=== PATIENT | female | born 1930 | race Caucasian/White ===

== ENCOUNTER 2017-11-21 08:20 | Inpatient (IN) ==
--- NOTE | 2017-11-21 09:03 | ED ---
HPI General Chief Complaint: Extremity Injury, Lower Stated Complaint: Fall Time Seen by Provider: 11/21/17 08:59 Source: patient, family and EMS Mode of arrival: EMS Limitations: no limitations History of Present Illness HPI Narrative: 87-year-old female patient presents to the ER today brought in by family and EMS because she had fallen in the bathroom, states that she had slipped and fallen, has injured her right hip, has an obvious right hip deformity.She also complains of right arm pain. She denies hitting her head, had no loss of consciousness. Patient's son had heard her fall and came to see her and help her up right away. Related Data Home Medications Medication Instructions Recorded Confirmed levothyroxine 11/21/17 lisinopril 11/21/17 Allergies Allergy/AdvReac Type Severity Reaction Status Date / Time penicillin G Allergy Unknown PT DOES Unverified 10/26/16 12:00 NOT REMEMBER REACTION Review of Systems ROS: all other systems reviewed are negative [facility] Medical History Medical History H/O: hysterectomy (Acute) HTN (hypertension) (Acute) Hypothyroidism (Acute) Surgical History Surgical History History of back surgery (Acute) Social History Social History Second Hand Smoke Exposure: No Smoking Status: Never smoker How Often Do You Have a Drink Containing Alcohol: Never Recent Travel in [facility] within the Last 8 Weeks: No Recent Out of Country Travel within the Last 8 Weeks: No Immunization History Tetanus Immunization: Unsure Hx Influenza Vaccine This Season: No Exam Narrative Exam Narrative: GENERAL: Well-developed elderly white female patient currently in moderate distress.Awake and oriented 3. SKIN: Focused skin assessment warm/dry. HEAD: Atraumatic. Normocephalic. EYES: Pupils equal and round. No scleral icterus. No injection or drainage. ENT: No nasal bleeding or discharge. Mucous membranes pink and moist. NECK: Trachea midline. No JVD. CARDIOVASCULAR: Regular rate and rhythm. No murmur appreciated. RESPIRATORY: No accessory muscle use. Clear to auscultation. Breath sounds equal bilaterally. GASTROINTESTINAL: Abdomen soft, non-tender, nondistended. Hepatic and splenic margins not palpable. Pelvis: Stable, there is notable deformity in the right hip area with obvious ecchymosis. Her right leg is shortened and externally rotated. Pulses are present in the dorsal pedis of the right. MUSCULOSKELETAL: No obvious deformities. No clubbing. No cyanosis. No edema. NEUROLOGICAL: Awake and alert. No obvious cranial nerve deficits. Motor grossly within normal limits. Normal speech. PSYCHIATRIC: Appropriate mood and affect; insight and judgment normal. Course Initial Documented Vital Signs Temperature 97.8 F 11/21/17 08:46 Pulse Rate 86 11/21/17 08:46 Respiratory Rate 16 11/21/17 08:46 Blood Pressure 130/61 11/21/17 08:46 Pulse Oximetry 95 11/21/17 08:46 Last Documented Vital Signs Temperature 97.8 F 11/21/17 08:46 Pulse Rate 86 11/21/17 08:46 Respiratory Rate 16 11/21/17 08:46 Blood Pressure 130/61 11/21/17 08:46 Pulse Oximetry 95 11/21/17 08:46 Medical Decision Making MDM Narrative Medical decision making narrative: X-ray shows comminuted right femoral fracture. Lab work shows significant leukocytosis but the patient is afebrile, I suspect that this is due to stress response. At this point, case is discussed with family practice resident service for admission.Case is discussed with PA for Dr. Boogie, who had asked me to put the patient on Mojica's traction, n.p.o. for now, and they may do her today or tomorrow. Medical Screen Exam Complete: Yes Emergency Medical Condition: Yes Differential Diagnosis Differential Diagnosis: Right hip fracture versus dislocation versus contusion Lab Data Lab results reviewed: Yes I reviewed the patient's lab results. Result diagrams: 11/21/17 09:00 11/21/17 09:00 Lab Results 11/21/17 11/21/17 11/21/17 Range/Units 09:00 09:00 09:00 WBC 25.4 H (4.0-11.0) th/mm3 RBC 3.68 L (4.00-5.30) mil/mm3 Hgb 11.3 L (11.6-15.3) gm/dL Hct 34.7 L (35.0-46.0) % MCV 94.2 (80.0-100.0) fL MCH 30.6 (27.0-34.0) pg MCHC 32.5 (32.0-36.0) % RDW 15.2 (11.6-17.2) % Plt Count 148 L (150-450) th/mm3 MPV 7.2 (7.0-11.0) fL Prelim Diff (Auto) Slide review pending Neut % (Auto) 30.7 (16.0-70.0) % Lymph % (Auto) 66.5 H (9.0-44.0) % Smyth % (Auto) 1.2 (0.0-8.0) % Eos % (Auto) 0.8 (0.0-4.0) % Baso % (Auto) 0.8 (0.0-2.0) % Neut # (Auto) 7.8 H (1.8-7.7) th/mm3 Lymph # (Auto) 16.9 H (1.0-4.8) th/mm3 Smyth # (Auto) 0.3 (0.0-0.9) th/mm3 Eos # (Auto) 0.2 (0.0-0.4) th/mm3 Baso # (Auto) 0.2 (0.0-0.2) th/mm3 Differential Comment . PT 12.0 H (9.8-11.6) sec INR 1.2 Ratio APTT 22.9 L (24.3-30.1) sec Sodium 139 (136-145) meq/L Potassium 4.4 (3.5-5.1) meq/L Chloride 106 (98-107) meq/L Carbon Dioxide 25.9 (21.0-32.0) meq/L Anion Gap 7 (5-15) meq/L BUN 22 H (7-18) mg/dL Creatinine 0.58 (0.50-1.00) mg/dL Estimated GFR Greater than 89 (>89) mL/min Random Glucose 179 H (74-106) mg/dL Calcium 8.5 (8.5-10.1) mg/dL Blood Type Blood Type Recheck Antibody Screen 11/21/17 Range/Units 09:00 WBC (4.0-11.0) th/mm3 RBC (4.00-5.30) mil/mm3 Hgb (11.6-15.3) gm/dL Hct (35.0-46.0) % MCV (80.0-100.0) fL MCH (27.0-34.0) pg MCHC (32.0-36.0) % RDW (11.6-17.2) % Plt Count (150-450) th/mm3 MPV (7.0-11.0) fL Prelim Diff (Auto) Neut % (Auto) (16.0-70.0) % Lymph % (Auto) (9.0-44.0) % Smyth % (Auto) (0.0-8.0) % Eos % (Auto) (0.0-4.0) % Baso % (Auto) (0.0-2.0) % Neut # (Auto) (1.8-7.7) th/mm3 Lymph # (Auto) (1.0-4.8) th/mm3 Smyth # (Auto) (0.0-0.9) th/mm3 Eos # (Auto) (0.0-0.4) th/mm3 Baso # (Auto) (0.0-0.2) th/mm3 Differential Comment PT (9.8-11.6) sec INR Ratio APTT (24.3-30.1) sec Sodium (136-145) meq/L Potassium (3.5-5.1) meq/L Chloride (98-107) meq/L Carbon Dioxide (21.0-32.0) meq/L Anion Gap (5-15) meq/L BUN (7-18) mg/dL Creatinine (0.50-1.00) mg/dL Estimated GFR (>89) mL/min Random Glucose (74-106) mg/dL Calcium (8.5-10.1) mg/dL Blood Type A Positive Blood Type Recheck Required Antibody Screen Negative Imaging Data Attestation: I personally reviewed and interpreted this imaging study as follows : Radiologist's impression: Pelvis X-Ray 11/21/17 00:00 CONCLUSION: Negative for acute pelvic fracture. Chest X-Ray 11/21/17 08:59 CONCLUSION: 1. No evidence of acute cardiopulmonary process. 2. Cardiomegaly 3. Nondisplaced fracture proximal right femur 4. Severe bilateral shoulder arthropathy. Femur X-Ray 11/21/17 08:59 CONCLUSION: Proximal femur fracture as above. Humerus X-Ray 11/21/17 08:59 CONCLUSION: Fracture proximal humerus as above. Discharge Plan Discharge Disposition Patient Disposition: 30 Still Patient Discharge Condition Condition: Stable Discharge Details Anticipated Discharge Date: 11/21/17 Diagnosis: Fracture of femur Physicians Team ED Provider: Frank Reina Primary Care Provider: UNKNOWN, Rxs /Orders / Referrals /Forms Prescriptions: No Action levothyroxine RF: 0 lisinopril RF: 0 Status ED Status: Admitted Patient
[2017-11-21 09:24] LABS: Baso # (Auto) 0.2 th/mm3 (0.0-0.2); Baso % (Auto) 0.8 % (0.0-2.0); Eos # (Auto) 0.2 th/mm3 (0.0-0.4); Eos % (Auto) 0.8 % (0.0-4.0); Hematocrit 34.7 % (35.0-46.0); Hemoglobin 11.3 gm/dL (11.6-15.3); Lymph # (Auto) 16.9 th/mm3 (1.0-4.8); Lymph % (Auto) 66.5 % (9.0-44.0); Mean Corpuscular HGB Conc 32.5 % (32.0-36.0); Mean Corpuscular Hemoglobin 30.6 pg (27.0-34.0); Mean Corpuscular Volume 94.2 fL (80.0-100.0); Mean Platelet Volume 7.2 fL (7.0-11.0); Mono # (Auto) 0.3 th/mm3 (0.0-0.9); Mono % (Auto) 1.2 % (0.0-8.0); Neut # (Auto) 7.8 th/mm3 (1.8-7.7); Neut % (Auto) 30.7 % (16.0-70.0); Platelet Count 148 th/mm3 (150-450); Red Blood Count 3.68 mil/mm3 (4.00-5.30); Red Cell Distribution Width 15.2 % (11.6-17.2); White Blood Count 25.4 th/mm3 (4.0-11.0)
[2017-11-21 09:39] LABS: Activated Partial Thrombo Time 22.9 sec (24.3-30.1); INR 1.2 Ratio
[2017-11-21 09:44] LABS: Anion Gap 7 meq/L (5-15); Blood Urea Nitrogen 22 mg/dL (7-18); Calcium 8.5 mg/dL (8.5-10.1); Carbon Dioxide 25.9 meq/L (21.0-32.0); Chloride 106 meq/L (98-107); Glomerular Filtration Rate Greater Than 89 mL/min (>89); Glucose,Random 179 mg/dL (74-106); Potassium 4.4 meq/L (3.5-5.1); Sodium 139 meq/L (136-145)
[2017-11-21] MEDS ORDERED: Acetaminophen 325 MG Tablet PO PRN (10:33)
[2017-11-21] MEDS ORDERED: Morphine Inj 4 MG/ML Vial IV.PUSH PRN (10:33)
[2017-11-21] MEDS ORDERED: Naloxone Inj 0.4 MG/ML Vial IV.PUSH PRN (10:33)
[2017-11-21 11:11] LABS: Eosinophils 2 % (0-4); Lymphocytes 71 % (9-44); Monocytes 7 % (0-8)
[2017-11-21 11:12] LABS: Platelet Morphology Normal (Normal)
--- NOTE | 2017-11-21 11:32 | P.HPFP ---
History of Present Illness Primary Care Physician: UNKNOWN <Cruz Fischer Josefina 11/21/17 17:54> UNKNOWN <TeresaRae Terry 11/21/17 11:32> History of Present Illness: Ms Walker is an 87yof with past medical history of osteoporosis here for evaluation after a fall this am. Most of history is given by son as patient is very hard of hearing and gets frustrated upon repeated questioning. Patient got up at about 7 AM the bathroom and slid on the tile floor. She reports that she did not hit her head and just slid directly on her buttocks. The son found her immediately. He reports that her right leg was twisted outward there was bruising noted on the right outer hip. She has not ambulated since the fall. There was no incontinence of bowel or bladder or tongue biting. She did not lose consciousness. She reports that she uses a walker at all times at home she has had 2 falls in the last year. She fractured her right arm 2 years ago. PMH R humerus fracture, 2016 Osteoporosis Hypertension Hypothyroid Meds Levothyroxine Lisinopril Sx Back surgery 25 years ago x3 Social Tobacco never smoker No EtOH Cannabis about twice a day, small amounts <TeresaRae Stewart 11/21/17 14:07> - Diagnosis (1) Fracture of femur (2) Leukocytosis (3) Hyperglycemia (4) Hypothyroid (5) Hypertension (6) Humeral fracture (7) Nutrition, metabolism, and development symptoms <Cruz Fischer Josefina 11/21/17 17:54> (1) Fracture of femur (2) Leukocytosis (3) Hyperglycemia (4) Hypothyroid (5) Hypertension (6) Humeral fracture (7) Nutrition, metabolism, and development symptoms <Rae Moore - 11/21/17 16:20> Inpatient Certification: I certify that the inpatient services were ordered in accordance with Medicare regulations governing the order. This includes certification that hospital inpatient services are reasonable and necessary and in the case of services not specified as inpatient-only under 42 CFR 419.22(n), that they are appropriately provided as inpatient services in accordance to with the 2-midnight benchmark under 43 CFR 412.3(e) <Cruz Fischer Josefina 11/21/17 17:54> I certify that the inpatient services were ordered in accordance with Medicare regulations governing the order. This includes certification that hospital inpatient services are reasonable and necessary and in the case of services not specified as inpatient-only under 42 CFR 419.22(n), that they are appropriately provided as inpatient services in accordance to with the 2-midnight benchmark under 43 CFR 412.3(e) <Rae Moore 11/21/17 11:32> Estimated Total Length of Stay (Days): 3 <Rae Moore 11/21/17 11:32> Plans for Post Hospital Care: Not yet determined <Rae Moore 11/21/17 11: 32> Review of Systems Constitutional: Denies chills, Denies fever(s), Denies weakness <TeresaRae Stewart 11/21/17 14:07> Ears, Nose, Mouth, and Throat: Denies dizziness, Denies sore throat <Teresa Rae Stewart 11/21/17 14:07> Cardiovascular: Denies chest pain, Denies fainting, Denies lightheadedness < Teresa,Rae Stewart 11/21/17 14:07> Respiratory: Denies cough, Denies shortness of breath <Rae Moore 14:07> Gastrointestinal: Denies abdominal pain, Denies black, tarry stools, Denies constipation, Denies incontinent of stools, Denies loose stools, Denies nausea, Denies vomiting <Rae Moore 11/21/17 14:07> Genitourinary: Denies painful urination, Denies urinary incontinence <Teresa, Rae Stewart 11/21/17 14:07> PMF - History History Provided By: Patient, Family Member <Rae Moore 11/21/17 11:32> - Medical History Medical History: Medical History (Last Reviewed 11/21/17 @ 09:01 by Frank Reina MD) H/O: hysterectomy HTN (hypertension) Hypothyroidism <Cruz Fischer 11/21/17 17:54> Medical History (Last Reviewed 11/21/17 @ 09:01 by Frank Reina MD) H/O: hysterectomy HTN (hypertension) Hypothyroidism <TeresaRae E 11/21/17 11:32> - Surgical History Surgical History: Surgical History (Last Reviewed 11/21/17 @ 09:01 by Frank Reina MD) History of back surgery <Cruz Fischer 11/21/17 17:54> Surgical History (Last Reviewed 11/21/17 @ 09:01 by Frank Reina MD) History of back surgery <Rae Moore 11/21/17 11:32> - Tobacco History Second Hand Smoke Exposure: No <Rae Moore 11/21/17 11:32> Smoking Status: Never smoker <Rae Moore 11/21/17 11:32> - Alcohol History How Often Do You Have a Drink Containing Alcohol: Never <Rae Moore 11/21 11:32> - Travel History Recent Travel in the [facility] Within the Last 8 Weeks: No <Rae Moore 11:32> Recent Travel Out of the Country Within the Last 8 Weeks: No <Rae Moore 11/21/17 11:32> - Immunization History Tetanus Immunization: Unsure <Rae Moore 11/21/17 11:32> Hx Influenza Vaccine This Season: No <Rae Moore 11/21/17 11:32> Medications and Allergies Allergies Allergy/AdvReac Type Severity Reaction Status Date / Time penicillin G Allergy Unknown PT DOES Verified 11/21/17 13:23 NOT REMEMBER REACTION <Cruz Fischer 11/21/17 17:54> Home Medications Medication Instructions Recorded Confirmed Type levothyroxine 11/21/17 History lisinopril 11/21/17 History <Cruz Fischer 11/21/17 17:54> Active Medications: Active Medications Acetaminophen (Tylenol) 650 mg PO Q6HR PRN PRN Reason: PAIN SCALE 1 TO 2 Hydrocodone Bitart/Acetaminophen (Binger 7.5/325) 1 tab PO Q4H PRN PRN Reason: PAIN SCALE 6 TO 10 Hydrocodone Bitart/Acetaminophen (Binger 5/325) 1 tab PO Q4H PRN PRN Reason: PAIN SCALE 3 TO 5 Last Admin: 11/21/17 11:15 Dose: 1 tab Al Hydroxide/Mg Hydroxide (Milk Of Magnesia Liq) 30 ml PO Q12H PRN PRN Reason: Mild Constipation Sodium Chloride (Ns Inj) 1,000 mls @ 50 mls/hr IV.CONT .Q20H ESTHER Last Admin: 11/21/17 16:33 Dose: 50 mls/hr Morphine Sulfate (Morphine Inj) 4 mg IV.PUSH Q3H PRN PRN Reason: BREAKTHROUGH PAIN Naloxone HCl (Narcan Inj) 0.4 mg IV.PUSH UNSCH PRN PRN Reason: SEE LABEL COMMENTS Senna/Docusate Sodium (Holli-Colace) 1 tab PO BID ESTHER Sennosides (Senokot) 17.2 mg PO Q12H PRN PRN Reason: Moderate Constipation <Cruz Fischer - 11/21/17 17:54> Active Medications Acetaminophen (Tylenol) 650 mg PO Q6HR PRN PRN Reason: PAIN SCALE 1 TO 2 Hydrocodone Bitart/Acetaminophen (Binger 7.5/325) 1 tab PO Q4H PRN PRN Reason: PAIN SCALE 6 TO 10 Hydrocodone Bitart/Acetaminophen (Binger 5/325) 1 tab PO Q4H PRN PRN Reason: PAIN SCALE 3 TO 5 Last Admin: 11/21/17 11:15 Dose: 1 tab Al Hydroxide/Mg Hydroxide (Milk Of Magnkuldeep Liq) 30 ml PO Q12H PRN PRN Reason: Mild Constipation Morphine Sulfate (Morphine Inj) 4 mg IV.PUSH Q3H PRN PRN Reason: BREAKTHROUGH PAIN Naloxone HCl (Narcan Inj) 0.4 mg IV.PUSH UNSCH PRN PRN Reason: SEE LABEL COMMENTS Senna/Docusate Sodium (Holli-Colace) 1 tab PO BID ESTHER Sennosides (Senokot) 17.2 mg PO Q12H PRN PRN Reason: Moderate Constipation <Rae Moore - 11/21/17 11:32> Exam Vital signs: Vital Signs 11/21/17 08:46 11/21/17 10:30 11/21/17 12:00 Temperature 97.8 F Pulse Rate 86 84 90 Respiratory Rate 16 19 17 Blood Pressure 130/61 113/53 L 121/57 L Pulse Oximetry 95 97 94 L 11/21/17 17:08 11/21/17 17:27 Temperature 98.4 F Pulse Rate 90 Respiratory Rate 16 17 Blood Pressure 139/62 Pulse Oximetry 96 Intake & Output 11/20/17 11/21/1718 18:59 06:59 18:59 Weight 52.163 kg <Cruz Fischer - 11/21/17 17:54> Vital Signs 11/21/17 08:46 Temperature 97.8 F Pulse Rate 86 Respiratory Rate 16 Blood Pressure 130/61 Pulse Oximetry 95 Intake & Output 11/20/17 11/21/17 11/21/17 18:59 06:59 18:59 Weight 52.163 kg <Rae Moore - 11/21/17 11:32> Narrative: GENERAL: Elderly female lying in bed under pile blankets. No acute distress HEAD: Atraumatic. Nontender to palpation. Normocephalic. EYES: Pupils equal and round. ENT: No nasal bleeding or discharge. Mucous membranes pink and slightly dry. CARDIOVASCULAR: Regular rate and rhythm. Grade 1 out of 6 systolic ejection murmur heard best over left sternal border. RESPIRATORY: No accessory muscle use. Clear to auscultation. Breath sounds equal bilaterally. GASTROINTESTINAL: Abdomen soft, non-tender, nondistended. MUSCULOSKELETAL: Right leg externally rotated. Moderate swelling and bruising along left lateral hip to mid lateral thigh. No open areas seen. Nontender to palpation. Patient able to move toes. Neurovascularly intact. Right upper extremity nontender to palpation. No bruising noted. Neurovascularly intact NEUROLOGICAL: Awake and alert. No obvious cranial nerve deficits. Motor grossly within normal limits. Normal speech. PSYCHIATRIC: Appropriate mood and affect; insight and judgment normal. Patient frustrated with communication barrier due to her hearing loss. <Rae Moore - 11/21/17 14:30> Results - Labs Result diagrams: 11/21/17 09:00 11/21/17 09:00 <Cruz Fischer - 11/21/17 17:54> Abnormal lab results 11/21/17 11/21/17 11/21/17 Range/Units 09:00 09:00 09:00 WBC 25.4 H (4.0-11.0) th/mm3 RBC 3.68 L (4.00-5.30) mil/mm3 Hgb 11.3 L (11.6-15.3) gm/dL Hct 34.7 L (35.0-46.0) % Plt Count 148 L (150-450) th/mm3 Lymph % (Auto) 66.5 H (9.0-44.0) % Neut # (Auto) 7.8 H (1.8-7.7) th/mm3 Lymph # (Auto) 16.9 H (1.0-4.8) th/mm3 Lymphocytes % (Manual) 71 H (9-44) % Platelet Estimate Low L (Normal) PT 12.0 H (9.8-11.6) sec APTT 22.9 L (24.3-30.1) sec BUN 22 H (7-18) mg/dL Random Glucose 179 H (74-106) mg/dL Vitamin D 25-Hydroxy (30-100) ng/mL Urine Clarity (Clear) Urine Mucus (Occasional) /lpf 11/21/17 11/21/17 Range/Units 09:00 10:20 WBC (4.0-11.0) th/mm3 RBC (4.00-5.30) mil/mm3 Hgb (11.6-15.3) gm/dL Hct (35.0-46.0) % Plt Count (150-450) th/mm3 Lymph % (Auto) (9.0-44.0) % Neut # (Auto) (1.8-7.7) th/mm3 Lymph # (Auto) (1.0-4.8) th/mm3 Lymphocytes % (Manual) (9-44) % Platelet Estimate (Normal) PT (9.8-11.6) sec APTT (24.3-30.1) sec BUN (7-18) mg/dL Random Glucose (74-106) mg/dL Vitamin D 25-Hydroxy 14.9 L (30-100) ng/mL Urine Clarity Hazy H (Clear) Urine Mucus Few H (Occasional) /lpf Short CBC 11/21/17 Range/Units 09:00 WBC 25.4 H (4.0-11.0) th/mm3 Hgb 11.3 L (11.6-15.3) gm/dL Hct 34.7 L (35.0-46.0) % Plt Count 148 L (150-450) th/mm3 BMP 11/21/17 09:00 Sodium 139 Potassium 4.4 Chloride 106 Carbon Dioxide 25.9 BUN 22 H Creatinine 0.58 Calcium 8.5 Urine 11/21/17 Range/Units 10:20 Urine Color Yellow (Yellw/Straw) Urine Clarity Hazy H (Clear) Urine pH 5.0 (5.0-8.5) Ur Specific [place] 1.012 (1.002-1.035) Urine Protein Negative (Neg-Trace) mg/dL Urine Glucose (UA) Negative (Negative) mg/dL <Cruz Fischer - 11/21/17 17:54> Abnormal lab results 11/21/17 11/21/17 11/21/17 Range/Units 09:00 09:00 09:00 WBC 25.4 H (4.0-11.0) th/mm3 RBC 3.68 L (4.00-5.30) mil/mm3 Hgb 11.3 L (11.6-15.3) gm/dL Hct 34.7 L (35.0-46.0) % Plt Count 148 L (150-450) th/mm3 Lymph % (Auto) 66.5 H (9.0-44.0) % Neut # (Auto) 7.8 H (1.8-7.7) th/mm3 Lymph # (Auto) 16.9 H (1.0-4.8) th/mm3 Lymphocytes % (Manual) 71 H (9-44) % Platelet Estimate Low L (Normal) PT 12.0 H (9.8-11.6) sec APTT 22.9 L (24.3-30.1) sec BUN 22 H (7-18) mg/dL Random Glucose 179 H (74-106) mg/dL Short CBC 11/21/17 Range/Units 09:00 WBC 25.4 H (4.0-11.0) th/mm3 Hgb 11.3 L (11.6-15.3) gm/dL Hct 34.7 L (35.0-46.0) % Plt Count 148 L (150-450) th/mm3 BMP 11/21/17 09:00 Sodium 139 Potassium 4.4 Chloride 106 Carbon Dioxide 25.9 BUN 22 H Creatinine 0.58 Calcium 8.5 <Rae Moore - 11/21/17 11:32> - Imaging Impressions Pelvis X-Ray 11/21/17 00:00 CONCLUSION: Negative for acute pelvic fracture. Chest X-Ray 11/21/17 08:59 CONCLUSION: 1. No evidence of acute cardiopulmonary process. 2. Cardiomegaly 3. Nondisplaced fracture proximal right femur 4. Severe bilateral shoulder arthropathy. Femur X-Ray 11/21/17 08:59 CONCLUSION: Proximal femur fracture as above. Humerus X-Ray 11/21/17 08:59 CONCLUSION: Fracture proximal humerus as above. <Cruz Fischer - 11/21/17 17:54> Impressions Pelvis X-Ray 11/21/17 00:00 CONCLUSION: Negative for acute pelvic fracture. Chest X-Ray 11/21/17 08:59 CONCLUSION: 1. No evidence of acute cardiopulmonary process. 2. Cardiomegaly 3. Nondisplaced fracture proximal right femur 4. Severe bilateral shoulder arthropathy. Femur X-Ray 11/21/17 08:59 CONCLUSION: Proximal femur fracture as above. Humerus X-Ray 11/21/17 08:59 CONCLUSION: Fracture proximal humerus as above. <Rae Moore - 11/21/17 11:32> Caprini VTE Risk Assessment Caprini VTE Risk Assessment: Moderate/High Risk (score >= 2) <Rae Moore - 11/21/17 14:30> Caprini Risk Assessment Model: Point Value = 1 Point Value = 2 Point Value = 3 Point Value = 5 Age 41-60 Minor surgery BMI > 25 kg/m2 Swollen legs Varicose veins or History of unexplained or recurrent spontaneous Oral contraceptives or hormone replacement Sepsis (< 1 month) Serious lung disease, including pneumonia (< 1 month) Abnormal pulmonary function Acute myocardial infarction Congestive heart failure (< 1 month) History of inflammatory bowel disease Medical patient at bed rest Age 61-74 Arthroscopic surgery Major open surgery (> 45 min) Laparoscopic surgery (> 45 min) Malignancy Confined to bed (> 72 hours) Immobilizing plaster cast Central venous access Age >= 75 History of VTE Family history of VTE Factor V Leiden Prothrombin [id number] Lupus anticoagulant Anticardiolipin antibodies Elevated serum homocysteine Heparin-induced thrombocytopenia Other congenital or acquired thrombophilia Stroke (< 1 month) Elective arthroplasty Hip, pelvis, or leg fracture Acute spinal cord injury (< 1 month) <Cruz Fischer - 11/21/17 17:54> Point Value = 1 Point Value = 2 Point Value = 3 Point Value = 5 Age 41-60 Minor surgery BMI > 25 kg/m2 Swollen legs Varicose veins or History of unexplained or recurrent spontaneous Oral contraceptives or hormone replacement Sepsis (< 1 month) Serious lung disease, including pneumonia (< 1 month) Abnormal pulmonary function Acute myocardial infarction Congestive heart failure (< 1 month) History of inflammatory bowel disease Medical patient at bed rest Age 61-74 Arthroscopic surgery Major open surgery (> 45 min) Laparoscopic surgery (> 45 min) Malignancy Confined to bed (> 72 hours) Immobilizing plaster cast Central venous access Age >= 75 History of VTE Family history of VTE Factor V Leiden Prothrombin [id number] Lupus anticoagulant Anticardiolipin antibodies Elevated serum homocysteine Heparin-induced thrombocytopenia Other congenital or acquired thrombophilia Stroke (< 1 month) Elective arthroplasty Hip, pelvis, or leg fracture Acute spinal cord injury (< 1 month) <Rae Moore E - 11/21/17 11:32> Prophylaxis Regimen: Total Risk Factor Score Risk Level Prophylaxis Regimen 0-1 Low Early ambulation 2 Moderate Order ONE of the following: *Sequential Compression Device (SCD) *Heparin 5000 units SQ BID 3-4 Higher Order ONE of the following medications: *Heparin 5000 units SQ TID *Enoxaparin/Lovenox 40 mg SQ daily (WT < 150 kg, CrCl > 30 mL/min) *Enoxaparin/Lovenox 30 mg SQ daily (WT < 150 kg, CrCl > 10-29 mL/min) *Enoxaparin/Lovenox 30 mg SQ BID (WT < 150 kg, CrCl > 30 mL/min) AND/OR *Sequential Compression Device (SCD) 5 or more Highest Order ONE of the following medications: *Heparin 5000 units SQ TID (Preferred with Epidurals) *Enoxaparin/Lovenox 40 mg SQ daily (WT < 150 kg, CrCl > 30 mL/min) *Enoxaparin/Lovenox 30 mg SQ daily (WT < 150 kg, CrCl > 10-29 mL/min) *Enoxaparin/Lovenox 30 mg SQ BID (WT < 150 kg, CrCl > 30 mL/min) AND *Sequential Compression Device (SCD) <Cruz Fischer - 11/21/17 17:54> Total Risk Factor Score Risk Level Prophylaxis Regimen 0-1 Low Early ambulation 2 Moderate Order ONE of the following: *Sequential Compression Device (SCD) *Heparin 5000 units SQ BID 3-4 Higher Order ONE of the following medications: *Heparin 5000 units SQ TID *Enoxaparin/Lovenox 40 mg SQ daily (WT < 150 kg, CrCl > 30 mL/min) *Enoxaparin/Lovenox 30 mg SQ daily (WT < 150 kg, CrCl > 10-29 mL/min) *Enoxaparin/Lovenox 30 mg SQ BID (WT < 150 kg, CrCl > 30 mL/min) AND/OR *Sequential Compression Device (SCD) 5 or more Highest Order ONE of the following medications: *Heparin 5000 units SQ TID (Preferred with Epidurals) *Enoxaparin/Lovenox 40 mg SQ daily (WT < 150 kg, CrCl > 30 mL/min) *Enoxaparin/Lovenox 30 mg SQ daily (WT < 150 kg, CrCl > 10-29 mL/min) *Enoxaparin/Lovenox 30 mg SQ BID (WT < 150 kg, CrCl > 30 mL/min) AND *Sequential Compression Device (SCD) <Rae Moore - 11/21/17 11:32> Assessment and Plan - Assessment (1) Fracture of femur Code(s): S72.90XA - Unspecified fracture of unspecified femur, initial encounter for closed fracture Status: Acute (2) Leukocytosis Code(s): D72.829 - Elevated white blood cell count, unspecified Status: Acute (3) Hyperglycemia Code(s): R73.9 - Hyperglycemia, unspecified Status: Acute (4) Hypothyroid Code(s): E03.9 - Hypothyroidism, unspecified Status: Acute (5) Hypertension Code(s): I10 - Essential (primary) hypertension Status: Acute (6) Humeral fracture Code(s): S42.309A - Unspecified fracture of shaft of humerus, unspecified arm, initial encounter for closed fracture Status: Chronic (7) Nutrition, metabolism, and development symptoms Code(s): R63.8 - Other symptoms and signs concerning food and fluid intake Status: Acute <Cruz Fischer - 11/21/17 17:54> (1) Fracture of femur Code(s): S72.90XA - Unspecified fracture of unspecified femur, initial encounter for closed fracture Status: Acute Plan: Comminuted spiral fracture of proximal femur noted on x-ray Patient neurovascularly intact -Orthopedic surgery consulted, appreciate recommendations -Binger for pain with morphine for breakthrough pain -Total vitamin D level ordered -Will consider DEXA scan planning +/- bisphosphonate on discharge. (2) Leukocytosis Code(s): D72.829 - Elevated white blood cell count, unspecified Status: Acute Plan: Likely result of current inflammation state. Absolute neutrophil count and neutrophil percent within normal limits. Patient is afebrile. Urinalysis negative. -Follow-up CBC in a.m. -Continue to monitor patient for signs of infection (3) Hyperglycemia Code(s): R73.9 - Hyperglycemia, unspecified Status: Acute Plan: Patient has no reported history of diabetes. Likely stress reaction. -Patient is n.p.o. pending orthopedic evaluation -Follow-up BMP in a.m. (4) Hypothyroid Code(s): E03.9 - Hypothyroidism, unspecified Status: Acute Plan: We will continue home levothyroxine once dosing is obtained (5) Hypertension Code(s): I10 - Essential (primary) hypertension Status: Acute Plan: Hold home lisinopril for now as patient has been normotensive (6) Humeral fracture Code(s): S42.309A - Unspecified fracture of shaft of humerus, unspecified arm, initial encounter for closed fracture Status: Chronic Plan: Ordered by son to be chronic. Patient had fracture 2 years prior -Orthopedic surgery consulted appreciate recommendations. -Continue to monitor for signs of ecchymosis etc. indicating acute injury (7) Nutrition, metabolism, and development symptoms Code(s): R63.8 - Other symptoms and signs concerning food and fluid intake Status: Acute Plan: Diet: Patient is n.p.o. for now pending orthopedic evaluation Fluids: Patient on half maintenance fluids normal saline 50 mL's per hour as she is n.p.o. currently. DVT prophylaxis: Patient is on SCDs only pending orthopedic evaluation. <Rae Moore E - 11/21/17 16:20> - Assessment and Plan Discussed Condition With: Pedro Luis Still and Amado <Rae Moore - 11/21/17 14:30> - Attending Attestation The exam, history, and the medical decision-making described in the above note were completed with the assistance of the resident physician. I reviewed and agree with the findings presented. I attest that I had a [id number] encounter with the patient on the same day, and personally performed and documented my assessment and findings in the medical record. <Cruz Fischer - 11/21/17 17:54> <Rae Moore E - Last Filed: 11/21/17 16:20> (1) Fracture of femur Qualifiers: Encounter type: initial encounter Fracture type: closed Fracture morphology : spiral Laterality: right (6) Humeral fracture Qualifiers: Fracture type: closed Laterality: right <Cruz Fischer - Last Filed: 11/21/17 17:54> (1) Fracture of femur Qualifiers: Encounter type: initial encounter Fracture type: closed Fracture morphology : spiral Laterality: right (6) Humeral fracture Qualifiers: Fracture type: closed Laterality: right <Rae Moore E - Last Filed: 11/21/17 16:20> (1) Fracture of femur Qualifiers: Encounter type: initial encounter Fracture type: closed Fracture morphology : spiral Laterality: right (6) Humeral fracture Qualifiers: Fracture type: closed Laterality: right <Cruz Fischer - Filed: 11/21/17 17:54> (1) Fracture of femur Qualifiers: Encounter type: initial encounter Fracture type: closed Fracture morphology : spiral Laterality: right (6) Humeral fracture Qualifiers: Fracture type: closed Laterality: right
[2017-11-21 12:05] LABS: Bilirubin,Urine Negative (Negative); Clarity,Urine Hazy (Clear); Color,Urine Yellow (Yellw/Straw); Glucose,Urine (UA) Negative (Negative); Hyaline Casts,Urine 3 /lpf (0-3); Leukocyte Esterase,Urine Negative (Negative); Mucus,Urine Few /lpf (Occasional); Nitrite,Urine Negative (Negative); Specific Gravity,Urine 1.012 (1.002-1.035); Squamous Epithelial Cell,Urine <1 /hpf (0-5)
--- NOTE | 2017-11-21 15:37 | P.PNFP ---
Subjective Interval history: Patient resting in bed, son at the bedside. Currently without pain. Results - Labs Result diagrams: 11/21/17 09:00 11/21/17 09:00 Abnormal lab results 11/21/17 11/21/17 11/21/17 Range/Units 09:00 09:00 09:00 WBC 25.4 H (4.0-11.0) th/mm3 RBC 3.68 L (4.00-5.30) mil/mm3 Hgb 11.3 L (11.6-15.3) gm/dL Hct 34.7 L (35.0-46.0) % Plt Count 148 L (150-450) th/mm3 Lymph % (Auto) 66.5 H (9.0-44.0) % Neut # (Auto) 7.8 H (1.8-7.7) th/mm3 Lymph # (Auto) 16.9 H (1.0-4.8) th/mm3 Lymphocytes % (Manual) 71 H (9-44) % Platelet Estimate Low L (Normal) PT 12.0 H (9.8-11.6) sec APTT 22.9 L (24.3-30.1) sec BUN 22 H (7-18) mg/dL Random Glucose 179 H (74-106) mg/dL Urine Clarity (Clear) Urine Mucus (Occasional) /lpf 11/21/17 Range/Units 10:20 WBC (4.0-11.0) th/mm3 RBC (4.00-5.30) mil/mm3 Hgb (11.6-15.3) gm/dL Hct (35.0-46.0) % Plt Count (150-450) th/mm3 Lymph % (Auto) (9.0-44.0) % Neut # (Auto) (1.8-7.7) th/mm3 Lymph # (Auto) (1.0-4.8) th/mm3 Lymphocytes % (Manual) (9-44) % Platelet Estimate (Normal) PT (9.8-11.6) sec APTT (24.3-30.1) sec BUN (7-18) mg/dL Random Glucose (74-106) mg/dL Urine Clarity Hazy H (Clear) Urine Mucus Few H (Occasional) /lpf Short CBC 09/10/18 Range/Units 09:00 WBC 25.4 H (4.0-11.0) th/mm3 Hgb 11.3 L (11.6-15.3) gm/dL Hct 34.7 L (35.0-46.0) % Plt Count 148 L (150-450) th/mm3 BMP 11/21/17 09:00 Sodium 139 Potassium 4.4 Chloride 106 Carbon Dioxide 25.9 BUN 22 H Creatinine 0.58 Calcium 8.5 Urine 11/21/17 Range/Units 10:20 Urine Color Yellow (Yellw/Straw) Urine Clarity Hazy H (Clear) Urine pH 5.0 (5.0-8.5) Ur Specific [place] 1.012 (1.002-1.035) Urine Protein Negative (Neg-Trace) mg/dL Urine Glucose (UA) Negative (Negative) mg/dL - Imaging Impressions Pelvis X-Ray 11/21/17 00:00 CONCLUSION: Negative for acute pelvic fracture. Chest X-Ray 11/21/17 08:59 CONCLUSION: 1. No evidence of acute cardiopulmonary process. 2. Cardiomegaly 3. Nondisplaced fracture proximal right femur 4. Severe bilateral shoulder arthropathy. Femur X-Ray 11/21/17 08:59 CONCLUSION: Proximal femur fracture as above. Humerus X-Ray 11/21/17 08:59 CONCLUSION: Fracture proximal humerus as above. Physical Exam Vital signs: Vital Signs 11/21/17 08:46 11/21/17 10:30 11/21/17 12:00 Temperature 97.8 F Pulse Rate 86 84 90 Respiratory Rate 16 19 17 Blood Pressure 130/61 113/53 L 121/57 L Pulse Oximetry 95 97 94 L Intake & Output 11/20/17 11/21/17 11/21/17 18:59 06:59 18:59 Weight 52.163 kg Narrative: General: Elderly female in no acute pain, awake, alert, responsive to questions Skin: No breaks in the skin secondary to fracture HEENT: Normocephalic, no scalp lesions/hematoma noticed Neck: Has normal range of motion CV: RRR, no murmurs, rubs, or gallops. Normal cap refill distal to the right femur fracture. Normal DP/PT pulses in the right foot. Lungs: CTAB Abdomen: soft, nontender, nondistended, normal bowel sounds Ext: right leg is wrapped and elevated, neurovasculature is intact, shortened and externally rotated leg on right - Urinary Catheter Management Indwelling Urethral Catheter Cath placed during this visit: yes Reason for continuing: Other continuation reason Insertion date: 11/21/17 Assessment and Plan - Assessment (1) Fracture of femur Code(s): S72.90XA - Unspecified fracture of unspecified femur, initial encounter for closed fracture Status: Acute Plan: Comminuted spiral fracture of proximal femur noted on x-ray Patient neurovascularly intact -Orthopedic surgery consulted, appreciate recommendations -Chalmers for pain with morphine for breakthrough pain -Total vitamin D level ordered, would benefit from supplementation depending on level - Discuss adequate calcium intake, may benefit from supplementation -Will consider DEXA scan planning +/- bisphosphonate on discharge. - Discuss prevention of falls at home - Will likely require rehabilitation, physical therapy - will plan and discuss disposition with patient and son (2) Leukocytosis Code(s): D72.829 - Elevated white blood cell count, unspecified Status: Acute Plan: Likely result of current inflammation state. Absolute neutrophil count and neutrophil percent within normal limits. Patient is afebrile. Urinalysis negative. -Follow-up CBC in a.m. -Continue to monitor patient for signs of infection (3) Hyperglycemia Code(s): R73.9 - Hyperglycemia, unspecified Status: Acute Plan: Patient has no reported history of diabetes. Likely stress reaction. -Patient is n.p.o. pending orthopedic evaluation -Follow-up BMP in a.m. (4) Hypothyroid Code(s): E03.9 - Hypothyroidism, unspecified Status: Acute Plan: We will continue home levothyroxine once dosing is obtained (5) Hypertension Code(s): I10 - Essential (primary) hypertension Status: Acute Plan: Hold home lisinopril for now as patient has been normotensive (6) Humeral fracture Code(s): S42.309A - Unspecified fracture of shaft of humerus, unspecified arm, initial encounter for closed fracture Status: Chronic Plan: Son reports this is chronic. Patient had fracture 2 years prior -Orthopedic surgery consulted appreciate recommendations. -Continue to monitor for signs of ecchymosis etc. indicating acute injury (7) Nutrition, metabolism, and development symptoms Code(s): R63.8 - Other symptoms and signs concerning food and fluid intake Status: Acute Plan: Diet: Patient is n.p.o. for now pending orthopedic evaluation Fluids: Patient on half maintenance fluids normal saline 50 mL's per hour as she is n.p.o. currently. DVT prophylaxis: Patient is on SCDs only pending orthopedic evaluation, will need prophylactic anticoagulation started after surgery (1) Fracture of femur Qualifiers: Encounter type: initial encounter Fracture type: closed Fracture morphology : spiral Laterality: right (6) Humeral fracture Qualifiers: Fracture type: closed Laterality: right
[2017-11-21] MEDS: Sod Chloride 0.9% Inj 1,000 ML IV.CONT SCH (16:33)
[2017-11-21] MEDS: Senna/Docusate Sodium 8.6/50 MG Tablet PO SCH (22:22)
[2017-11-22] MEDS ORDERED: Metoprolol Tartrate 25 MG Tablet PO ONE (03:51)
[2017-11-22] MEDS ORDERED: Chlorhexidine Gluconate 2% 1 Pack (2 Cloths) TOPICAL ONE (03:51)
[2017-11-22] MEDS ORDERED: Sodium Chlor 0.9% Inj 500 ML IV.SIG SCH (04:00)
--- NOTE | 2017-11-22 06:33 | P.PNOP ---
Subjective Interval history: s/p fall with right hip fx confused. does not answer questions Physical Exam Vital signs: Vital Signs 11/21/17 08:46 11/21/17 10:30 11/21/17 12:00 Temperature 97.8 F Pulse Rate 86 84 90 Respiratory Rate 16 19 17 Blood Pressure 130/61 113/53 L 121/57 L Pulse Oximetry 95 97 94 L 11/21/17 17:08 11/21/17 17:27 11/21/17 19:37 Temperature 98.4 F 97.3 F L Pulse Rate 90 98 H Respiratory Rate 16 17 18 Blood Pressure 139/62 123/57 L Pulse Oximetry 96 96 11/21/17 22:29 11/21/17 23:48 11/22/17 02:30 Temperature 97.6 F Pulse Rate 94 H Respiratory Rate 17 18 17 Blood Pressure 112/59 L Pulse Oximetry 100 11/22/17 04:34 Temperature 98.1 F Pulse Rate 86 Respiratory Rate 18 Blood Pressure 119/60 Pulse Oximetry 97 Intake & Output 11/21/17 11/21/17 11/22/17 06:59 18:59 06:59 Intake Total 480 / 480 Output Total 300 / 300 Balance 180 / 180 Weight 52.163 kg 52.1 kg Intake: Oral 480 / 480 Output: Urine Amount (Catheter) 300 / 300 Indwelling Urethral Catheter 300 / 300 Other: Date of Last Bowel Movement 11/21/17 # Bowel Movements 2 Weight On Admission 52.163 kg Narrative: RLE: grimace with movement of hip. nvi distally. +bucks traction RUE: grimace with movement of shoulder. nvi - Urinary Catheter Management Indwelling Urethral Catheter Cath placed during this visit: yes Reason for continuing: Other continuation reason Insertion date: 11/21/17 Results - Labs CBC & Chem 7: 11/21/17 09:00 11/21/17 09:00 Laboratory Results - last 24 hr 11/21/17 11/21/17 11/21/17 09:00 09:00 09:00 WBC 25.4 H RBC 3.68 L Hgb 11.3 L Hct 34.7 L MCV 94.2 MCH 30.6 MCHC 32.5 RDW 15.2 Plt Count 148 L MPV 7.2 Prelim Diff (Auto) Slide review pending Neut % (Auto) 30.7 Lymph % (Auto) 66.5 H [place] % (Auto) 1.2 Eos % (Auto) 0.8 Baso % (Auto) 0.8 Neut # (Auto) 7.8 H Lymph # (Auto) 16.9 H [place] # (Auto) 0.3 Eos # (Auto) 0.2 Baso # (Auto) 0.2 WBC Differential Manual diff final Seg Neuts % (Manual) 20 Lymphocytes % (Manual) 71 H Monocytes % (Manual) 7 Eosinophils % (Manual) 2 Abs Neuts (Manual) 5.1 Differential Comment . Platelet Estimate Low L Platelet Morphology Normal Smear Path Review PT 12.0 H INR 1.2 APTT 22.9 L Sodium 139 Potassium 4.4 Chloride 106 Carbon Dioxide 25.9 Anion Gap 7 BUN 22 H Creatinine 0.58 Estimated GFR Greater than 89 Random Glucose 179 H Calcium 8.5 Vitamin D 25-Hydroxy Urine Color Urine Clarity Urine pH Ur Specific [place] Urine Protein Urine Glucose (UA) Urine Ketones Urine Occult Blood Urine Nitrate Urine Bilirubin Urine Urobilinogen Ur Leukocyte Esterase Urine RBC Urine WBC Ur Squamous Epith Cells Hyaline Casts Urine Mucus Micro UA Comment Ur Microscopic Review Urine Culture Comments Blood Type Blood Type Recheck Antibody Screen 11/21/17 11/21/17 11/21/17 09:00 09:00 09:00 WBC RBC Hgb Hct MCV MCH MCHC RDW Plt Count MPV Prelim Diff (Auto) Neut % (Auto) Lymph % (Auto) [place] % (Auto) Eos % (Auto) Baso % (Auto) Neut # (Auto) Lymph # (Auto) [place] # (Auto) Eos # (Auto) Baso # (Auto) WBC Differential Seg Neuts % (Manual) Lymphocytes % (Manual) Monocytes % (Manual) Eosinophils % (Manual) Abs Neuts (Manual) Differential Comment Platelet Estimate Platelet Morphology Smear Path Review PT INR APTT Sodium Potassium Chloride Carbon Dioxide Anion Gap BUN Creatinine Estimated GFR Random Glucose Calcium Vitamin D 25-Hydroxy 14.9 L Urine Color Urine Clarity Urine pH Ur Specific [place] Urine Protein Urine Glucose (UA) Urine Ketones Urine Occult Blood Urine Nitrate Urine Bilirubin Urine Urobilinogen Ur Leukocyte Esterase Urine RBC Urine WBC Ur Squamous Epith Cells Hyaline Casts Urine Mucus Micro UA Comment Ur Microscopic Review Urine Culture Comments Blood Type A Positive Blood Type Recheck Required Antibody Screen Negative 11/21/17 10:20 WBC RBC Hgb Hct MCV MCH MCHC RDW Plt Count MPV Prelim Diff (Auto) Neut % (Auto) Lymph % (Auto) [place] % (Auto) Eos % (Auto) Baso % (Auto) Neut # (Auto) Lymph # (Auto) [place] # (Auto) Eos # (Auto) Baso # (Auto) WBC Differential Seg Neuts % (Manual) Lymphocytes % (Manual) Monocytes % (Manual) Eosinophils % (Manual) Abs Neuts (Manual) Differential Comment Platelet Estimate Platelet Morphology Smear Path Review PT INR APTT Sodium Potassium Chloride Carbon Dioxide Anion Gap BUN Creatinine Estimated GFR Random Glucose Calcium Vitamin D 25-Hydroxy Urine Color Yellow Urine Clarity Hazy H Urine pH 5.0 Ur Specific [place] 1.012 Urine Protein Negative Urine Glucose (UA) Negative Urine Ketones Negative Urine Occult Blood Negative Urine Nitrate Negative Urine Bilirubin Negative Urine Urobilinogen Less than 2 Ur Leukocyte Esterase Negative Urine RBC Less than 1 Urine WBC 1 Ur Squamous Epith Cells <1 Hyaline Casts 3 Urine Mucus Few H Micro UA Comment Culture not ind Ur Microscopic Review Not Reportable Urine Culture Comments Culture not ind Blood Type Blood Type Recheck Antibody Screen - Imaging Impressions Pelvis X-Ray 11/21/17 00:00 CONCLUSION: Negative for acute pelvic fracture. Chest X-Ray 11/21/17 08:59 CONCLUSION: 1. No evidence of acute cardiopulmonary process. 2. Cardiomegaly 3. Nondisplaced fracture proximal right femur 4. Severe bilateral shoulder arthropathy. Femur X-Ray 11/21/17 08:59 CONCLUSION: Proximal femur fracture as above. Humerus X-Ray 11/21/17 08:59 CONCLUSION: Fracture proximal humerus as above. Assessment and Plan - Assessment and Plan 1) Right Proximal Humerus Fx - nonop 2) Right SUbtroch Femur Fx -npo -consents -surgery today with [facility] Prescription Drug Monitoring Database has been queried and verified prior to prescribing the controlled substance. Acute pain exception. This patient has normal, predicted, physiological, and time limited response to an adverse mechanical stimulus associated with surgery, trauma, or acute illness as described in my notes. There is a lack of alternative treatment options other than to include the prescribed narcotic treatment for this condition.
[2017-11-22] MEDS ORDERED: ceFAZolin 1 GM Premix Inj 1 GM/50 ML FROZ.PIGGY IV.SIG ONE (07:08)
[2017-11-22] MEDS ORDERED: Bupivacaine/Epinephrine Inj 0.25% 50 ML Vial ONE (07:08)
[2017-11-22] MEDS ORDERED: Sugammadex Inj 200 MG/2 ML Vial IV.PUSH ONE (07:12)
[2017-11-22] MEDS ORDERED: Lidocaine PF 1% Inj 5 ML Syringe OTHER ONE (08:15)
[2017-11-22] MEDS ORDERED: Phenylephrine/NS 1000 MCG/10ML Syringe IV.PUSH ONE (08:15)
[2017-11-22] MEDS ORDERED: Ketorolac Inj 30 MG/ML (IVP) Vial IV.PUSH ONE (08:15)
[2017-11-22] MEDS ORDERED: Post-op Orders (for Pharmacy) OTHER STA (08:44)
[2017-11-22] MEDS ORDERED: Morphine Sulfate Inj 2 MG/ML Vial IV.PUSH PRN (08:46)
--- NOTE | 2017-11-22 08:49 | P.OP ---
- Preoperative Diagnosis (1) Closed subtrochanteric fracture of right femur Date of procedure: 11/22/17 Procedure: Right femur reduction and intramedullary nail fixation Anesthesia: GETA Surgeon: Dar Blevins MD Bean Dumper: ALDA Yu PA-C The surgical procedure was assisted by my physician administrative assistant coordinator. My P.A. presence was necessary throughout this case for the manipulation and positioning of the surgical extremity. My P.A. was assisting me throughout the duration of this procedure. The skill set of a physician administrative assistant coordinator was medically necessary to complete this procedure. During the surgical case the surgical brace maker was working at the back table and the physician administrative assistant coordinator was directly assisting me. Operation and Findings: Implants used: [11]mm x [360]mm Biomet troch nail Plan of activity: 50% weightbearing left leg Patient was seen and evaluated preoperatively. The patient has significant hip pain from proximal femur fracture. The risk and benefits of surgery were discussed in depth with the patient to include bleeding, infection, nonunion, malunion, need for hip replacement, painful hardware, as well as medical competitions including blood clots, stroke, heart attack, and . Informed consent was obtained. Operative site was marked. Patient was brought to the operating room and placed on fracture table. IV sedation was administered by anesthesiologist. Timeout procedure was performed. Hip and leg were prepped with alcohol followed by DuraPrep and draped in the usual sterile fashion. IV antibiotics were given prior to incision. Procedure began with reduction of fracture. Traction was applied. The leg was manipulated to achieve reduction. Excellent reduction was achieved. Fluoroscopy was used to confirm reduction. A three inch incision was made proximal to the trochanter. Subcutaneous tissue was dissected bluntly. Guidepin was placed at the tip of the trochanter and advanced into the femoral canal. Fluoroscopy confirmed appropriate guidepin placement. A opening reamer was placed over the guidepin. A long ball tipped guide pin was now placed down the femoral canal into the center of the distal femur. The nail length was now measured. Fluoroscopy confirmed appropriate guidepin placement. Flexible reamers were now passed over the guidepin to ream the intramedullary canal. The nail was attached to the insertion handle. Nail was now placed over the guidepin into the femoral canal. Fluoroscopy confirmed appropriate nail placement. A second incision was made over the lateral thigh. Cannulas were placed through the insertion handle down to the femur. Guidepin was now placed through the femoral nail into the center of the femoral head. Fluoroscopy confirmed appropriate guidepin placement. Screw length was measured. Cannulated drill was placed over the guidepin. Appropriate length lag screw was now placed. Traction was released and compression was applied. The set screw was now tightened in static mode. Next, using perfect nez perce technique two distal interlocking screws were placed. Screw holes were predrilled and screw lengths were measured. Final fluoroscopy revealed well aligned fracture with well-placed hardware. Incision was closed with 3-0 Vicryl and nathalia. Sterile dressings were applied. Patient was awakened and transferred to recovery room.
--- NOTE | 2017-11-22 08:55 | P.CONOP ---
[facility] Orthopedics Consult Note - [facility] Consult date: 11/22/17 Chief complaint: Fall: Right Hip Fracture Narrative: Cathryn is a 87-year-old female. She presented to the emergency room after having a fall at home. She fell on a tile floor in the bathroom. Her right leg twisted underneath her. She had immediate right hip and leg pain. She was unable to stand or ambulate. Her son found her in the bathroom. She presented the emergency room via EMS. X-rays and evaluation revealed a comminuted right proximal femur fracture. Pain is severe and intense with movement. Pain is improved with rest. She did not hit her head. She denies dizziness, syncope, or loss of consciousness. She describes a mechanical fall. Review of Systems Patient is very hard of hearing. She denies fevers, chills, weight loss, headache, visual changes, chest pain, palpitations, shortness of breath, nausea , vomiting, no urinary changes, diarrhea, bowel changes, neck pain, back pain, skin rashes, weakness of extremities, easy bleeding, enlarged lymph nodes, numbness of extremities, anxiety, or depression. Patient's social history, past medical history, and family history were reviewed on chart and with patient. [facility] - History History Provided By: Patient - Medical History Medical History: Medical History (Last Reviewed 11/22/17 @ 08:52 by Dar Blevins MD) H/O: hysterectomy HTN (hypertension) Hypothyroidism - Surgical History Surgical History: Surgical History (Last Reviewed 11/22/17 @ 08:52 by Dar Blevins MD) History of back surgery - Family History Family History: Family History (Last Updated 11/22/17 @ 08:52 by Dar Blevins MD) Other No pertinent family history - Social History I have reviewed the patient's Social History: Yes - Tobacco History Second Hand Smoke Exposure: No Tobacco Use In Past 30 Days: No Smoking Status: Never smoker - Alcohol History How Often Do You Have a Drink Containing Alcohol: Never - Substance Use History Substance History: No History of Abuse - Travel History Recent Travel in the [facility] Within the Last 8 Weeks: No Recent Travel Out of the Country Within the Last 8 Weeks: No - Immunization History Tetanus Immunization: Unsure Hx Influenza Vaccine This Season: Yes Medications and Allergies Active Medications: Active Medications Acetaminophen (Tylenol) 650 mg PO Q6HR PRN PRN Reason: PAIN SCALE 1 TO 2 Hydrocodone Bitart/Acetaminophen ([place] 7.5/325) 1 tab PO Q4H PRN PRN Reason: PAIN SCALE 6 TO 10 Hydrocodone Bitart/Acetaminophen ([place] 5/325) 1 tab PO Q4H PRN PRN Reason: PAIN SCALE 3 TO 5 Last Admin: 11/21/17 11:15 Dose: 1 tab Al Hydroxide/Mg Hydroxide (Milk Of Magnesia Liq) 30 ml PO Q12H PRN PRN Reason: Mild Constipation Calcium/Vitamin D (Oscal With D 250/125 Mg) 1 tab PO TID ESTHER Diphenhydramine HCl (Benadryl) 25 mg PO Q6H PRN PRN Reason: ITCHING Enoxaparin Sodium (Lovenox Inj) 30 mg SQ Q24H ESTHER Ergocalciferol (Vitamin D2) 50,000 unit PO ONCE ONE Stop: 11/22/17 08:45 Sodium Chloride (Ns Inj) 1,000 mls @ 50 mls/hr IV.CONT .Q20H [facility] Last Admin: 11/21/17 16:33 Dose: 50 mls/hr Sodium Chloride (Ns Inj) 500 mls @ 30 mls/hr IV.SIG .Q10H [facility] Last Admin: 11/22/17 07:25 Dose: Not Given Lactated Ringer's (Lr 1000 Ml Inj) 1,000 mls @ 30 mls/hr IV.SIG .Q24H ESTHER Stop: 11/23/17 03:59 Last Infusion: 11/22/17 08:46 Dose: 30 mls/hr Cefazolin Sodium 1,000 mg/ (Sodium Chloride) 100 mls @ 200 mls/hr IV.SIG Q8H [facility] Stop: 11/23/17 01:29 Miscellaneous Information (Misc Post-Op Orders (For Pharmacy)) 0 each OTHER STAT STA Stop: 11/22/17 08:45 Morphine Sulfate (Morphine Inj) 2 mg IV.PUSH Q3H PRN PRN Reason: BREAKTHROUGH PAIN Naloxone HCl (Narcan Inj) 0.4 mg IV.PUSH UNSCH PRN PRN Reason: SEE LABEL COMMENTS Ondansetron HCl (Zofran Inj) 4 mg IV.PUSH Q6H PRN PRN Reason: NAUSEA Senna/Docusate Sodium (Holli-Colace) 1 tab PO BID [facility] Last Admin: 11/21/17 22:22 Dose: Not Given Sennosides (Senokot) 17.2 mg PO Q12H PRN PRN Reason: Moderate Constipation Sodium Chloride (Ns Flush) 2 ml IV.FLUSH BID ESTHER Sodium Chloride (Ns Flush) 2 ml IV.FLUSH PRN PRN PRN Reason: FLUSH AFTER USING IV ACCESS Vitamin D (Vitamin D3) 5,000 unit PO DAILY ESTHER Allergies Allergy/AdvReac Type Severity Reaction Status Date / Time penicillin G Allergy Unknown PT DOES Verified 11/21/17 13:23 NOT REMEMBER REACTION Home Medications Medication Instructions Recorded Confirmed Type levothyroxine 11/21/17 History lisinopril 11/21/17 History Exam Vital signs: Vital Signs 11/21/17 10:30 11/21/17 12:00 11/21/17 17:08 Temperature 98.4 F Pulse Rate 84 90 90 Respiratory Rate 19 17 16 Blood Pressure 113/53 L 121/57 L 139/62 Pulse Oximetry 97 94 L 96 11/21/17 17:27 11/21/17 19:37 11/21/17 22:29 Temperature 97.3 F L Pulse Rate 98 H Respiratory Rate 17 18 17 Blood Pressure 123/57 L Pulse Oximetry 96 11/21/17 23:48 11/22/17 02:30 11/22/17 04:34 Temperature 97.6 F 98.1 F Pulse Rate 94 H 86 Respiratory Rate 18 17 18 Blood Pressure 112/59 L 119/60 Pulse Oximetry 100 97 Intake & Output 11/21/17 11/22/17 11/22/17 18:59 06:59 18:59 Intake Total 480 / 480 100 / 100 Output Total 300 / 300 75 / 75 Balance 180 / 180 25 / 25 Weight 52.163 kg 52.1 kg Intake: IV 100 / 100 LR 1000 mL Inj 1,000 ML @ 30 100 / 100 mls/hr IV.SIG .Q24H [facility] Rx#: [id number] Oral 480 / 480 Output: Urine 25 / 25 Estimated Blood Loss 50 / 50 Urine Amount (Catheter) 300 / 300 Indwelling Urethral Catheter 300 / 300 Other: Date of Last Bowel Movement 11/21/17 # Bowel Movements 2 Weight On Admission 52.163 kg Narrative: Cathryn is an 87-year-old female. She has hard of hearing. She answers most questions appropriately. General: No acute distress. Appears well-developed well-nourished Head: Normocephalic, atraumatic pupils are equal Neck: Soft, nontender, trachea midline Abdomen: Soft, nondistended Examination of right arm reveals no pain or deformity with elbow or wrist motion. She is tender to palpation over her right shoulder. She has some shoulder pain with any shoulder motion. Skin is intact. Radial pulse is palpable. Normal capillary refill in fingers. Sensation is intact in radial, ulnar, and median nerve distributions. Marketing Forecaster strength is +5. No lymphadenopathy noted. Examination of left arm reveals no pain or deformity with shoulder, elbow, or wrist motion. Skin is intact. Radial pulse is palpable. Normal capillary refill in fingers. Sensation is intact in radial, ulnar, and median nerve distributions. Marketing Forecaster strength is +5. No lymphadenopathy noted. Examination of left lower extremity reveals no pain or deformity with hip, knee , or ankle motion. Skin is intact. Sensation is intact in left foot. Dorsalis pedis pulse is palpable. Normal capillary refill and feet. Thigh and calf compartments are soft. No lymphadenopathy noted. +5 strength of ankle dorsiflexion and plantarflexion. Examination of right lower extremity reveals bruising and swelling around her right hip and femur. She has severe pain with any hip motion. Skin is intact. She has no tenderness around her knee, tibia, or ankle. Skin is intact. Sensation is intact in right foot. Dorsalis pedis pulse is palpable. Normal capillary refill and feet. Thigh and calf compartments are soft. No lymphadenopathy noted. +5 strength of ankle dorsiflexion and plantarflexion. Results - Labs Result Diagrams: 11/21/17 09:00 11/21/17 09:00 Labs: Laboratory Results - last 24 hr 11/21/17 11/21/17 11/21/17 09:00 09:00 09:00 WBC 25.4 H RBC 3.68 L Hgb 11.3 L Hct 34.7 L MCV 94.2 MCH 30.6 MCHC 32.5 RDW 15.2 Plt Count 148 L MPV 7.2 Prelim Diff (Auto) Slide review pending Neut % (Auto) 30.7 Lymph % (Auto) 66.5 H [place] % (Auto) 1.2 Eos % (Auto) 0.8 Baso % (Auto) 0.8 Neut # (Auto) 7.8 H Lymph # (Auto) 16.9 H [place] # (Auto) 0.3 Eos # (Auto) 0.2 Baso # (Auto) 0.2 WBC Differential Manual diff final Seg Neuts % (Manual) 20 Lymphocytes % (Manual) 71 H Monocytes % (Manual) 7 Eosinophils % (Manual) 2 Abs Neuts (Manual) 5.1 Differential Comment . Platelet Estimate Low L Platelet Morphology Normal Smear Path Review PT 12.0 H INR 1.2 APTT 22.9 L Sodium 139 Potassium 4.4 Chloride 106 Carbon Dioxide 25.9 Anion Gap 7 BUN 22 H Creatinine 0.58 Estimated GFR Greater than 89 Random Glucose 179 H Calcium 8.5 Vitamin D 25-Hydroxy Urine Color Urine Clarity Urine pH Ur Specific [place] Urine Protein Urine Glucose (UA) Urine Ketones Urine Occult Blood Urine Nitrate Urine Bilirubin Urine Urobilinogen Ur Leukocyte Esterase Urine RBC Urine WBC Ur Squamous Epith Cells Hyaline Casts Urine Mucus Micro UA Comment Ur Microscopic Review Urine Culture Comments Blood Type Blood Type Recheck Antibody Screen 11/21/17 11/21/17 11/21/17 09:00 09:00 09:00 WBC RBC Hgb Hct MCV MCH MCHC RDW Plt Count MPV Prelim Diff (Auto) Neut % (Auto) Lymph % (Auto) [place] % (Auto) Eos % (Auto) Baso % (Auto) Neut # (Auto) Lymph # (Auto) [place] # (Auto) Eos # (Auto) Baso # (Auto) WBC Differential Seg Neuts % (Manual) Lymphocytes % (Manual) Monocytes % (Manual) Eosinophils % (Manual) Abs Neuts (Manual) Differential Comment Platelet Estimate Platelet Morphology Smear Path Review PT INR APTT Sodium Potassium Chloride Carbon Dioxide Anion Gap BUN Creatinine Estimated GFR Random Glucose Calcium Vitamin D 25-Hydroxy 14.9 L Urine Color Urine Clarity Urine pH Ur Specific [place] Urine Protein Urine Glucose (UA) Urine Ketones Urine Occult Blood Urine Nitrate Urine Bilirubin Urine Urobilinogen Ur Leukocyte Esterase Urine RBC Urine WBC Ur Squamous Epith Cells Hyaline Casts Urine Mucus Micro UA Comment Ur Microscopic Review Urine Culture Comments Blood Type A Positive Blood Type Recheck Required Antibody Screen Negative 11/21/17 10:20 WBC RBC Hgb Hct MCV MCH MCHC RDW Plt Count MPV Prelim Diff (Auto) Neut % (Auto) Lymph % (Auto) [place] % (Auto) Eos % (Auto) Baso % (Auto) Neut # (Auto) Lymph # (Auto) [place] # (Auto) Eos # (Auto) Baso # (Auto) WBC Differential Seg Neuts % (Manual) Lymphocytes % (Manual) Monocytes % (Manual) Eosinophils % (Manual) Abs Neuts (Manual) Differential Comment Platelet Estimate Platelet Morphology Smear Path Review PT INR APTT Sodium Potassium Chloride Carbon Dioxide Anion Gap BUN Creatinine Estimated GFR Random Glucose Calcium Vitamin D 25-Hydroxy Urine Color Yellow Urine Clarity Hazy H Urine pH 5.0 Ur Specific [place] 1.012 Urine Protein Negative Urine Glucose (UA) Negative Urine Ketones Negative Urine Occult Blood Negative Urine Nitrate Negative Urine Bilirubin Negative Urine Urobilinogen Less than 2 Ur Leukocyte Esterase Negative Urine RBC Less than 1 Urine WBC 1 Ur Squamous Epith Cells <1 Hyaline Casts 3 Urine Mucus Few H Micro UA Comment Culture not ind Ur Microscopic Review Not Reportable Urine Culture Comments Culture not ind Blood Type Blood Type Recheck Antibody Screen - Diagnostic results Imaging: Impressions Pelvis X-Ray 11/21/17 00:00 CONCLUSION: Negative for acute pelvic fracture. Chest X-Ray 11/21/17 08:59 CONCLUSION: 1. No evidence of acute cardiopulmonary process. 2. Cardiomegaly 3. Nondisplaced fracture proximal right femur 4. Severe bilateral shoulder arthropathy. Femur X-Ray 11/21/17 08:59 CONCLUSION: Proximal femur fracture as above. Humerus X-Ray 11/21/17 08:59 CONCLUSION: Fracture proximal humerus as above. Hip x-ray: report reviewed, image reviewed Assessment and Plan - Assessment and Plan Cathryn has a minimally displaced right proximal humerus fracture. Treatment options were discussed. I would recommend nonsurgical treatment. She has a displaced right femur subtrochanteric fracture. I would recommend reduction and intramedullary nail fixation. Risks and benefits of surgery were discussed with patient and informed consent was obtained. The risk and benefits of surgery were discussed in depth with patient. The risk of surgery include bleeding, infection, injuries to arteries, nerves, or blood vessels, infection, wound complications, nonunion, malunion, painful hardware, and need for further surgery. I also discussed medical complications including blood clots, pneumonia, stroke, heart attack, and . Informed consent was obtained and all questions were answered. N.p.o. Surgery today Calcium and vitamin D supplementation Physical therapy will be consulted postoperatively Carmelo Hammer TED hose A mid-level provider in my office (nurse practitioner or physician biology research assistant) may see this patient on follow-up visits and continue to implement the objectives of this plan including: Starting or adjusting medications, injections , cast application, orthotics, brace application, physical therapy, radiological studies (including x-ray, MRI, CT, ultrasound, bone scan), vascular studies, neurologic studies, specialist consultation, and proceeding with surgical management, as appropriate. [employer] Prescription Drug Monitoring Database has been queried and verified prior to prescribing the controlled substance. Acute pain exception. This patient has normal, predicted, physiological, and time limited response to an adverse mechanical stimulus associated with surgery, trauma, or acute illness as described in my notes. There is a lack of alternative treatment options other than to include the prescribed narcotic treatment for this condition.
[2017-11-22] MEDS: Sod Chloride 0.9% Inj 1,000 ML IV.CONT SCH ×2 (09:15→13:56)
[2017-11-22] MEDS ORDERED: fentaNYL Citrate Inj 100 MCG/2 ML Ampul ONE (09:25)
--- NOTE | 2017-11-22 10:58 | P.PNFP ---
Subjective Interval history: Ms Walker had no acute events overnight. This morning she was taken to surgery and later in the morning had just returned from the PACU after fixation of her hip by Dr Boogie. She is still recovering from anesthesia but does not complain of pain. I spoke to her son to give him a progress update indicating surgery went well. He will be coming to the hospital to spend some time later today. <Cheko JARAMILLONasim H - 11/22/17 10:58> Results - Labs Result diagrams: 11/23/17 16:37 11/23/17 16:37 <AmadoCruz L - 11/23/17 22:24> Abnormal lab results 11/23/17 11/23/17 11/23/17 Range/Units 01:28 10:01 10:01 WBC 88.6 H (4.0-11.0) th/mm3 RBC 2.54 L (4.00-5.30) mil/mm3 Hgb 7.5 L (11.6-15.3) gm/dL Hct 24.0 L (35.0-46.0) % MCHC 31.3 L (32.0-36.0) % MPV 6.7 L (7.0-11.0) fL Lymphocytes % (Manual) 71 H (9-44) % Abs Neuts (Manual) 21.3 H (1.8-7.7) th/mm3 Smudge Cells Present H (None) ABG pCO2 (38-42) mmHg ABG HCO3 (22-26) mmol/L ABG O2 Content (12.0-20.0) Vol % ABG Base Excess (-2-2) mmol/L Hemoglobin (12.0-16.0) G/DL Potassium 5.6 H (3.5-5.1) meq/L Carbon Dioxide 20.4 L (21.0-32.0) meq/L BUN 53 H (7-18) mg/dL Creatinine 1.91 H (0.50-1.00) mg/dL Estimated GFR 25 L (>89) mL/min Random Glucose 161 H (74-106) mg/dL Calcium 7.0 L* (8.5-10.1) mg/dL Prot Corrected Calcium 8.1 L (8.5-10.1) mg/dL Total Protein 5.1 L (6.4-8.2) g/dL MTS Gel Crossmatch See Detail 11/23/17 11/23/17 11/23/17 Range/Units 10:48 16:37 16:37 WBC (4.0-11.0) th/mm3 RBC (4.00-5.30) mil/mm3 Hgb 8.9 L (11.6-15.3) gm/dL Hct 27.7 L (35.0-46.0) % MCHC (32.0-36.0) % MPV (7.0-11.0) fL Lymphocytes % (Manual) (9-44) % Abs Neuts (Manual) (1.8-7.7) th/mm3 Smudge Cells (None) ABG pCO2 34 L (38-42) mmHg ABG HCO3 21 L (22-26) mmol/L ABG O2 Content 10.1 L (12.0-20.0) Vol % ABG Base Excess -3.5 L (-2-2) mmol/L Hemoglobin 7.4 L* (12.0-16.0) G/DL Potassium 5.5 H (3.5-5.1) meq/L Carbon Dioxide (21.0-32.0) meq/L BUN (7-18) mg/dL Creatinine (0.50-1.00) mg/dL Estimated GFR (>89) mL/min Random Glucose (74-106) mg/dL Calcium (8.5-10.1) mg/dL Prot Corrected Calcium (8.5-10.1) mg/dL Total Protein (6.4-8.2) g/dL MTS Gel Crossmatch Short CBC 11/23/17 11/23/17 Range/Units 10:01 16:37 WBC 88.6 H (4.0-11.0) th/mm3 Hgb 7.5 L 8.9 L (11.6-15.3) gm/dL Hct 24.0 L 27.7 L (35.0-46.0) % Plt Count 173 (150-450) th/mm3 BMP 11/23/17 11/23/17 10:01 16:37 Sodium 140 Potassium 5.6 H 5.5 H Chloride 106 Carbon Dioxide 20.4 L BUN 53 H Creatinine 1.91 H Calcium 7.0 L* <Young,Cruz L - 11/23/17 22:24> Abnormal lab results 11/21/17 11/21/17 11/21/17 Range/Units 09:00 09:00 10:20 Lymphocytes % (Manual) 71 H (9-44) % Platelet Estimate Low L (Normal) Vitamin D 25-Hydroxy 14.9 L (30-100) ng/mL Urine Clarity Hazy H (Clear) Urine Mucus Few H (Occasional) /lpf Urine 11/21/17 Range/Units 10:20 Urine Color Yellow (Yellw/Straw) Urine Clarity Hazy H (Clear) Urine pH 5.0 (5.0-8.5) Ur Specific [place] 1.012 (1.002-1.035) Urine Protein Negative (Neg-Trace) mg/dL Urine Glucose (UA) Negative (Negative) mg/dL <Wendyjinny ELLANasim H - 11/22/17 10:58> - Imaging Impressions Head CT 11/23/17 10:21 CONCLUSION: 1. Stable evaluation without evidence of acute infarct, hemorrhage, mass or edema. 2. Cerebral white matter hypodensity characteristic of chronic microvascular ischemic disease; unchanged. . <AmadoCruz L - 11/23/17 22:24> Physical Exam Vital signs: Vital Signs 11/23/17 00:00 11/23/17 01:30 11/23/17 03:57 Temperature 97.5 F L 98.2 F Pulse Rate 75 83 Respiratory Rate 18 17 17 Blood Pressure 112/56 L 121/59 L Pulse Oximetry 93 L 99 11/23/17 04:00 11/23/17 04:14 11/23/17 07:20 Temperature 97.3 F L 98 F 99.1 F Pulse Rate 84 84 91 H Respiratory Rate 18 17 17 Blood Pressure 121/58 L 121/58 L 131/61 Pulse Oximetry 98 98 98 11/23/17 08:00 11/23/17 10:20 11/23/17 10:37 Temperature 97.3 F L 96.8 F L 96.2 F L Pulse Rate 84 79 80 Respiratory Rate 18 16 16 Blood Pressure 125/70 157/64 H 134/57 L Pulse Oximetry 98 99 99 11/23/17 12:00 11/23/17 13:49 11/23/17 16:00 Temperature 98.6 F 98 F 98.6 F Pulse Rate 89 93 H 87 Respiratory Rate 18 14 18 Blood Pressure 144/62 H 142/66 H 160/73 H Pulse Oximetry 97 99 97 11/23/17 18:18 11/23/17 20:00 Temperature 98.4 F Pulse Rate 82 Respiratory Rate 14 14 Blood Pressure 143/64 H Pulse Oximetry 96 Intake & Output 11/23/17 11/23/17 11/24/17 06:59 18:59 06:59 Intake Total 1100 / 1100 900 / 900 Output Total 250 / 250 Balance 1100 / 1100 650 / 650 Weight 52.163 kg Intake: IV 1100 / 1100 100 / 100 NS Inj 1,000 ML @ 50 mls/hr IV. 1000 / 1000 CONT .Q20H ESTHER Rx#:[id number] Ofirmev Inj 1,000 mg In 100 ml 100 / 100 @ 400 mls/hr IV.SIG ONCE ONE Rx #:[id number] Ancef Inj 1,000 MG In NS Inj 100 / 100 100 ML @ 200 mls/hr IV.SIG Q8H ESTHER Rx#:[id number] Oral 0 / 0 Intake (Blood Product) Amt 0 / 0 800 / 800 Rbc As-3 Leukoreduced Unit 0 / 0 400 / 400 [id number] Rbc As-3 Leukoreduced Unit 400 / 400 [id number] Output: Urine 250 / 250 Other: # Voids 0 Date of Last Bowel Movement 11/21/17 11/22/17 <Cruz Fischer L - 11/23/17 22:24> Vital Signs 11/21/17 12:00 11/21/17 17:08 11/21/17 17:27 Temperature 98.4 F Pulse Rate 90 90 Respiratory Rate 17 16 17 Blood Pressure 121/57 L 139/62 Pulse Oximetry 94 L 96 11/21/17 19:37 11/21/17 22:29 11/21/17 23:48 Temperature 97.3 F L 97.6 F Pulse Rate 98 H 94 H Respiratory Rate 18 17 18 Blood Pressure 123/57 L 112/59 L Pulse Oximetry 96 100 11/22/17 02:30 11/22/17 04:34 11/22/17 09:10 Temperature 98.1 F 97.5 F L Pulse Rate 86 79 Respiratory Rate 17 18 24 Blood Pressure 119/60 119/57 L Pulse Oximetry 97 100 11/22/17 09:30 Temperature 97.6 F Pulse Rate 72 Respiratory Rate 24 Blood Pressure 106/51 L Pulse Oximetry 100 Intake & Output 11/21/17 11/22/17 11/22/17 18:59 06:59 18:59 Intake Total 480 / 480 1100 / 1100 Output Total 300 / 300 75 / 75 Balance 180 / 180 1025 / 1025 Weight 52.163 kg 52.1 kg Intake: IV 1100 / 1100 NS Inj 1,000 ML @ 50 mls/hr IV. 1000 / 1000 CONT .Q20H ESTHER Rx#:[id number] LR 1000 mL Inj 1,000 ML @ 30 100 / 100 mls/hr IV.SIG .Q24H ESTHER Rx#: [id number] Oral 480 / 480 Output: Urine 25 / 25 Estimated Blood Loss 50 / 50 Urine Amount (Catheter) 300 / 300 Indwelling Urethral Catheter 300 / 300 Other: Date of Last Bowel Movement 11/21/17 # Bowel Movements 2 Weight On Admission 52.163 kg <Cheko JARAMILLONasim Gisela - 11/22/17 10:58> Narrative: GENERAL: Elderly female lying in bed recently back from PACU post-op. No acute distress; no complaint of pain. HEAD: Atraumatic. Normocephalic. EYES: EOMI. No discharge. ENT: Nares without discharge. Mucous membranes pink and slightly dry. Patient hard of hearing. CARDIOVASCULAR: Regular rate and rhythm. Grade 1/6 systolic ejection murmur heard best over left sternal border. RESPIRATORY: No accessory muscle use. Clear to auscultation. Breath sounds equal bilaterally. GASTROINTESTINAL: Abdomen soft, non-tender, nondistended. MUSCULOSKELETAL: RLE with immobilizer on and covered with ice packs. Pulse intact. Right upper extremity placed in sling. NEUROLOGICAL: Awake and alert. No obvious cranial nerve deficits. Normal speech. PSYCHIATRIC: Appropriate mood and affect; recovering from surgery. <Nasim Still III Gsiela - 11/22/17 14:08> - Urinary Catheter Management Indwelling Urethral Catheter Cath placed during this visit: no <Cruz Fischer - 11/23/17 22:24> yes <Cheko JARAMILLONasim Gisela - 11/22/17 14:09> Reason for continuing: Other continuation reason <Nasim Still III Gisela - 10:58> Insertion date: 11/22/17 <BlankNasim stearns III - 11/22/17 10:58> Assessment and Plan - Assessment (1) Fracture of femur Code(s): S72.90XA - Unspecified fracture of unspecified femur, initial encounter for closed fracture Status: Acute Plan: 87 YO female with comminuted spiral "butterfly" fracture of proximal femur noted on x-ray. Today pt is POD#0 following right femur reduction and intramedullary nail fixation by Dr Boogie. Patient neurovascularly intact and is recovering from surgery. Her son has been updated on her progress. -Orthopedic surgery consulted, Dr Boogie -Sherita for pain with morphine for breakthrough pain -Ca+Vitamin D supplementation -Will consider DEXA scan planning +/- bisphosphonate on discharge. (2) Leukocytosis Code(s): D72.829 - Elevated white blood cell count, unspecified Status: Acute Plan: Likely result of current inflammation state. Absolute neutrophil count and neutrophil percent within normal limits. Patient is afebrile. Urinalysis negative. -Follow-up CBC in a.m. -Continue to monitor patient for signs of infection (3) Hyperglycemia Code(s): R73.9 - Hyperglycemia, unspecified Status: Acute Plan: Patient has no reported history of diabetes. Likely stress reaction. -Patient is n.p.o. pending orthopedic evaluation -Follow-up BMP in a.m. (4) Hypothyroid Code(s): E03.9 - Hypothyroidism, unspecified Status: Acute Plan: We will continue home levothyroxine once dosing is obtained (5) Hypertension Code(s): I10 - Essential (primary) hypertension Status: Acute Plan: Hold home lisinopril for now as patient has been normotensive (6) Humeral fracture Code(s): S42.309A - Unspecified fracture of shaft of humerus, unspecified arm, initial encounter for closed fracture Status: Chronic Plan: Reported by son to be chronic. Patient had fracture 2 years prior -Orthopedic surgery consulted appreciate recommendations. -Pt right arm placed in sling post-op for immobilization -Continue to monitor for signs of ecchymosis etc. indicating acute injury (7) Nutrition, metabolism, and development symptoms Code(s): R63.8 - Other symptoms and signs concerning food and fluid intake Status: Acute Plan: Diet: Patient is n.p.o. for now pending orthopedic evaluation Fluids: Patient on half maintenance fluids normal saline 50 mL's per hour as she is n.p.o. currently. DVT prophylaxis: Patient is on SCDs only pending orthopedic evaluation. <Nasim Still III - 11/22/17 14:09> (1) Altered mental status Code(s): R41.82 - Altered mental status, unspecified Status: Acute (2) Decreased hemoglobin Code(s): R71.0 - Precipitous drop in hematocrit Status: Acute (3) WALTER (acute kidney injury) Code(s): N17.9 - Acute kidney failure, unspecified Status: Acute (4) Fracture of femur Code(s): S72.90XA - Unspecified fracture of unspecified femur, initial encounter for closed fracture Status: Acute (5) Leukocytosis Code(s): D72.829 - Elevated white blood cell count, unspecified Status: Acute (6) Hyperglycemia Code(s): R73.9 - Hyperglycemia, unspecified Status: Acute (7) Hypothyroid Code(s): E03.9 - Hypothyroidism, unspecified Status: Acute (8) Hypertension Code(s): I10 - Essential (primary) hypertension Status: Acute (9) Humeral fracture Code(s): S42.309A - Unspecified fracture of shaft of humerus, unspecified arm, initial encounter for closed fracture Status: Chronic (10) Nutrition, metabolism, and development symptoms Code(s): R63.8 - Other symptoms and signs concerning food and fluid intake Status: Acute <Cruz Fischer - 11/23/17 22:24> - Assessment and Plan Fluids: PO fluids Electrolytes: wnl, will monitor with BMP and replete Nutrition: regular diet following surgery GI: none indicated PPx: re-start 12 hours Lovenox post-op Tylenol 650 mg PO pain 1-2/temp >100.4 PT Incentive spirometry CM consult to assist with rehab and PT if pt goes directly home <Nasim Still III - 11/22/17 14:08> - Attending Attestation The exam, history, and the medical decision-making described in the above note were completed with the assistance of the resident physician. I reviewed and agree with the findings presented. I attest that I had a [id number] encounter with the patient on the same day, and personally performed and documented my assessment and findings in the medical record. Patient seen and examined with resident team and medical student 11/22 around 9: 30 AM. Patient just returning from surgery for her broken femur. She appears to be recovering from anesthesia. Initially difficult to awaken, but then was able to sit up in the bed and answer simple questions. Reports she is not in any pain. Will require PT at rehab after discharge. Physical therapy on board. Neurovascularly intact distal to fracture repair. Right arm in sling. <AmadoCruz Josefina - 11/23/17 22:24> <Nasim tSill III - Last Filed: 11/22/17 14:09> (1) Fracture of femur Qualifiers: Encounter type: initial encounter Fracture type: closed Fracture morphology : spiral Laterality: right (6) Humeral fracture Qualifiers: Fracture type: closed Laterality: right <Cruz Fischer - Last Filed: 11/23/17 22:24> (4) Fracture of femur Qualifiers: Encounter type: initial encounter Fracture type: closed Fracture morphology : spiral Laterality: right (9) Humeral fracture Qualifiers: Fracture type: closed Laterality: right <Nasim Still III - Last Filed: 11/22/17 14:09> (1) Fracture of femur Qualifiers: Encounter type: initial encounter Fracture type: closed Fracture morphology : spiral Laterality: right (6) Humeral fracture Qualifiers: Fracture type: closed Laterality: right <Cruz Fischer - Last Filed: 11/23/17 22:24> (4) Fracture of femur Qualifiers: Encounter type: initial encounter Fracture type: closed Fracture morphology : spiral Laterality: right (9) Humeral fracture Qualifiers: Fracture type: closed Laterality: right
[2017-11-22] MEDS: Senna/Docusate Sodium 8.6/50 MG Tablet PO SCH ×2 (13:55→23:10)
[2017-11-22 15:37] LABS: Hematocrit 21.4 % (35.0-46.0); Mean Corpuscular HGB Conc 31.2 % (32.0-36.0); Mean Corpuscular Hemoglobin 29.8 pg (27.0-34.0); Mean Corpuscular Volume 95.7 fL (80.0-100.0); Platelet Count 196 th/mm3 (150-450); Red Blood Count 2.23 mil/mm3 (4.00-5.30); Red Cell Distribution Width 15.9 % (11.6-17.2); White Blood Count 93.6 th/mm3 (4.0-11.0)
[2017-11-22 15:42] LABS: Hemoglobin 6.7 gm/dL (11.6-15.3)
--- NOTE | 2017-11-22 15:45 | ECG ---
Date Performed: 11/22/2017 Time Performed: 07:08:44 PTAGE: 87 years EKG: Sinus rhythm NONSPECIFIC T-WAVE ABNORMALITY BORDERLINE ECG PREVIOUS TRACING : 06/27/2015 04.15 Compared to previous tracing, nonspecific ST-T wave changes . Clinical correlation is recommended DOCTOR: Talat Haider Interpretating Date/Time 11/22/2017 15:43:29
[2017-11-22 16:12] LABS: Calcium 7.4 mg/dL (8.5-10.1); Carbon Dioxide 23.7 meq/L (21.0-32.0); Potassium 6.1 meq/L (3.5-5.1)
[2017-11-22 16:57] LABS: Total Protein 5.5 g/dL (6.4-8.2)
[2017-11-22] MEDS ORDERED: Sodium Chlor 0.9% Inj 250 ML IV.SIG SCH (17:00)
[2017-11-22] MEDS: Calcium/Vitamin D 250/125 MG Tablet PO SCH ×2 (17:04→20:05)
--- NOTE | 2017-11-22 17:42 | P.PNADD ---
Addendum to Inpatient Note Reason for Addendum: Additional Documentation Additional information: Results from Ms Walker's afternoon labs show Hgb 6.7, down from 11. yesterday morning. I spoke to KEVIN Wyatt from Dr Boogie's office who agreed with the call to transfuse 2u PRBCs due to the trauma they saw in surgery this morning. Transfusion 2u PRBCs ordered for this evening with CBC in the morning. Pt is also on LR IVF at 30ml/hr and will keep that at the same rate. I spoke with nursing and she is aware of the plan. Pt was resting comfortably in bedside chair in NAD. Path smear taken during surgery indicates reactive leukocytosis that is abnormal and will likely require Heme/Onc consult.
[2017-11-22] MEDS: Enoxaparin Inj 30 MG/0.3 ML Syringe SQ SCH (23:09)
[2017-11-23] MEDS: Calcium/Vitamin D 250/125 MG Tablet PO SCH ×3 (02:52→18:49)
--- NOTE | 2017-11-23 06:36 | P.PNOP ---
Subjective Interval history: Resting comfortably with no new complaints. Sling and swath in place Physical Exam Vital signs: Vital Signs 11/22/17 09:10 11/22/17 09:30 11/22/17 12:00 Temperature 97.5 F L 97.6 F 99.1 F Pulse Rate 79 72 77 Respiratory Rate 24 24 20 Blood Pressure 119/57 L 106/51 L 112/56 L Pulse Oximetry 100 100 95 11/22/17 13:59 11/22/17 16:00 11/22/17 20:00 Temperature 98.9 F 97.2 F L Pulse Rate 85 76 77 Respiratory Rate 20 18 Blood Pressure 114/54 L 122/84 114/57 L Pulse Oximetry 97 96 11/23/17 00:00 11/23/17 01:30 11/23/17 03:57 Temperature 97.5 F L 98.2 F Pulse Rate 75 83 Respiratory Rate 18 17 17 Blood Pressure 112/56 L 121/59 L Pulse Oximetry 93 L 99 11/23/17 04:00 11/23/17 04:14 Temperature 97.3 F L 98 F Pulse Rate 84 84 Respiratory Rate 18 17 Blood Pressure 121/58 L 121/58 L Pulse Oximetry 98 98 Intake & Output 11/22/17 11/22/17 11/23/17 06:59 18:59 06:59 Intake Total 480 / 480 1320 / 1320 100 / 100 Output Total 300 / 300 75 / 75 Balance 180 / 180 1245 / 1245 100 / 100 Weight 52.1 kg Intake: IV 1200 / 1200 100 / 100 NS Inj 1,000 ML @ 50 mls/hr IV. 1000 / 1000 CONT .Q20H ESTHER Rx#:[id number] LR 1000 mL Inj 1,000 ML @ 30 100 / 100 mls/hr IV.SIG .Q24H ESTHER Rx#: [id number] Ancef Inj 1,000 MG In NS Inj 100 / 100 100 / 100 100 ML @ 200 mls/hr IV.SIG Q8H ESTHER Rx#:[id number] Oral 480 / 480 120 / 120 Intake (Blood Product) Amt 0 / 0 Rbc As-3 Leukoreduced Unit 0 / 0 [id number] Output: Urine 25 / 25 Estimated Blood Loss 50 / 50 Urine Amount (Catheter) 300 / 300 Indwelling Urethral Catheter 300 / 300 Other: # Voids 400 Date of Last Bowel Movement 11/21/17 11/21/17 # Bowel Movements 2 0 Narrative: Right lower extremity: Dressings in place with some drainage. Moderate swelling of the proximal thigh with significant bruising. Intact distal pulses and good capillary refill Right upper extremity: Sling and swath in place. Moderate swelling over proximal humerus. No laxity of elbow or wrist. Intact sensation over the radial ulnar median nerve distributions with good capillary refills - Urinary Catheter Management Indwelling Urethral Catheter Cath placed during this visit: yes Reason for continuing: Other continuation reason Insertion date: 11/22/17 Results - Labs CBC & Chem 7: 11/22/17 14:40 11/22/17 14:40 Laboratory Results - last 24 hr 11/22/17 11/22/17 11/23/17 14:40 14:40 01:28 WBC 93.6 H RBC 2.23 L Hgb 6.7 L* D Hct 21.4 L MCV 95.7 MCH 29.8 MCHC 31.2 L RDW 15.9 Plt Count 196 D MPV 7.0 Sodium 140 Potassium 6.1 H D Chloride 107 Carbon Dioxide 23.7 Anion Gap 9 BUN 41 H Creatinine 1.50 H Estimated GFR 33 L Random Glucose 197 H Calcium 7.4 L* D Prot Corrected Calcium 8.3 L Total Protein 5.5 L MTS Gel Crossmatch See Detail Bld Prod Order Comment - Imaging Impressions Hip X-Ray 11/22/17 00:00 CONCLUSION: Anatomic alignment. Assessment and Plan - Assessment and Plan Right subtrochanteric and femoral shaft fractures status post IM nail POD 1 50% weightbearing right lower extremity Change dressings today then continue daily Xeroform 4 x 4's ABD and paper tape until drainage is subsided. Then convert over to [place] with Xeroform. Right proximal humerus fracture Nonoperative treatment. Sling and swath with nonweightbearing. No range of motion of shoulder If continued drainage today we will hold Lovenox Awaiting results for new H&H after blood was given yesterday. 2 units given Case management for rehab placement Pain medication on chart and 3008 with orthopedic specifications [employer] Prescription Drug Monitoring Database has been queried and verified prior to prescribing the controlled substance. Acute pain exception. This patient has normal, predicted, physiological, and time limited response to an adverse mechanical stimulus associated with surgery, trauma, or acute illness as described in my notes. There is a lack of alternative treatment options other than to include the prescribed narcotic treatment for this condition.
[2017-11-23] MEDS: Sod Chloride 0.9% Inj 1,000 ML IV.CONT SCH (07:00)
[2017-11-23] MEDS: Senna/Docusate Sodium 8.6/50 MG Tablet PO SCH ×2 (09:18→21:32)
--- NOTE | 2017-11-23 10:41 | P.PNFP ---
Subjective Interval history: Ms. Walker was seen on rounds today, lying in bed sleeping. She is noncommunicative. Opens eyes only to sternal rub and when moving her to evaluate her backside. She does not follow commands and is unable to answer questions. Review of records show that she has not had any pain medication since her morphine at 5 AM yesterday. Nursing reports that she has been relatively sedated since her operation yesterday. Unable to obtain review of systems. 2 units of blood were ordered yesterday evening. Blood was not given overnight and second unit is just being hung during exam. <Rae Moore - 11/23/17 11:13> Results - Labs Result diagrams: 11/24/17 04:52 11/24/17 04:52 <Za Sanchez - 11/24/17 16:45> Abnormal lab results 11/23/17 11/23/17 11/23/17 Range/Units 16:37 16:37 22:33 WBC (4.0-11.0) th/mm3 RBC (4.00-5.30) mil/mm3 Hgb 8.9 L (11.6-15.3) gm/dL Hct 27.7 L (35.0-46.0) % Plt Count (150-450) th/mm3 MPV (7.0-11.0) fL Lymphocytes % (Manual) (9-44) % Myelocytes % (Man) (0-0) % Abs Neuts (Manual) (1.8-7.7) th/mm3 Nucleated RBCs/100 WBC (0-0) /100 WBC Smudge Cells (None) Platelet Estimate (Normal) Polychromasia (0.0-1.9) % Basophilic Stippling (None) Acanthocytes (Spur) (None) ABG pCO2 34 L (38-42) mmHg ABG pO2 143 H (61-120) mmHg ABG HCO3 21 L (22-26) mmol/L ABG Base Excess -3.2 L (-2-2) mmol/L Hemoglobin 8.7 L (12.0-16.0) G/DL Sodium (136-145) meq/L Potassium 5.5 H (3.5-5.1) meq/L Chloride (98-107) meq/L Carbon Dioxide (21.0-32.0) meq/L BUN (7-18) mg/dL Creatinine (0.50-1.00) mg/dL Estimated GFR (>89) mL/min POC Glucose (68-110) mg/dl Random Glucose (74-106) mg/dL Calcium (8.5-10.1) mg/dL Prot Corrected Calcium (8.5-10.1) mg/dL Alkaline Phosphatase (45-117) U/L Ammonia (11-32) mcmol/L Troponin I (0.02-0.05) ng/mL Total Protein (6.4-8.2) g/dL Albumin (3.4-5.0) g/dL Triglycerides (42-150) mg/dL HDL Cholesterol (40.0-60.0) mg/dL 11/23/17 11/23/17 11/24/17 Range/Units 22:39 22:39 01:15 WBC 59.5 H (4.0-11.0) th/mm3 RBC 2.74 L (4.00-5.30) mil/mm3 Hgb 8.2 L (11.6-15.3) gm/dL Hct 25.1 L (35.0-46.0) % Plt Count 138 L (150-450) th/mm3 MPV 6.6 L (7.0-11.0) fL Lymphocytes % (Manual) 82 H (9-44) % Myelocytes % (Man) 1 H (0-0) % Abs Neuts (Manual) 10.1 H (1.8-7.7) th/mm3 Nucleated RBCs/100 WBC 1 H (0-0) /100 WBC Smudge Cells Present H (None) Platelet Estimate Low L (Normal) Polychromasia 2.1 H (0.0-1.9) % Basophilic Stippling Faint H (None) Acanthocytes (Spur) Occ H (None) ABG pCO2 (38-42) mmHg ABG pO2 (61-120) mmHg ABG HCO3 (22-26) mmol/L ABG Base Excess (-2-2) mmol/L Hemoglobin (12.0-16.0) G/DL Sodium (136-145) meq/L Potassium (3.5-5.1) meq/L Chloride 110 H (98-107) meq/L Carbon Dioxide 20.7 L (21.0-32.0) meq/L BUN 55 H (7-18) mg/dL Creatinine 1.43 H (0.50-1.00) mg/dL Estimated GFR 35 L (>89) mL/min POC Glucose (68-110) mg/dl Random Glucose 174 H (74-106) mg/dL Calcium 7.2 L* (8.5-10.1) mg/dL Prot Corrected Calcium 8.4 L (8.5-10.1) mg/dL Alkaline Phosphatase 44 L (45-117) U/L Ammonia 36 H (11-32) mcmol/L Troponin I 0.09 H (0.02-0.05) ng/mL Total Protein 4.9 L (6.4-8.2) g/dL Albumin 2.7 L (3.4-5.0) g/dL Triglycerides (42-150) mg/dL HDL Cholesterol (40.0-60.0) mg/dL 11/24/17 11/24/17 11/24/17 Range/Units 04:52 04:52 12:54 WBC 51.2 H (4.0-11.0) th/mm3 RBC 2.81 L (4.00-5.30) mil/mm3 Hgb 8.4 L (11.6-15.3) gm/dL Hct 25.9 L (35.0-46.0) % Plt Count 137 L (150-450) th/mm3 MPV 6.5 L (7.0-11.0) fL Lymphocytes % (Manual) 72 H (9-44) % Myelocytes % (Man) (0-0) % Abs Neuts (Manual) 12.8 H (1.8-7.7) th/mm3 Nucleated RBCs/100 WBC (0-0) /100 WBC Smudge Cells Present H (None) Platelet Estimate Low L (Normal) Polychromasia (0.0-1.9) % Basophilic Stippling (None) Acanthocytes (Spur) (None) ABG pCO2 (38-42) mmHg ABG pO2 (61-120) mmHg ABG HCO3 (22-26) mmol/L ABG Base Excess (-2-2) mmol/L Hemoglobin (12.0-16.0) G/DL Sodium 146 H (136-145) meq/L Potassium (3.5-5.1) meq/L Chloride 114 H (98-107) meq/L Carbon Dioxide (21.0-32.0) meq/L BUN 51 H (7-18) mg/dL Creatinine 1.22 H (0.50-1.00) mg/dL Estimated GFR 42 L (>89) mL/min POC Glucose 147 H (68-110) mg/dl Random Glucose 153 H (74-106) mg/dL Calcium 7.4 L* (8.5-10.1) mg/dL Prot Corrected Calcium 8.3 L (8.5-10.1) mg/dL Alkaline Phosphatase (45-117) U/L Ammonia (11-32) mcmol/L Troponin I 0.07 H (0.02-0.05) ng/mL Total Protein 5.4 L (6.4-8.2) g/dL Albumin 2.9 L (3.4-5.0) g/dL Triglycerides 179 H (42-150) mg/dL HDL Cholesterol 22.1 L (40.0-60.0) mg/dL Short CBC 11/23/17 11/23/17 11/24/17 Range/Units 16:37 22:39 04:52 WBC 59.5 H 51.2 H (4.0-11.0) th/mm3 Hgb 8.9 L 8.2 L 8.4 L (11.6-15.3) gm/dL Hct 27.7 L 25.1 L 25.9 L (35.0-46.0) % Plt Count 138 L 137 L (150-450) th/mm3 BMP 11/23/17 11/23/17 11/24/17 16:37 22:39 04:52 Sodium 143 146 H Potassium 5.5 H 4.9 4.5 Chloride 110 H 114 H Carbon Dioxide 20.7 L 21.5 BUN 55 H 51 H Creatinine 1.43 H 1.22 H Calcium 7.2 L* 7.4 L* Cardiac Enzymes 11/23/17 11/24/17 Range/Units 22:39 04:52 Troponin I 0.09 H 0.07 H (0.02-0.05) ng/mL Liver Function 11/23/17 11/24/17 Range/Units 22:39 04:52 Total Bilirubin 0.7 0.6 (0.2-1.0) mg/dL AST 24 31 (15-37) U/L ALT 10 11 (10-53) U/L Alkaline Phosphatase 44 L 48 (45-117) U/L Albumin 2.7 L 2.9 L (3.4-5.0) g/dL <Za Sanchez - 11/24/17 16:45> Abnormal lab results 11/22/17 11/22/17 11/23/17 Range/Units 14:40 14:40 01:28 WBC 93.6 H (4.0-11.0) th/mm3 RBC 2.23 L (4.00-5.30) mil/mm3 Hgb 6.7 L* D (11.6-15.3) gm/dL Hct 21.4 L (35.0-46.0) % MCHC 31.2 L (32.0-36.0) % Potassium 6.1 H D (3.5-5.1) meq/L BUN 41 H (7-18) mg/dL Creatinine 1.50 H (0.50-1.00) mg/dL Estimated GFR 33 L (>89) mL/min Random Glucose 197 H (74-106) mg/dL Calcium 7.4 L* D (8.5-10.1) mg/dL Prot Corrected Calcium 8.3 L (8.5-10.1) mg/dL Total Protein 5.5 L (6.4-8.2) g/dL MTS Gel Crossmatch See Detail Short CBC 11/22/17 Range/Units 14:40 WBC 93.6 H (4.0-11.0) th/mm3 Hgb 6.7 L* D (11.6-15.3) gm/dL Hct 21.4 L (35.0-46.0) % Plt Count 196 D (150-450) th/mm3 BMP 11/22/17 14:40 Sodium 140 Potassium 6.1 H D Chloride 107 Carbon Dioxide 23.7 BUN 41 H Creatinine 1.50 H Calcium 7.4 L* D <Rae Moore - 11/23/17 10:41> - Imaging Impressions Head MRI 11/23/17 21:56 CONCLUSION: 1. 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 No significant mass effect or shift. 2. Severe chronic white matter ischemic changes bilaterally. Carotid Doppler Study 11/24/17 00:00 CONCLUSION: No evidence of flow-limiting carotid stenosis. <Za Sanchez - 11/24/17 16:45> Impressions Hip X-Ray 11/22/17 00:00 CONCLUSION: Anatomic alignment. <Rae Moore - 11/23/17 10:41> Physical Exam Vital signs: Vital Signs 11/23/17 18:18 11/23/17 20:00 11/23/17 20:25 Temperature 98.4 F Pulse Rate 82 Respiratory Rate 14 14 14 Blood Pressure 143/64 H Pulse Oximetry 96 11/24/17 00:00 11/24/17 01:42 11/24/17 02:00 Temperature 99.7 F H Pulse Rate 82 77 Respiratory Rate 12 18 Blood Pressure 140/62 Pulse Oximetry 100 11/24/17 04:00 11/24/17 05:42 11/24/17 06:00 Temperature 99.7 F H Pulse Rate 76 81 Respiratory Rate 10 L 14 Blood Pressure 178/76 H Pulse Oximetry 100 11/24/17 08:00 11/24/17 10:00 11/24/17 12:00 Temperature 97.9 F 99.0 F Pulse Rate 74 81 84 Respiratory Rate 11 L 12 Blood Pressure 93/43 L 167/70 H Pulse Oximetry 100 100 11/24/17 16:00 Temperature 98.9 F Pulse Rate 84 Respiratory Rate 17 Blood Pressure 178/72 H Pulse Oximetry Intake & Output 11/23/17 11/24/17 11/24/17 18:59 06:59 18:59 Intake Total 900 / 900 1450 / 1450 1100 / 1100 Output Total 250 / 250 500 / 500 Balance 650 / 650 950 / 950 1100 / 1100 Weight 56.4 kg Intake: IV 100 / 100 1450 / 1450 1100 / 1100 NS Inj 1,000 ML @ 84 mls/hr IV. 1000 / 1000 CONT .[id number] [facility] Rx#:[id number] Ofirmev Inj 1,000 mg In 100 ml 100 / 100 @ 400 mls/hr IV.SIG ONCE ONE Rx #:[id number] Maxipime Inj 1,000 MG In NS Inj 100 / 100 100 ML @ 200 mls/hr IV.SIG ONCE ONE Rx#:[id number] NS Inj 1,000 ML @ 1000 mls/hr 1000 / 1000 IV.SIG .Q1H ONE Rx#:[id number] Vancomycin Inj 1,000 MG In NS 250 / 250 Inj 250 ML @ 250 mls/hr IV.SIG ONCE ONE Rx#:[id number] Flagyl 500 MG Inj 100 ML @ 100 100 / 100 100 / 100 mls/hr IV.SIG Q6H [facility] Rx#: [id number] Oral 0 / 0 Intake (Blood Product) Amt 800 / 800 Rbc As-3 Leukoreduced Unit 400 / 400 [id number] Rbc As-3 Leukoreduced Unit 400 / 400 [id number] Output: Urine 250 / 250 Urine Amount (Catheter) 500 / 500 Indwelling Urethral Catheter 500 / 500 Other: Date of Last Bowel Movement 11/22/17 11/22/17 11/22/17 <Za Sanchez - 11/24/17 16:45> Vital Signs 11/22/17 12:00 11/22/17 13:59 11/22/17 16:00 Temperature 99.1 F 98.9 F Pulse Rate 77 85 76 Respiratory Rate 20 20 Blood Pressure 112/56 L 114/54 L 122/84 Pulse Oximetry 95 97 11/22/17 20:00 11/23/17 00:00 11/23/17 01:30 Temperature 97.2 F L 97.5 F L Pulse Rate 77 75 Respiratory Rate 18 18 17 Blood Pressure 114/57 L 112/56 L Pulse Oximetry 96 93 L 11/23/17 03:57 11/23/17 04:00 11/23/17 04:14 Temperature 98.2 F 97.3 F L 98 F Pulse Rate 83 84 84 Respiratory Rate 17 18 17 Blood Pressure 121/59 L 121/58 L 121/58 L Pulse Oximetry 99 98 98 11/23/17 07:20 11/23/17 08:00 11/23/17 10:20 Temperature 99.1 F 97.3 F L 96.8 F L Pulse Rate 91 H 84 79 Respiratory Rate 17 18 16 Blood Pressure 131/61 125/70 157/64 H Pulse Oximetry 98 98 99 Intake & Output 11/22/17 11/23/17 11/23/17 18:59 06:59 18:59 Intake Total 1320 / 1320 1100 / 1100 400 / 400 Output Total 75 / 75 Balance 1245 / 1245 1100 / 1100 400 / 400 Weight 52.163 kg Intake: IV 1200 / 1200 1100 / 1100 NS Inj 1,000 ML @ 50 mls/hr IV. 1000 / 1000 1000 / 1000 CONT .Q20H [facility] Rx#:[id number] LR 1000 mL Inj 1,000 ML @ 30 100 / 100 mls/hr IV.SIG .Q24H [facility] Rx#: [id number] Ancef Inj 1,000 MG In NS Inj 100 / 100 100 / 100 100 ML @ 200 mls/hr IV.SIG Q8H [facility] Rx#:[id number] Oral 120 / 120 0 / 0 Intake (Blood Product) Amt 0 / 0 400 / 400 Rbc As-3 Leukoreduced Unit 0 / 0 400 / 400 [id number] Rbc As-3 Leukoreduced Unit 0 / 0 [id number] Output: Urine 25 / 25 Estimated Blood Loss 50 / 50 Other: # Voids 400 0 Date of Last Bowel Movement 11/21/17 # Bowel Movements 0 <Rae Moore - 11/23/17 10:41> Narrative: GENERAL: Elderly female lying in bed, sleeping. Relatively unarousable. Noncommunicative, moans to sternal rub. EYES: Pupils normal. No pinpoint. CARDIOVASCULAR: Regular rate and rhythm. Grade 1/6 systolic ejection murmur heard best over left sternal border. RESPIRATORY: No accessory muscle use. Clear to auscultation. Breath sounds equal bilaterally. GASTROINTESTINAL: Abdomen soft, non-tender, nondistended. Bowel sounds present MUSCULOSKELETAL: Right upper extremity placed in sling. Right lower extremity with dressings in place. Large ecchymosis over lateral hip. Pulses intact. NEUROLOGICAL: No obvious facial droop. No focal weakness noted, But difficult to assess due to patient's mental status. Patient opens eyes to sternal rub and movement of her extremities. <Rae Moore - 11/23/17 11:13> - Urinary Catheter Management Indwelling Urethral Catheter Cath placed during this visit: no <Za Sanchez - 11/24/17 16:45> yes <Rae Moore - 11/23/17 11:13> Reason for continuing: Other continuation reason <Rae Moore 11/23/17 10: 41> Insertion date: 11/22/17 <Rae Moore - 11/23/17 10:41> Assessment and Plan - Assessment (1) Altered mental status Code(s): R41.82 - Altered mental status, unspecified Status: Acute (2) WALTER (acute kidney injury) Code(s): N17.9 - Acute kidney failure, unspecified Status: Acute (3) Fracture of femur Code(s): S72.90XA - Unspecified fracture of unspecified femur, initial encounter for closed fracture Status: Acute (4) Leukocytosis Code(s): D72.829 - Elevated white blood cell count, unspecified Status: Acute (5) Hyperglycemia Code(s): R73.9 - Hyperglycemia, unspecified Status: Acute (6) Hypothyroid Code(s): E03.9 - Hypothyroidism, unspecified Status: Acute (7) Hypertension Code(s): I10 - Essential (primary) hypertension Status: Acute (8) Humeral fracture Code(s): S42.309A - Unspecified fracture of shaft of humerus, unspecified arm, initial encounter for closed fracture Status: Chronic (9) Nutrition, metabolism, and development symptoms Code(s): R63.8 - Other symptoms and signs concerning food and fluid intake Status: Acute <Za Sanchez - 11/24/17 16:45> (1) Altered mental status Code(s): R41.82 - Altered mental status, unspecified Status: Acute Plan: Patient decline in communicative and responsiveness status since admission. Contributing factors of postop pain, anesthesia, acute kidney injury, hypovolemia Difficult to assess for focal signs due to patient's status. Respiratory rate and O2 sats within normal limits, no pinpoint pupils on exam -Stat head CT without contrast -ABG -Stat H&H -Hold pain medications until patient becomes more responsive -Continue to monitor for worsening status (2) Decreased hemoglobin Code(s): R71.0 - Precipitous drop in hematocrit Status: Acute Plan: Dr. Still spoke with Dr. Boogie yesterday who reports that he is not surprised her hemoglobin dropped as her fracture was relatively traumatic. 2 units PRBC ordered last night. Patient is just receiving second unit this a.m. -Follow-up H&H post transfusion (3) WALTER (acute kidney injury) Code(s): N17.9 - Acute kidney failure, unspecified Status: Acute Plan: Contributing factor of hypovolemia and n.p.o. status -Fluids D5WNS 90ml/hr (4) Fracture of femur Code(s): S72.90XA - Unspecified fracture of unspecified femur, initial encounter for closed fracture Status: Acute Plan: 87 YO female with comminuted spiral "butterfly" fracture of proximal femur noted on x-ray. Today pt is POD#1 following right femur reduction and intramedullary nail fixation by Dr Boogie. Patient neurovascularly intact and is recovering from surgery. -Orthopedic surgery consulted, Dr Boogie. Dressings per orthopedic recommendation -We will hold pain medications for now as patient has altered mental status. Want to eliminate contributing factor of oversedation. -Ca+Vitamin D supplementation -Will consider DEXA scan planning +/- bisphosphonate on discharge. (5) Leukocytosis Code(s): D72.829 - Elevated white blood cell count, unspecified Status: Acute Plan: Absolute neutrophil count and neutrophil percent within normal limits. Patient is afebrile. Urinalysis negative. WBC increased to 87 today from 25 on admission Peripheral smear review showed atypical lymphocytosis and mild neutrophilia suspicious for CLL. -Hematology oncology consult -Follow-up CBC in a.m. (6) Hyperglycemia Code(s): R73.9 - Hyperglycemia, unspecified Status: Acute Plan: Patient has no reported history of diabetes. Likely stress reaction. -Patient is not currently eating due to her altered mental status. -Follow-up BMP in a.m. (7) Hypothyroid Code(s): E03.9 - Hypothyroidism, unspecified Status: Acute Plan: We will continue home levothyroxine once dosing is obtained (8) Hypertension Code(s): I10 - Essential (primary) hypertension Status: Acute Plan: Hold home lisinopril for now as patient has been normotensive (9) Humeral fracture Code(s): S42.309A - Unspecified fracture of shaft of humerus, unspecified arm, initial encounter for closed fracture Status: Chronic Plan: Reported by son to be chronic. Patient had fracture 2 years prior -Orthopedic surgery consulted appreciate recommendations. -Pt right arm placed in sling post-op for immobilization -Continue to monitor for signs of ecchymosis etc. indicating acute injury (10) Nutrition, metabolism, and development symptoms Code(s): R63.8 - Other symptoms and signs concerning food and fluid intake Status: Acute Plan: Diet: Patient has altered mental status makes her self-imposed n.p.o. Fluids: Patient on maintenance D5 normal saline at 90 mls per hour DVT prophylaxis: SCDs and Lovenox <Rae Moore - 11/23/17 10:52> - Assessment and Plan Discussed Condition With: Pedro Luis Still and Laura <Rae Moore - 11/23/17 11:13> - Attending Attestation Patient seen and examined during morning rounds, discussed with resident team. I agree with assessment and management as documented and discussed with me. Pt is somnolent - opens eyes to sternal rub. Check CT head, ABG, H/H as ordered. Neurochecks. Of note, pt is POD#1 with drop in hemoglobin; she is not a candidate for tPA. <Za Sanchez - 11/24/17 16:45> <Rae Moroe - Last Filed: 11/23/17 10:52> (4) Fracture of femur Qualifiers: Encounter type: initial encounter Fracture type: closed Fracture morphology : spiral Laterality: right (9) Humeral fracture Qualifiers: Fracture type: closed Laterality: right <Za Sanchez - Last Filed: 11/24/17 16:45> (3) Fracture of femur Qualifiers: Encounter type: initial encounter Fracture type: closed Fracture morphology : spiral Laterality: right (8) Humeral fracture Qualifiers: Fracture type: closed Laterality: right <Rae Moore E - Last Filed: 11/23/17 10:52> (4) Fracture of femur Qualifiers: Encounter type: initial encounter Fracture type: closed Fracture morphology : spiral Laterality: right (9) Humeral fracture Qualifiers: Fracture type: closed Laterality: right <Za Sanchez - Last Filed: 11/24/17 16:45> (3) Fracture of femur Qualifiers: Encounter type: initial encounter Fracture type: closed Fracture morphology : spiral Laterality: right (8) Humeral fracture Qualifiers: Fracture type: closed Laterality: right
[2017-11-23 10:50] LABS: Hemoglobin 7.5 gm/dL (11.6-15.3); Mean Corpuscular HGB Conc 31.3 % (32.0-36.0); Mean Corpuscular Hemoglobin 29.6 pg (27.0-34.0); Mean Corpuscular Volume 94.5 fL (80.0-100.0); Mean Platelet Volume 6.7 fL (7.0-11.0); Platelet Count 173 th/mm3 (150-450); Red Blood Count 2.54 mil/mm3 (4.00-5.30); Red Cell Distribution Width 15.9 % (11.6-17.2); White Blood Count 88.6 th/mm3 (4.0-11.0)
[2017-11-23 10:54] LABS: ABG Base Excess -3.5 mmol/L (-2-2); ABG PCO2 34 mmHg (38-42); ABG PO2 117 mmHg (61-120)
[2017-11-23 11:02] LABS: INR 1.1 Ratio; Prothrombin Time 10.8 sec (9.8-11.6)
[2017-11-23 11:40] LABS: Carbon Dioxide 20.4 meq/L (21.0-32.0); Potassium 5.6 meq/L (3.5-5.1)
[2017-11-23 11:59] LABS: Total Protein 5.1 g/dL (6.4-8.2)
[2017-11-23 12:39] LABS: Monocytes 5 % (0-8); Platelet Estimate Normal (Normal); Platelet Morphology Normal (Normal)
[2017-11-23 12:42] LABS: Smudge Cells Present
[2017-11-23 12:43] LABS: Lymphocytes 71 % (9-44)
[2017-11-23] MEDS: Dextrose 5%/NaCl 0.9% Inj 1,000 ML IV.CONT SCH (15:04)
--- NOTE | 2017-11-23 17:20 | P.PNADD ---
Addendum to Inpatient Note Reason for Addendum: Additional Documentation Additional information: Dr Still came by to assess pt status at 4:40PM. Nursing reports pt still not awake and alert. Still mutters and grimaces when moved. Still denies pain. Pt appears a little bit more alert and opens eyes half-way upon entering the room. Appears to respond slightly when name is called by opening eyes half-way but has trouble keeping them open. Lips are chapped and when a cup of water is offered with straw, pt bites on straw but cannot close lips around it. Cannot follow simple commands to control officer manager hand or turn head or shake head. Tech has recently measured vitals and reports temp as 98.9, but pt feels febrile and cheeks are flushed. Gen: elderly frail lady lying in bed resting CV: RRR, louder at the apex Pulm: lungs clear bilaterally, limited auscultation to anterior only, breathing comfortably Neuro: can open eyes half-way to name being called; cannot squeeze hand or follow commands; cannot sip from straw A/P: 87 YO female s/p right femur nail fixation POD#1 with likely post-op hyperanesthesia and not back at cognitive/neurological baseline. Transfusion of 2u PRBCs ordered at 5PM on 11/22 completed today at 1400 hours with slightly improved Hgb. -CT head negative -ABG unremarkable except for Hgb 7.4 s/p 1u PRBCs -CBC this morning with Hgb 7.5, same as above -BMP with hyperkalemia 5.6 -D5-NS at 80 mls/hr -Stat H&H ordered -Stat Mag and K+ ordered -Ofirmev 1000 mg IV -[place] PRN Pt DW Dr Sanchez
[2017-11-23 17:34] LABS: Hematocrit 27.7 % (35.0-46.0); Hemoglobin 8.9 gm/dL (11.6-15.3)
[2017-11-23] MEDS: Enoxaparin Inj 30 MG/0.3 ML Syringe SQ SCH (21:32)
[2017-11-23] MEDS ORDERED: Vancomycin Consult Pharmacy OTHER PRN (22:08)
--- NOTE | 2017-11-23 22:14 | P.PNADD ---
Addendum to Inpatient Note Reason for Addendum: Additional Documentation Additional information: Received a call from Dr. Frankel of hematology at 2117 about patient being unresponsive. We went to see the patient with Dr. Frankel. 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 Probably sepsis. Patient was also having minimal urine output. She advised us to transfer the patient to the ICU. O: General: Elderly white female laying in bed with mouth gaped open, in no acute distress Eyes: Sluggish but PERRLA Cardiovascular: RRR. Holosystolic murmur Respiratory: Clear to auscultation anteriorly Extremities: Right lower extremity with large amount of swelling with large ecchymosis on the right hip Neuro: Groans to sternal rub A/P: 87-year-old white female with past medical history of hypothyroidism and hypertension postop day 1 from right femur nail fixation found to be responsive only to sternal rub. CVA versus sepsis versus postop anesthesia versus blood loss -spoke with Dr. Walsh by phone who recommended IVF, broad-spectrum antibiotics , and transfer to the ICU for higher acuity care -Stat shade matcher consult -MRI brain (Head CT this AM was stable) -Blood cultures 2 -CBC, CMP, troponin -started vancomycin (pharmacy consult) and cefepime after speaking with pharmacy due to patient's penicillin allergy (patient has received Ancef previously w/o complication during this hospitalization) -Resident team spoke with patient's son, Kartik Walker, and updated him of her condition DW Dr. Fischer, Dr. Randolph, Dr. Frankel, Dr. Walsh
--- NOTE | 2017-11-23 22:32 | P.CONCC ---
History of Present Illness Service: Critical Care Medicine Consult date: 11/23/17 Requesting Physician: Estrellita Kruse Reason for Consult: unresponsiveness Primary Care Provider: UNKNOWN History of Present Illness: This is an 87-year-old female who presented to the hospital with a hip fracture and underwent right operative fixation of her hip fracture. Postop day 1 she was noted to be worsening the anemic with a enlarging right hip hematoma. In addition, she was acutely obtunded this morning which was evaluated with a noncontrasted head CT which was negative for acute disease. However, she did not improve her mental status. Cande I was contacted because she was persistently altered and the primary team caring for her was concerned. 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 I evaluated the patient on arrival to the ICU. She is protecting her airway with a vigorous gag. She will respond with moans to loud voice, and to stimulation. In addition to her other acute problems, she has had a leukemoid reaction while inpatient and her white count went up to 93,000. 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 Both hematology and I agree that an acute rise of white blood cell count to this degree should warrant an infectious workup until proven otherwise. Unfortunately, no additional information is available from the patient due to her severe encephalopathy. Review systems is unobtainable. Review of Systems unobtainable due to mental status PMFSH - History History Provided By: Medical Record - Medical / Surgical Hx Neg / Unobtainable Medical Problems Denied: Unable to Obtain Surgical History: Unable to Obtain - Medical History Medical History: Medical History (Last Reviewed 11/24/17 @ 01:16 by Fermin Walsh MD) H/O: hysterectomy HTN (hypertension) Hypothyroidism - Surgical History Surgical History: Surgical History (Last Reviewed 11/24/17 @ 01:16 by Fermin Walsh MD) History of back surgery - Family History Family History: Family History (Last Reviewed 11/24/17 @ 01:16 by Fermin Walsh MD) Other No pertinent family history - Social History I have reviewed the patient's Social History: Yes - Tobacco History Second Hand Smoke Exposure: No Tobacco Use In Past 30 Days: No Smoking Status: Never smoker - Alcohol History How Often Do You Have a Drink Containing Alcohol: Never - Substance Use History Substance History: No History of Abuse - Travel History Recent Travel in the [place] Within the Last 8 Weeks: No Recent Travel Out of the Country Within the Last 8 Weeks: No - Immunization History Tetanus Immunization: Unsure Hx Influenza Vaccine This Season: Yes Medications and Allergies Active Medications: Active Medications Acetaminophen (Tylenol) 650 mg PO Q6HR PRN PRN Reason: PAIN SCALE 1 TO 2 Hydrocodone Bitart/Acetaminophen (Herbster 7.5/325) 1 tab PO Q4H PRN PRN Reason: PAIN SCALE 6 TO 10 Hydrocodone Bitart/Acetaminophen (Herbster 5/325) 1 tab PO Q4H PRN PRN Reason: PAIN SCALE 3 TO 5 Last Admin: 11/21/17 11:15 Dose: 1 tab Al Hydroxide/Mg Hydroxide (Milk Of Magnkuldeep Liq) 30 ml PO Q12H PRN PRN Reason: Mild Constipation Calcium/Vitamin D (Oscal With D 250/125 Mg) 1 tab PO Q8H [facility] Last Admin: 11/23/17 18:49 Dose: Not Given Diphenhydramine HCl (Benadryl) 25 mg PO Q6H PRN PRN Reason: ITCHING Enoxaparin Sodium (Lovenox Inj) 30 mg SQ Q24H [facility] Last Admin: 11/23/17 21:32 Dose: Not Given Sodium Chloride (Ns Inj) 1,000 mls @ 50 mls/hr IV.CONT .Q20H [facility] Last Admin: 11/23/17 07:00 Dose: Not Given Sodium Chloride (Ns Inj) 500 mls @ 30 mls/hr IV.SIG .Q10H [facility] Last Admin: 11/22/17 07:25 Dose: Not Given Dextrose/Sodium Chloride (D5w/Normal Saline Inj) 1,000 mls @ 110 mls/hr IV.CONT .Q9H6M [facility] Last Admin: 11/23/17 15:04 Dose: 90 mls/hr Cefepime HCl 1,000 mg/ Sodium (Chloride) 100 mls @ 200 mls/hr IV.SIG Q24H ESTHER Cefepime HCl 1,000 mg/ Sodium (Chloride) 100 mls @ 200 mls/hr IV.SIG ONCE ONE Stop: 11/23/17 22:59 Vancomycin HCl 1,000 mg/ (Sodium Chloride) 250 mls @ 250 mls/hr IV.SIG ONCE ONE Stop: 11/23/17 23:59 Morphine Sulfate (Morphine Inj) 2 mg IV.PUSH Q3H PRN PRN Reason: BREAKTHROUGH PAIN Naloxone HCl (Narcan Inj) 0.4 mg IV.PUSH UNSCH PRN PRN Reason: SEE LABEL COMMENTS Ondansetron HCl (Zofran Inj) 4 mg IV.PUSH Q6H PRN PRN Reason: NAUSEA Padimate O (Chapstick) 1 applicatio TOPICAL UNSCH PRN PRN Reason: CHAPPED LIPS Pharmacy Profile Note (Vancomycin Consult Pharmacy) 1 each OTHER PRN PRN PRN Reason: Pharmacy to dose Senna/Docusate Sodium (Holli-Colace) 1 tab PO BID [facility] Last Admin: 11/23/17 21:32 Dose: Not Given Sennosides (Senokot) 17.2 mg PO Q12H PRN PRN Reason: Moderate Constipation Sodium Chloride (Ns Flush) 2 ml IV.FLUSH BID [facility] Last Admin: 11/23/17 21:32 Dose: Not Given Sodium Chloride (Ns Flush) 2 ml IV.FLUSH PRN PRN PRN Reason: FLUSH AFTER USING IV ACCESS Vitamin D (Vitamin D3) 1,000 unit PO DAILY [facility] Last Admin: 11/23/17 09:18 Dose: Not Given Allergies Allergy/AdvReac Type Severity Reaction Status Date / Time penicillin G Allergy Unknown PT DOES Verified 11/21/17 13:23 NOT REMEMBER REACTION Home Medications Medication Instructions Recorded Confirmed Type levothyroxine 11/21/17 History lisinopril 11/21/17 History Physical Exam Vital signs: Vital Signs 11/23/17 00:00 11/23/17 01:30 11/23/17 03:57 Temperature 36.4 C L 36.8 C Pulse Rate 75 83 Respiratory Rate 18 17 17 Blood Pressure 112/56 L 121/59 L Pulse Oximetry 93 L 99 11/23/17 04:00 11/23/17 04:14 11/23/17 07:20 Temperature 36.3 C L 36.6 C 37.3 C Pulse Rate 84 84 91 H Respiratory Rate 18 17 17 Blood Pressure 121/58 L 121/58 L 131/61 Pulse Oximetry 98 98 98 11/23/17 08:00 11/23/17 10:20 11/23/17 10:37 Temperature 36.3 C L 36.0 C L 35.7 C L Pulse Rate 84 79 80 Respiratory Rate 18 16 16 Blood Pressure 125/70 157/64 H 134/57 L Pulse Oximetry 98 99 99 11/23/17 12:00 11/23/17 13:49 11/23/17 16:00 Temperature 37.0 C 36.6 C 37.0 C Pulse Rate 89 93 H 87 Respiratory Rate 18 14 18 Blood Pressure 144/62 H 142/66 H 160/73 H Pulse Oximetry 97 99 97 11/23/17 18:18 11/23/17 20:00 Temperature 36.9 C Pulse Rate 82 Respiratory Rate 14 14 Blood Pressure 143/64 H Pulse Oximetry 96 Intake & Output 11/23/17 11/23/17 11/24/17 06:59 18:59 06:59 Intake Total 1100 / 1100 900 / 900 Output Total 250 / 250 Balance 1100 / 1100 650 / 650 Weight 52.163 kg Intake: IV 1100 / 1100 100 / 100 NS Inj 1,000 ML @ 50 mls/hr IV. 1000 / 1000 CONT .Q20H [facility] Rx#:[id number] Ofirmev Inj 1,000 mg In 100 ml 100 / 100 @ 400 mls/hr IV.SIG ONCE ONE Rx #:[id number] Ancef Inj 1,000 MG In NS Inj 100 / 100 100 ML @ 200 mls/hr IV.SIG Q8H [facility] Rx#:[id number] Oral 0 / 0 Intake (Blood Product) Amt 0 / 0 800 / 800 Rbc As-3 Leukoreduced Unit 0 / 0 400 / 400 [id number] Rbc As-3 Leukoreduced Unit 400 / 400 [id number] Output: Urine 250 / 250 Other: # Voids 0 Date of Last Bowel Movement 11/21/17 11/22/17 Narrative: GENERAL: Frail elderly female, lying in bed, quite encephalopathic HEENT: Normocephalic. Atraumatic. Pupils equal, round, reactive, conjugate. Mucous membranes are dry NECK: Trachea is midline. There is no JVD. CHEST: Equal chest rise. Nasal cannula oxygen. CARDIOVASCULAR: Normal rate, regular rhythm. Sinus. Systolic blood pressure is 140. ABDOMEN: Soft, nontender, nondistended. No guarding. MUSCULOSKELETAL: Pulses 2+. No peripheral edema. The lateral portion of the right hip has 2 dressings which are intact, but half saturated with blood. In addition there is a large right hip hematoma which extends from the greater trochanter down skilled nursing to the knee. This is been marked by the nursing staff. There is significant ecchymoses around the lateral aspect of the thigh. NEUROLOGICAL: RASS -3. Arouses minimally to loud voice and stimulation. Very weakly follows commands and lower extremities. Does not follow commands in the upper extremities, but is briskly purposeful in the upper extremities. She has a quite a vigorous cough and gag and is protecting her airway. Her pupils are conjugate and she will track occasionally. She is not following any other commands, and will not answer questions. Not oriented at all. Only moans incomprehensibly. - Urinary Catheter Management Indwelling Urethral Catheter Cath placed during this visit: yes Reason for continuing: Other continuation reason Insertion date: 11/22/17 Septic Shock Reassessment Septic shock perfusion: reassessment completed Assessment and Plan - Assessment and Plan Plan: Assessment: 87-year-old female postop day 1 status post right hip operative fixation for fracture complicated by acute embolic CVA and acute encephalopathy. Encephalopathy is likely combination of metabolic and organic from CVA. Will need to rule out infectious etiology for metabolic encephalopathy as well as her leukemoid reaction. She is quite critically ill and given her age, comorbidities, and acute postoperative stroke, she has a very high risk of or further morbidity. Agree with admission to the ICU. Plan by systems: Neurologic: Acute embolic CVA Acute severe metabolic encephalopathy Frequent neurochecks Avoid long-acting sedatives Currently protecting airway MRI 11/23: Acute restriction of diffusion concerning for multiple embolic strokes Order EEG to rule out subclinical status Stroke navigator Carotid Dopplers Lipids A1c Swallow evaluation PT/OT/ST Telemetry Check ammonia level Cannot place the patient on aspirin or anticoagulation due to her active and ongoing postoperative bleeding requiring transfusion. Respiratory: Postoperative atelectasis Wean oxygen by nasal cannula for goal SPO2 greater than 90% Aggressive pulmonary toilet Head of bed elevated Nebs prn Cardiovascular: Start statin We will not placed on aspirin, see above discussion Continue telemetry Permissive hypertension with goal systolic blood pressure 120-180. Renal: Acute kidney injury Likely secondary to hypovolemia from postoperative bleeding Status post 2 units PRBCs Add an additional 1 L normal saline bolus Normal saline maintenance fluids Continue Rowley catheter Frequent urine output monitoring Daily creatinine and electrolytes -- Strict I/Os FEN/GI: Acute intravascular hypovolemia Severe acute protein calorie malnutrition N.p.o. pending formal swallow evaluation Normal saline at 84 mils per hour 1 L NS bolus ICU electrolyte protocol Check lactate Daily BMP, magnesium, phosphorus Heme/ID: Leukemoid reaction Severe anemia secondary to acute blood loss requiring transfusion Trend CBCs Hematology consulted and following We will place the patient on vancomycin, cefepime, Flagyl empirically Follow blood cultures, urine culture, sputum culture Send C. difficile If cultures are negative at 48 hours and white blood cell count is downtrending , would recommend discontinuation of antibiotics, as this may be stress response induced from surgery. Transfuse to keep hemoglobin greater than 7 Endocrine: Hyperglycemia of critical illness -- SSI Prophylaxis: GI Prophylaxis Pepcid DVT Prophylaxis -- SCDs Subcu heparin. Will not pursue full dose and a coagulation or aspirin in the setting of postoperative bleeding requiring transfusion Lines: Peripheral IVs Rowley Dispo: Admit to ICU. Critically ill. This patient remains critically ill with one or more organ systems which are or may become a threat to life. I have spent in excess of 39 minutes discontinuously in the care and management of this patient. This time is exclusive of procedures, and includes, but is not limited to, evaluation of the patient, review of the medical record, discussions with family, consultants, nursing staff, or respiratory therapy, and documentation in the medical record. Specifically, my time spent managing the life-threatening workup and evaluation and treatment of new acute stroke, acute metabolic encephalopathy, management of the airway and hemodynamic's.
[2017-11-23 22:43] LABS: ABG Base Excess -3.2 mmol/L (-2-2); ABG PCO2 34 mmHg (38-42); ABG PO2 143 mmHg (61-120)
[2017-11-23 22:58] LABS: Hematocrit 25.1 % (35.0-46.0); Hemoglobin 8.2 gm/dL (11.6-15.3); Mean Corpuscular HGB Conc 32.7 % (32.0-36.0); Mean Corpuscular Hemoglobin 29.9 pg (27.0-34.0); Mean Corpuscular Volume 91.5 fL (80.0-100.0); Mean Platelet Volume 6.6 fL (7.0-11.0); Platelet Count 138 th/mm3 (150-450); Red Blood Count 2.74 mil/mm3 (4.00-5.30); Red Cell Distribution Width 15.2 % (11.6-17.2); White Blood Count 59.5 th/mm3 (4.0-11.0)
[2017-11-23] MEDS ORDERED: Vancomycin Inj 1,000 MG in Sodium Chlor 0.9% Inj 250 ML IV.SIG ONE (23:00)
[2017-11-23 23:28] LABS: Albumin 2.7 g/dL (3.4-5.0); Calcium 7.2 mg/dL (8.5-10.1); Carbon Dioxide 20.7 meq/L (21.0-32.0); Potassium 4.9 meq/L (3.5-5.1); Total Protein 4.9 g/dL (6.4-8.2); Troponin I 0.09 ng/mL (0.02-0.05)
[2017-11-24] MEDS ORDERED: hydrALAZINE HCl Inj 20 MG/ML Vial IV.PUSH PRN
[2017-11-24 00:10] LABS: Lymphocytes 82 % (9-44); Monocytes 1 % (0-8); Myelocytes 1 % (0-0); Tallied Nucleated RBC 1 (0-0)
[2017-11-24 00:11] LABS: Smudge Cells Present
[2017-11-24 00:20] LABS: Acanthocytes Occ; Platelet Morphology Normal (Normal)
[2017-11-24 00:21] LABS: Polychromasia 2.1 % (0.0-1.9)
[2017-11-24] MEDS: Sod Chloride 0.9% Inj 1,000 ML IV.CONT SCH ×3 (00:45→12:06)
[2017-11-24] MEDS ORDERED: Sod Chloride 0.9% Inj 1,000 ML IV.SIG ONE (01:45)
[2017-11-24] MEDS: Dextrose 5%/NaCl 0.9% Inj 1,000 ML IV.CONT SCH (03:10)
[2017-11-24] MEDS: Calcium/Vitamin D 250/125 MG Tablet PO SCH ×3 (03:11→18:02)
[2017-11-24 05:07] LABS: Hematocrit 25.9 % (35.0-46.0); Hemoglobin 8.4 gm/dL (11.6-15.3); Mean Corpuscular HGB Conc 32.5 % (32.0-36.0); Mean Corpuscular Hemoglobin 29.9 pg (27.0-34.0); Mean Platelet Volume 6.5 fL (7.0-11.0); Platelet Count 137 th/mm3 (150-450); Red Blood Count 2.81 mil/mm3 (4.00-5.30); Red Cell Distribution Width 15.8 % (11.6-17.2); White Blood Count 51.2 th/mm3 (4.0-11.0)
[2017-11-24 05:39] LABS: Albumin 2.9 g/dL (3.4-5.0); Calcium 7.4 mg/dL (8.5-10.1); Carbon Dioxide 21.5 meq/L (21.0-32.0); Chol/HDL Ratio 6.65 Ratio; HDL Cholesterol 22.1 mg/dL (40.0-60.0); Potassium 4.5 meq/L (3.5-5.1); Total Protein 5.4 g/dL (6.4-8.2); Troponin I 0.07 ng/mL (0.02-0.05)
[2017-11-24 06:55] LABS: Lymphocytes 72 % (9-44); Monocytes 3 % (0-8)
[2017-11-24 06:56] LABS: Smudge Cells Present
[2017-11-24 06:58] LABS: Platelet Morphology Normal (Normal)
--- NOTE | 2017-11-24 07:35 | P.PNOP ---
Subjective Interval history: POd 2 s/p IMN right femur patient had stroke overnight and was transferred [facility]. Physical Exam Vital signs: Vital Signs 11/23/17 08:00 11/23/17 10:20 11/23/17 10:37 Temperature 97.3 F L 96.8 F L 96.2 F L Pulse Rate 84 79 80 Respiratory Rate 18 16 16 Blood Pressure 125/70 157/64 H 134/57 L Pulse Oximetry 98 99 99 11/23/17 12:00 11/23/17 13:49 11/23/17 16:00 Temperature 98.6 F 98 F 98.6 F Pulse Rate 89 93 H 87 Respiratory Rate 18 14 18 Blood Pressure 144/62 H 142/66 H 160/73 H Pulse Oximetry 97 99 97 11/23/17 18:18 11/23/17 20:00 11/23/17 20:25 Temperature 98.4 F Pulse Rate 82 Respiratory Rate 14 14 14 Blood Pressure 143/64 H Pulse Oximetry 96 11/24/17 00:00 11/24/17 01:42 11/24/17 02:00 Temperature 99.7 F H Pulse Rate 82 77 Respiratory Rate 12 18 Blood Pressure 140/62 Pulse Oximetry 100 11/24/17 04:00 11/24/17 05:42 11/24/17 06:00 Temperature 99.7 F H Pulse Rate 76 81 Respiratory Rate 10 L 14 Blood Pressure 178/76 H Pulse Oximetry 100 Intake & Output 11/23/17 11/24/17 11/24/17 18:59 06:59 18:59 Intake Total 900 / 900 1450 / 1450 100 / 100 Output Total 250 / 250 500 / 500 Balance 650 / 650 950 / 950 100 / 100 Weight 56.4 kg Intake: IV 100 / 100 1450 / 1450 100 / 100 Ofirmev Inj 1,000 mg In 100 ml 100 / 100 @ 400 mls/hr IV.SIG ONCE ONE Rx #:[id number] Maxipime Inj 1,000 MG In NS Inj 100 / 100 100 ML @ 200 mls/hr IV.SIG ONCE ONE Rx#:[id number] NS Inj 1,000 ML @ 1000 mls/hr 1000 / 1000 IV.SIG .Q1H ONE Rx#:[id number] Vancomycin Inj 1,000 MG In NS 250 / 250 Inj 250 ML @ 250 mls/hr IV.SIG ONCE ONE Rx#:[id number] Flagyl 500 MG Inj 100 ML @ 100 100 / 100 100 / 100 mls/hr IV.SIG Q6H [facility] Rx#: [id number] Oral 0 / 0 Intake (Blood Product) Amt 800 / 800 Rbc As-3 Leukoreduced Unit 400 / 400 [id number] Rbc As-3 Leukoreduced Unit 400 / 400 [id number] Output: Urine 250 / 250 Urine Amount (Catheter) 500 / 500 Indwelling Urethral Catheter 500 / 500 Other: Date of Last Bowel Movement 11/22/17 11/22/17 Narrative: RLE: dressings clean and dry. intact. - Urinary Catheter Management Indwelling Urethral Catheter Cath placed during this visit: yes Reason for continuing: Other continuation reason Insertion date: 11/22/17 Results - Labs CBC & Chem 7: 11/24/17 04:52 11/24/17 04:52 Laboratory Results - last 24 hr 11/23/17 11/23/17 11/23/17 01:28 10:01 10:01 WBC 88.6 H RBC 2.54 L Hgb 7.5 L Hct 24.0 L MCV 94.5 MCH 29.6 MCHC 31.3 L RDW 15.9 Plt Count 173 MPV 6.7 L Prelim Diff (Auto) Manual diff required WBC Differential Manual diff final Seg Neuts % (Manual) 24 Band Neuts % (Manual) Lymphocytes % (Manual) 71 H Monocytes % (Manual) 5 Myelocytes % (Man) Plasma Cell % (Manual) Abs Neuts (Manual) 21.3 H Nucleated RBCs/100 WBC Differential Comment . Smudge Cells Present H Platelet Estimate Normal Platelet Morphology Normal Polychromasia Basophilic Stippling Acanthocytes (Spur) PT 10.8 INR 1.1 Puncture Site Patient Temperature O2 Saturation ABG pH ABG pCO2 ABG pO2 ABG HCO3 ABG O2 Content ABG Base Excess ABG Methemoglobin [place] Test Hemoglobin Carboxyhemoglobin O2 Delivery Device Liter Flow Critical Value Sodium Potassium Chloride Carbon Dioxide Anion Gap BUN Creatinine Estimated GFR Random Glucose Lactic Acid Calcium Prot Corrected Calcium Magnesium Total Bilirubin AST ALT Alkaline Phosphatase Ammonia Troponin I Total Protein Albumin Triglycerides Cholesterol LDL Cholesterol, Calc HDL Cholesterol Cholesterol/HDL Ratio Nasal Screen MRSA (PCR) MTS Gel Crossmatch See Detail Bld Prod Order Comment 11/23/17 11/23/17 11/23/17 10:01 10:48 16:37 WBC RBC Hgb Hct MCV MCH MCHC RDW Plt Count MPV Prelim Diff (Auto) WBC Differential Seg Neuts % (Manual) Band Neuts % (Manual) Lymphocytes % (Manual) Monocytes % (Manual) Myelocytes % (Man) Plasma Cell % (Manual) Abs Neuts (Manual) Nucleated RBCs/100 WBC Differential Comment Smudge Cells Platelet Estimate Platelet Morphology Polychromasia Basophilic Stippling Acanthocytes (Spur) PT INR Puncture Site Left radial Patient Temperature 98.6 O2 Saturation 95 ABG pH 7.40 ABG pCO2 34 L ABG pO2 117 ABG HCO3 21 L ABG O2 Content 10.1 L ABG Base Excess -3.5 L ABG Methemoglobin 1.6 [place] Test Present Hemoglobin 7.4 L* Carboxyhemoglobin 1.7 O2 Delivery Device Nasal cannula Liter Flow 2.00 Critical Value Yes Sodium 140 Potassium 5.6 H 5.5 H Chloride 106 Carbon Dioxide 20.4 L Anion Gap 14 BUN 53 H Creatinine 1.91 H Estimated GFR 25 L Random Glucose 161 H Lactic Acid Calcium 7.0 L* Prot Corrected Calcium 8.1 L Magnesium Total Bilirubin AST ALT Alkaline Phosphatase Ammonia Troponin I Total Protein 5.1 L Albumin Triglycerides Cholesterol LDL Cholesterol, Calc HDL Cholesterol Cholesterol/HDL Ratio Nasal Screen MRSA (PCR) MTS Gel Crossmatch Bld Prod Order Comment 11/23/17 11/23/17 11/23/17 16:37 16:37 22:33 WBC RBC Hgb 8.9 L Hct 27.7 L MCV MCH MCHC RDW Plt Count MPV Prelim Diff (Auto) WBC Differential Seg Neuts % (Manual) Band Neuts % (Manual) Lymphocytes % (Manual) Monocytes % (Manual) Myelocytes % (Man) Plasma Cell % (Manual) Abs Neuts (Manual) Nucleated RBCs/100 WBC Differential Comment Smudge Cells Platelet Estimate Platelet Morphology Polychromasia Basophilic Stippling Acanthocytes (Spur) PT INR Puncture Site Left radial Patient Temperature 98.6 O2 Saturation 96 ABG pH 7.41 ABG pCO2 34 L ABG pO2 143 H ABG HCO3 21 L ABG O2 Content 12.0 ABG Base Excess -3.2 L ABG Methemoglobin 1.5 [place] Test Present Hemoglobin 8.7 L Carboxyhemoglobin 2.0 O2 Delivery Device Nasal cannula Liter Flow 2.00 Critical Value No Sodium Potassium Chloride Carbon Dioxide Anion Gap BUN Creatinine Estimated GFR Random Glucose Lactic Acid Calcium Prot Corrected Calcium Magnesium 2.5 Total Bilirubin AST ALT Alkaline Phosphatase Ammonia Troponin I Total Protein Albumin Triglycerides Cholesterol LDL Cholesterol, Calc HDL Cholesterol Cholesterol/HDL Ratio Nasal Screen MRSA (PCR) MTS Gel Crossmatch Bld Prod Order Comment 11/23/17 11/23/17 11/23/17 22:39 22:39 22:39 WBC 59.5 H RBC 2.74 L Hgb 8.2 L Hct 25.1 L MCV 91.5 MCH 29.9 MCHC 32.7 RDW 15.2 Plt Count 138 L MPV 6.6 L Prelim Diff (Auto) Manual diff required WBC Differential Manual diff final Seg Neuts % (Manual) 16 Band Neuts % (Manual) Lymphocytes % (Manual) 82 H Monocytes % (Manual) 1 Myelocytes % (Man) 1 H Plasma Cell % (Manual) Abs Neuts (Manual) 10.1 H Nucleated RBCs/100 WBC 1 H Differential Comment . Smudge Cells Present H Platelet Estimate Low L Platelet Morphology Normal Polychromasia 2.1 H Basophilic Stippling Faint H Acanthocytes (Spur) Occ H PT INR Puncture Site Patient Temperature O2 Saturation ABG pH ABG pCO2 ABG pO2 ABG HCO3 ABG O2 Content ABG Base Excess ABG Methemoglobin [place] Test Hemoglobin Carboxyhemoglobin O2 Delivery Device Liter Flow Critical Value Sodium 143 Potassium 4.9 Chloride 110 H Carbon Dioxide 20.7 L Anion Gap 12 BUN 55 H Creatinine 1.43 H Estimated GFR 35 L Random Glucose 174 H Lactic Acid 0.6 Calcium 7.2 L* Prot Corrected Calcium 8.4 L Magnesium Total Bilirubin 0.7 AST 24 ALT 10 Alkaline Phosphatase 44 L Ammonia Troponin I 0.09 H Total Protein 4.9 L Albumin 2.7 L Triglycerides Cholesterol LDL Cholesterol, Calc HDL Cholesterol Cholesterol/HDL Ratio Nasal Screen MRSA (PCR) MTS Gel Crossmatch Bld Prod Order Comment 11/24/17 11/24/17 11/24/17 00:00 01:15 04:52 WBC 51.2 H RBC 2.81 L Hgb 8.4 L Hct 25.9 L MCV 92.0 MCH 29.9 MCHC 32.5 RDW 15.8 Plt Count 137 L MPV 6.5 L Prelim Diff (Auto) Manual diff required WBC Differential Manual diff final Seg Neuts % (Manual) 24 Band Neuts % (Manual) 1 Lymphocytes % (Manual) 72 H Monocytes % (Manual) 3 Myelocytes % (Man) Plasma Cell % (Manual) Abs Neuts (Manual) 12.8 H Nucleated RBCs/100 WBC Differential Comment . Smudge Cells Present H Platelet Estimate Low L Platelet Morphology Normal Polychromasia Basophilic Stippling Acanthocytes (Spur) PT INR Puncture Site Patient Temperature O2 Saturation ABG pH ABG pCO2 ABG pO2 ABG HCO3 ABG O2 Content ABG Base Excess ABG Methemoglobin [place] Test Hemoglobin Carboxyhemoglobin O2 Delivery Device Liter Flow Critical Value Sodium Potassium Chloride Carbon Dioxide Anion Gap BUN Creatinine Estimated GFR Random Glucose Lactic Acid Calcium Prot Corrected Calcium Magnesium Total Bilirubin AST ALT Alkaline Phosphatase Ammonia 36 H Troponin I Total Protein Albumin Triglycerides Cholesterol LDL Cholesterol, Calc HDL Cholesterol Cholesterol/HDL Ratio Nasal Screen MRSA (PCR) Not detected MTS Gel Crossmatch Bld Prod Order Comment 11/24/17 11/24/17 04:52 04:52 WBC RBC Hgb Hct MCV MCH MCHC RDW Plt Count MPV Prelim Diff (Auto) WBC Differential Seg Neuts % (Manual) Band Neuts % (Manual) Lymphocytes % (Manual) Monocytes % (Manual) Myelocytes % (Man) Plasma Cell % (Manual) Abs Neuts (Manual) Nucleated RBCs/100 WBC Differential Comment Smudge Cells Platelet Estimate Platelet Morphology Polychromasia Basophilic Stippling Acanthocytes (Spur) PT INR Puncture Site Patient Temperature O2 Saturation ABG pH ABG pCO2 ABG pO2 ABG HCO3 ABG O2 Content ABG Base Excess ABG Methemoglobin [place] Test Hemoglobin Carboxyhemoglobin O2 Delivery Device Liter Flow Critical Value Sodium 146 H Potassium 4.5 Chloride 114 H Carbon Dioxide 21.5 Anion Gap 11 BUN 51 H Creatinine 1.22 H Estimated GFR 42 L Random Glucose 153 H Lactic Acid 1.0 Calcium 7.4 L* Prot Corrected Calcium 8.3 L Magnesium Total Bilirubin 0.6 AST 31 ALT 11 Alkaline Phosphatase 48 Ammonia Troponin I 0.07 H Total Protein 5.4 L Albumin 2.9 L Triglycerides 179 H Cholesterol 147 LDL Cholesterol, Calc 89 HDL Cholesterol 22.1 L Cholesterol/HDL Ratio 6.65 Nasal Screen MRSA (PCR) MTS Gel Crossmatch Bld Prod Order Comment - Imaging Impressions Head CT 11/23/17 10:21 CONCLUSION: 1. Stable evaluation without evidence of acute infarct, hemorrhage, mass or edema. 2. Cerebral white matter hypodensity characteristic of chronic microvascular ischemic disease; unchanged. . Head MRI 11/23/17 21:56 CONCLUSION: 1. 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 No significant mass effect or shift. 2. Severe chronic white matter ischemic changes bilaterally. Assessment and Plan - Assessment and Plan 1) Right subtrochanteric and femoral shaft fractures status post IM nail POD 2 50% weightbearing right lower extremity Change dressings today then continue daily Xeroform 4 x 4's ABD and paper tape until drainage is subsided. Then convert over to [place] with Xeroform. 2) Right proximal humerus fracture - nonop Nonoperative treatment. Sling and swathe with nonweightbearing. No range of motion of shoulder If continued drainage today we will hold Lovenox Awaiting results for new H&H after blood was given yesterday. 2 units given Case management for rehab placement Pain medication on chart and 3008 with orthopedic specifications [facility] Prescription Drug Monitoring Database has been queried and verified prior to prescribing the controlled substance. Acute pain exception. This patient has normal, predicted, physiological, and time limited response to an adverse mechanical stimulus associated with surgery, trauma, or acute illness as described in my notes. There is a lack of alternative treatment options other than to include the prescribed narcotic treatment for this condition.
[2017-11-24] MEDS: Senna/Docusate Sodium 8.6/50 MG Tablet PO SCH ×2 (08:39→20:34)
--- NOTE | 2017-11-24 08:54 | P.PNCC ---
Subjective Subjective Remarks/Hospital Course: 11/23: This is an 87-year-old female who presented to the hospital with a hip fracture and underwent right operative fixation of her hip fracture. Postop day 1 she was noted to be worsening the anemic with a enlarging right hip hematoma. In addition, she was acutely obtunded this morning which was evaluated with a noncontrasted head CT which was negative for acute disease. However, she did not improve her mental status. Cande I was contacted because she was persistently altered and the primary team caring for her was concerned. 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 I evaluated the patient on arrival to the ICU. She is protecting her airway with a vigorous gag. She will respond with moans to loud voice, and to stimulation. In addition to her other acute problems, she has had a leukemoid reaction while inpatient and her white count went up to 93,000. 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 Both hematology and I agree that an acute rise of white blood cell count to this degree should warrant an infectious workup until proven otherwise. Unfortunately, no additional information is available from the patient due to her severe encephalopathy. Review systems is unobtainable. 11/24: No improvement in neurologic function this morning. Patient moans to stimulation and occasionally spontaneously. Her right hip hematoma appears to have stabilized and she is normotensive. Objective Vital Signs / I&O: Vital Signs 11/23/17 10:20 11/23/17 10:37 11/23/17 12:00 Temperature 96.8 F L 96.2 F L 98.6 F Pulse Rate 79 80 89 Respiratory Rate 16 16 18 Blood Pressure 157/64 H 134/57 L 144/62 H Pulse Oximetry 99 99 97 11/23/17 13:49 11/23/17 16:00 11/23/17 18:18 Temperature 98 F 98.6 F Pulse Rate 93 H 87 Respiratory Rate 14 18 14 Blood Pressure 142/66 H 160/73 H Pulse Oximetry 99 97 11/23/17 20:00 11/23/17 20:25 11/24/17 00:00 Temperature 98.4 F 99.7 F H Pulse Rate 82 82 Respiratory Rate 14 14 12 Blood Pressure 143/64 H 140/62 Pulse Oximetry 96 100 11/24/17 01:42 11/24/17 02:00 11/24/17 04:00 Temperature 99.7 F H Pulse Rate 77 76 Respiratory Rate 18 10 L Blood Pressure 178/76 H Pulse Oximetry 100 11/24/17 05:42 11/24/17 06:00 Temperature Pulse Rate 81 Respiratory Rate 14 Blood Pressure Pulse Oximetry Intake & Output 11/23/17 11/24/17 11/24/17 18:59 06:59 18:59 Intake Total 900 / 900 1450 / 1450 100 / 100 Output Total 250 / 250 500 / 500 Balance 650 / 650 950 / 950 100 / 100 Weight 56.4 kg Intake: IV 100 / 100 1450 / 1450 100 / 100 Ofirmev Inj 1,000 mg In 100 ml 100 / 100 @ 400 mls/hr IV.SIG ONCE ONE Rx #:[id number] Maxipime Inj 1,000 MG In NS Inj 100 / 100 100 ML @ 200 mls/hr IV.SIG ONCE ONE Rx#:[id number] NS Inj 1,000 ML @ 1000 mls/hr 1000 / 1000 IV.SIG .Q1H ONE Rx#:[id number] Vancomycin Inj 1,000 MG In NS 250 / 250 Inj 250 ML @ 250 mls/hr IV.SIG ONCE ONE Rx#:[id number] Flagyl 500 MG Inj 100 ML @ 100 100 / 100 100 / 100 mls/hr IV.SIG Q6H [facility] Rx#: [id number] Oral 0 / 0 Intake (Blood Product) Amt 800 / 800 Rbc As-3 Leukoreduced Unit 400 / 400 [id number] Rbc As-3 Leukoreduced Unit 400 / 400 [id number] Output: Urine 250 / 250 Urine Amount (Catheter) 500 / 500 Indwelling Urethral Catheter 500 / 500 Other: Date of Last Bowel Movement 11/22/17 11/22/17 Result Diagrams: 11/24/17 04:52 11/24/17 04:52 Objective Remarks: GENERAL: Frail elderly female, lying in bed, quite encephalopathic HEENT: Normocephalic. Atraumatic. Pupils equal, round, reactive, conjugate. Mucous membranes are dry NECK: Trachea is midline. There is no JVD. CHEST: Equal chest rise. Nasal cannula oxygen. CARDIOVASCULAR: Normal rate, regular rhythm. Sinus. No JVD. ABDOMEN: Soft, nontender, nondistended. No guarding. MUSCULOSKELETAL: Pulses 2+. No peripheral edema. The lateral portion of the right hip has 2 dressings which are intact, but half saturated with blood. In addition there is a large right hip hematoma which extends from the greater trochanter down residential to the knee. This is been marked by the nursing staff. There is significant ecchymoses around the lateral aspect of the thigh. NEUROLOGICAL: RASS -3. Arouses minimally to loud voice and stimulation. Very weakly follows commands and lower extremities. Does not follow commands in the upper extremities, but is briskly purposeful in the upper extremities. She has a quite a vigorous cough and gag and is protecting her airway. Her pupils are conjugate and she will track occasionally. She is not following any other commands, and will not answer questions. Not oriented at all. Only moans incomprehensibly to stimulation. Protects airway. Assessment and Plan - Assessment and Plan Plan: Assessment: 87-year-old female postop day 1 status post right hip operative fixation for fracture complicated by acute embolic CVA and acute encephalopathy. Encephalopathy is likely combination of metabolic and organic from CVA. Will need to rule out infectious etiology for metabolic encephalopathy as well as her leukemoid reaction. She is quite critically ill and given her age, comorbidities, and acute postoperative stroke, she has a very high risk of or further morbidity. Plan by systems: Neurologic: Acute embolic CVA Acute severe metabolic encephalopathy Frequent neurochecks Avoid long-acting sedatives Currently protecting airway MRI 11/23: Acute restriction of diffusion concerning for multiple embolic strokes Order EEG to rule out subclinical status Stroke navigator Carotid Dopplers Lipids A1c Swallow evaluation PT/OT/ST Telemetry Check ammonia level Cannot place the patient on aspirin or anticoagulation due to her active and ongoing postoperative bleeding requiring transfusion. Respiratory: Postoperative atelectasis Wean oxygen by nasal cannula for goal SPO2 greater than 90% Aggressive pulmonary toilet Head of bed elevated Nebs prn Cardiovascular: Start statin We will not placed on aspirin, see above discussion Continue telemetry Permissive hypertension with goal systolic blood pressure 120-180. Renal: Acute kidney injury Likely secondary to hypovolemia from postoperative bleeding Status post 2 units PRBCs Add an additional 1 L normal saline bolus Normal saline maintenance fluids Continue Rowley catheter Frequent urine output monitoring Daily creatinine and electrolytes -- Strict I/Os FEN/GI: Acute intravascular hypovolemia Severe acute protein calorie malnutrition N.p.o. pending formal swallow evaluation Normal saline at 84 mils per hour 1 L NS bolus ICU electrolyte protocol Check lactate Daily BMP, magnesium, phosphorus Heme/ID: Leukemoid reaction Severe anemia secondary to acute blood loss requiring transfusion Trend CBCs Hematology consulted and following We will place the patient on vancomycin, cefepime, Flagyl empirically Follow blood cultures, urine culture, sputum culture Send C. difficile If cultures are negative at 48 hours and white blood cell count is downtrending , would recommend discontinuation of antibiotics, as this may be stress response induced from surgery. Transfuse to keep hemoglobin greater than 7 Endocrine: Hyperglycemia of critical illness -- SSI Prophylaxis: GI Prophylaxis Pepcid DVT Prophylaxis -- SCDs Subcu heparin. Will not pursue full dose and a coagulation or aspirin in the setting of postoperative bleeding requiring transfusion Lines: Peripheral IVs Rowley Overall impression: This patient remains critically ill with one or more organ systems which are or may become a threat to life. I have spent in excess of 39 minutes discontinuously in the care and management of this patient. This time is exclusive of procedures, and includes, but is not limited to, evaluation of the patient, review of the medical record, discussions with family, consultants , nursing staff, or respiratory therapy, and documentation in the medical record. Specifically, my time spent managing the life-threatening workup and evaluation and treatment of new acute stroke, acute metabolic encephalopathy, management of the airway and hemodynamic's. In the context of her associated medical problems and recent hip fracture, this woman has an extremely poor short -term prognosis. I anticipate pneumonia followed by respiratory failure and requirement for mechanical ventilation should she remain a full CODE STATUS. Critical care time 44 minutes aside from procedures.
[2017-11-24] MEDS ORDERED: Dextrose 50% in Water 50 ML Vial IV.PUSH PRN (09:43)
--- NOTE | 2017-11-24 09:47 | P.PNFP ---
Subjective Interval history: Ms. Walker was seen on rounds this morning. Overnight the resident team received a call from Dr. Frankel of hematology regarding patient being unresponsive. The resident team saw the patient and decided that patient was requiring higher level of care into transfer to ICU. Discussed with Dr. Coe who recommended IV fluids, broad-spectrum antibiotics and agreed to transfer. MRI was ordered, blood cultures drawn, patient started on vancomycin cefepime. The patient's son was updated on her condition. This morning on rounds the patient is still relatively nonresponsive. But in no acute distress. She moans occasionally to palpation and opens eyes briefly. Nursing reports no changes since resident evaluation overnight. <Rae Moore E - 11/24/17 09:47> Results - Labs Result diagrams: 11/24/17 04:52 11/24/17 04:52 <Cruz Fischer L - 11/24/17 18:17> Abnormal lab results 11/23/17 11/23/17 11/23/17 Range/Units 22:33 22:39 22:39 WBC 59.5 H (4.0-11.0) th/mm3 RBC 2.74 L (4.00-5.30) mil/mm3 Hgb 8.2 L (11.6-15.3) gm/dL Hct 25.1 L (35.0-46.0) % Plt Count 138 L (150-450) th/mm3 MPV 6.6 L (7.0-11.0) fL Lymphocytes % (Manual) 82 H (9-44) % Myelocytes % (Man) 1 H (0-0) % Abs Neuts (Manual) 10.1 H (1.8-7.7) th/mm3 Nucleated RBCs/100 WBC 1 H (0-0) /100 WBC Smudge Cells Present H (None) Platelet Estimate Low L (Normal) Polychromasia 2.1 H (0.0-1.9) % Basophilic Stippling Faint H (None) Acanthocytes (Spur) Occ H (None) ABG pCO2 34 L (38-42) mmHg ABG pO2 143 H (61-120) mmHg ABG HCO3 21 L (22-26) mmol/L ABG Base Excess -3.2 L (-2-2) mmol/L Hemoglobin 8.7 L (12.0-16.0) G/DL Sodium (136-145) meq/L Chloride 110 H (98-107) meq/L Carbon Dioxide 20.7 L (21.0-32.0) meq/L BUN 55 H (7-18) mg/dL Creatinine 1.43 H (0.50-1.00) mg/dL Estimated GFR 35 L (>89) mL/min POC Glucose (68-110) mg/dl Random Glucose 174 H (74-106) mg/dL Calcium 7.2 L* (8.5-10.1) mg/dL Prot Corrected Calcium 8.4 L (8.5-10.1) mg/dL Alkaline Phosphatase 44 L (45-117) U/L Ammonia (11-32) mcmol/L Troponin I 0.09 H (0.02-0.05) ng/mL Total Protein 4.9 L (6.4-8.2) g/dL Albumin 2.7 L (3.4-5.0) g/dL Triglycerides (42-150) mg/dL HDL Cholesterol (40.0-60.0) mg/dL 11/24/17 11/24/17 11/24/17 Range/Units 01:15 04:52 04:52 WBC 51.2 H (4.0-11.0) th/mm3 RBC 2.81 L (4.00-5.30) mil/mm3 Hgb 8.4 L (11.6-15.3) gm/dL Hct 25.9 L (35.0-46.0) % Plt Count 137 L (150-450) th/mm3 MPV 6.5 L (7.0-11.0) fL Lymphocytes % (Manual) 72 H (9-44) % Myelocytes % (Man) (0-0) % Abs Neuts (Manual) 12.8 H (1.8-7.7) th/mm3 Nucleated RBCs/100 WBC (0-0) /100 WBC Smudge Cells Present H (None) Platelet Estimate Low L (Normal) Polychromasia (0.0-1.9) % Basophilic Stippling (None) Acanthocytes (Spur) (None) ABG pCO2 (38-42) mmHg ABG pO2 (61-120) mmHg ABG HCO3 (22-26) mmol/L ABG Base Excess (-2-2) mmol/L Hemoglobin (12.0-16.0) G/DL Sodium 146 H (136-145) meq/L Chloride 114 H (98-107) meq/L Carbon Dioxide (21.0-32.0) meq/L BUN 51 H (7-18) mg/dL Creatinine 1.22 H (0.50-1.00) mg/dL Estimated GFR 42 L (>89) mL/min POC Glucose (68-110) mg/dl Random Glucose 153 H (74-106) mg/dL Calcium 7.4 L* (8.5-10.1) mg/dL Prot Corrected Calcium 8.3 L (8.5-10.1) mg/dL Alkaline Phosphatase (45-117) U/L Ammonia 36 H (11-32) mcmol/L Troponin I 0.07 H (0.02-0.05) ng/mL Total Protein 5.4 L (6.4-8.2) g/dL Albumin 2.9 L (3.4-5.0) g/dL Triglycerides 179 H (42-150) mg/dL HDL Cholesterol 22.1 L (40.0-60.0) mg/dL 11/24/17 11/24/17 Range/Units 12:54 16:47 WBC (4.0-11.0) th/mm3 RBC (4.00-5.30) mil/mm3 Hgb (11.6-15.3) gm/dL Hct (35.0-46.0) % Plt Count (150-450) th/mm3 MPV (7.0-11.0) fL Lymphocytes % (Manual) (9-44) % Myelocytes % (Man) (0-0) % Abs Neuts (Manual) (1.8-7.7) th/mm3 Nucleated RBCs/100 WBC (0-0) /100 WBC Smudge Cells (None) Platelet Estimate (Normal) Polychromasia (0.0-1.9) % Basophilic Stippling (None) Acanthocytes (Spur) (None) ABG pCO2 (38-42) mmHg ABG pO2 (61-120) mmHg ABG HCO3 (22-26) mmol/L ABG Base Excess (-2-2) mmol/L Hemoglobin (12.0-16.0) G/DL Sodium (136-145) meq/L Chloride (98-107) meq/L Carbon Dioxide (21.0-32.0) meq/L BUN (7-18) mg/dL Creatinine (0.50-1.00) mg/dL Estimated GFR (>89) mL/min POC Glucose 147 H 147 H (68-110) mg/dl Random Glucose (74-106) mg/dL Calcium (8.5-10.1) mg/dL Prot Corrected Calcium (8.5-10.1) mg/dL Alkaline Phosphatase (45-117) U/L Ammonia (11-32) mcmol/L Troponin I (0.02-0.05) ng/mL Total Protein (6.4-8.2) g/dL Albumin (3.4-5.0) g/dL Triglycerides (42-150) mg/dL HDL Cholesterol (40.0-60.0) mg/dL Short CBC 11/23/17 11/24/17 Range/Units 22:39 04:52 WBC 59.5 H 51.2 H (4.0-11.0) th/mm3 Hgb 8.2 L 8.4 L (11.6-15.3) gm/dL Hct 25.1 L 25.9 L (35.0-46.0) % Plt Count 138 L 137 L (150-450) th/mm3 BMP 11/23/17 11/24/17 22:39 04:52 Sodium 143 146 H Potassium 4.9 4.5 Chloride 110 H 114 H Carbon Dioxide 20.7 L 21.5 BUN 55 H 51 H Creatinine 1.43 H 1.22 H Calcium 7.2 L* 7.4 L* Cardiac Enzymes 11/23/17 11/24/17 Range/Units 22:39 04:52 Troponin I 0.09 H 0.07 H (0.02-0.05) ng/mL Liver Function 11/23/17 11/24/17 Range/Units 22:39 04:52 Total Bilirubin 0.7 0.6 (0.2-1.0) mg/dL AST 24 31 (15-37) U/L ALT 10 11 (10-53) U/L Alkaline Phosphatase 44 L 48 (45-117) U/L Albumin 2.7 L 2.9 L (3.4-5.0) g/dL <Young,Cruz L - 11/24/17 18:17> Abnormal lab results 11/23/17 11/23/17 11/23/17 Range/Units 01:28 10:01 10:01 WBC 88.6 H (4.0-11.0) th/mm3 RBC 2.54 L (4.00-5.30) mil/mm3 Hgb 7.5 L (11.6-15.3) gm/dL Hct 24.0 L (35.0-46.0) % MCHC 31.3 L (32.0-36.0) % Plt Count (150-450) th/mm3 MPV 6.7 L (7.0-11.0) fL Lymphocytes % (Manual) 71 H (9-44) % Myelocytes % (Man) (0-0) % Abs Neuts (Manual) 21.3 H (1.8-7.7) th/mm3 Nucleated RBCs/100 WBC (0-0) /100 WBC Smudge Cells Present H (None) Platelet Estimate (Normal) Polychromasia (0.0-1.9) % Basophilic Stippling (None) Acanthocytes (Spur) (None) ABG pCO2 (38-42) mmHg ABG pO2 (61-120) mmHg ABG HCO3 (22-26) mmol/L ABG O2 Content (12.0-20.0) Vol % ABG Base Excess (-2-2) mmol/L Hemoglobin (12.0-16.0) G/DL Sodium (136-145) meq/L Potassium 5.6 H (3.5-5.1) meq/L Chloride (98-107) meq/L Carbon Dioxide 20.4 L (21.0-32.0) meq/L BUN 53 H (7-18) mg/dL Creatinine 1.91 H (0.50-1.00) mg/dL Estimated GFR 25 L (>89) mL/min Random Glucose 161 H (74-106) mg/dL Calcium 7.0 L* (8.5-10.1) mg/dL Prot Corrected Calcium 8.1 L (8.5-10.1) mg/dL Alkaline Phosphatase (45-117) U/L Ammonia (11-32) mcmol/L Troponin I (0.02-0.05) ng/mL Total Protein 5.1 L (6.4-8.2) g/dL Albumin (3.4-5.0) g/dL Triglycerides (42-150) mg/dL HDL Cholesterol (40.0-60.0) mg/dL MTS Gel Crossmatch See Detail 11/23/17 11/23/17 11/23/17 Range/Units 10:48 16:37 16:37 WBC (4.0-11.0) th/mm3 RBC (4.00-5.30) mil/mm3 Hgb 8.9 L (11.6-15.3) gm/dL Hct 27.7 L (35.0-46.0) % MCHC (32.0-36.0) % Plt Count (150-450) th/mm3 MPV (7.0-11.0) fL Lymphocytes % (Manual) (9-44) % Myelocytes % (Man) (0-0) % Abs Neuts (Manual) (1.8-7.7) th/mm3 Nucleated RBCs/100 WBC (0-0) /100 WBC Smudge Cells (None) Platelet Estimate (Normal) Polychromasia (0.0-1.9) % Basophilic Stippling (None) Acanthocytes (Spur) (None) ABG pCO2 34 L (38-42) mmHg ABG pO2 (61-120) mmHg ABG HCO3 21 L (22-26) mmol/L ABG O2 Content 10.1 L (12.0-20.0) Vol % ABG Base Excess -3.5 L (-2-2) mmol/L Hemoglobin 7.4 L* (12.0-16.0) G/DL Sodium (136-145) meq/L Potassium 5.5 H (3.5-5.1) meq/L Chloride (98-107) meq/L Carbon Dioxide (21.0-32.0) meq/L BUN (7-18) mg/dL Creatinine (0.50-1.00) mg/dL Estimated GFR (>89) mL/min Random Glucose (74-106) mg/dL Calcium (8.5-10.1) mg/dL Prot Corrected Calcium (8.5-10.1) mg/dL Alkaline Phosphatase (45-117) U/L Ammonia (11-32) mcmol/L Troponin I (0.02-0.05) ng/mL Total Protein (6.4-8.2) g/dL Albumin (3.4-5.0) g/dL Triglycerides (42-150) mg/dL HDL Cholesterol (40.0-60.0) mg/dL MTS Gel Crossmatch 11/23/17 11/23/17 11/23/17 Range/Units 22:33 22:39 22:39 WBC 59.5 H (4.0-11.0) th/mm3 RBC 2.74 L (4.00-5.30) mil/mm3 Hgb 8.2 L (11.6-15.3) gm/dL Hct 25.1 L (35.0-46.0) % MCHC (32.0-36.0) % Plt Count 138 L (150-450) th/mm3 MPV 6.6 L (7.0-11.0) fL Lymphocytes % (Manual) 82 H (9-44) % Myelocytes % (Man) 1 H (0-0) % Abs Neuts (Manual) 10.1 H (1.8-7.7) th/mm3 Nucleated RBCs/100 WBC 1 H (0-0) /100 WBC Smudge Cells Present H (None) Platelet Estimate Low L (Normal) Polychromasia 2.1 H (0.0-1.9) % Basophilic Stippling Faint H (None) Acanthocytes (Spur) Occ H (None) ABG pCO2 34 L (38-42) mmHg ABG pO2 143 H (61-120) mmHg ABG HCO3 21 L (22-26) mmol/L ABG O2 Content (12.0-20.0) Vol % ABG Base Excess -3.2 L (-2-2) mmol/L Hemoglobin 8.7 L (12.0-16.0) G/DL Sodium (136-145) meq/L Potassium (3.5-5.1) meq/L Chloride 110 H (98-107) meq/L Carbon Dioxide 20.7 L (21.0-32.0) meq/L BUN 55 H (7-18) mg/dL Creatinine 1.43 H (0.50-1.00) mg/dL Estimated GFR 35 L (>89) mL/min Random Glucose 174 H (74-106) mg/dL Calcium 7.2 L* (8.5-10.1) mg/dL Prot Corrected Calcium 8.4 L (8.5-10.1) mg/dL Alkaline Phosphatase 44 L (45-117) U/L Ammonia (11-32) mcmol/L Troponin I 0.09 H (0.02-0.05) ng/mL Total Protein 4.9 L (6.4-8.2) g/dL Albumin 2.7 L (3.4-5.0) g/dL Triglycerides (42-150) mg/dL HDL Cholesterol (40.0-60.0) mg/dL MTS Gel Crossmatch 11/24/17 11/24/17 11/24/17 Range/Units 01:15 04:52 04:52 WBC 51.2 H (4.0-11.0) th/mm3 RBC 2.81 L (4.00-5.30) mil/mm3 Hgb 8.4 L (11.6-15.3) gm/dL Hct 25.9 L (35.0-46.0) % MCHC (32.0-36.0) % Plt Count 137 L (150-450) th/mm3 MPV 6.5 L (7.0-11.0) fL Lymphocytes % (Manual) 72 H (9-44) % Myelocytes % (Man) (0-0) % Abs Neuts (Manual) 12.8 H (1.8-7.7) th/mm3 Nucleated RBCs/100 WBC (0-0) /100 WBC Smudge Cells Present H (None) Platelet Estimate Low L (Normal) Polychromasia (0.0-1.9) % Basophilic Stippling (None) Acanthocytes (Spur) (None) ABG pCO2 (38-42) mmHg ABG pO2 (61-120) mmHg ABG HCO3 (22-26) mmol/L ABG O2 Content (12.0-20.0) Vol % ABG Base Excess (-2-2) mmol/L Hemoglobin (12.0-16.0) G/DL Sodium 146 H (136-145) meq/L Potassium (3.5-5.1) meq/L Chloride 114 H (98-107) meq/L Carbon Dioxide (21.0-32.0) meq/L BUN 51 H (7-18) mg/dL Creatinine 1.22 H (0.50-1.00) mg/dL Estimated GFR 42 L (>89) mL/min Random Glucose 153 H (74-106) mg/dL Calcium 7.4 L* (8.5-10.1) mg/dL Prot Corrected Calcium 8.3 L (8.5-10.1) mg/dL Alkaline Phosphatase (45-117) U/L Ammonia 36 H (11-32) mcmol/L Troponin I 0.07 H (0.02-0.05) ng/mL Total Protein 5.4 L (6.4-8.2) g/dL Albumin 2.9 L (3.4-5.0) g/dL Triglycerides 179 H (42-150) mg/dL HDL Cholesterol 22.1 L (40.0-60.0) mg/dL MTS Gel Crossmatch Short CBC 11/23/17 11/23/17 11/23/17 Range/Units 10:01 16:37 22:39 WBC 88.6 H 59.5 H (4.0-11.0) th/mm3 Hgb 7.5 L 8.9 L 8.2 L (11.6-15.3) gm/dL Hct 24.0 L 27.7 L 25.1 L (35.0-46.0) % Plt Count 173 138 L (150-450) th/mm3 11/24/17 Range/Units 04:52 WBC 51.2 H (4.0-11.0) th/mm3 Hgb 8.4 L (11.6-15.3) gm/dL Hct 25.9 L (35.0-46.0) % Plt Count 137 L (150-450) th/mm3 [facility] 11/23/17 11/23/17 11/23/17 10:01 16:37 22:39 Sodium 140 143 Potassium 5.6 H 5.5 H 4.9 Chloride 106 110 H Carbon Dioxide 20.4 L 20.7 L BUN 53 H 55 H Creatinine 1.91 H 1.43 H Calcium 7.0 L* 7.2 L* 11/24/17 04:52 Sodium 146 H Potassium 4.5 Chloride 114 H Carbon Dioxide 21.5 BUN 51 H Creatinine 1.22 H Calcium 7.4 L* Cardiac Enzymes 11/23/17 11/24/17 Range/Units 22:39 04:52 Troponin I 0.09 H 0.07 H (0.02-0.05) ng/mL Liver Function 11/23/17 11/24/17 Range/Units 22:39 04:52 Total Bilirubin 0.7 0.6 (0.2-1.0) mg/dL AST 24 31 (15-37) U/L ALT 10 11 (10-53) U/L Alkaline Phosphatase 44 L 48 (45-117) U/L Albumin 2.7 L 2.9 L (3.4-5.0) g/dL <Rae Moore - 11/24/17 09:47> - Imaging Impressions Head MRI 11/23/17 21:56 CONCLUSION: 1. 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 No significant mass effect or shift. 2. Severe chronic white matter ischemic changes bilaterally. Carotid Doppler Study 11/24/17 00:00 CONCLUSION: No evidence of flow-limiting carotid stenosis. <Cruz Fischer - 11/24/17 18:17> Impressions Head CT 11/23/17 10:21 CONCLUSION: 1. Stable evaluation without evidence of acute infarct, hemorrhage, mass or edema. 2. Cerebral white matter hypodensity characteristic of chronic microvascular ischemic disease; unchanged. . Head MRI 11/23/17 21:56 CONCLUSION: 1. 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 No significant mass effect or shift. 2. Severe chronic white matter ischemic changes bilaterally. <Rae Moore - 11/24/17 09:47> Physical Exam Vital signs: Vital Signs 11/23/17 18:18 11/23/17 20:00 11/23/17 20:25 Temperature 98.4 F Pulse Rate 82 Respiratory Rate 14 14 14 Blood Pressure 143/64 H Pulse Oximetry 96 11/24/17 00:00 11/24/17 01:42 11/24/17 02:00 Temperature 99.7 F H Pulse Rate 82 77 Respiratory Rate 12 18 Blood Pressure 140/62 Pulse Oximetry 100 11/24/17 04:00 11/24/17 05:42 11/24/17 06:00 Temperature 99.7 F H Pulse Rate 76 81 Respiratory Rate 10 L 14 Blood Pressure 178/76 H Pulse Oximetry 100 11/24/17 08:00 11/24/17 10:00 11/24/17 12:00 Temperature 97.9 F 99.0 F Pulse Rate 74 81 84 Respiratory Rate 11 L 12 Blood Pressure 93/43 L 167/70 H Pulse Oximetry 100 100 11/24/17 16:00 11/24/17 17:00 Temperature 98.9 F Pulse Rate 84 Respiratory Rate 17 20 Blood Pressure 178/72 H Pulse Oximetry Intake & Output 11/23/17 11/24/17 11/24/17 18:59 06:59 18:59 Intake Total 900 / 900 1450 / 1450 1200 / 1200 Output Total 250 / 250 500 / 500 450 / 450 Balance 650 / 650 950 / 950 750 / 750 Weight 56.4 kg Intake: IV 100 / 100 1450 / 1450 1200 / 1200 NS Inj 1,000 ML @ 84 mls/hr IV. 1000 / 1000 CONT .[id number] [facility] Rx#:[id number] Ofirmev Inj 1,000 mg In 100 ml 100 / 100 @ 400 mls/hr IV.SIG ONCE ONE Rx #:[id number] Maxipime Inj 1,000 MG In NS Inj 100 / 100 100 ML @ 200 mls/hr IV.SIG ONCE ONE Rx#:[id number] NS Inj 1,000 ML @ 1000 mls/hr 1000 / 1000 IV.SIG .Q1H ONE Rx#:[id number] Vancomycin Inj 1,000 MG In NS 250 / 250 Inj 250 ML @ 250 mls/hr IV.SIG ONCE ONE Rx#:[id number] Flagyl 500 MG Inj 100 ML @ 100 100 / 100 200 / 200 mls/hr IV.SIG Q6H [facility] Rx#: [id number] Oral 0 / 0 Intake (Blood Product) Amt 800 / 800 Rbc As-3 Leukoreduced Unit 400 / 400 [id number] Rbc As-3 Leukoreduced Unit 400 / 400 [id number] Output: Urine 250 / 250 450 / 450 Urine Amount (Catheter) 500 / 500 Indwelling Urethral Catheter 500 / 500 Other: Date of Last Bowel Movement 11/22/17 11/22/17 11/22/17 <Cruz Fischer - 11/24/17 18:17> Vital Signs 11/23/17 10:20 11/23/17 10:37 11/23/17 12:00 Temperature 96.8 F L 96.2 F L 98.6 F Pulse Rate 79 80 89 Respiratory Rate 16 16 18 Blood Pressure 157/64 H 134/57 L 144/62 H Pulse Oximetry 99 99 97 11/23/17 13:49 11/23/17 16:00 11/23/17 18:18 Temperature 98 F 98.6 F Pulse Rate 93 H 87 Respiratory Rate 14 18 14 Blood Pressure 142/66 H 160/73 H Pulse Oximetry 99 97 11/23/17 20:00 11/23/17 20:25 11/24/17 00:00 Temperature 98.4 F 99.7 F H Pulse Rate 82 82 Respiratory Rate 14 14 12 Blood Pressure 143/64 H 140/62 Pulse Oximetry 96 100 11/24/17 01:42 11/24/17 02:00 11/24/17 04:00 Temperature 99.7 F H Pulse Rate 77 76 Respiratory Rate 18 10 L Blood Pressure 178/76 H Pulse Oximetry 100 11/24/17 05:42 11/24/17 06:00 Temperature Pulse Rate 81 Respiratory Rate 14 Blood Pressure Pulse Oximetry Intake & Output 11/23/17 11/24/17 11/24/17 18:59 06:59 18:59 Intake Total 900 / 900 1450 / 1450 100 / 100 Output Total 250 / 250 500 / 500 Balance 650 / 650 950 / 950 100 / 100 Weight 56.4 kg Intake: IV 100 / 100 1450 / 1450 100 / 100 Ofirmev Inj 1,000 mg In 100 ml 100 / 100 @ 400 mls/hr IV.SIG ONCE ONE Rx #:[id number] Maxipime Inj 1,000 MG In NS Inj 100 / 100 100 ML @ 200 mls/hr IV.SIG ONCE ONE Rx#:[id number] NS Inj 1,000 ML @ 1000 mls/hr 1000 / 1000 IV.SIG .Q1H ONE Rx#:[id number] Vancomycin Inj 1,000 MG In NS 250 / 250 Inj 250 ML @ 250 mls/hr IV.SIG ONCE ONE Rx#:[id number] Flagyl 500 MG Inj 100 ML @ 100 100 / 100 100 / 100 mls/hr IV.SIG Q6H [facility] Rx#: [id number] Oral 0 / 0 Intake (Blood Product) Amt 800 / 800 Rbc As-3 Leukoreduced Unit 400 / 400 [id number] Rbc As-3 Leukoreduced Unit 400 / 400 [id number] Output: Urine 250 / 250 Urine Amount (Catheter) 500 / 500 Indwelling Urethral Catheter 500 / 500 Other: Date of Last Bowel Movement 11/22/17 11/22/17 <Rae Moore - 11/24/17 09:47> Narrative: GENERAL: Elderly female, lying in bed, mouth escape, minimally responsive HEENT: Normocephalic. Atraumatic. Pupils equal, round, reactive but sluggish. Mucous membranes pink and dry NECK: no JVD. CARDIOVASCULAR: Regular rate, rhythm. No murmurs, rubs, gallops. ABDOMEN: Bowel sounds present. Soft, nontender, nondistended. MUSCULOSKELETAL: Dressings in place with no excess blood noted on right hip surgical area. Large hematoma about care home down the thigh and extending to the lateral thigh area. Pulses intact bilaterally. No edema. Increased ecchymosis of right dorsal aspect of hand as well as wrist. Pulses intact. NEUROLOGICAL: Spontaneous movement of left lower extremity, minimal movement of right lower extremity. Moans to pain upon nail bed pressure in upper and lower extremities. Opens eyes briefly to her name. Moans occasionally with palpation of her right hip injury. Unable to follow commands. <Rae Moore - 11/24/17 09:47> - Urinary Catheter Management Indwelling Urethral Catheter Cath placed during this visit: no <Cruz Fischer - 11/24/17 18:17> yes <Rae Moore - 11/24/17 09:47> Reason for continuing: Other continuation reason <Rae Moore - 11/24/17 09: 47> Insertion date: 11/22/17 <Rae Moore 11/24/17 09:47> Assessment and Plan - Assessment (1) Altered mental status Code(s): R41.82 - Altered mental status, unspecified Status: Acute (2) WALTER (acute kidney injury) Code(s): N17.9 - Acute kidney failure, unspecified Status: Acute (3) Fracture of femur Code(s): S72.90XA - Unspecified fracture of unspecified femur, initial encounter for closed fracture Status: Acute (4) Leukocytosis Code(s): D72.829 - Elevated white blood cell count, unspecified Status: Acute (5) Hyperglycemia Code(s): R73.9 - Hyperglycemia, unspecified Status: Acute (6) Hypothyroid Code(s): E03.9 - Hypothyroidism, unspecified Status: Acute (7) Hypertension Code(s): I10 - Essential (primary) hypertension Status: Acute (8) Humeral fracture Code(s): S42.309A - Unspecified fracture of shaft of humerus, unspecified arm, initial encounter for closed fracture Status: Chronic (9) Nutrition, metabolism, and development symptoms Code(s): R63.8 - Other symptoms and signs concerning food and fluid intake Status: Acute <Cruz Fischer - 11/24/17 18:17> (1) Altered mental status Code(s): R41.82 - Altered mental status, unspecified Status: Acute Plan: Patient did not improve in mental status yesterday. Patient was transferred to ICU for further care. Head CT without contrast from yesterday morning did not show any acute processes MRI of head showing numerous infarcts bilaterally and significant one in the posterior fossa read as probably embolic in nature. -Continue to hold pain medications and anticoagulation -Patient is currently protecting airway -Critical care consulted ordered EEG, carotid Dopplers, lipids, A1c, ammonia level -Ammonia level only slightly elevated at 36 -Lipid panel relatively normal with notably low HDL at 22 -Swallow evaluation and oral care -Patient maintaining SPO2 on nasal cannula, we will continue to wean. Nebs as needed -Palliative care consulted (2) WALTER (acute kidney injury) Code(s): N17.9 - Acute kidney failure, unspecified Status: Acute Plan: Contributing factor of hypovolemia and n.p.o. status -Status post 2 units PRBC -Patient was given additional normal saline 1 L on admission to ICU -Normal saline at 84 mL's per hour -Continue Rowley catheter (3) Fracture of femur Code(s): S72.90XA - Unspecified fracture of unspecified femur, initial encounter for closed fracture Status: Acute Plan: 87 YO female with comminuted spiral "butterfly" fracture of proximal femur noted on x-ray. Today pt is POD#2 following right femur reduction and intramedullary nail fixation by Dr Boogie. Patient neurovascularly intact and is recovering from surgery. -Orthopedic surgery consulted, Dr Boogie. Dressings per orthopedic recommendation -We will hold pain medications for now as patient has altered mental status. Want to eliminate contributing factor of oversedation. -Ca+Vitamin D supplementation -Withholding further evaluation of osteoporosis due to patient's acute critical illness (4) Leukocytosis Code(s): D72.829 - Elevated white blood cell count, unspecified Status: Acute Plan: Urinalysis on admission was negative. T-max of 99.7 WBC 51.2 today up from admission 25.4 and day 1 hospitalization of 93.6 Peripheral smear review showed atypical lymphocytosis and mild neutrophilia suspicious for CLL. -Hematology/oncology consulted -Consideration for sepsis with contributing factor of CLL which patient was possibly diagnosed with previously. -Blood cultures taken -Sputum culture -C. difficile PCR ordered -Patient started on cefepime 1 g per day and vancomycin with pharmacy consult -Per critical care recommendations if cultures are negative at 48 hours and WBC downtrending can DC antibiotics (5) Hyperglycemia Code(s): R73.9 - Hyperglycemia, unspecified Status: Acute Plan: Patient has no reported history of diabetes. Likely stress reaction. -Patient is not currently eating due to her altered mental status. -Formal swallow evaluation -SSI (6) Hypothyroid Code(s): E03.9 - Hypothyroidism, unspecified Status: Acute Plan: We will continue home levothyroxine once dosing is obtained (7) Hypertension Code(s): I10 - Essential (primary) hypertension Status: Acute Plan: Permissive hypertension due to patient's possible embolic strokes -Maintain systolics in the 120-180 range -Labetalol 10 mg as needed for SBP greater than 180 (8) Humeral fracture Code(s): S42.309A - Unspecified fracture of shaft of humerus, unspecified arm, initial encounter for closed fracture Status: Chronic Plan: Reported by son to be chronic. Patient had fracture 2 years prior -Orthopedic surgery consulted appreciate recommendations. -Pt right arm placed in sling post-op for immobilization (9) Nutrition, metabolism, and development symptoms Code(s): R63.8 - Other symptoms and signs concerning food and fluid intake Status: Acute Plan: Diet: Pending formal swallow study Electrolytes: Replete per ICU protocol Fluids: Patient on maintenance normal saline at 84 mls per hour DVT prophylaxis: SCDs only. Hold pharmacological anticoagulation due to patient' s current requirement of transfusion due to postoperative bleeding <Rae Moore - 11/24/17 09:13> - Assessment and Plan Discussed Condition With: Pedro Luis Still and Amado <Rae Moore - 11/24/17 09:47> - Attending Attestation The exam, history, and the medical decision-making described in the above note were completed with the assistance of the resident physician. I reviewed and agree with the findings presented. I attest that I had a [id number] encounter with the patient on the same day, and personally performed and documented my assessment and findings in the medical record. Patient seen with resident team and medical student this morning. She is status post ORIF of her right femur. Overnight, she was transferred to intensive care in consultation of sliver machine operator. She had significant elevation of white count. 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 She was started on broad spectrum antibiotics overnight and a stat MRI was obtained due to her decreased responsiveness, which showed multiple infarcts consistent with possible embolization. We sat down with her son at length to update him on the condition. Palliative care is also consulted. On neurological exam, the patient withdrawals to painful stimuli, moans/groans, but is not spontaneously opening her eyes or verbalizing with us. The nurse states she did verbalize a few words with her this morning. She moves her left leg and arm with painful stimuli, but we are not seeing much movement of the right leg and arm with similar stimulation. She is NPO pending speech therapy evaluation. <Cruz Fischer L - 11/24/17 18:17> <Rae Moore E - Last Filed: 11/24/17 09:13> (3) Fracture of femur Qualifiers: Encounter type: initial encounter Fracture type: closed Fracture morphology : spiral Laterality: right (8) Humeral fracture Qualifiers: Fracture type: closed Laterality: right <Cruz Fischer - Last Filed: 11/24/17 18:17> (3) Fracture of femur Qualifiers: Encounter type: initial encounter Fracture type: closed Fracture morphology : spiral Laterality: right (8) Humeral fracture Qualifiers: Fracture type: closed Laterality: right <Rae Moore E - Last Filed: 11/24/17 09:13> (3) Fracture of femur Qualifiers: Encounter type: initial encounter Fracture type: closed Fracture morphology : spiral Laterality: right (8) Humeral fracture Qualifiers: Fracture type: closed Laterality: right <Cruz Fischer - Last Filed: 11/24/17 18:17> (3) Fracture of femur Qualifiers: Encounter type: initial encounter Fracture type: closed Fracture morphology : spiral Laterality: right (8) Humeral fracture Qualifiers: Fracture type: closed Laterality: right
--- NOTE | 2017-11-24 10:24 | P.CONPAL ---
Consult Service: Palliative Care Requesting Physician: Nasim Still III Reason for Consult: a. To assist with evaluation and management of symptoms including:pain, dypsnea b. To assist medical decision maker(s) with: better understanding of current medical conditions; weighing benefits/burdens of medical treatment options; making medical treatment decisions. Primary Care Provider: UNKNOWN History of Present Illness History of Present Illness: This 87-year-old female presented to the ED on 11/21/17, with family and EMS due to a fall in her bathroom resulting in injury to her right hip. She presented with obvious right hip deformity, also endorsing right arm pain. Denied hitting head no loss of consciousness reported. Son reported hearing her fall and came and helped her up immediately. * ED : Pelvis imaging negative for fracture. CXR: no acute cardiopulmonary process. Nondisplaced fracture proximal right femur noted. Severe bilateral shoulder arthropathy noted. Femur x-ray: Proximal femur fracture. Humerus x- ray: Fracture proximal humerus. Labs= leukocytosis WBC 25.4. Hemoglobin 11.3/ hematocrit 34.7. UA negative, culture not indicated. BUN 22/Friends 0.58. Glucose 179. Patient was admitted for further evaluation and management, orthopedics consulted. * Leukocytosis felt to be secondary to acute inflammation state, neutrophil counts within normal limits. Patient afebrile. * Orthopedic consultation: Right humerus fracture minimally displaced recommended for nonsurgical treatment. Recommended open reduction IM nail fixation to right femur fracture. Planned for surgery 11/22/17. 11/22 underwent right femur reduction and IM nail fixation. Operative and immediate postoperative course uneventful. * PT consulted for partial weightbearing 50% after surgery. At time of PT evaluation she was alert and oriented unable to follow commands or maintain weightbearing precautions. * 11/22 hemoglobin down to, transfused 2 units RBC. Pathology smear obtained Intra-Op indicates reactive leukocytosis abnormal, heme heme/oncology consultation pending. WBC continues to up trend 93. * 11/23 Pain medications held due to lethargy, altered mental status. Afebrile, not following commands. Underwent CT brain for altered mental status. CT= Findings of diffuse hypodensity throughout cerebral white matter, characteristic of chronic microvascular ischemic disease. No evidence of shift lesion hemorrhage or acute infarction. * 11/23 hematology/oncology consultation: Patient unable to provide additional history for exam. Patient reported her son to have history of seeing blood doctor in [place] 10 years ago diagnosed with a blood disorder and told not to worry. Restless in [place]. She felt better after reported that her labs were normal 2 weeks ago. 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 Suspect diagnosis made 10 years ago with conservative following. Recommended flow cytometry analysis for evaluation. She is currently acutely ill concern for sepsis metabolic component etc. Leukemoid re-action would suggest she has an underlying infection. Intensivists to be consulted. 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 No significant mass effect or shift. * 11/24/17 palliative care consulted to assist with clarification of goals of medical treatment. Patient seen in room son Kartik at bedside. Met with him at length. To exam patient is alert. She appears oriented to son responds to him. She is very hard of hearing. He follows simple commands moves hands very weakly to command , moves feet very weakly to command. Oriented to self, date of . States the month is September. Unable to state the year or her age. She denies pain. No apparent distress. Patient son details that she had been doing pretty well day -to-day ;he is her primary caregiver. she requires some minimal assist for showering dressing etc. He works out of the home for short periods during the day but comes home to check on her and assist as needed. She is able to make her needs known. She has very mild forgetfulness at times, more notable over the past few years. No Family history of cancer. Patient father with history of NH. Function/Cognitive Trajectory: Lives at home, ambulates with a walker. 2 falls in the past year. Lives in a second story apartment. Ambulates with a rolling walker. Minimal assist required for ADLs in the shower and dressing. Independent in eating. Some short-term memory loss. Review of Systems unobtainable due to mental condition (CVA, confusion limited history per son) Constitutional: Denies fever(s), Denies weight loss Cardiovascular: Denies shortness of breath Respiratory: Reports chest congestion (Son describes mild URI/cold in a week or so prior to admission) Gastrointestinal: Denies abdominal pain, Denies difficulty swallowing, Denies nausea, Denies vomiting Musculoskeletal: Reports back pain, Denies abnormal walking, Denies body aches Skin/Breast: Denies rash Neurologic: Reports abnormal hearing (Hard of hearing), Reports confusion (Son describes chronic very mild confusion /forgetfulness over few yrs) PMFSH - History History Provided By: Medical Record - Medical / Surgical Hx Neg / Unobtainable Medical Problems Denied: Unable to Obtain - Medical History Medical History: Medical History (Last Reviewed 11/24/17 @ 13:33 by Bre Monge) HTN (hypertension) Hypothyroidism - Surgical History Surgical History: Surgical History (Last Updated 11/24/17 @ 10:16 by CHARLES Sarmiento) H/O: hysterectomy (Acute) History of back surgery - Family History Family History: Family History (Last Updated 11/24/17 @ 14:51 by CHARLES Sarmiento) Father Myocardial infarction Other No pertinent family history - Social History I have reviewed the patient's Social History: Yes - Tobacco History Second Hand Smoke Exposure: No Tobacco Use In Past 30 Days: No Smoking Status: Never smoker - Alcohol History How Often Do You Have a Drink Containing Alcohol: Never - Substance Use History Substance History: No History of Abuse - Substance Use Type 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) - Travel History Recent Travel in the [place] Within the Last 8 Weeks: No Recent Travel Out of the Country Within the Last 8 Weeks: No - Immunization History Tetanus Immunization: Unsure Hx Influenza Vaccine This Season: Yes Medications and Allergies Active Medications: Active Medications Acetaminophen (Tylenol) 650 mg PO Q6HR PRN PRN Reason: PAIN SCALE 1 TO 2 Hydrocodone Bitart/Acetaminophen ([place] 7.5/325) 1 tab PO Q4H PRN PRN Reason: PAIN SCALE 6 TO 10 Hydrocodone Bitart/Acetaminophen ([place] 5/325) 1 tab PO Q4H PRN PRN Reason: PAIN SCALE 3 TO 5 Last Admin: 11/21/17 11:15 Dose: 1 tab Al Hydroxide/Mg Hydroxide (Milk Of Magnesia Liq) 30 ml PO Q12H PRN PRN Reason: Mild Constipation Atorvastatin Calcium (Lipitor) 80 mg PO DAILY [facility] Last Admin: 11/24/17 08:39 Dose: Not Given Calcium/Vitamin D (Oscal With D 250/125 Mg) 1 tab PO Q8H [facility] Last Admin: 11/24/17 03:11 Dose: Not Given Dextrose (D50w Vial) 50 ml IV.PUSH UNSCH PRN PRN Reason: PER HYPOGLYCEMIA PROTOCOL Diphenhydramine HCl (Benadryl) 25 mg PO Q6H PRN PRN Reason: ITCHING Enoxaparin Sodium (Lovenox Inj) 30 mg SQ Q24H [facility] Last Admin: 11/23/17 21:32 Dose: Not Given Glucagon (Glucagon Inj) 1 mg OTHER PRN PRN PRN Reason: for Hypoglycemia Protocol Sodium Chloride (Ns Inj) 500 mls @ 30 mls/hr IV.SIG .Q10H [facility] Last Admin: 11/22/17 07:25 Dose: Not Given Cefepime HCl 1,000 mg/ Sodium (Chloride) 100 mls @ 200 mls/hr IV.SIG Q24H [facility] Sodium Chloride (Ns Inj) 1,000 mls @ 84 mls/hr IV.CONT .[id number] [facility] Last Admin: 11/24/17 00:45 Dose: 84 mls/hr Metronidazole/Sodium Chloride (Flagyl 500 Mg Inj) 100 mls @ 100 mls/hr IV.SIG Q6H [facility] Last Infusion: 11/24/17 07:02 Dose: Infused Insulin Aspart (Novolog Insulin Correctional Sugar Inj) 0 unit SQ ACHS [facility]; Protocol Labetalol HCl (Trandate Inj) 10 mg IV.PUSH Q30M PRN PRN Reason: sbp > 180 Morphine Sulfate (Morphine Inj) 2 mg IV.PUSH Q3H PRN PRN Reason: BREAKTHROUGH PAIN Naloxone HCl (Narcan Inj) 0.4 mg IV.PUSH UNSCH PRN PRN Reason: SEE LABEL COMMENTS Ondansetron HCl (Zofran Inj) 4 mg IV.PUSH Q6H PRN PRN Reason: NAUSEA Padimate O (Chapstick) 1 applicatio TOPICAL UNSCH PRN PRN Reason: CHAPPED LIPS Pharmacy Profile Note (Vancomycin Consult Pharmacy) 1 each OTHER PRN PRN PRN Reason: Pharmacy to dose Senna/Docusate Sodium (Holli-Colace) 1 tab PO BID [facility] Last Admin: 11/24/17 08:39 Dose: Not Given Sennosides (Senokot) 17.2 mg PO Q12H PRN PRN Reason: Moderate Constipation Sodium Chloride (Ns Flush) 2 ml IV.FLUSH BID [facility] Last Admin: 11/24/17 08:39 Dose: Not Given Sodium Chloride (Ns Flush) 2 ml IV.FLUSH PRN PRN PRN Reason: FLUSH AFTER USING IV ACCESS Vitamin D (Vitamin D3) 1,000 unit PO DAILY [facility] Last Admin: 11/24/17 08:39 Dose: Not Given Allergies Allergy/AdvReac Type Severity Reaction Status Date / Time penicillin G Allergy Unknown PT DOES Verified 11/21/17 13:23 NOT REMEMBER REACTION Home Medications Medication Instructions Recorded Confirmed Type levothyroxine 11/21/17 History lisinopril 11/21/17 History Advance Directives Living Will: No Healthcare Surrogate: No Power of Wafer Fab Operator: No Ethical and Legal Issues: Patient currently not able to make her own decisions secondary to CVA. Not clear if or when she will regain ability to make her own decisions. She does not have advanced directive or health care surrogate completed. Per [place] statutes legal decision making would fall to the majority of her 3 adult children. In close communication with the one son Kartik whom she lives with. She is not in close communication with the other 2 children. Will need to establish if they wish to participate in decision-making going forward. Physical Exam Vital Signs: Vital Signs - 24 hr 11/23/17 10:20 11/23/17 10:37 11/23/17 12:00 Temperature 96.8 F L 96.2 F L 98.6 F Pulse Rate 79 80 89 Respiratory Rate 16 16 18 Blood Pressure 157/64 H 134/57 L 144/62 H Pulse Oximetry 99 99 97 11/23/17 13:49 11/23/17 16:00 11/23/17 18:18 Temperature 98 F 98.6 F Pulse Rate 93 H 87 Respiratory Rate 14 18 14 Blood Pressure 142/66 H 160/73 H Pulse Oximetry 99 97 11/23/17 20:00 11/23/17 20:25 11/24/17 00:00 Temperature 98.4 F 99.7 F H Pulse Rate 82 82 Respiratory Rate 14 14 12 Blood Pressure 143/64 H 140/62 Pulse Oximetry 96 100 11/24/17 01:42 11/24/17 02:00 11/24/17 04:00 Temperature 99.7 F H Pulse Rate 77 76 Respiratory Rate 18 10 L Blood Pressure 178/76 H Pulse Oximetry 100 11/24/17 05:42 11/24/17 06:00 Temperature Pulse Rate 81 Respiratory Rate 14 Blood Pressure Pulse Oximetry I&O: Intake & Output 11/22/17 11/23/17 11/24/17 11/25/17 06:59 06:59 06:59 06:59 Intake Total 480 / 480 2420 / 2420 2350 / 2350 100 / 100 Output Total 300 / 300 75 / 75 750 / 750 Balance 180 / 180 2345 / 2345 1600 / 1600 100 / 100 Weight 52.1 kg 52.163 kg 56.4 kg Physical Exam: CONSTITUTIONAL/GENERAL: This is an adequately nourished patient, in no apparent distress. TUBES/LINES/DRAINS: SKIN: No jaundice, rashes, or lesions. Ecchymoses on upper extremities. No wounds seen anteriorly. Skin temperature appropriate. Not diaphoretic. HEAD: Atraumatic. Normocephalic. EYES: Pupils equal and round and reactive. Extraocular motions intact. No scleral icterus. No injection or drainage. Fundi not examined. ENT: Hearing grossly normal. Nose without bleeding or purulent drainage. Throat without visible erythema, exudates, masses, or lesions. NECK: Trachea midline. Supple, nontender. No palpable thyroid enlargement or nodularity. CARDIOVASCULAR: Regular rate and rhythm without murmurs, gallops, or rubs. No JVD. Peripheral pulses symmetric. RESPIRATORY/CHEST: Symmetric, unlabored respirations. Clear to auscultation. Breath sounds equal bilaterally. No wheezes, rales, or rhonchi. GASTROINTESTINAL: Abdomen soft, non-tender, nondistended. No hepato-splenomegaly , or palpable masses. No guarding. Bowel sounds present. GENITOURINARY: Without palpable bladder distension. Rowley catheter in place. MUSCULOSKELETAL: Extremities without clubbing, cyanosis, or edema. No joint tenderness or effusion noted. No calf tenderness. No mottling or clubbing. LYMPHATICS: No palpable cervical or supraclavicular adenopathy. NEUROLOGICAL: Awake and alert. Motor and sensory grossly within normal limits. Follows commands. Cognitively sharp. Moves all extremities. PSYCHIATRIC: No obvious anxiety/depression. no apparent hallucinations or other psychotic thought process. Diagnostic Tests Laboratory: Laboratory Results - last 72 hr 11/21/17 11/21/17 11/21/17 09:00 09:00 09:00 WBC RBC Hgb Hct MCV MCH MCHC RDW Plt Count MPV Prelim Diff (Auto) WBC Differential Manual diff final Seg Neuts % (Manual) 20 Band Neuts % (Manual) Lymphocytes % (Manual) 71 H Monocytes % (Manual) 7 Eosinophils % (Manual) 2 Myelocytes % (Man) Plasma Cell % (Manual) Abs Neuts (Manual) 5.1 Nucleated RBCs/100 WBC Differential Comment Smudge Cells Platelet Estimate Low L Platelet Morphology Normal Polychromasia Basophilic Stippling Acanthocytes (Spur) Smear Path Review PT INR Puncture Site Patient Temperature O2 Saturation ABG pH ABG pCO2 ABG pO2 ABG HCO3 ABG O2 Content ABG Base Excess ABG Methemoglobin [place] Test Hemoglobin Carboxyhemoglobin O2 Delivery Device Liter Flow Critical Value Sodium Potassium Chloride Carbon Dioxide Anion Gap BUN Creatinine Estimated GFR Random Glucose Lactic Acid Calcium Prot Corrected Calcium Magnesium Total Bilirubin AST ALT Alkaline Phosphatase Ammonia Troponin I Total Protein Albumin Triglycerides Cholesterol LDL Cholesterol, Calc HDL Cholesterol Cholesterol/HDL Ratio Vitamin D 25-Hydroxy 14.9 L Urine Color Urine Clarity Urine pH Ur Specific [place] Urine Protein Urine Glucose (UA) Urine Ketones Urine Occult Blood Urine Nitrate Urine Bilirubin Urine Urobilinogen Ur Leukocyte Esterase Urine RBC Urine WBC Ur Squamous Epith Cells Hyaline Casts Urine Mucus Micro UA Comment Ur Microscopic Review Urine Culture Comments Nasal Screen MRSA (PCR) Antibody Screen Negative MTS Gel Crossmatch Bld Prod Order Comment 11/21/17 11/21/17 11/22/17 09:00 10:20 14:40 WBC 93.6 H RBC 2.23 L Hgb 6.7 L* D Hct 21.4 L MCV 95.7 MCH 29.8 MCHC 31.2 L RDW 15.9 Plt Count 196 D MPV 7.0 Prelim Diff (Auto) WBC Differential Seg Neuts % (Manual) Band Neuts % (Manual) Lymphocytes % (Manual) Monocytes % (Manual) Eosinophils % (Manual) Myelocytes % (Man) Plasma Cell % (Manual) Abs Neuts (Manual) Nucleated RBCs/100 WBC Differential Comment Smudge Cells Platelet Estimate Platelet Morphology Polychromasia Basophilic Stippling Acanthocytes (Spur) Smear Path Review PT INR Puncture Site Patient Temperature O2 Saturation ABG pH ABG pCO2 ABG pO2 ABG HCO3 ABG O2 Content ABG Base Excess ABG Methemoglobin [place] Test Hemoglobin Carboxyhemoglobin O2 Delivery Device Liter Flow Critical Value Sodium Potassium Chloride Carbon Dioxide Anion Gap BUN Creatinine Estimated GFR Random Glucose Lactic Acid Calcium Prot Corrected Calcium Magnesium Total Bilirubin AST ALT Alkaline Phosphatase Ammonia Troponin I Total Protein Albumin Triglycerides Cholesterol LDL Cholesterol, Calc HDL Cholesterol Cholesterol/HDL Ratio Vitamin D 25-Hydroxy Urine Color Yellow Urine Clarity Hazy H Urine pH 5.0 Ur Specific [place] 1.012 Urine Protein Negative Urine Glucose (UA) Negative Urine Ketones Negative Urine Occult Blood Negative Urine Nitrate Negative Urine Bilirubin Negative Urine Urobilinogen Less than 2 Ur Leukocyte Esterase Negative Urine RBC Less than 1 Urine WBC 1 Ur Squamous Epith Cells <1 Hyaline Casts 3 Urine Mucus Few H Micro UA Comment Culture not ind Ur Microscopic Review Not Reportable Urine Culture Comments Culture not ind Nasal Screen MRSA (PCR) Antibody Screen MTS Gel Crossmatch Bld Prod Order Comment 11/22/17 11/23/17 11/23/17 14:40 01:28 10:01 WBC 88.6 H RBC 2.54 L Hgb 7.5 L Hct 24.0 L MCV 94.5 MCH 29.6 MCHC 31.3 L RDW 15.9 Plt Count 173 MPV 6.7 L Prelim Diff (Auto) Manual diff required WBC Differential Manual diff final Seg Neuts % (Manual) 24 Band Neuts % (Manual) Lymphocytes % (Manual) 71 H Monocytes % (Manual) 5 Eosinophils % (Manual) Myelocytes % (Man) Plasma Cell % (Manual) Abs Neuts (Manual) 21.3 H Nucleated RBCs/100 WBC Differential Comment . Smudge Cells Present H Platelet Estimate Normal Platelet Morphology Normal Polychromasia Basophilic Stippling Acanthocytes (Spur) Smear Path Review PT INR Puncture Site Patient Temperature O2 Saturation ABG pH ABG pCO2 ABG pO2 ABG HCO3 ABG O2 Content ABG Base Excess ABG Methemoglobin [place] Test Hemoglobin Carboxyhemoglobin O2 Delivery Device Liter Flow Critical Value Sodium 140 Potassium 6.1 H D Chloride 107 Carbon Dioxide 23.7 Anion Gap 9 BUN 41 H Creatinine 1.50 H Estimated GFR 33 L Random Glucose 197 H Lactic Acid Calcium 7.4 L* D Prot Corrected Calcium 8.3 L Magnesium Total Bilirubin AST ALT Alkaline Phosphatase Ammonia Troponin I Total Protein 5.5 L Albumin Triglycerides Cholesterol LDL Cholesterol, Calc HDL Cholesterol Cholesterol/HDL Ratio Vitamin D 25-Hydroxy Urine Color Urine Clarity Urine pH Ur Specific [place] Urine Protein Urine Glucose (UA) Urine Ketones Urine Occult Blood Urine Nitrate Urine Bilirubin Urine Urobilinogen Ur Leukocyte Esterase Urine RBC Urine WBC Ur Squamous Epith Cells Hyaline Casts Urine Mucus Micro UA Comment Ur Microscopic Review Urine Culture Comments Nasal Screen MRSA (PCR) Antibody Screen MTS Gel Crossmatch See Detail Bld Prod Order Comment 11/23/17 11/23/17 11/23/17 10:01 10:01 10:48 WBC RBC Hgb Hct MCV MCH MCHC RDW Plt Count MPV Prelim Diff (Auto) WBC Differential Seg Neuts % (Manual) Band Neuts % (Manual) Lymphocytes % (Manual) Monocytes % (Manual) Eosinophils % (Manual) Myelocytes % (Man) Plasma Cell % (Manual) Abs Neuts (Manual) Nucleated RBCs/100 WBC Differential Comment Smudge Cells Platelet Estimate Platelet Morphology Polychromasia Basophilic Stippling Acanthocytes (Spur) Smear Path Review PT 10.8 INR 1.1 Puncture Site Left radial Patient Temperature 98.6 O2 Saturation 95 ABG pH 7.40 ABG pCO2 34 L ABG pO2 117 ABG HCO3 21 L ABG O2 Content 10.1 L ABG Base Excess -3.5 L ABG Methemoglobin 1.6 [place] Test Present Hemoglobin 7.4 L* Carboxyhemoglobin 1.7 O2 Delivery Device Nasal cannula Liter Flow 2.00 Critical Value Yes Sodium 140 Potassium 5.6 H Chloride 106 Carbon Dioxide 20.4 L Anion Gap 14 BUN 53 H Creatinine 1.91 H Estimated GFR 25 L Random Glucose 161 H Lactic Acid Calcium 7.0 L* Prot Corrected Calcium 8.1 L Magnesium Total Bilirubin AST ALT Alkaline Phosphatase Ammonia Troponin I Total Protein 5.1 L Albumin Triglycerides Cholesterol LDL Cholesterol, Calc HDL Cholesterol Cholesterol/HDL Ratio Vitamin D 25-Hydroxy Urine Color Urine Clarity Urine pH Ur Specific [place] Urine Protein Urine Glucose (UA) Urine Ketones Urine Occult Blood Urine Nitrate Urine Bilirubin Urine Urobilinogen Ur Leukocyte Esterase Urine RBC Urine WBC Ur Squamous Epith Cells Hyaline Casts Urine Mucus Micro UA Comment Ur Microscopic Review Urine Culture Comments Nasal Screen MRSA (PCR) Antibody Screen MTS Gel Crossmatch Bld Prod Order Comment 11/23/17 11/23/17 11/23/17 16:37 16:37 16:37 WBC RBC Hgb 8.9 L Hct 27.7 L MCV MCH MCHC RDW Plt Count MPV Prelim Diff (Auto) WBC Differential Seg Neuts % (Manual) Band Neuts % (Manual) Lymphocytes % (Manual) Monocytes % (Manual) Eosinophils % (Manual) Myelocytes % (Man) Plasma Cell % (Manual) Abs Neuts (Manual) Nucleated RBCs/100 WBC Differential Comment Smudge Cells Platelet Estimate Platelet Morphology Polychromasia Basophilic Stippling Acanthocytes (Spur) Smear Path Review PT INR Puncture Site Patient Temperature O2 Saturation ABG pH ABG pCO2 ABG pO2 ABG HCO3 ABG O2 Content ABG Base Excess ABG Methemoglobin [place] Test Hemoglobin Carboxyhemoglobin O2 Delivery Device Liter Flow Critical Value Sodium Potassium 5.5 H Chloride Carbon Dioxide Anion Gap BUN Creatinine Estimated GFR Random Glucose Lactic Acid Calcium Prot Corrected Calcium Magnesium 2.5 Total Bilirubin AST ALT Alkaline Phosphatase Ammonia Troponin I Total Protein Albumin Triglycerides Cholesterol LDL Cholesterol, Calc HDL Cholesterol Cholesterol/HDL Ratio Vitamin D 25-Hydroxy Urine Color Urine Clarity Urine pH Ur Specific [place] Urine Protein Urine Glucose (UA) Urine Ketones Urine Occult Blood Urine Nitrate Urine Bilirubin Urine Urobilinogen Ur Leukocyte Esterase Urine RBC Urine WBC Ur Squamous Epith Cells Hyaline Casts Urine Mucus Micro UA Comment Ur Microscopic Review Urine Culture Comments Nasal Screen MRSA (PCR) Antibody Screen MTS Gel Crossmatch Bld Prod Order Comment 11/23/17 11/23/17 11/23/17 22:33 22:39 22:39 WBC 59.5 H RBC 2.74 L Hgb 8.2 L Hct 25.1 L MCV 91.5 MCH 29.9 MCHC 32.7 RDW 15.2 Plt Count 138 L MPV 6.6 L Prelim Diff (Auto) Manual diff required WBC Differential Manual diff final Seg Neuts % (Manual) 16 Band Neuts % (Manual) Lymphocytes % (Manual) 82 H Monocytes % (Manual) 1 Eosinophils % (Manual) Myelocytes % (Man) 1 H Plasma Cell % (Manual) Abs Neuts (Manual) 10.1 H Nucleated RBCs/100 WBC 1 H Differential Comment . Smudge Cells Present H Platelet Estimate Low L Platelet Morphology Normal Polychromasia 2.1 H Basophilic Stippling Faint H Acanthocytes (Spur) Occ H Smear Path Review PT INR Puncture Site Left radial Patient Temperature 98.6 O2 Saturation 96 ABG pH 7.41 ABG pCO2 34 L ABG pO2 143 H ABG HCO3 21 L ABG O2 Content 12.0 ABG Base Excess -3.2 L ABG Methemoglobin 1.5 [place] Test Present Hemoglobin 8.7 L Carboxyhemoglobin 2.0 O2 Delivery Device Nasal cannula Liter Flow 2.00 Critical Value No Sodium 143 Potassium 4.9 Chloride 110 H Carbon Dioxide 20.7 L Anion Gap 12 BUN 55 H Creatinine 1.43 H Estimated GFR 35 L Random Glucose 174 H Lactic Acid Calcium 7.2 L* Prot Corrected Calcium 8.4 L Magnesium Total Bilirubin 0.7 AST 24 ALT 10 Alkaline Phosphatase 44 L Ammonia Troponin I 0.09 H Total Protein 4.9 L Albumin 2.7 L Triglycerides Cholesterol LDL Cholesterol, Calc HDL Cholesterol Cholesterol/HDL Ratio Vitamin D 25-Hydroxy Urine Color Urine Clarity Urine pH Ur Specific [place] Urine Protein Urine Glucose (UA) Urine Ketones Urine Occult Blood Urine Nitrate Urine Bilirubin Urine Urobilinogen Ur Leukocyte Esterase Urine RBC Urine WBC Ur Squamous Epith Cells Hyaline Casts Urine Mucus Micro UA Comment Ur Microscopic Review Urine Culture Comments Nasal Screen MRSA (PCR) Antibody Screen MTS Gel Crossmatch Bld Prod Order Comment 11/23/17 11/24/17 11/24/17 22:39 00:00 01:15 WBC RBC Hgb Hct MCV MCH MCHC RDW Plt Count MPV Prelim Diff (Auto) WBC Differential Seg Neuts % (Manual) Band Neuts % (Manual) Lymphocytes % (Manual) Monocytes % (Manual) Eosinophils % (Manual) Myelocytes % (Man) Plasma Cell % (Manual) Abs Neuts (Manual) Nucleated RBCs/100 WBC Differential Comment Smudge Cells Platelet Estimate Platelet Morphology Polychromasia Basophilic Stippling Acanthocytes (Spur) Smear Path Review PT INR Puncture Site Patient Temperature O2 Saturation ABG pH ABG pCO2 ABG pO2 ABG HCO3 ABG O2 Content ABG Base Excess ABG Methemoglobin [place] Test Hemoglobin Carboxyhemoglobin O2 Delivery Device Liter Flow Critical Value Sodium Potassium Chloride Carbon Dioxide Anion Gap BUN Creatinine Estimated GFR Random Glucose Lactic Acid 0.6 Calcium Prot Corrected Calcium Magnesium Total Bilirubin AST ALT Alkaline Phosphatase Ammonia 36 H Troponin I Total Protein Albumin Triglycerides Cholesterol LDL Cholesterol, Calc HDL Cholesterol Cholesterol/HDL Ratio Vitamin D 25-Hydroxy Urine Color Urine Clarity Urine pH Ur Specific [place] Urine Protein Urine Glucose (UA) Urine Ketones Urine Occult Blood Urine Nitrate Urine Bilirubin Urine Urobilinogen Ur Leukocyte Esterase Urine RBC Urine WBC Ur Squamous Epith Cells Hyaline Casts Urine Mucus Micro UA Comment Ur Microscopic Review Urine Culture Comments Nasal Screen MRSA (PCR) Not detected Antibody Screen MTS Gel Crossmatch Bld Prod Order Comment 11/24/17 11/24/17 11/24/17 04:52 04:52 04:52 WBC 51.2 H RBC 2.81 L Hgb 8.4 L Hct 25.9 L MCV 92.0 MCH 29.9 MCHC 32.5 RDW 15.8 Plt Count 137 L MPV 6.5 L Prelim Diff (Auto) Manual diff required WBC Differential Manual diff final Seg Neuts % (Manual) 24 Band Neuts % (Manual) 1 Lymphocytes % (Manual) 72 H Monocytes % (Manual) 3 Eosinophils % (Manual) Myelocytes % (Man) Plasma Cell % (Manual) Abs Neuts (Manual) 12.8 H Nucleated RBCs/100 WBC Differential Comment . Smudge Cells Present H Platelet Estimate Low L Platelet Morphology Normal Polychromasia Basophilic Stippling Acanthocytes (Spur) Smear Path Review PT INR Puncture Site Patient Temperature O2 Saturation ABG pH ABG pCO2 ABG pO2 ABG HCO3 ABG O2 Content ABG Base Excess ABG Methemoglobin [place] Test Hemoglobin Carboxyhemoglobin O2 Delivery Device Liter Flow Critical Value Sodium 146 H Potassium 4.5 Chloride 114 H Carbon Dioxide 21.5 Anion Gap 11 BUN 51 H Creatinine 1.22 H Estimated GFR 42 L Random Glucose 153 H Lactic Acid 1.0 Calcium 7.4 L* Prot Corrected Calcium 8.3 L Magnesium Total Bilirubin 0.6 AST 31 ALT 11 Alkaline Phosphatase 48 Ammonia Troponin I 0.07 H Total Protein 5.4 L Albumin 2.9 L Triglycerides 179 H Cholesterol 147 LDL Cholesterol, Calc 89 HDL Cholesterol 22.1 L Cholesterol/HDL Ratio 6.65 Vitamin D 25-Hydroxy Urine Color Urine Clarity Urine pH Ur Specific [place] Urine Protein Urine Glucose (UA) Urine Ketones Urine Occult Blood Urine Nitrate Urine Bilirubin Urine Urobilinogen Ur Leukocyte Esterase Urine RBC Urine WBC Ur Squamous Epith Cells Hyaline Casts Urine Mucus Micro UA Comment Ur Microscopic Review Urine Culture Comments Nasal Screen MRSA (PCR) Antibody Screen MTS Gel Crossmatch Bld Prod Order Comment Result Diagrams: 11/24/17 04:52 11/24/17 04:52 Microbiology: Microbiology 11/23/17 22:39 Aerobic Blood Culture - Preliminary Blood - Peripheral No growth in 1 day Anaerobic Blood Culture - Preliminary No growth in 1 day Imaging: Pelvis X-Ray 11/21/17 00:00 CONCLUSION: Negative for acute pelvic fracture. Chest X-Ray 11/21/17 08:59 CONCLUSION: 1. No evidence of acute cardiopulmonary process. 2. Cardiomegaly 3. Nondisplaced fracture proximal right femur 4. Severe bilateral shoulder arthropathy. Femur X-Ray 11/21/17 08:59 CONCLUSION: Proximal femur fracture as above. Humerus X-Ray 11/21/17 08:59 CONCLUSION: Fracture proximal humerus as above. Hip X-Ray 11/22/17 00:00 CONCLUSION: Anatomic alignment. Head CT 11/23/17 10:21 CONCLUSION: 1. Stable evaluation without evidence of acute infarct, hemorrhage, mass or edema. 2. Cerebral white matter hypodensity characteristic of chronic microvascular ischemic disease; unchanged. Head MRI 11/23/17 21:56 CONCLUSION: 1. 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 No significant mass effect or shift. 2. Severe chronic white matter ischemic changes bilaterally. Carotid Doppler Study 11/24/17 00:00 CONCLUSION: No evidence of flow-limiting carotid stenosis. Patient/Family Conference Present at Family Conference: munir Arnold Family Conference Time: 30 Family Conference Location: Consult Room Issues Discussed: Met with munir Arnold discussion included the following: * Palliative care role, purpose, approach * Additional medical, psychosocial, and spiritual history * Patients general health, functional status, and cognitive changes in the months leading up to the current hospitalization * Patient/family understanding of the current medical problems * Patient/family understanding of prognosis; review of multiple serious medical issues patient currently faces and likely trajectory, very high risk for ongoing complications could lead to degeneration and * Patients goals of care as best understood from advance directives and/or conversations and/or values * Current medical treatment options and benefits/burdens of those options * Likely scenarios comparing ongoing aggressive care with a transition to comfort measures only; briefly review option of hospice and comfort measures only should patient deteriorate or not to desire further aggressive interventions * Legal decision makers per [place] statutes, patient does not have advanced directive or care surrogate designation. He and his aunt patient's sister will speak to 2 other daughters this evening to tell them of course and if they wish to participate, they will provide hospital contact information so they may call us back or we might call them tomorrow to determine if they wish to participate. He indicates 2 daughters are somewhat estranged from patient. * CODE STATUS-review benefits/burdens, decision to be made once decision-makers are established. * Questions answered to the best of my ability * Palliative care contact information provided Munir Arnold appears to have a reasonable understanding of conditions and prognosis. He indicates he is somewhat overwhelmed processing all this information. He has been patient's primary caregiver. He will be in touch with other family members to determine who else will be participating in decision-making. Further decisions going forward pending involvement of other 2 daughters etc. He is open to ongoing conversations as clinical course evolves. Assessment and Plan - Disease Oriented Problem List (1) Closed subtrochanteric fracture of right femur Comment: S/P IM nail (2) Altered mental status (3) WALTER (acute kidney injury) (4) Humeral fracture (5) Leukocytosis (6) Hyperglycemia (7) Hypothyroid (8) Hypertension Pertinent Non-Medical Issues: Psychosocial: Patient originally from [facility]. Has lived in [place] for the past 10-15 years, originally in [place] and more recently in [facility]. Was a homemaker. , about 30 years ago following a stroke which was a complication following heart transplant. Has 3 children. Remains in close communication with her son Kartik, 2 daughters Leah Ba she does not remain in close communication with. Also has a sister Nivia in [place] whom she remains in contact with. Spiritual: [employer], would appreciate online activist visits. Legal: Patient currently not able to make her own decisions secondary to CVA. Not clear if or when she will regain ability to make her own decisions. She does not have advanced directive or health care surrogate completed. Per [place] statutes legal decision making would fall to the majority of her 3 adult children. In close communication with the one son Kartik whom she lives with. She is not in close communication with the other 2 children. Will need to establish if they wish to participate in decision-making going forward. Ethical issues impacting care: Important Contacts: Son Kartik Walker [phone] Daughter Leah Walker Alicegopal Daughter Jesenia Calhoun Prognosis: This patient was admitted status post fall in her home setting. She had following findings of a humerus fracture as well as femur fracture requiring operative repair. 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 Appears she may have acute infectious process. She had altered mental status, MRI findings of CVA, possibly embolic. Given her advanced age, current bedbound, acutely ill state, remains high risk for ongoing complications and setbacks which could result in continued deterioration and possibly . Code Status: Full Code Plan: * Legal decision maker:Patient currently not able to make her own decisions secondary to CVA. Not clear if or when she will regain ability to make her own decisions. She does not have advanced directive or health care surrogate completed. Per [place] statutes legal decision making would fall to the majority of her 3 adult children. In close communication with the one son Kartik whom she lives with. She is not in close communication with the other 2 children. Will need to establish if they wish to participate in decision- making going forward. Son, aunt are going to reach out to the other 2 daughters dulce to determine if they wish to participate they will either contact hospital staff member directly or we will contact them in the next day to determine if they wish to participate in decision-making. * Goals: Goals right now are to continue aggressive treatments, take it a day at a time. We have reviewed CODE STATUS at this time no changes elected as we are still determining who is participating in decision-making. We have explored occasions trajectory with continued aggressive course, as well as reviewed de-escalation and hospice option. * CODE STATUS: Full code * SYMPTOMS: --Pain-status post fall in the home resulting in hip fracture. Status post surgical repair. At time of exam patient denies pain. She is also reported to have arthritis, though son indicates pain is generally well managed by aspirin p.o. She has PRN tylenol, norco, and morphine 2mg Iv available, last dose norco 11/21, no doses of Tylenol or morphine. Cautious use of opiates given concern for altered mental status and lethargy status post CVA --Dyspnea-high risk for respiratory aeration secondary to advanced age and bedbound status following hip surgery, as well as post CVA and altered mental status. Currently breathing comfortably on room air, no recommendations for changes at this time. --Encephalopathy-altered mental status,+ CVA per MRI. Numerous areas bilateral infarct. Patient a little more alert today answering some questions and following some simple * Palliative care will continue to follow during hospital course as condition evolves, to assist patient/decision-maker with understanding of medical conditions, weighing benefits/burdens of treatment options, for clarification of goals of treatment. Additionally will assist with any symptoms of palliative concern Time Spent Total Floor Time (mins): 70 (chart review PE, d/w nursing, d/w famiy) Appreciation Thank you for the opportunity to participate in the care of Cathryn Walker. Attestation Attestation: To help prompt me to consider important information that might be impacting today's encounter and assessment, information from prior notes written by myself or my colleagues may have been "brought forward" into today's note. My signature on this note, however, is an attestation that I personally performed the exam, history, and/or decision-making noted today, and, unless otherwise indicated, the interactions with patient, family, and staff as well as the review of records all occurred today. I also attest that the listed assessment and stated plan reflect my best clinical judgment today based on the combination of historical information, prior notes, and today's exam/ interactions. When time spent is documented, it refers only to time spent today by the signer, or if indicated, combined time spent today by collaborating physician/nurse practitioner.
[2017-11-24] MEDS: Insulin NovoLOG Aspart Correctional Sugar Inj SQ SCH ×3 (13:02→20:34)
--- NOTE | 2017-11-24 14:29 | ECHRPT ---
Indication: cva/tia CONCLUSIONS Normal left ventricular size. Moderate concentric left ventricular hypertrophy. The left ventricular systolic function is normal with an estimated ejection fraction in the range of 60-65%. The left atrial size is mildly dilated. Atrial septal aneurysm is present (benign finding). Mitral annular calcification is present. Trace mitral valve regurgitation. Aortic valve sclerosis is present. Trace aortic valve regurgitation. There is trace tricuspid valve regurgitation. The estimated pulmonary arterial pressure is 62 mmHg. There is a trivial pericardial effusion present. A moderate left sided pleural effusion is noted. BP: / HR: Rhythm: MEASUREMENTS (Male / Female) Normal Values Technical Quality: 2D ECHO LV Diastolic Diameter PLAX 4.0 cm 4.2 - 5.9 / 3.9 - 5.3 cm LV Systolic Diameter PLAX 2.9 cm IVS Diastolic Thickness 1.4 cm 0.6 - 1.0 / 0.6 - 0.9 cm LVPW Diastolic Thickness 0.7 cm 0.6 - 1.0 / 0.6 - 0.9 cm LV Relative Wall Thickness 0.5 RV Internal Dim ED PLAX 2.4 cm LA Systolic Diameter LX 4.2 cm 3.0 - 4.0 / 2.7 - 3.8 cm M-MODE Aortic Root Diameter MM 2.6 cm AV Cusp Separation MM 1.8 cm DOPPLER MV Peak Velocity 157.0 cm/s MV Peak Gradient 9.9 mmHg MV Mean Velocity 89.8 cm/s MV Mean Gradient 4.0 mmHg MV Area PHT 3.2 cm Mitral E Point Velocity 56.9 cm/s Mitral A Point Velocity 112.0 cm/s Mitral E to A Ratio 0.5 TR Peak Velocity 362.0 cm/s TR Peak Gradient 52.4 mmHg Right Atrial Pressure 10.0 mmHg Pulmonary Artery Systolic Pressu 62.4 mmHg Right Ventricular Systolic Press 62.4 mmHg FINDINGS LEFT VENTRICLE Normal left ventricular size. Moderate concentric left ventricular hypertrophy. The left ventricular systolic function is normal with an estimated ejection fraction in the range of 60-65%. No regional wall motion abnormalities are present. RIGHT VENTRICLE Normal right ventricular size and systolic function. LEFT ATRIUM The left atrial size is mildly dilated. RIGHT ATRIUM The right atrial size is normal. ATRIAL SEPTUM Atrial septal aneurysm is present (benign finding). No atrial level shunt is demonstrated by color f low Doppler interrogation. AORTA The aortic root and proximal ascending aorta are normal in size on limited imaging. MITRAL VALVE Mitral annular calcification is present. Trace mitral valve regurgitation. AORTIC VALVE Aortic valve sclerosis is present. Trace aortic valve regurgitation. TRICUSPID VALVE There is trace tricuspid valve regurgitation. The estimated pulmonary arterial pressure is 62 mmHg. PULMONARY VALVE No pulmonary valve regurgitation or stenosis. VESSELS The inferior vena cava is normal in size. PERICARDIUM There is a trivial pericardial effusion present. OTHER FINDINGS A moderate left sided pleural effusion is noted. Gunnar Hare (Electronically Signed) Final Date:24 November 2017 14:29
--- NOTE | 2017-11-24 14:46 | P.PNONC ---
Subjective Interval history: Afebrile Patient reportedly somewhat more alert today Occasionally moaning with intermittent responses Knew her date of but however stated that she was 11 years old Patient's son at the bedside Objective Vital Signs/Intake & Output: Vital Signs 11/23/17 16:00 11/23/17 18:18 11/23/17 20:00 Temperature 98.6 F 98.4 F Pulse Rate 87 82 Respiratory Rate 18 14 14 Blood Pressure 160/73 H 143/64 H Pulse Oximetry 97 96 11/23/17 20:25 11/24/17 00:00 11/24/17 01:42 Temperature 99.7 F H Pulse Rate 82 Respiratory Rate 14 12 18 Blood Pressure 140/62 Pulse Oximetry 100 11/24/17 02:00 11/24/17 04:00 11/24/17 05:42 Temperature 99.7 F H Pulse Rate 77 76 Respiratory Rate 10 L 14 Blood Pressure 178/76 H Pulse Oximetry 100 11/24/17 06:00 11/24/17 08:00 11/24/17 10:00 Temperature 97.9 F Pulse Rate 81 74 81 Respiratory Rate 11 L Blood Pressure 93/43 L Pulse Oximetry 100 11/24/17 12:00 Temperature 99.0 F Pulse Rate 84 Respiratory Rate 12 Blood Pressure 167/70 H Pulse Oximetry 100 Intake & Output 11/23/17 11/24/17 11/24/17 18:59 06:59 18:59 Intake Total 900 / 900 1450 / 1450 1100 / 1100 Output Total 250 / 250 500 / 500 Balance 650 / 650 950 / 950 1100 / 1100 Weight 124 lb 5.451 oz Intake: IV 100 / 100 1450 / 1450 1100 / 1100 NS Inj 1,000 ML @ 84 mls/hr IV. 1000 / 1000 CONT .[id number] [facility] Rx#:[id number] Ofirmev Inj 1,000 mg In 100 ml 100 / 100 @ 400 mls/hr IV.SIG ONCE ONE Rx #:[id number] Maxipime Inj 1,000 MG In NS Inj 100 / 100 100 ML @ 200 mls/hr IV.SIG ONCE ONE Rx#:[id number] NS Inj 1,000 ML @ 1000 mls/hr 1000 / 1000 IV.SIG .Q1H ONE Rx#:[id number] Vancomycin Inj 1,000 MG In NS 250 / 250 Inj 250 ML @ 250 mls/hr IV.SIG ONCE ONE Rx#:[id number] Flagyl 500 MG Inj 100 ML @ 100 100 / 100 100 / 100 mls/hr IV.SIG Q6H [facility] Rx#: [id number] Oral 0 / 0 Intake (Blood Product) Amt 800 / 800 Rbc As-3 Leukoreduced Unit 400 / 400 [id number] Rbc As-3 Leukoreduced Unit 400 / 400 [id number] Output: Urine 250 / 250 Urine Amount (Catheter) 500 / 500 Indwelling Urethral Catheter 500 / 500 Other: Date of Last Bowel Movement 11/22/17 11/22/17 11/22/17 Result Diagrams: 11/24/17 04:52 11/24/17 04:52 Laboratory Results: Laboratory Results - last 24 hr 11/23/17 11/23/17 11/23/17 16:37 16:37 16:37 WBC RBC Hgb 8.9 L Hct 27.7 L MCV MCH MCHC RDW Plt Count MPV Prelim Diff (Auto) WBC Differential Seg Neuts % (Manual) Band Neuts % (Manual) Lymphocytes % (Manual) Monocytes % (Manual) Myelocytes % (Man) Plasma Cell % (Manual) Abs Neuts (Manual) Nucleated RBCs/100 WBC Differential Comment Smudge Cells Platelet Estimate Platelet Morphology Polychromasia Basophilic Stippling Acanthocytes (Spur) Puncture Site Patient Temperature O2 Saturation ABG pH ABG pCO2 ABG pO2 ABG HCO3 ABG O2 Content ABG Base Excess ABG Methemoglobin [place] Test Hemoglobin Carboxyhemoglobin O2 Delivery Device Liter Flow Critical Value Sodium Potassium 5.5 H Chloride Carbon Dioxide Anion Gap BUN Creatinine Estimated GFR POC Glucose Random Glucose Lactic Acid Calcium Prot Corrected Calcium Magnesium 2.5 Total Bilirubin AST ALT Alkaline Phosphatase Ammonia Troponin I Total Protein Albumin Triglycerides Cholesterol LDL Cholesterol, Calc HDL Cholesterol Cholesterol/HDL Ratio Nasal Screen MRSA (PCR) 11/23/17 11/23/17 11/23/17 22:33 22:39 22:39 WBC 59.5 H RBC 2.74 L Hgb 8.2 L Hct 25.1 L MCV 91.5 MCH 29.9 MCHC 32.7 RDW 15.2 Plt Count 138 L MPV 6.6 L Prelim Diff (Auto) Manual diff required WBC Differential Manual diff final Seg Neuts % (Manual) 16 Band Neuts % (Manual) Lymphocytes % (Manual) 82 H Monocytes % (Manual) 1 Myelocytes % (Man) 1 H Plasma Cell % (Manual) Abs Neuts (Manual) 10.1 H Nucleated RBCs/100 WBC 1 H Differential Comment . Smudge Cells Present H Platelet Estimate Low L Platelet Morphology Normal Polychromasia 2.1 H Basophilic Stippling Faint H Acanthocytes (Spur) Occ H Puncture Site Left radial Patient Temperature 98.6 O2 Saturation 96 ABG pH 7.41 ABG pCO2 34 L ABG pO2 143 H ABG HCO3 21 L ABG O2 Content 12.0 ABG Base Excess -3.2 L ABG Methemoglobin 1.5 [place] Test Present Hemoglobin 8.7 L Carboxyhemoglobin 2.0 O2 Delivery Device Nasal cannula Liter Flow 2.00 Critical Value No Sodium 143 Potassium 4.9 Chloride 110 H Carbon Dioxide 20.7 L Anion Gap 12 BUN 55 H Creatinine 1.43 H Estimated GFR 35 L POC Glucose Random Glucose 174 H Lactic Acid Calcium 7.2 L* Prot Corrected Calcium 8.4 L Magnesium Total Bilirubin 0.7 AST 24 ALT 10 Alkaline Phosphatase 44 L Ammonia Troponin I 0.09 H Total Protein 4.9 L Albumin 2.7 L Triglycerides Cholesterol LDL Cholesterol, Calc HDL Cholesterol Cholesterol/HDL Ratio Nasal Screen MRSA (PCR) 11/23/17 11/24/17 11/24/17 22:39 00:00 01:15 WBC RBC Hgb Hct MCV MCH MCHC RDW Plt Count MPV Prelim Diff (Auto) WBC Differential Seg Neuts % (Manual) Band Neuts % (Manual) Lymphocytes % (Manual) Monocytes % (Manual) Myelocytes % (Man) Plasma Cell % (Manual) Abs Neuts (Manual) Nucleated RBCs/100 WBC Differential Comment Smudge Cells Platelet Estimate Platelet Morphology Polychromasia Basophilic Stippling Acanthocytes (Spur) Puncture Site Patient Temperature O2 Saturation ABG pH ABG pCO2 ABG pO2 ABG HCO3 ABG O2 Content ABG Base Excess ABG Methemoglobin [place] Test Hemoglobin Carboxyhemoglobin O2 Delivery Device Liter Flow Critical Value Sodium Potassium Chloride Carbon Dioxide Anion Gap BUN Creatinine Estimated GFR POC Glucose Random Glucose Lactic Acid 0.6 Calcium Prot Corrected Calcium Magnesium Total Bilirubin AST ALT Alkaline Phosphatase Ammonia 36 H Troponin I Total Protein Albumin Triglycerides Cholesterol LDL Cholesterol, Calc HDL Cholesterol Cholesterol/HDL Ratio Nasal Screen MRSA (PCR) Not detected 11/24/17 11/24/17 11/24/17 04:52 04:52 04:52 WBC 51.2 H RBC 2.81 L Hgb 8.4 L Hct 25.9 L MCV 92.0 MCH 29.9 MCHC 32.5 RDW 15.8 Plt Count 137 L MPV 6.5 L Prelim Diff (Auto) Manual diff required WBC Differential Manual diff final Seg Neuts % (Manual) 24 Band Neuts % (Manual) 1 Lymphocytes % (Manual) 72 H Monocytes % (Manual) 3 Myelocytes % (Man) Plasma Cell % (Manual) Abs Neuts (Manual) 12.8 H Nucleated RBCs/100 WBC Differential Comment . Smudge Cells Present H Platelet Estimate Low L Platelet Morphology Normal Polychromasia Basophilic Stippling Acanthocytes (Spur) Puncture Site Patient Temperature O2 Saturation ABG pH ABG pCO2 ABG pO2 ABG HCO3 ABG O2 Content ABG Base Excess ABG Methemoglobin [place] Test Hemoglobin Carboxyhemoglobin O2 Delivery Device Liter Flow Critical Value Sodium 146 H Potassium 4.5 Chloride 114 H Carbon Dioxide 21.5 Anion Gap 11 BUN 51 H Creatinine 1.22 H Estimated GFR 42 L POC Glucose Random Glucose 153 H Lactic Acid 1.0 Calcium 7.4 L* Prot Corrected Calcium 8.3 L Magnesium Total Bilirubin 0.6 AST 31 ALT 11 Alkaline Phosphatase 48 Ammonia Troponin I 0.07 H Total Protein 5.4 L Albumin 2.9 L Triglycerides 179 H Cholesterol 147 LDL Cholesterol, Calc 89 HDL Cholesterol 22.1 L Cholesterol/HDL Ratio 6.65 Nasal Screen MRSA (PCR) 11/24/17 12:54 WBC RBC Hgb Hct MCV MCH MCHC RDW Plt Count MPV Prelim Diff (Auto) WBC Differential Seg Neuts % (Manual) Band Neuts % (Manual) Lymphocytes % (Manual) Monocytes % (Manual) Myelocytes % (Man) Plasma Cell % (Manual) Abs Neuts (Manual) Nucleated RBCs/100 WBC Differential Comment Smudge Cells Platelet Estimate Platelet Morphology Polychromasia Basophilic Stippling Acanthocytes (Spur) Puncture Site Patient Temperature O2 Saturation ABG pH ABG pCO2 ABG pO2 ABG HCO3 ABG O2 Content ABG Base Excess ABG Methemoglobin [place] Test Hemoglobin Carboxyhemoglobin O2 Delivery Device Liter Flow Critical Value Sodium Potassium Chloride Carbon Dioxide Anion Gap BUN Creatinine Estimated GFR POC Glucose 147 H Random Glucose Lactic Acid Calcium Prot Corrected Calcium Magnesium Total Bilirubin AST ALT Alkaline Phosphatase Ammonia Troponin I Total Protein Albumin Triglycerides Cholesterol LDL Cholesterol, Calc HDL Cholesterol Cholesterol/HDL Ratio Nasal Screen MRSA (PCR) Culture Results: Microbiology 11/23/17 22:39 Aerobic Blood Culture - Preliminary Blood - Peripheral No growth in 1 day Anaerobic Blood Culture - Preliminary No growth in 1 day Imaging Studies: Impressions Head MRI 11/23/17 21:56 CONCLUSION: 1. 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 No significant mass effect or shift. 2. Severe chronic white matter ischemic changes bilaterally. Carotid Doppler Study 11/24/17 00:00 CONCLUSION: No evidence of flow-limiting carotid stenosis. Medications: Active Medications Generic Name Dose Route Start Last Admin Trade Name Freq PRN Reason Stop Dose Admin Hydrocodone Bitart/Acetaminophen 1 tab 11/21/17 10:33 11/21/17 11:15 Inlet 5/325 PO 1 tab Q4H PRN Administration PAIN SCALE 3 TO 5 Atorvastatin Calcium 80 mg 11/24/17 09:00 11/24/17 08:39 Lipitor PO Not Given DAILY ESTHER Calcium/Vitamin D 1 tab 11/22/17 11:00 11/24/17 12:06 Oscal With D 250/125 Mg PO Not Given Q8H ESTHER Enoxaparin Sodium 30 mg 11/22/17 21:00 11/23/17 21:32 Lovenox Inj SQ Not Given Q24H ESTHER Sodium Chloride 500 mls @ 30 mls/hr 11/22/17 04:00 11/22/17 07:25 Ns Inj IV.SIG Not Given .Q10H ESTHER Sodium Chloride 1,000 mls @ 84 mls/hr 11/24/17 00:00 11/24/17 12:06 Ns Inj IV.CONT 84 mls/hr .[id number] ESTHER Administration Metronidazole/Sodium Chloride 100 mls @ 100 mls/hr 11/24/17 01:00 11/24/17 13 :03 Flagyl 500 Mg Inj IV.SIG 100 mls/hr Q6H ESTHER Administration Insulin Aspart 0 unit 11/24/17 12:00 11/24/17 13:02 Novolog Insulin Correctional Sugar Inj SQ Not Given ACHS [facility] Protocol Senna/Docusate Sodium 1 tab 11/21/17 21:00 11/24/17 08:39 Holli-Colace PO Not Given BID ESTHER Sodium Chloride 2 ml 11/22/17 09:00 11/24/17 08:39 Ns Flush IV.FLUSH Not Given BID ESTHER Vitamin D 1,000 unit 11/23/17 09:00 11/24/17 08:39 Vitamin D3 PO Not Given DAILY [facility] Objective Remarks: GENERAL: Elderly female resting in bed working with physical therapy. She is occasionally moaning. SKIN: Warm and dry. Dressing to right hip with minimal sanguinous drainage noted. HEAD: Normocephalic. EYES: No injection or drainage. NECK: Supple, trachea midline. CARDIOVASCULAR: Regular rate and rhythm without murmurs. RESPIRATORY: Clear anteriorly. Breathing unlabored at rest. GASTROINTESTINAL: Abdomen soft, non-tender, nondistended. EXTREMITIES: No cyanosis. Bilateral lower extremity generalized edema MUSCULOSKELETAL: Adequate muscle tone. NEUROLOGICAL: No obvious focal deficit. Awake, alert, and oriented x3. Assessment/Plan - Plan 87-year-old female admitted after a fall at home. Imaging on admission showed a fracture of the right femur and on 11/22/17 she underwent surgery for repair by Dr. Boogie. The following day she was unarousable. 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 Further complicating her acute issues, she was noted to have leukocytosis with predominantly lymphocytes and hematology was consulted. Per the pt's son she was seen by a polygraph operator approximately 10 years ago for a "benign blood disorder." 1. Await results of flow cytometry; this will likely not change current course of action. 2. Discussed with the patient's son; he will bring in most recent note from her visit when she received iron at [facility] in [place]. 3. Neuro has been consulted for the acute finding of infarcts. Closely monitor her CBC as she is noted to have a degree of thrombocytopenia at present. Continue supportive care - Attending Statement The exam, history, and the medical decision-making described in the above note were completed with the assistance of the mid-level provider. I reviewed and agree with the findings presented. I attest that I had a [id number] encounter with the patient on the same day, and personally performed and documented my assessment and findings in the medical record. Events last 24 hours noted. Patient was seen in ICU. She is arousable open her eyes but does not communicate. Noted palliative care involvement to determine the goals of therapy with her healthcare surrogate. Case discussed with her nurse. The peripheral smear was reviewed with pathology. He is consistent with chronic lymphocytic leukemia. No specific therapy is required for the chronic lymphocytic leukemia from hematology standpoint. The leukocytosis is trending down. We will follow peripherally.
[2017-11-24 16:21] LABS: Hemoglobin A1c 5.8 % (4.3-6.0)
[2017-11-24] MEDS: Labetalol HCl Inj 100 MG/20 ML Vial IV.PUSH PRN (16:41)
[2017-11-25] MEDS: Sod Chloride 0.9% Inj 1,000 ML IV.CONT SCH ×3 (00:01→22:59)
[2017-11-25] MEDS ORDERED: Vancomycin Inj 750 MG in Sodium Chlor 0.9% Inj 250 ML IV.SIG SCH (02:00)
[2017-11-25] MEDS: Calcium/Vitamin D 250/125 MG Tablet PO SCH ×3 (03:00→19:36)
[2017-11-25 05:23] LABS: Hematocrit 23.7 % (35.0-46.0); Hemoglobin 7.6 gm/dL (11.6-15.3); Mean Corpuscular Hemoglobin 30.4 pg (27.0-34.0); Mean Corpuscular Volume 94.8 fL (80.0-100.0); Mean Platelet Volume 6.3 fL (7.0-11.0); Platelet Count 107 th/mm3 (150-450); White Blood Count 36.5 th/mm3 (4.0-11.0)
[2017-11-25 05:46] LABS: Albumin 2.7 g/dL (3.4-5.0); Anion Gap 10 meq/L (5-15); Aspartate Aminotransferase 24 U/L (15-37); Blood Urea Nitrogen 41 mg/dL (7-18); Calcium 7.5 mg/dL (8.5-10.1); Carbon Dioxide 20.1 meq/L (21.0-32.0); Chloride 119 meq/L (98-107); Glomerular Filtration Rate 89 mL/min (>89); Glucose,Random 133 mg/dL (74-106); Sodium 149 meq/L (136-145)
[2017-11-25 05:50] LABS: Alanine Aminotransferase 11 U/L (10-53); Alkaline Phosphatase 42 U/L (45-117)
[2017-11-25 06:53] LABS: Eosinophils 1 % (0-4); Lymphocytes 73 % (9-44); Monocytes 1 % (0-8)
[2017-11-25 06:56] LABS: Platelet Morphology Normal (Normal); Smudge Cells Present
[2017-11-25] MEDS: Insulin NovoLOG Aspart Correctional Sugar Inj SQ SCH ×4 (08:00→21:24)
--- NOTE | 2017-11-25 08:44 | P.PNFP ---
Subjective Interval history: There is an was seen on rounds this morning. She is lying in bed with eyes open. She does say the word yes to simple questions. She moves upper and lower extremities spontaneously but does not appear to be pursed purposeful movement. She does clear her throat intermittently during exam. She denies any current pain but does not answer any further questions <Rae Moore - 11/25/17 08:43> Results - Labs Result diagrams: 11/25/17 04:55 11/25/17 04:55 <Cruz Fischer - 11/25/17 14:25> Abnormal lab results 11/24/17 11/24/17 11/25/17 Range/Units 16:47 22:39 04:55 WBC 36.5 H (4.0-11.0) th/mm3 RBC 2.50 L (4.00-5.30) mil/mm3 Hgb 7.6 L (11.6-15.3) gm/dL Hct 23.7 L (35.0-46.0) % Plt Count 107 L (150-450) th/mm3 MPV 6.3 L (7.0-11.0) fL Lymphocytes % (Manual) 73 H (9-44) % Abs Neuts (Manual) 9.1 H (1.8-7.7) th/mm3 Smudge Cells Present H (None) Platelet Estimate Low L (Normal) Sodium (136-145) meq/L Chloride (98-107) meq/L Carbon Dioxide (21.0-32.0) meq/L BUN (7-18) mg/dL POC Glucose 147 H 151 H (68-110) mg/dl Random Glucose (74-106) mg/dL Calcium (8.5-10.1) mg/dL Alkaline Phosphatase (45-117) U/L Total Protein (6.4-8.2) g/dL Albumin (3.4-5.0) g/dL 11/25/17 11/25/17 Range/Units 04:55 12:09 WBC (4.0-11.0) th/mm3 RBC (4.00-5.30) mil/mm3 Hgb (11.6-15.3) gm/dL Hct (35.0-46.0) % Plt Count (150-450) th/mm3 MPV (7.0-11.0) fL Lymphocytes % (Manual) (9-44) % Abs Neuts (Manual) (1.8-7.7) th/mm3 Smudge Cells (None) Platelet Estimate (Normal) Sodium 149 H (136-145) meq/L Chloride 119 H (98-107) meq/L Carbon Dioxide 20.1 L (21.0-32.0) meq/L BUN 41 H (7-18) mg/dL POC Glucose 150 H (68-110) mg/dl Random Glucose 133 H (74-106) mg/dL Calcium 7.5 L (8.5-10.1) mg/dL Alkaline Phosphatase 42 L (45-117) U/L Total Protein 5.0 L (6.4-8.2) g/dL Albumin 2.7 L (3.4-5.0) g/dL Short CBC 11/25/17 Range/Units 04:55 WBC 36.5 H (4.0-11.0) th/mm3 Hgb 7.6 L (11.6-15.3) gm/dL Hct 23.7 L (35.0-46.0) % Plt Count 107 L (150-450) th/mm3 BMP 11/25/17 04:55 Sodium 149 H Potassium 4.0 Chloride 119 H Carbon Dioxide 20.1 L BUN 41 H Creatinine 0.63 Calcium 7.5 L Liver Function 11/25/17 Range/Units 04:55 Total Bilirubin 0.6 (0.2-1.0) mg/dL AST 24 (15-37) U/L ALT 11 (10-53) U/L Alkaline Phosphatase 42 L (45-117) U/L Albumin 2.7 L (3.4-5.0) g/dL <Cruz Fischer L - 11/25/17 14:25> Abnormal lab results 11/24/17 11/24/17 11/24/17 Range/Units 12:54 16:47 22:39 WBC (4.0-11.0) th/mm3 RBC (4.00-5.30) mil/mm3 Hgb (11.6-15.3) gm/dL Hct (35.0-46.0) % Plt Count (150-450) th/mm3 MPV (7.0-11.0) fL Lymphocytes % (Manual) (9-44) % Abs Neuts (Manual) (1.8-7.7) th/mm3 Smudge Cells (None) Platelet Estimate (Normal) Sodium (136-145) meq/L Chloride (98-107) meq/L Carbon Dioxide (21.0-32.0) meq/L BUN (7-18) mg/dL POC Glucose 147 H 147 H 151 H (68-110) mg/dl Random Glucose (74-106) mg/dL Calcium (8.5-10.1) mg/dL Alkaline Phosphatase (45-117) U/L Total Protein (6.4-8.2) g/dL Albumin (3.4-5.0) g/dL 11/25/17 11/25/17 Range/Units 04:55 04:55 WBC 36.5 H (4.0-11.0) th/mm3 RBC 2.50 L (4.00-5.30) mil/mm3 Hgb 7.6 L (11.6-15.3) gm/dL Hct 23.7 L (35.0-46.0) % Plt Count 107 L (150-450) th/mm3 MPV 6.3 L (7.0-11.0) fL Lymphocytes % (Manual) 73 H (9-44) % Abs Neuts (Manual) 9.1 H (1.8-7.7) th/mm3 Smudge Cells Present H (None) Platelet Estimate Low L (Normal) Sodium 149 H (136-145) meq/L Chloride 119 H (98-107) meq/L Carbon Dioxide 20.1 L (21.0-32.0) meq/L BUN 41 H (7-18) mg/dL POC Glucose (68-110) mg/dl Random Glucose 133 H (74-106) mg/dL Calcium 7.5 L (8.5-10.1) mg/dL Alkaline Phosphatase 42 L (45-117) U/L Total Protein 5.0 L (6.4-8.2) g/dL Albumin 2.7 L (3.4-5.0) g/dL Short CBC 11/25/17 Range/Units 04:55 WBC 36.5 H (4.0-11.0) th/mm3 Hgb 7.6 L (11.6-15.3) gm/dL Hct 23.7 L (35.0-46.0) % Plt Count 107 L (150-450) th/mm3 BMP 11/25/17 04:55 Sodium 149 H Potassium 4.0 Chloride 119 H Carbon Dioxide 20.1 L BUN 41 H Creatinine 0.63 Calcium 7.5 L Liver Function 11/25/17 Range/Units 04:55 Total Bilirubin 0.6 (0.2-1.0) mg/dL AST 24 (15-37) U/L ALT 11 (10-53) U/L Alkaline Phosphatase 42 L (45-117) U/L Albumin 2.7 L (3.4-5.0) g/dL <Rae Moore - 11/25/17 08:43> - Imaging Impressions Head CT 11/25/17 05:00 CONCLUSION: 1. Stable CT examination in this patient with known multiple cerebral infarcts. No intercurrent hemorrhage. . <Cruz Fischer - 11/25/17 14:25> Impressions Carotid Doppler Study 11/24/17 00:00 CONCLUSION: No evidence of flow-limiting carotid stenosis. Head CT 11/25/17 05:00 CONCLUSION: 1. Stable CT examination in this patient with known multiple cerebral infarcts. No intercurrent hemorrhage. . <Rae Moore - 11/25/17 08:43> Physical Exam Vital signs: Vital Signs 11/24/17 16:00 11/24/17 17:00 11/24/17 20:00 Temperature 98.9 F 99.4 F Pulse Rate 84 84 Respiratory Rate 17 20 15 Blood Pressure 178/72 H 162/72 H Pulse Oximetry 99 11/24/17 21:00 11/24/17 22:00 11/25/17 00:00 Temperature 99.5 F Pulse Rate 85 80 Respiratory Rate 16 12 Blood Pressure 100/49 L Pulse Oximetry 97 11/25/17 01:00 11/25/17 02:00 11/25/17 04:00 Temperature 99.2 F Pulse Rate 88 76 Respiratory Rate 20 12 Blood Pressure 137/60 Pulse Oximetry 97 11/25/17 05:00 11/25/17 06:00 11/25/17 08:00 Temperature 99.3 F Pulse Rate 68 86 Respiratory Rate 18 15 Blood Pressure 175/69 H Pulse Oximetry 98 11/25/17 10:00 11/25/17 12:00 Temperature 98.7 F Pulse Rate 84 82 Respiratory Rate 14 Blood Pressure 167/72 H Pulse Oximetry 96 Intake & Output 11/24/17 11/25/17 11/25/17 18:59 06:59 18:59 Intake Total 1200 / 1200 1200 / 1200 300 / 300 Output Total 450 / 450 550 / 550 Balance 750 / 750 650 / 650 300 / 300 Weight 55.2 kg Intake: IV 1200 / 1200 1200 / 1200 300 / 300 NS Inj 1,000 ML @ 84 mls/hr IV. 1000 / 1000 1000 / 1000 CONT .[id number] ESTHER Rx#:[id number] Maxipime Inj 1,000 MG In NS Inj 100 / 100 100 ML @ 200 mls/hr IV.SIG Q24H ESTHER Rx#:[id number] Flagyl 500 MG Inj 100 ML @ 100 200 / 200 200 / 200 200 / 200 mls/hr IV.SIG Q6H ESTHER Rx#: [id number] Output: Urine 450 / 450 Urine Amount (Catheter) 550 / 550 Indwelling Urethral Catheter 550 / 550 Other: Date of Last Bowel Movement 11/22/17 11/22/17 11/22/17 # Bowel Movements 0 <Cruz Fischer L - 11/25/17 14:25> Vital Signs 11/24/17 10:00 11/24/17 12:00 11/24/17 16:00 Temperature 99.0 F 98.9 F Pulse Rate 81 84 84 Respiratory Rate 12 17 Blood Pressure 167/70 H 178/72 H Pulse Oximetry 100 11/24/17 17:00 11/24/17 20:00 11/24/17 21:00 Temperature 99.4 F Pulse Rate 84 Respiratory Rate 20 15 16 Blood Pressure 162/72 H Pulse Oximetry 99 11/24/17 22:00 11/25/17 00:00 11/25/17 01:00 Temperature 99.5 F Pulse Rate 85 80 Respiratory Rate 12 20 Blood Pressure 100/49 L Pulse Oximetry 97 11/25/17 02:00 11/25/17 04:00 11/25/17 05:00 Temperature 99.2 F Pulse Rate 88 76 Respiratory Rate 12 18 Blood Pressure 137/60 Pulse Oximetry 97 11/25/17 06:00 Temperature Pulse Rate 68 Respiratory Rate Blood Pressure Pulse Oximetry Intake & Output 11/24/17 11/25/17 11/25/17 18:59 06:59 18:59 Intake Total 1200 / 1200 1200 / 1200 Output Total 450 / 450 550 / 550 Balance 750 / 750 650 / 650 Weight 55.2 kg Intake: IV 1200 / 1200 1200 / 1200 NS Inj 1,000 ML @ 84 mls/hr IV. 1000 / 1000 1000 / 1000 CONT .[id number] EST[facility] Rx#:[id number] Flagyl 500 MG Inj 100 ML @ 100 200 / 200 200 / 200 mls/hr IV.SIG Q6H ESTHER Rx#: [id number] Output: Urine 450 / 450 Urine Amount (Catheter) 550 / 550 Indwelling Urethral Catheter 550 / 550 Other: Date of Last Bowel Movement 11/22/17 11/22/17 # Bowel Movements 0 <Rae Moore - 11/25/17 08:43> Narrative: GENERAL: Elderly female, lying in bed, eyes open, intermittent clearing and throat HEENT: Normocephalic. Atraumatic. Pupils equal, round, reactive but sluggish. Mucous membranes pink and dry CARDIOVASCULAR: Regular rate, rhythm. Systolic murmur 1 out of 6 best over right-sided sternal border, stable from previous exam. ABDOMEN: Bowel sounds present. Soft, nontender, nondistended. MUSCULOSKELETAL: Dressings in place with no excess blood noted on right hip surgical area. Large hematoma about mcfp down the thigh and extending to the lateral thigh area. Pulses intact bilaterally. No edema. Increased ecchymosis of right dorsal aspect of hand as well as wrist. Pulses intact. NEUROLOGICAL: Spontaneous movement of upper and lower extremities but no purposeful movement noted. Is unable to follow commands. moans to some palpation of right shoulder and right hip. Does answer yes to simple questions <Rae Moore - 11/25/17 08:43> - Urinary Catheter Management Indwelling Urethral Catheter Cath placed during this visit: no <Cruz Fischer 11/25/17 14:25> yes <Rae Moore - 11/25/17 08:43> Reason for continuing: Other continuation reason <Rae Moore 11/25/17 08: 43> Insertion date: 11/22/17 <Rae Moore 11/25/17 08:43> Assessment and Plan - Assessment (1) Altered mental status Code(s): R41.82 - Altered mental status, unspecified Status: Acute (2) Thrombocytopenia Code(s): D69.6 - Thrombocytopenia, unspecified Status: Acute (3) WALTER (acute kidney injury) Code(s): N17.9 - Acute kidney failure, unspecified Status: Acute (4) Fracture of femur Code(s): S72.90XA - Unspecified fracture of unspecified femur, initial encounter for closed fracture Status: Acute (5) Leukocytosis Code(s): D72.829 - Elevated white blood cell count, unspecified Status: Acute (6) Hyperglycemia Code(s): R73.9 - Hyperglycemia, unspecified Status: Acute (7) Hypothyroid Code(s): E03.9 - Hypothyroidism, unspecified Status: Acute (8) Hypertension Code(s): I10 - Essential (primary) hypertension Status: Acute (9) Humeral fracture Code(s): S42.309A - Unspecified fracture of shaft of humerus, unspecified arm, initial encounter for closed fracture Status: Chronic (10) Nutrition, metabolism, and development symptoms Code(s): R63.8 - Other symptoms and signs concerning food and fluid intake Status: Acute <Cruz Fischer - 11/25/17 14:25> (1) Altered mental status Code(s): R41.82 - Altered mental status, unspecified Status: Acute Plan: Patient mental status waxing and waning at times she is able to answer simple questions and follows simple commands and other times she is minimally responsive. Head CT today showed no acute changes. 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 EEG showed background slowing consistent with encephalopathic state -Continue to hold pain medications and anticoagulation -Patient is currently protecting airway -Critical care following -Ammonia level only slightly elevated at 36 -Patient did not pass swallow study, continue n.p.o. status -Patient maintaining SPO2 on room air. Nebs as needed -Palliative care consulted, after discussion with patient's son he continues to request aggressive care and patient will remain full code -Continue Rowley with strict I's and O's -Maintain hemoglobin greater than 7 -Neurochecks every hour (2) Thrombocytopenia Code(s): D69.6 - Thrombocytopenia, unspecified Status: Acute Plan: Platelet count 107 today down from 137 yesterday. Consideration of DIC -PT, APTT, INR, fibrinogen ordered -Hematology following patient -Patient not requiring platelet transfusion at this time, no signs of large active bleed. -Repeat CBC in a.m. (3) WALTER (acute kidney injury) Code(s): N17.9 - Acute kidney failure, unspecified Status: Acute Plan: Contributing factor of hypovolemia and n.p.o. status -Resolved this a.m. with creatinine of 0.63 -Status post 2 units PRBC -Patient was given additional normal saline 1 L on admission to ICU -Normal saline at 84 mL's per hour -Continue Rowley catheter -CMP in a.m. (4) Fracture of femur Code(s): S72.90XA - Unspecified fracture of unspecified femur, initial encounter for closed fracture Status: Acute Plan: 87 YO female with comminuted spiral "butterfly" fracture of proximal femur noted on x-ray. Today pt is POD#3 following right femur reduction and intramedullary nail fixation by Dr Boogie. Patient neurovascularly intact and is recovering from surgery. -Orthopedic surgery consulted, Dr Boogie. Dressings per orthopedic recommendation -We will hold pain medications for now as patient has altered mental status. Want to eliminate contributing factor of oversedation. -Ca+Vitamin D supplementation -Withholding further evaluation of osteoporosis due to patient's acute critical illness -We will resume PT if patient's mental status improves so that she can actively participate (5) Leukocytosis Code(s): D72.829 - Elevated white blood cell count, unspecified Status: Acute Plan: Urinalysis on admission was negative. T-max of 99.7 WBC 36.5 today up from admission 25.4 Peripheral smear review showed atypical lymphocytosis and mild neutrophilia suspicious for CLL. -Hematology/oncology consulted -Consideration for sepsis with contributing factor of CLL which patient was possibly diagnosed with previously. -Blood cultures taken, no growth to date 1 day -Sputum culture -C. difficile PCR ordered -Patient started on cefepime 1 g per day and vancomycin with pharmacy consult -Per critical care recommendations if cultures are negative at 48 hours and WBC downtrending can DC antibiotics (6) Hyperglycemia Code(s): R73.9 - Hyperglycemia, unspecified Status: Acute Plan: Patient has no reported history of diabetes. Likely stress reaction. -Patient is not currently eating due to her altered mental status. -Did not pass formal swallow evaluation -SSI -Continue n.p.o. status with repeat swallow evaluation if patient's mentation improves (7) Hypothyroid Code(s): E03.9 - Hypothyroidism, unspecified Status: Acute Plan: We will continue home levothyroxine once dosing is obtained (8) Hypertension Code(s): I10 - Essential (primary) hypertension Status: Acute Plan: Permissive hypertension due to patient's possible embolic strokes -Maintain systolics in the 120-180 range -Labetalol 10 mg as needed for SBP greater than 180 (9) Humeral fracture Code(s): S42.309A - Unspecified fracture of shaft of humerus, unspecified arm, initial encounter for closed fracture Status: Chronic Plan: Reported by son to be chronic. Patient had fracture 2 years prior -Orthopedic surgery consulted appreciate recommendations. -Pt right arm placed in sling post-op for immobilization (10) Nutrition, metabolism, and development symptoms Code(s): R63.8 - Other symptoms and signs concerning food and fluid intake Status: Acute Plan: Diet: N.p.o. status as patient did not pass formal swallow study. We will continue to follow with repeat evaluation and possible advancement of diet. Electrolytes: Replete per ICU protocol Fluids: Patient on maintenance normal saline at 84 mls per hour DVT prophylaxis: SCDs only. Hold pharmacological anticoagulation due to patient' s requirement of transfusion due to postoperative bleeding <Rae Moore E - 11/25/17 08:17> - Assessment and Plan Discussed Condition With: Pedro Luis Still and Amado <Rae Moore - 11/25/17 08:43> - Attending Attestation The exam, history, and the medical decision-making described in the above note were completed with the assistance of the resident physician. I reviewed and agree with the findings presented. I attest that I had a [id number] encounter with the patient on the same day, and personally performed and documented my assessment and findings in the medical record. I saw the patient personally at about 2:00 PM today. Patient has shown improvement neurologically. She is responding "yes", "no", and able to name her son. She believes the year is 1965. She says she is comfortable and in no pain. Her eyes are opened spontaneously today. She is not tracking much with her eyes , but states "yes" if I ask if she can see my face. She is following commands and moving all four extremities. Hematoma on hip is improving. Palliative care is on board and appreciated for helping to establish goals of care. We are keeping the family updated, primarily the son at this point. Meeting with the son was held yesterday with the primary team and then again with palliative care to discuss patient's condition, prognosis, goals if care, and plan going forward. We will proceed to take this day by day and use a multi-disciplinary approach in managing the patient's medical conditions. <Cruz Fischer Josefina - 11/25/17 14:25> <Rae Moore - Filed: 11/25/17 08:17> (4) Fracture of femur Qualifiers: Encounter type: initial encounter Fracture type: closed Fracture morphology : spiral Laterality: right (9) Humeral fracture Qualifiers: Fracture type: closed Laterality: right <Cruz Fischer L - Last Filed: 11/25/17 14:25> (4) Fracture of femur Qualifiers: Encounter type: initial encounter Fracture type: closed Fracture morphology : spiral Laterality: right (9) Humeral fracture Qualifiers: Fracture type: closed Laterality: right <Rae Moore Filed: 11/25/17 08:17> (4) Fracture of femur Qualifiers: Encounter type: initial encounter Fracture type: closed Fracture morphology : spiral Laterality: right (9) Humeral fracture Qualifiers: Fracture type: closed Laterality: right <Cruz Fischer L - Last Filed: 11/25/17 14:25> (4) Fracture of femur Qualifiers: Encounter type: initial encounter Fracture type: closed Fracture morphology : spiral Laterality: right (9) Humeral fracture Qualifiers: Fracture type: closed Laterality: right
--- NOTE | 2017-11-25 09:33 | P.PNCC ---
Subjective Subjective Remarks/Hospital Course: 11/23: This is an 87-year-old female who presented to the hospital with a hip fracture and underwent right operative fixation of her hip fracture. Postop day 1 she was noted to be worsening the anemic with a enlarging right hip hematoma. In addition, she was acutely obtunded this morning which was evaluated with a noncontrasted head CT which was negative for acute disease. However, she did not improve her mental status. Cande I was contacted because she was persistently altered and the primary team caring for her was concerned. 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 I evaluated the patient on arrival to the ICU. She is protecting her airway with a vigorous gag. She will respond with moans to loud voice, and to stimulation. In addition to her other acute problems, she has had a leukemoid reaction while inpatient and her white count went up to 93,000. 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 Both hematology and I agree that an acute rise of white blood cell count to this degree should warrant an infectious workup until proven otherwise. Unfortunately, no additional information is available from the patient due to her severe encephalopathy. Review systems is unobtainable. 11/24: No improvement in neurologic function this morning. Patient moans to stimulation and occasionally spontaneously. Her right hip hematoma appears to have stabilized and she is normotensive. 11/25: Appears slightly more awake but with garbled speech. Did not follow commands. Hemodynamically stable. WBC 36.5 from 51.2, Hb 7.6 Objective Vital Signs / I&O: Vital Signs 11/24/17 10:00 11/24/17 12:00 11/24/17 16:00 Temperature 99.0 F 98.9 F Pulse Rate 81 84 84 Respiratory Rate 12 17 Blood Pressure 167/70 H 178/72 H Pulse Oximetry 100 11/24/17 17:00 11/24/17 20:00 11/24/17 21:00 Temperature 99.4 F Pulse Rate 84 Respiratory Rate 20 15 16 Blood Pressure 162/72 H Pulse Oximetry 99 11/24/17 22:00 11/25/17 00:00 11/25/17 01:00 Temperature 99.5 F Pulse Rate 85 80 Respiratory Rate 12 20 Blood Pressure 100/49 L Pulse Oximetry 97 11/25/17 02:00 11/25/17 04:00 11/25/17 05:00 Temperature 99.2 F Pulse Rate 88 76 Respiratory Rate 12 18 Blood Pressure 137/60 Pulse Oximetry 97 11/25/17 06:00 Temperature Pulse Rate 68 Respiratory Rate Blood Pressure Pulse Oximetry Intake & Output 11/24/17 11/25/17 11/25/17 18:59 06:59 18:59 Intake Total 1200 / 1200 1200 / 1200 Output Total 450 / 450 550 / 550 Balance 750 / 750 650 / 650 Weight 55.2 kg Intake: IV 1200 / 1200 1200 / 1200 NS Inj 1,000 ML @ 84 mls/hr IV. 1000 / 1000 1000 / 1000 CONT .[id number] ESTHER Rx#:[id number] Flagyl 500 MG Inj 100 ML @ 100 200 / 200 200 / 200 mls/hr IV.SIG Q6H ESTHER Rx#: [id number] Output: Urine 450 / 450 Urine Amount (Catheter) 550 / 550 Indwelling Urethral Catheter 550 / 550 Other: Date of Last Bowel Movement 11/22/17 11/22/17 # Bowel Movements 0 Result Diagrams: 11/25/17 04:55 11/25/17 04:55 Objective Remarks: GENERAL: Frail elderly female, lying in bed, encephalopathic HEENT: Normocephalic. Atraumatic. Pupils equal, round, reactive, conjugate. Mucous membranes are dry NECK: Trachea is midline. There is no JVD. CHEST: Equal chest rise. Nasal cannula oxygen. CARDIOVASCULAR: Normal rate, regular rhythm. Sinus. No JVD. Systolic murmur heard along the left sternal border grade 2 ABDOMEN: Soft, nontender, nondistended. No guarding. MUSCULOSKELETAL: Pulses 2+. No peripheral edema. The lateral portion of the right hip has 2 dressings which are intact, but half saturated with blood. Large right hip hematoma which extends from the greater trochanter down fdc to knee. Ecchymoses around the lateral aspect of the thigh. Right upper extremity in a sling NEUROLOGICAL: Arouses to loud voice and stimulation. Very weakly follows commands and lower extremities. Does not follow commands in the upper extremities, but purposeful. She has a quite a vigorous cough and gag and is protecting her airway. Her pupils are conjugate and she will track occasionally. Speech is incomprehensibly Assessment and Plan - Assessment and Plan Plan: Assessment: 87-year-old female status post right hip operative fixation for fracture complicated by acute embolic CVA and acute encephalopathy. Encephalopathy is likely combination of metabolic and organic from CVA. Rule out infectious etiology for metabolic encephalopathy as well as her leukemoid reaction. She is quite critically ill and given her age, comorbidities, and acute postoperative stroke, she has a very high risk of or further morbidity. Plan by systems: Neurologic: Acute embolic CVA Acute severe metabolic encephalopathy Frequent neurochecks Avoid long-acting sedatives Currently protecting airway MRI 11/23: Acute restriction of diffusion concerning for multiple embolic strokes EEG showing moderate encephalopathy Carotid Dopplers-negative study PT/OT/ST Telemetry Cannot place the patient on aspirin or anticoagulation due to her active and ongoing postoperative bleeding requiring transfusion. Respiratory: Postoperative atelectasis Respiratory insufficiency Wean oxygen by nasal cannula for goal SPO2 greater than 90% Aggressive pulmonary toilet Head of bed elevated Nebs prn Cardiovascular: Continue statin We will not placed on aspirin, see above discussion Continue telemetry Permissive hypertension with goal systolic blood pressure 120-180. Renal: Acute kidney injury Likely secondary to hypovolemia from postoperative bleeding Status post 2 units PRBCs Normal saline maintenance fluids Continue Rowley catheter Frequent urine output monitoring Daily creatinine and electrolytes -- Strict I/Os FEN/GI: Acute intravascular hypovolemia Severe acute protein calorie malnutrition N.p.o. start tube feeds with Glucerna Normal saline at 84 mils per hour-DC after tube feeds to goal ICU electrolyte protocol Daily BMP, magnesium, phosphorus Heme/ID: Leukemoid reaction Severe anemia secondary to acute blood loss requiring transfusion Trend CBCs Hematology consulted and following. flow cytometry pending at this time On vancomycin, cefepime, Flagyl empirically. Discontinue vancomycin today WBC count is 36.5 today down from 51.2 yesterday Follow blood cultures-negative to date Send C. difficile If cultures are negative at 48 hours and white blood cell count is downtrending , would recommend discontinuation of antibiotics, as this may be stress response induced from surgery vs CLL Transfuse to keep hemoglobin greater than 7 Endocrine: Hyperglycemia of critical illness -- SSI Prophylaxis: GI Prophylaxis Pepcid DVT Prophylaxis -- SCDs Subcu heparin. Will not pursue full dose and a coagulation or aspirin in the setting of postoperative bleeding requiring transfusion Lines: Peripheral IVs Rowley Overall impression: This patient remains critically ill with one or more organ systems which are or may become a threat to life. I have spent in excess of 39 minutes discontinuously in the care and management of this patient. This time is exclusive of procedures, and includes, but is not limited to, evaluation of the patient, review of the medical record, discussions with family, consultants , nursing staff, or respiratory therapy, and documentation in the medical record. In the context of her associated medical problems and recent hip fracture, this woman has an extremely poor short-term prognosis. I anticipate pneumonia followed by respiratory failure and requirement for mechanical ventilation should she remain a full CODE STATUS. Critical care time 32 minutes aside from procedures.
[2017-11-25] MEDS: Senna/Docusate Sodium 8.6/50 MG Tablet PO SCH ×2 (11:50→21:09)
--- NOTE | 2017-11-25 13:35 | P.PNPAL ---
Reason for Visit Reason for visit: a. To assist with evaluation and management of symptoms including:pain, dypsnea b. To assist medical decision maker(s) with: better understanding of current medical conditions; weighing benefits/burdens of medical treatment options; making medical treatment decisions. Subjective Subjective/Interval History: Follow-up on comfort, dysphasia, as well as goals of treatment with decision- makers. Stable overnight. Plan for NG tube today as failed swallow evaluation yesterday. H&H trending down slightly 7.6/3.7. WBC downtrending 36.5. Low- grade fever 99.5. Blood culture no growth to date. Patient seen in room initially no visitors present. Dual visit with Jonny SOTO RN also present for part of visit. Patient is alert upward gaze seems to have difficulty tracking downward or left to right. She is very hard of hearing however does answer some questions date of . Confused to location states she is in [place]. While oriented to date of states she is 22. Names one child her son Derick indicates she does not have other children though it is known she has 2 other daughters. Does not appear to have good insight to condition. She does follow simple commands moves hands very weakly, moves feet very weakly. Denies pain. Says she is feeling okay. Shortly after exam son arrived met with son at bedside. He asks if she has improved or made progress. Review with him patient current assessment and that she is essentially the same no significant improvements but certainly no significant deterioration. Further explore with him that she continues to have multiple medical issues which may cause further complication and setbacks, that she is high risk for aspiration, pneumonia etc. Review with him CODE STATUS and decision-makers. Ask about if he is communicated with his sisters regarding participation, he indicates that his aunt is being the primary contact to talk to them he is hopeful she will touch base with him today he provided me with her number to call her directly. He indicates they have not really talked further about CODE STATUS review that she is high risk for respiratory compromise and intubation. All questions answered to the best of my ability. He he is in agreement to take it a day at a time he is open ongoing conversations as evolves. --Later call to sister Nivia per son's request to discuss other 2 daughters participating in decision-making. Review with Nivia patient's multiple diagnoses, current treatments and possible trajectory and risks going forward. Nivia appears to have a good understanding of patient's condition after further discussion. She indicates that patient other daughter Leah probably will not want to participate in she did give me Leah's number to call her directly. They do not have contact information for her other daughter Jesenia as no one remains in touch with her she is going to try to reach out to another family member to get contact information for her. If they cannot reach her they will provide someone with my contact information to possibly have her contact us regarding decision-making. Called to other daughter Leah to determine if she wishes to participate, voicemail left with my contact information. Family to further discuss CODE STATUS, any final decisions pending identification of appropriate decision-makers. Family/Friend Interactions: Call back from ignacio Lynn. Review with her decision-making proxy process. Indicates that she has been estranged from the patient and does not feel she should participate in decision-making. Call back later from ignacio Ba. Review with her decision-making proxy process she indicates that though she has been estranged from her mother she would like to be involved with the family and decision-making. As she does wish to participate review with her decision-making process. Further explore with her palliative care consultation. Review with her patient hospitalization and hospital course thus far. Review with her prognosis and possible trajectory going forward. Review with her the potential complications and setbacks the patient may face given her multiple medical issues and advanced age. Review with her the first decision they should be discussing as a family would be CODE STATUS and intubation status. She is tearful at times. She is appreciative of the update. She indicates that she will be in close communication with patient's son and her sister Nivia regarding decisions going forward. Objective Vital Signs: Vital Signs 11/24/17 16:00 11/24/17 17:00 11/24/17 20:00 Temperature 98.9 F 99.4 F Pulse Rate 84 84 Respiratory Rate 17 20 15 Blood Pressure 178/72 H 162/72 H Pulse Oximetry 99 11/24/17 21:00 11/24/17 22:00 11/25/17 00:00 Temperature 99.5 F Pulse Rate 85 80 Respiratory Rate 16 12 Blood Pressure 100/49 L Pulse Oximetry 97 11/25/17 01:00 11/25/17 02:00 11/25/17 04:00 Temperature 99.2 F Pulse Rate 88 76 Respiratory Rate 20 12 Blood Pressure 137/60 Pulse Oximetry 97 11/25/17 05:00 11/25/17 06:00 11/25/17 08:00 Temperature 99.3 F Pulse Rate 68 86 Respiratory Rate 18 15 Blood Pressure 175/69 H Pulse Oximetry 98 11/25/17 10:00 11/25/17 12:00 Temperature 98.7 F Pulse Rate 84 82 Respiratory Rate 14 Blood Pressure 167/72 H Pulse Oximetry 96 Intake & Output 11/24/17 11/25/17 11/25/17 18:59 06:59 18:59 Intake Total 1200 / 1200 1200 / 1200 100 / 100 Output Total 450 / 450 550 / 550 Balance 750 / 750 650 / 650 100 / 100 Weight 55.2 kg Intake: IV 1200 / 1200 1200 / 1200 100 / 100 NS Inj 1,000 ML @ 84 mls/hr IV. 1000 / 1000 1000 / 1000 CONT .[id number] ESTHER Rx#:[id number] Flagyl 500 MG Inj 100 ML @ 100 200 / 200 200 / 200 100 / 100 mls/hr IV.SIG Q6H ESTHER Rx#: [id number] Output: Urine 450 / 450 Urine Amount (Catheter) 550 / 550 Indwelling Urethral Catheter 550 / 550 Other: Date of Last Bowel Movement 11/22/17 11/22/17 11/22/17 # Bowel Movements 0 Physical Exam: CONSTITUTIONAL/GENERAL: This is an adequately nourished patient, in no apparent distress. TUBES/LINES/DRAINS: PIV UE SKIN: No jaundice, rashes, or lesions. Ecchymoses Rt hip/upper leg. Dressing clean/dry. Skin warm/dry EYES: Pupils equal and round and reactive. Extraocular motions intact. No scleral icterus. No injection or drainage. Fundi not examined. ENT: [place] RESERVATION. Nose without bleeding or purulent drainage. Throat without visible erythema, exudates, masses, or lesions. NECK: Trachea midline. Supple, nontender. No palpable thyroid enlargement or nodularity. CARDIOVASCULAR: Regular rate and rhythm without murmur . No JVD. Peripheral pulses symmetric. slight edema R upper leg RESPIRATORY/CHEST: Symmetric, unlabored respirations. Clear to auscultation.On room air. Breath sounds equal bilaterally. GASTROINTESTINAL: Abdomen soft, non-tender, nondistended. No hepato-splenomegaly , or palpable masses. No guarding. Bowel sounds present. GENITOURINARY: Without palpable bladder distension. MUSCULOSKELETAL: Extremities without clubbing, cyanosis, or edema. +edema Rt hip. No mottling or clubbing. NEUROLOGICAL: Awake and alert. Oriented 2. Poor insight. Poor situational awareness. Does follow very simple commands moves upper extremities/hands very weakly, moves feet bilaterally very weakly. PSYCHIATRIC: No obvious anxiety/depression. no apparent hallucinations or other psychotic thought process. Diagnostic Tests Laboratory: Laboratory Results - last 72 hr 11/22/17 11/22/17 11/23/17 14:40 14:40 01:28 WBC 93.6 H RBC 2.23 L Hgb 6.7 L* D Hct 21.4 L MCV 95.7 MCH 29.8 MCHC 31.2 L RDW 15.9 Plt Count 196 D MPV 7.0 Prelim Diff (Auto) WBC Differential Seg Neuts % (Manual) Band Neuts % (Manual) Lymphocytes % (Manual) Monocytes % (Manual) Eosinophils % (Manual) Myelocytes % (Man) Plasma Cell % (Manual) Abs Neuts (Manual) Nucleated RBCs/100 WBC Differential Comment Smudge Cells Platelet Estimate Platelet Morphology Polychromasia Basophilic Stippling Acanthocytes (Spur) PT INR Puncture Site Patient Temperature O2 Saturation ABG pH ABG pCO2 ABG pO2 ABG HCO3 ABG O2 Content ABG Base Excess ABG Methemoglobin [place] Test Hemoglobin Carboxyhemoglobin O2 Delivery Device Liter Flow Critical Value Sodium 140 Potassium 6.1 H D Chloride 107 Carbon Dioxide 23.7 Anion Gap 9 BUN 41 H Creatinine 1.50 H Estimated GFR 33 L POC Glucose Random Glucose 197 H Hemoglobin A1c Lactic Acid Calcium 7.4 L* D Prot Corrected Calcium 8.3 L Magnesium Total Bilirubin AST ALT Alkaline Phosphatase Ammonia Troponin I Total Protein 5.5 L Albumin Triglycerides Cholesterol LDL Cholesterol, Calc HDL Cholesterol Cholesterol/HDL Ratio Vit D 1,25-Dihydroxy TSH Nasal Screen MRSA (PCR) MTS Gel Crossmatch See Detail Bld Prod Order Comment 11/23/17 11/23/17 11/23/17 10:01 10:01 10:01 WBC 88.6 H RBC 2.54 L Hgb 7.5 L Hct 24.0 L MCV 94.5 MCH 29.6 MCHC 31.3 L RDW 15.9 Plt Count 173 MPV 6.7 L Prelim Diff (Auto) Manual diff required WBC Differential Manual diff final Seg Neuts % (Manual) 24 Band Neuts % (Manual) Lymphocytes % (Manual) 71 H Monocytes % (Manual) 5 Eosinophils % (Manual) Myelocytes % (Man) Plasma Cell % (Manual) Abs Neuts (Manual) 21.3 H Nucleated RBCs/100 WBC Differential Comment . Smudge Cells Present H Platelet Estimate Normal Platelet Morphology Normal Polychromasia Basophilic Stippling Acanthocytes (Spur) PT 10.8 INR 1.1 Puncture Site Patient Temperature O2 Saturation ABG pH ABG pCO2 ABG pO2 ABG HCO3 ABG O2 Content ABG Base Excess ABG Methemoglobin [place] Test Hemoglobin Carboxyhemoglobin O2 Delivery Device Liter Flow Critical Value Sodium Potassium Chloride Carbon Dioxide Anion Gap BUN Creatinine Estimated GFR POC Glucose Random Glucose Hemoglobin A1c Lactic Acid Calcium Prot Corrected Calcium Magnesium Total Bilirubin AST ALT Alkaline Phosphatase Ammonia Troponin I Total Protein Albumin Triglycerides Cholesterol LDL Cholesterol, Calc HDL Cholesterol Cholesterol/HDL Ratio Vit D 1,25-Dihydroxy 31 TSH Nasal Screen MRSA (PCR) MTS Gel Crossmatch Bld Prod Order Comment 11/23/17 11/23/17 11/23/17 10:01 10:48 16:37 WBC RBC Hgb Hct MCV MCH MCHC RDW Plt Count MPV Prelim Diff (Auto) WBC Differential Seg Neuts % (Manual) Band Neuts % (Manual) Lymphocytes % (Manual) Monocytes % (Manual) Eosinophils % (Manual) Myelocytes % (Man) Plasma Cell % (Manual) Abs Neuts (Manual) Nucleated RBCs/100 WBC Differential Comment Smudge Cells Platelet Estimate Platelet Morphology Polychromasia Basophilic Stippling Acanthocytes (Spur) PT INR Puncture Site Left radial Patient Temperature 98.6 O2 Saturation 95 ABG pH 7.40 ABG pCO2 34 L ABG pO2 117 ABG HCO3 21 L ABG O2 Content 10.1 L ABG Base Excess -3.5 L ABG Methemoglobin 1.6 [place] Test Present Hemoglobin 7.4 L* Carboxyhemoglobin 1.7 O2 Delivery Device Nasal cannula Liter Flow 2.00 Critical Value Yes Sodium 140 Potassium 5.6 H 5.5 H Chloride 106 Carbon Dioxide 20.4 L Anion Gap 14 BUN 53 H Creatinine 1.91 H Estimated GFR 25 L POC Glucose Random Glucose 161 H Hemoglobin A1c Lactic Acid Calcium 7.0 L* Prot Corrected Calcium 8.1 L Magnesium Total Bilirubin AST ALT Alkaline Phosphatase Ammonia Troponin I Total Protein 5.1 L Albumin Triglycerides Cholesterol LDL Cholesterol, Calc HDL Cholesterol Cholesterol/HDL Ratio Vit D 1,25-Dihydroxy TSH Nasal Screen MRSA (PCR) MTS Gel Crossmatch Bld Prod Order Comment 11/23/17 11/23/17 11/23/17 16:37 16:37 22:33 WBC RBC Hgb 8.9 L Hct 27.7 L MCV MCH MCHC RDW Plt Count MPV Prelim Diff (Auto) WBC Differential Seg Neuts % (Manual) Band Neuts % (Manual) Lymphocytes % (Manual) Monocytes % (Manual) Eosinophils % (Manual) Myelocytes % (Man) Plasma Cell % (Manual) Abs Neuts (Manual) Nucleated RBCs/100 WBC Differential Comment Smudge Cells Platelet Estimate Platelet Morphology Polychromasia Basophilic Stippling Acanthocytes (Spur) PT INR Puncture Site Left radial Patient Temperature 98.6 O2 Saturation 96 ABG pH 7.41 ABG pCO2 34 L ABG pO2 143 H ABG HCO3 21 L ABG O2 Content 12.0 ABG Base Excess -3.2 L ABG Methemoglobin 1.5 [place] Test Present Hemoglobin 8.7 L Carboxyhemoglobin 2.0 O2 Delivery Device Nasal cannula Liter Flow 2.00 Critical Value No Sodium Potassium Chloride Carbon Dioxide Anion Gap BUN Creatinine Estimated GFR POC Glucose Random Glucose Hemoglobin A1c Lactic Acid Calcium Prot Corrected Calcium Magnesium 2.5 Total Bilirubin AST ALT Alkaline Phosphatase Ammonia Troponin I Total Protein Albumin Triglycerides Cholesterol LDL Cholesterol, Calc HDL Cholesterol Cholesterol/HDL Ratio Vit D 1,25-Dihydroxy TSH Nasal Screen MRSA (PCR) MTS Gel Crossmatch Bld Prod Order Comment 11/23/17 11/23/17 11/23/17 22:39 22:39 22:39 WBC 59.5 H RBC 2.74 L Hgb 8.2 L Hct 25.1 L MCV 91.5 MCH 29.9 MCHC 32.7 RDW 15.2 Plt Count 138 L MPV 6.6 L Prelim Diff (Auto) Manual diff required WBC Differential Manual diff final Seg Neuts % (Manual) 16 Band Neuts % (Manual) Lymphocytes % (Manual) 82 H Monocytes % (Manual) 1 Eosinophils % (Manual) Myelocytes % (Man) 1 H Plasma Cell % (Manual) Abs Neuts (Manual) 10.1 H Nucleated RBCs/100 WBC 1 H Differential Comment . Smudge Cells Present H Platelet Estimate Low L Platelet Morphology Normal Polychromasia 2.1 H Basophilic Stippling Faint H Acanthocytes (Spur) Occ H PT INR Puncture Site Patient Temperature O2 Saturation ABG pH ABG pCO2 ABG pO2 ABG HCO3 ABG O2 Content ABG Base Excess ABG Methemoglobin [place] Test Hemoglobin Carboxyhemoglobin O2 Delivery Device Liter Flow Critical Value Sodium 143 Potassium 4.9 Chloride 110 H Carbon Dioxide 20.7 L Anion Gap 12 BUN 55 H Creatinine 1.43 H Estimated GFR 35 L POC Glucose Random Glucose 174 H Hemoglobin A1c Lactic Acid 0.6 Calcium 7.2 L* Prot Corrected Calcium 8.4 L Magnesium Total Bilirubin 0.7 AST 24 ALT 10 Alkaline Phosphatase 44 L Ammonia Troponin I 0.09 H Total Protein 4.9 L Albumin 2.7 L Triglycerides Cholesterol LDL Cholesterol, Calc HDL Cholesterol Cholesterol/HDL Ratio Vit D 1,25-Dihydroxy TSH Nasal Screen MRSA (PCR) MTS Gel Crossmatch Bld Prod Order Comment 11/24/17 11/24/17 11/24/17 00:00 01:15 04:52 WBC 51.2 H RBC 2.81 L Hgb 8.4 L Hct 25.9 L MCV 92.0 MCH 29.9 MCHC 32.5 RDW 15.8 Plt Count 137 L MPV 6.5 L Prelim Diff (Auto) Manual diff required WBC Differential Manual diff final Seg Neuts % (Manual) 24 Band Neuts % (Manual) 1 Lymphocytes % (Manual) 72 H Monocytes % (Manual) 3 Eosinophils % (Manual) Myelocytes % (Man) Plasma Cell % (Manual) Abs Neuts (Manual) 12.8 H Nucleated RBCs/100 WBC Differential Comment . Smudge Cells Present H Platelet Estimate Low L Platelet Morphology Normal Polychromasia Basophilic Stippling Acanthocytes (Spur) PT INR Puncture Site Patient Temperature O2 Saturation ABG pH ABG pCO2 ABG pO2 ABG HCO3 ABG O2 Content ABG Base Excess ABG Methemoglobin [place] Test Hemoglobin Carboxyhemoglobin O2 Delivery Device Liter Flow Critical Value Sodium Potassium Chloride Carbon Dioxide Anion Gap BUN Creatinine Estimated GFR POC Glucose Random Glucose Hemoglobin A1c Lactic Acid Calcium Prot Corrected Calcium Magnesium Total Bilirubin AST ALT Alkaline Phosphatase Ammonia 36 H Troponin I Total Protein Albumin Triglycerides Cholesterol LDL Cholesterol, Calc HDL Cholesterol Cholesterol/HDL Ratio Vit D 1,25-Dihydroxy TSH Nasal Screen MRSA (PCR) Not detected MTS Gel Crossmatch Bld Prod Order Comment 11/24/17 11/24/17 11/24/17 04:52 04:52 04:52 WBC RBC Hgb Hct MCV MCH MCHC RDW Plt Count MPV Prelim Diff (Auto) WBC Differential Seg Neuts % (Manual) Band Neuts % (Manual) Lymphocytes % (Manual) Monocytes % (Manual) Eosinophils % (Manual) Myelocytes % (Man) Plasma Cell % (Manual) Abs Neuts (Manual) Nucleated RBCs/100 WBC Differential Comment Smudge Cells Platelet Estimate Platelet Morphology Polychromasia Basophilic Stippling Acanthocytes (Spur) PT INR Puncture Site Patient Temperature O2 Saturation ABG pH ABG pCO2 ABG pO2 ABG HCO3 ABG O2 Content ABG Base Excess ABG Methemoglobin [place] Test Hemoglobin Carboxyhemoglobin O2 Delivery Device Liter Flow Critical Value Sodium 146 H Potassium 4.5 Chloride 114 H Carbon Dioxide 21.5 Anion Gap 11 BUN 51 H Creatinine 1.22 H Estimated GFR 42 L POC Glucose Random Glucose 153 H Hemoglobin A1c 5.8 Lactic Acid 1.0 Calcium 7.4 L* Prot Corrected Calcium 8.3 L Magnesium Total Bilirubin 0.6 AST 31 ALT 11 Alkaline Phosphatase 48 Ammonia Troponin I 0.07 H Total Protein 5.4 L Albumin 2.9 L Triglycerides 179 H Cholesterol 147 LDL Cholesterol, Calc 89 HDL Cholesterol 22.1 L Cholesterol/HDL Ratio 6.65 Vit D 1,25-Dihydroxy TSH Nasal Screen MRSA (PCR) MTS Gel Crossmatch Bld Prod Order Comment 11/24/17 11/24/17 11/24/17 12:54 16:47 22:39 WBC RBC Hgb Hct MCV MCH MCHC RDW Plt Count MPV Prelim Diff (Auto) WBC Differential Seg Neuts % (Manual) Band Neuts % (Manual) Lymphocytes % (Manual) Monocytes % (Manual) Eosinophils % (Manual) Myelocytes % (Man) Plasma Cell % (Manual) Abs Neuts (Manual) Nucleated RBCs/100 WBC Differential Comment Smudge Cells Platelet Estimate Platelet Morphology Polychromasia Basophilic Stippling Acanthocytes (Spur) PT INR Puncture Site Patient Temperature O2 Saturation ABG pH ABG pCO2 ABG pO2 ABG HCO3 ABG O2 Content ABG Base Excess ABG Methemoglobin [place] Test Hemoglobin Carboxyhemoglobin O2 Delivery Device Liter Flow Critical Value Sodium Potassium Chloride Carbon Dioxide Anion Gap BUN Creatinine Estimated GFR POC Glucose 147 H 147 H 151 H Random Glucose Hemoglobin A1c Lactic Acid Calcium Prot Corrected Calcium Magnesium Total Bilirubin AST ALT Alkaline Phosphatase Ammonia Troponin I Total Protein Albumin Triglycerides Cholesterol LDL Cholesterol, Calc HDL Cholesterol Cholesterol/HDL Ratio Vit D 1,25-Dihydroxy TSH Nasal Screen MRSA (PCR) MTS Gel Crossmatch Bld Prod Order Comment 11/25/17 11/25/17 11/25/17 04:55 04:55 04:55 WBC 36.5 H RBC 2.50 L Hgb 7.6 L Hct 23.7 L MCV 94.8 MCH 30.4 MCHC 32.0 RDW 16.0 Plt Count 107 L MPV 6.3 L Prelim Diff (Auto) Manual diff required WBC Differential Manual diff final Seg Neuts % (Manual) 25 Band Neuts % (Manual) Lymphocytes % (Manual) 73 H Monocytes % (Manual) 1 Eosinophils % (Manual) 1 Myelocytes % (Man) Plasma Cell % (Manual) Abs Neuts (Manual) 9.1 H Nucleated RBCs/100 WBC Differential Comment . Smudge Cells Present H Platelet Estimate Low L Platelet Morphology Normal Polychromasia Basophilic Stippling Acanthocytes (Spur) PT INR Puncture Site Patient Temperature O2 Saturation ABG pH ABG pCO2 ABG pO2 ABG HCO3 ABG O2 Content ABG Base Excess ABG Methemoglobin [place] Test Hemoglobin Carboxyhemoglobin O2 Delivery Device Liter Flow Critical Value Sodium 149 H Potassium 4.0 Chloride 119 H Carbon Dioxide 20.1 L Anion Gap 10 BUN 41 H Creatinine 0.63 Estimated GFR 89 POC Glucose Random Glucose 133 H Hemoglobin A1c Lactic Acid Calcium 7.5 L Prot Corrected Calcium Magnesium Total Bilirubin 0.6 AST 24 ALT 11 Alkaline Phosphatase 42 L Ammonia Troponin I Total Protein 5.0 L Albumin 2.7 L Triglycerides Cholesterol LDL Cholesterol, Calc HDL Cholesterol Cholesterol/HDL Ratio Vit D 1,25-Dihydroxy TSH 0.477 Nasal Screen MRSA (PCR) MTS Gel Crossmatch Bld Prod Order Comment 11/25/17 12:09 WBC RBC Hgb Hct MCV MCH MCHC RDW Plt Count MPV Prelim Diff (Auto) WBC Differential Seg Neuts % (Manual) Band Neuts % (Manual) Lymphocytes % (Manual) Monocytes % (Manual) Eosinophils % (Manual) Myelocytes % (Man) Plasma Cell % (Manual) Abs Neuts (Manual) Nucleated RBCs/100 WBC Differential Comment Smudge Cells Platelet Estimate Platelet Morphology Polychromasia Basophilic Stippling Acanthocytes (Spur) PT INR Puncture Site Patient Temperature O2 Saturation ABG pH ABG pCO2 ABG pO2 ABG HCO3 ABG O2 Content ABG Base Excess ABG Methemoglobin [place] Test Hemoglobin Carboxyhemoglobin O2 Delivery Device Liter Flow Critical Value Sodium Potassium Chloride Carbon Dioxide Anion Gap BUN Creatinine Estimated GFR POC Glucose 150 H Random Glucose Hemoglobin A1c Lactic Acid Calcium Prot Corrected Calcium Magnesium Total Bilirubin AST ALT Alkaline Phosphatase Ammonia Troponin I Total Protein Albumin Triglycerides Cholesterol LDL Cholesterol, Calc HDL Cholesterol Cholesterol/HDL Ratio Vit D 1,25-Dihydroxy TSH Nasal Screen MRSA (PCR) MTS Gel Crossmatch Bld Prod Order Comment Result Diagrams: 11/25/17 04:55 11/25/17 04:55 Microbiology: Microbiology 11/24/17 01:15 Aerobic Blood Culture - Preliminary Blood - Peripheral No growth in 1 day Anaerobic Blood Culture - Preliminary No growth in 1 day 11/23/17 22:39 Aerobic Blood Culture - Preliminary Blood - Peripheral No growth in 2 days Anaerobic Blood Culture - Preliminary No growth in 2 days Imaging: Impressions Head MRI 11/23/17 21:56 CONCLUSION: 1. 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 No significant mass effect or shift. 2. Severe chronic white matter ischemic changes bilaterally. Carotid Doppler Study 11/24/17 00:00 CONCLUSION: No evidence of flow-limiting carotid stenosis. Head CT 11/25/17 05:00 CONCLUSION: 1. Stable CT examination in this patient with known multiple cerebral infarcts. No intercurrent hemorrhage. . Assessment and Plan - Disease Oriented Problem List (1) Closed subtrochanteric fracture of right femur Comment: S/P IM nail (2) Altered mental status (3) WALTER (acute kidney injury) (4) Humeral fracture (5) Leukocytosis (6) Hyperglycemia (7) Hypothyroid (8) Hypertension - Symptom Scale (1) Pain 0-10 Scale: Unable to quantify (2) Dyspnea 0-10 Scale: Unable to quantify (3) Dysphagia 0-10 Scale: Unable to quantify Pertinent Non-Medical Issues: Psychosocial: Patient originally from [facility]. Has lived in [place] for the past 10-15 years, originally in [place] and more recently in [facility]. Was a homemaker. , about 30 years ago following a stroke which was a complication following heart transplant. Has 3 children. Remains in close communication with her son Derick, 2 daughters Jesenia, Leah she does not remain in close communication with. Also has a sister Nivia in [place] whom she remains in contact with. Spiritual: Zoroastrian, would appreciate golf range attendant visits. Legal: Patient currently not able to make her own decisions secondary to CVA. Not clear if or when she will regain ability to make her own decisions. She does not have advanced directive or health care surrogate completed. Per [place] statutes legal decision making would fall to the majority of her 3 adult children. In close communication with the one son Derick whom she lives with. She is not in close communication with the other 2 children. Will need to establish if they wish to participate in decision-making going forward. Ethical issues impacting care: Important Contacts: Son Derick Walker [phone] Does wish to participate in decisions Sister Nivia Jerry [phone] / [phone] Daughter Leah [phone] DOES NOT WISH TO PARTICIPATE IN DECISIONS 11/25/17 Daughter Jesenia Calhoun [phone], DOES WISH to participate in decisions 11/25/17 Prognosis: This patient was admitted status post fall in her home setting. She had following findings of a humerus fracture as well as femur fracture requiring operative repair. 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 Appears she may have acute infectious process. She had altered mental status, MRI findings of CVA, possibly embolic. Given her advanced age, current bedbound, acutely ill state, remains high risk for ongoing complications and setbacks which could result in continued deterioration and possibly . Code Status: Full Code Plan: * Legal decision maker:Patient currently not able to make her own decisions secondary to CVA. Not clear if or when she will regain ability to make her own decisions. She does not have advanced directive or health care surrogate completed. Per [place] statutes legal decision making would fall to the majority of her 3 adult children. In close communication with the one son Derick whom she lives with. She is not in close communication with the other 2 children. Will need to establish if they wish to participate in decision- making going forward. 11/25/17 1500 call back from patient's 2 other daughters Leah, Jesenia. Leah indicates she does not wish to participate in decision-making. Jesenia does indicate she wishes to participate with son Derick in decision-making, she indicates she will be in close communication with the rest of the family; and plans to try to get down here in the next day or so. LEGAL DECISION MAKERS= 2 CHILDREN DERICK BA. * Goals: Goals right now are to continue aggressive treatments, take it a day at a time. We have explored occasions trajectory with continued aggressive course, as well as reviewed de-escalation and hospice option. Further decisions, including CODE STATUS also pending appropriate decision makers, if 2 other daughters wish to participate. * CODE STATUS: Full code * SYMPTOMS: --Pain-status post fall in the home resulting in hip fracture. Status post surgical repair. At time of exam patient denies pain. She is also reported to have arthritis, though son indicates pain is generally well managed by aspirin p.o. She has PRN tylenol, norco, and morphine 2mg Iv available, last dose norco 11/21, no doses of Tylenol or morphine. Cautious use of opiates given concern for altered mental status and lethargy status post CVA --Dyspnea-high risk for respiratory aeration secondary to advanced age and bedbound status following hip surgery, as well as post CVA and altered mental status. Currently breathing comfortably on room air, no recommendations for changes at this time. --Encephalopathy-altered mental status,+ CVA per MRI. Numerous areas bilateral infarct. Patient a little more alert today answering some questions and following some simple --Dysphasiastatus post CVA during hospital course. Altered mental status, encephalopathic ,now difficulty swallowing failed swallow eval. NG tube planned for today. Ongoing ST evaluation . * Palliative care will continue to follow during hospital course as condition evolves, to assist patient/decision-maker with understanding of medical conditions, weighing benefits/burdens of treatment options, for clarification of goals of treatment. Additionally will assist with any symptoms of palliative concern Attestation Attestation: To help prompt me to consider important information that might be impacting today's encounter and assessment, information from prior notes written by myself or my colleagues may have been "brought forward" into today's note. My signature on this note, however, is an attestation that I personally performed the exam, history, and/or decision-making noted today, and, unless otherwise indicated, the interactions with patient, family, and staff as well as the review of records all occurred today. I also attest that the listed assessment and stated plan reflect my best clinical judgment today based on the combination of historical information, prior notes, and today's exam/ interactions. When time spent is documented, it refers only to time spent today by the signer, or if indicated, combined time spent today by collaborating physician/nurse practitioner.
[2017-11-25 14:52] LABS: Activated Partial Thrombo Time 23.4 sec (24.3-30.1); INR 1.1 Ratio; Prothrombin Time 11.1 sec (9.8-11.6)
--- NOTE | 2017-11-25 15:25 | P.DIET ---
Nutritional Evaluation Type of nutrition evaluation: initial Nutrition consult regarding: Tube Feeding Objective - Diagnosis Fall: R hip Fx - Objective % IBW: 106 (IBW = 115#) Body Weight Used for Calculations: Actual (55.2 kg) Energy Needs - Lower Range (kCal/kg): 25 Energy Needs - Upper Range (kCal/kg): 30 Lower Limit kCal/kg (kCals): 1,380 Upper Limit kCal/kg (kCals): 1,656 Lower Limit Protein Factor (Grams per Kg): 1.0 Upper Limit Protein Factor (Grams per Kg): 1.5 Lower Protein Needs (Protein): 55 Upper Protein Needs (Protein): 83 Dietitian Reviewed in Medical Record: Curent medications, Intake & Output, Labs , Medical history, Tube feeding Objective Comments: HgA1c 5.8 Assessment Assessment: Pt is at high nutrition risk 2' to the need for TFing. Agree with cuurent order for Glucerna 1.5 @ 40 mls/hr goal. This will provide 1440 kcals, 79 gms protein and 729 mls of free water. Beneprotein 1 pack tid is also ordered and will provide an additional 75 kcals and 18 gms of protein. Recommendations: Glucerna 1.5 @ 40 mls/hr goal Beneprotein as ordered Dietitian to Monitor: Lab values, Intake & Output, Tube feeding tolerance, Weight change, Diet advancement, Swallow recommendations, Medical course
[2017-11-25] MEDS: Beneprotein Powder Packet G-TUBE SCH ×2 (17:52→19:49)
[2017-11-25] MEDS: Labetalol HCl Inj 100 MG/20 ML Vial IV.PUSH PRN (22:13)
[2017-11-26] MEDS: Calcium/Vitamin D 250/125 MG Tablet PO SCH ×2 (02:35→20:16)
[2017-11-26 04:45] LABS: Mean Corpuscular Hemoglobin 30.1 pg (27.0-34.0); Mean Corpuscular Volume 97.2 fL (80.0-100.0); Mean Platelet Volume 6.6 fL (7.0-11.0); Platelet Count 106 th/mm3 (150-450); Red Blood Count 2.27 mil/mm3 (4.00-5.30); Red Cell Distribution Width 16.5 % (11.6-17.2); White Blood Count 27.3 th/mm3 (4.0-11.0)
[2017-11-26 04:49] LABS: Hemoglobin 6.8 gm/dL (11.6-15.3)
[2017-11-26] MEDS ORDERED: Sodium Chlor 0.9% Inj 250 ML IV.SIG SCH (05:00)
[2017-11-26 05:12] LABS: Alanine Aminotransferase 8 U/L (10-53); Albumin 2.4 g/dL (3.4-5.0); Anion Gap 9 meq/L (5-15); Aspartate Aminotransferase 19 U/L (15-37); Blood Urea Nitrogen 34 mg/dL (7-18); Calcium 7.7 mg/dL (8.5-10.1); Carbon Dioxide 22.2 meq/L (21.0-32.0); Chloride 121 meq/L (98-107); Glomerular Filtration Rate Greater Than 89 mL/min (>89); Glucose,Random 123 mg/dL (74-106); Potassium 3.6 meq/L (3.5-5.1); Sodium 152 meq/L (136-145)
[2017-11-26 05:14] LABS: Alkaline Phosphatase 37 U/L (45-117); Total Protein 4.5 g/dL (6.4-8.2)
--- NOTE | 2017-11-26 06:59 | P.PNOP ---
Subjective Interval history: s/p right proximal humerus fx POD 4 s/p right hip IMN improving. awake and answering questions. reports no pain Physical Exam Vital signs: Vital Signs 11/25/17 08:00 11/25/17 10:00 11/25/17 12:00 Temperature 99.3 F 98.7 F Pulse Rate 86 84 82 Respiratory Rate 15 14 Blood Pressure 175/69 H 167/72 H Pulse Oximetry 98 96 11/25/17 14:00 11/25/17 16:00 11/25/17 18:00 Temperature 100.0 F H Pulse Rate 90 88 90 Respiratory Rate 17 Blood Pressure 170/04 H Pulse Oximetry 95 11/25/17 20:00 11/25/17 22:00 11/26/17 00:00 Temperature 99.8 F H 99 F Pulse Rate 82 84 66 Respiratory Rate 18 10 L Blood Pressure 145/65 H 117/54 L Pulse Oximetry 95 96 11/26/17 01:00 11/26/17 02:00 11/26/17 04:00 Temperature 98.3 F Pulse Rate 78 62 Respiratory Rate 14 10 L Blood Pressure 133/60 Pulse Oximetry 95 11/26/17 06:00 Temperature Pulse Rate 73 Respiratory Rate Blood Pressure Pulse Oximetry Intake & Output 11/25/17 11/25/17 11/26/17 06:59 18:59 06:59 Intake Total 1457.5 / 1457.5 800 / 800 1540 / 1540 Output Total 550 / 550 450 / 450 500 / 500 Balance 907.5 / 907.5 350 / 350 1040 / 1040 Weight 55.2 kg 57 kg Intake: IV 1457.5 / 1457.5 300 / 300 1300 / 1300 NS Inj 1,000 ML @ 84 mls/hr IV. 1000 / 1000 1000 / 1000 CONT .[id number] [facility] Rx#:[id number] Maxipime Inj 1,000 MG In NS Inj 100 / 100 100 / 100 100 ML @ 200 mls/hr IV.SIG Q24H [facility] Rx#:[id number] Vancomycin Inj 750 MG In NS Inj 257.5 / 257.5 250 ML @ 250 mls/hr IV.SIG Q24H [facility] Rx#:[id number] Flagyl 500 MG Inj 100 ML @ 100 200 / 200 200 / 200 200 / 200 mls/hr IV.SIG Q6H [facility] Rx#: [id number] Oral 500 / 500 240 / 240 Output: Urine Amount (Catheter) 550 / 550 450 / 450 500 / 500 Indwelling Urethral Catheter 550 / 550 450 / 450 500 / 500 Other: Date of Last Bowel Movement 11/22/17 11/22/17 11/22/17 # Bowel Movements 0 0 Narrative: RUE: +sling. notable bruising of shoulder. crepitus to palpation. NVI RLE: dressings clean and dry. intact. noted bruising of thigh. compartments soft. nvi - Urinary Catheter Management Indwelling Urethral Catheter Cath placed during this visit: yes Reason for continuing: Hourly intake/output Insertion date: 11/22/17 Results - Labs CBC & Chem 7: 11/26/17 04:20 11/26/17 04:20 Laboratory Results - last 24 hr 11/23/17 11/25/17 11/25/17 10:01 04:55 12:09 WBC RBC Hgb Hct MCV MCH MCHC RDW Plt Count MPV PT INR APTT Fibrinogen Sodium Potassium Chloride Carbon Dioxide Anion Gap BUN Creatinine Estimated GFR POC Glucose 150 H Random Glucose Calcium Total Bilirubin AST ALT Alkaline Phosphatase Total Protein Albumin Vit D 1,25-Dihydroxy 31 TSH 0.477 Blood Type Antibody Screen MTS Gel Crossmatch 11/25/17 11/25/17 11/25/17 12:46 17:59 20:58 WBC RBC Hgb Hct MCV MCH MCHC RDW Plt Count MPV PT 11.1 INR 1.1 APTT 23.4 L Fibrinogen 265 Sodium Potassium Chloride Carbon Dioxide Anion Gap BUN Creatinine Estimated GFR POC Glucose 125 H 167 H Random Glucose Calcium Total Bilirubin AST ALT Alkaline Phosphatase Total Protein Albumin Vit D 1,25-Dihydroxy TSH Blood Type Antibody Screen MTS Gel Crossmatch 11/26/17 11/26/17 11/26/17 04:20 04:20 05:20 WBC 27.3 H RBC 2.27 L Hgb 6.8 L* Hct 22.0 L MCV 97.2 MCH 30.1 MCHC 31.0 L RDW 16.5 Plt Count 106 L MPV 6.6 L PT INR APTT Fibrinogen Sodium 152 H Potassium 3.6 Chloride 121 H Carbon Dioxide 22.2 Anion Gap 9 BUN 34 H Creatinine 0.48 L Estimated GFR Greater than 89 POC Glucose Random Glucose 123 H Calcium 7.7 L Total Bilirubin 0.7 AST 19 ALT 8 L Alkaline Phosphatase 37 L Total Protein 4.5 L Albumin 2.4 L Vit D 1,25-Dihydroxy TSH Blood Type A Positive Antibody Screen Negative MTS Gel Crossmatch See Detail Microbiology 11/24/17 01:15 Blood - Peripheral Aerobic Blood Culture - Preliminary No growth in 1 day 11/24/17 01:15 Blood - Peripheral Anaerobic Blood Culture - Preliminary No growth in 1 day 11/23/17 22:39 Blood - Peripheral Aerobic Blood Culture - Preliminary No growth in 2 days 11/23/17 22:39 Blood - Peripheral Anaerobic Blood Culture - Preliminary No growth in 2 days Assessment and Plan - Assessment and Plan 1) Right subtrochanteric and femoral shaft fractures status post IM nail POD 4 50% weightbearing right lower extremity Change dressings today then continue daily Xeroform 4 x 4's ABD and paper tape until drainage is subsided. Then convert over to [place] with Xeroform. 2) Right proximal humerus fracture - nonop Nonoperative treatment. Sling and swathe with nonweightbearing. No range of motion of shoulder Case management for rehab placement Pain medication on chart and 3008 with orthopedic specifications f/u with Keagan or KEVIN in 2 weeks [employer] Prescription Drug Monitoring Database has been queried and verified prior to prescribing the controlled substance. Acute pain exception. This patient has normal, predicted, physiological, and time limited response to an adverse mechanical stimulus associated with surgery, trauma, or acute illness as described in my notes. There is a lack of alternative treatment options other than to include the prescribed narcotic treatment for this condition.
--- NOTE | 2017-11-26 08:28 | P.PNCC ---
Subjective Subjective Remarks/Hospital Course: 11/23: This is an 87-year-old female who presented to the hospital with a hip fracture and underwent right operative fixation of her hip fracture. Postop day 1 she was noted to be worsening the anemic with a enlarging right hip hematoma. In addition, she was acutely obtunded this morning which was evaluated with a noncontrasted head CT which was negative for acute disease. However, she did not improve her mental status. Cande, I was contacted because she was persistently altered and the primary team caring for her was concerned. 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 I evaluated the patient on arrival to the ICU. She is protecting her airway with a vigorous gag. She will respond with moans to loud voice, and to stimulation. In addition to her other acute problems, she has had a leukemoid reaction while inpatient and her white count went up to 93,000. 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 Both hematology and I agree that an acute rise of white blood cell count to this degree should warrant an infectious workup until proven otherwise. Unfortunately, no additional information is available from the patient due to her severe encephalopathy. Review systems is unobtainable. 11/24: No improvement in neurologic function this morning. Patient moans to stimulation and occasionally spontaneously. Her right hip hematoma appears to have stabilized and she is normotensive. 11/25: Appears slightly more awake but with garbled speech. Did not follow commands. Hemodynamically stable. WBC 36.5 from 51.2, Hb 7.6 11/26: Patient is ahead 5 kg and I suspect it is mostly water. Agreed there is some additional volume in the right hip region but probably not 5 Liters. Neck veins are full when patient is sitting up 45 and do not collapse on inhalation. She will need a diuretic now and after her blood transfusion. Ignore the elevated serum sodium, it does not reflect concentration. Encouragingly, her lungs remain clear and she is breathing comfortably Objective Vital Signs / I&O: Vital Signs 11/25/17 10:00 11/25/17 12:00 11/25/17 14:00 Temperature 98.7 F Pulse Rate 84 82 90 Respiratory Rate 14 Blood Pressure 167/72 H Pulse Oximetry 96 11/25/17 16:00 11/25/17 18:00 11/25/17 20:00 Temperature 100.0 F H 99.8 F H Pulse Rate 88 90 82 Respiratory Rate 17 18 Blood Pressure 170/04 H 145/65 H Pulse Oximetry 95 95 11/25/17 22:00 11/26/17 00:00 11/26/17 01:00 Temperature 99 F Pulse Rate 84 66 Respiratory Rate 10 L 14 Blood Pressure 117/54 L Pulse Oximetry 96 11/26/17 02:00 11/26/17 04:00 11/26/17 06:00 Temperature 98.3 F Pulse Rate 78 62 73 Respiratory Rate 10 L Blood Pressure 133/60 Pulse Oximetry 95 Intake & Output 11/25/17 11/26/17 11/26/17 18:59 06:59 18:59 Intake Total 800 / 800 1540 / 1540 Output Total 450 / 450 500 / 500 Balance 350 / 350 1040 / 1040 Weight 57 kg Intake: IV 300 / 300 1300 / 1300 NS Inj 1,000 ML @ 84 mls/hr IV. 1000 / 1000 CONT .[id number] [facility] Rx#:[id number] Maxipime Inj 1,000 MG In NS Inj 100 / 100 100 / 100 100 ML @ 200 mls/hr IV.SIG Q24H [facility] Rx#:[id number] Flagyl 500 MG Inj 100 ML @ 100 200 / 200 200 / 200 mls/hr IV.SIG Q6H [facility] Rx#: [id number] Oral 500 / 500 240 / 240 Output: Urine Amount (Catheter) 450 / 450 500 / 500 Indwelling Urethral Catheter 450 / 450 500 / 500 Other: Date of Last Bowel Movement 11/22/17 11/22/17 # Bowel Movements 0 Result Diagrams: 11/26/17 04:20 11/26/17 04:20 Objective Remarks: GENERAL: Frail elderly female, lying in bed, 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 HEENT: Normocephalic. Atraumatic. Pupils equal, round, reactive, conjugate. Mucous membranes are moist NECK: Trachea is midline. CHEST: Equal chest rise. Nasal cannula oxygen. CARDIOVASCULAR: Normal rate, regular rhythm. Sinus. Positive JVD. Systolic murmur heard along the left sternal border grade 2 ABDOMEN: Soft, nontender, nondistended. No guarding. Bowel sounds active MUSCULOSKELETAL: Pulses 2+. No peripheral edema. The lateral portion of the right hip has 2 dressings which are intact. Large right hip hematoma which extends from the greater trochanter down long term to knee. Ecchymoses around the lateral aspect of the thigh. Right upper extremity in a sling. NEUROLOGICAL: Arouses to loud voice and stimulation. Very weakly follows commands, purposeful. She has a quite a vigorous cough and gag and is protecting her airway. Her pupils are conjugate and she will track. Speech is much improved. Remains with poor hearing. Assessment and Plan - Assessment and Plan Plan: Assessment: 87-year-old female status post right hip operative fixation for fracture complicated by acute embolic CVA and acute encephalopathy. Encephalopathy is likely combination of metabolic and organic from CVA. She is quite critically ill and given her age, comorbidities, and acute postoperative stroke, she has a very high risk of or further morbidity. Plan by systems: Neurologic: Acute embolic CVA Acute severe metabolic encephalopathy Frequent neurochecks Avoid long-acting sedatives Currently protecting airway MRI 11/23: Acute restriction of diffusion concerning for multiple embolic strokes EEG showing moderate encephalopathy Carotid Dopplers-negative study PT/OT/ST Telemetry Could probably start aspirin at any time. Respiratory: Postoperative atelectasis Respiratory insufficiency Wean oxygen by nasal cannula for goal SPO2 greater than 90% Aggressive pulmonary toilet Head of bed elevated Nebs prn Cardiovascular: Continue statin We will not placed on aspirin, see above discussion Continue telemetry Permissive hypertension with goal systolic blood pressure 120-180. Renal: Acute kidney injury Likely secondary to hypovolemia from postoperative bleeding Status post 2 units PRBCs Normal saline maintenance fluids Continue Rowley catheter Frequent urine output monitoring Daily creatinine and electrolytes -- Strict I/Os Will allow for mild prerenal azotemia FEN/GI: Acute intravascular hypovolemia Severe acute protein calorie malnutrition N.p.o. start tube feeds with Glucerna Normal saline at 84 mils per hour-DC after tube feeds to goal ICU electrolyte protocol Daily BMP, magnesium, phosphorus Resolved, now overloaded. Heme/ID: Leukemoid reaction Severe anemia secondary to acute blood loss requiring transfusion Trend CBCs Hematology consulted and following. flow cytometry pending at this time On vancomycin, cefepime, Flagyl empirically. Discontinue vancomycin today WBC count is 36.5 today down from 51.2 yesterday Follow blood cultures-negative to date Send C. difficile If cultures are negative at 48 hours and white blood cell count is downtrending , would recommend discontinuation of antibiotics, as this may be stress response induced from surgery vs CLL Transfuse to keep hemoglobin greater than 7 Endocrine: Hyperglycemia of critical illness -- SSI Prophylaxis: GI Prophylaxis Pepcid DVT Prophylaxis -- SCDs Subcu heparin. Will not pursue full dose anticoagulation Lines: Peripheral IVs Rowley Overall impression: Hemodynamically she has stabilized nicely. She continues to breathe comfortably but is moderately fluid overloaded. We will make room for her blood transfusion with a loop diuretic. Her neurologic status has improved considerably.
[2017-11-26] MEDS: Senna/Docusate Sodium 8.6/50 MG Tablet PO SCH ×2 (09:25→20:16)
--- NOTE | 2017-11-26 14:36 | P.PNFP ---
Subjective Interval history: Ms Walker had no acute events overnight. Her son, Kartik, is in the room this morning, combing her hair. Nursing reports her one daughter and aunt should be flying in today. Today she is answering questions, can wiggle her toes and fingers, and squeeze our hands on command during the interview. She can turn her head to look as someone. She can move all limbs. She passed the swallow study and can take PO puree consistency solids and honey thick liquids without aspiration; however, she cannot seem to track my finger in front of her eyes. She denies pain; however, when the BP cuff inflates, she said "ow!". Nursing reports an NG tube was ordered yesterday but multiple attempts to place it failed. The filler shredder helper has ordered Glucerna 1.5 at 40 mls/hr and daily caloric intake at 6497-6454 calories per day. Denies CP, SOB, N/V/D, and leg pains. <Nasim Still III - 11/26/17 14:36> Results - Labs Result diagrams: 11/26/17 04:20 11/26/17 04:20 <Cruz Fischer - 11/26/17 18:39> Abnormal lab results 11/23/17 11/25/17 11/26/17 Range/Units 01:28 20:58 04:20 WBC 27.3 H (4.0-11.0) th/mm3 RBC 2.27 L (4.00-5.30) mil/mm3 Hgb 6.8 L* (11.6-15.3) gm/dL Hct 22.0 L (35.0-46.0) % MCHC 31.0 L (32.0-36.0) % Plt Count 106 L (150-450) th/mm3 MPV 6.6 L (7.0-11.0) fL Sodium (136-145) meq/L Chloride (98-107) meq/L BUN (7-18) mg/dL Creatinine (0.50-1.00) mg/dL POC Glucose 167 H (68-110) mg/dl Random Glucose (74-106) mg/dL Calcium (8.5-10.1) mg/dL ALT (10-53) U/L Alkaline Phosphatase (45-117) U/L Total Protein (6.4-8.2) g/dL Albumin (3.4-5.0) g/dL MTS Gel Crossmatch See Detail 11/26/17 11/26/17 11/26/17 Range/Units 04:20 05:20 11:44 WBC (4.0-11.0) th/mm3 RBC (4.00-5.30) mil/mm3 Hgb (11.6-15.3) gm/dL Hct (35.0-46.0) % MCHC (32.0-36.0) % Plt Count (150-450) th/mm3 MPV (7.0-11.0) fL Sodium 152 H (136-145) meq/L Chloride 121 H (98-107) meq/L BUN 34 H (7-18) mg/dL Creatinine 0.48 L (0.50-1.00) mg/dL POC Glucose 127 H (68-110) mg/dl Random Glucose 123 H (74-106) mg/dL Calcium 7.7 L (8.5-10.1) mg/dL ALT 8 L (10-53) U/L Alkaline Phosphatase 37 L (45-117) U/L Total Protein 4.5 L (6.4-8.2) g/dL Albumin 2.4 L (3.4-5.0) g/dL MTS Gel Crossmatch See Detail 11/26/17 Range/Units 17:16 WBC (4.0-11.0) th/mm3 RBC (4.00-5.30) mil/mm3 Hgb (11.6-15.3) gm/dL Hct (35.0-46.0) % MCHC (32.0-36.0) % Plt Count (150-450) th/mm3 MPV (7.0-11.0) fL Sodium (136-145) meq/L Chloride (98-107) meq/L BUN (7-18) mg/dL Creatinine (0.50-1.00) mg/dL POC Glucose 135 H (68-110) mg/dl Random Glucose (74-106) mg/dL Calcium (8.5-10.1) mg/dL ALT (10-53) U/L Alkaline Phosphatase (45-117) U/L Total Protein (6.4-8.2) g/dL Albumin (3.4-5.0) g/dL MTS Gel Crossmatch Short CBC 11/26/17 Range/Units 04:20 WBC 27.3 H (4.0-11.0) th/mm3 Hgb 6.8 L* (11.6-15.3) gm/dL Hct 22.0 L (35.0-46.0) % Plt Count 106 L (150-450) th/mm3 BMP 11/26/17 04:20 Sodium 152 H Potassium 3.6 Chloride 121 H Carbon Dioxide 22.2 BUN 34 H Creatinine 0.48 L Calcium 7.7 L Liver Function 11/26/17 Range/Units 04:20 Total Bilirubin 0.7 (0.2-1.0) mg/dL AST 19 (15-37) U/L ALT 8 L (10-53) U/L Alkaline Phosphatase 37 L (45-117) U/L Albumin 2.4 L (3.4-5.0) g/dL <Young,Cruz L - 11/26/17 18:39> Abnormal lab results 11/23/17 11/25/17 11/25/17 Range/Units 01:28 12:46 17:59 WBC (4.0-11.0) th/mm3 RBC (4.00-5.30) mil/mm3 Hgb (11.6-15.3) gm/dL Hct (35.0-46.0) % MCHC (32.0-36.0) % Plt Count (150-450) th/mm3 MPV (7.0-11.0) fL APTT 23.4 L (24.3-30.1) sec Sodium (136-145) meq/L Chloride (98-107) meq/L BUN (7-18) mg/dL Creatinine (0.50-1.00) mg/dL POC Glucose 125 H (68-110) mg/dl Random Glucose (74-106) mg/dL Calcium (8.5-10.1) mg/dL ALT (10-53) U/L Alkaline Phosphatase (45-117) U/L Total Protein (6.4-8.2) g/dL Albumin (3.4-5.0) g/dL MTS Gel Crossmatch See Detail 11/25/17 11/26/17 11/26/17 Range/Units 20:58 04:20 04:20 WBC 27.3 H (4.0-11.0) th/mm3 RBC 2.27 L (4.00-5.30) mil/mm3 Hgb 6.8 L* (11.6-15.3) gm/dL Hct 22.0 L (35.0-46.0) % MCHC 31.0 L (32.0-36.0) % Plt Count 106 L (150-450) th/mm3 MPV 6.6 L (7.0-11.0) fL APTT (24.3-30.1) sec Sodium 152 H (136-145) meq/L Chloride 121 H (98-107) meq/L BUN 34 H (7-18) mg/dL Creatinine 0.48 L (0.50-1.00) mg/dL POC Glucose 167 H (68-110) mg/dl Random Glucose 123 H (74-106) mg/dL Calcium 7.7 L (8.5-10.1) mg/dL ALT 8 L (10-53) U/L Alkaline Phosphatase 37 L (45-117) U/L Total Protein 4.5 L (6.4-8.2) g/dL Albumin 2.4 L (3.4-5.0) g/dL MTS Gel Crossmatch 11/26/17 11/26/17 Range/Units 05:20 11:44 WBC (4.0-11.0) th/mm3 RBC (4.00-5.30) mil/mm3 Hgb (11.6-15.3) gm/dL Hct (35.0-46.0) % MCHC (32.0-36.0) % Plt Count (150-450) th/mm3 MPV (7.0-11.0) fL APTT (24.3-30.1) sec Sodium (136-145) meq/L Chloride (98-107) meq/L BUN (7-18) mg/dL Creatinine (0.50-1.00) mg/dL POC Glucose 127 H (68-110) mg/dl Random Glucose (74-106) mg/dL Calcium (8.5-10.1) mg/dL ALT (10-53) U/L Alkaline Phosphatase (45-117) U/L Total Protein (6.4-8.2) g/dL Albumin (3.4-5.0) g/dL MTS Gel Crossmatch See Detail Short CBC 11/26/17 Range/Units 04:20 WBC 27.3 H (4.0-11.0) th/mm3 Hgb 6.8 L* (11.6-15.3) gm/dL Hct 22.0 L (35.0-46.0) % Plt Count 106 L (150-450) th/mm3 BMP 11/26/17 04:20 Sodium 152 H Potassium 3.6 Chloride 121 H Carbon Dioxide 22.2 BUN 34 H Creatinine 0.48 L Calcium 7.7 L Liver Function 11/26/17 Range/Units 04:20 Total Bilirubin 0.7 (0.2-1.0) mg/dL AST 19 (15-37) U/L ALT 8 L (10-53) U/L Alkaline Phosphatase 37 L (45-117) U/L Albumin 2.4 L (3.4-5.0) g/dL <Nasim Still III H - 11/26/17 14:36> - Imaging Impressions Chest X-Ray 11/26/17 13:47 CONCLUSION: Dobbhoff tube coiled within a large hiatal hernia. <Cruz Fischer - 11/26/17 18:39> Physical Exam Vital signs: Vital Signs 11/25/17 20:00 11/25/17 22:00 11/26/17 00:00 Temperature 99.8 F H 99 F Pulse Rate 82 84 66 Respiratory Rate 18 10 L Blood Pressure 145/65 H 117/54 L Pulse Oximetry 95 96 11/26/17 01:00 11/26/17 02:00 11/26/17 04:00 Temperature 98.3 F Pulse Rate 78 62 Respiratory Rate 14 10 L Blood Pressure 133/60 Pulse Oximetry 95 11/26/17 06:00 11/26/17 08:00 11/26/17 10:00 Temperature 98 F Pulse Rate 73 65 63 Respiratory Rate 15 Blood Pressure 133/60 Pulse Oximetry 11/26/17 10:11 11/26/17 11:17 11/26/17 11:21 Temperature 98.1 F 98.1 F 97.8 F Pulse Rate 79 71 60 Respiratory Rate 18 Blood Pressure 181/73 H Pulse Oximetry 96 11/26/17 12:00 11/26/17 13:00 11/26/17 16:00 Temperature 98 F 98 F Pulse Rate 75 74 Respiratory Rate 16 Blood Pressure 181/82 H 181/81 H Pulse Oximetry 95 95 Intake & Output 11/25/17 11/26/17 11/26/17 18:59 06:59 18:59 Intake Total 800 / 800 1540 / 1540 600 / 600 Output Total 450 / 450 500 / 500 Balance 350 / 350 1040 / 1040 600 / 600 Weight 57 kg Intake: IV 300 / 300 1300 / 1300 100 / 100 NS Inj 1,000 ML @ 84 mls/hr IV. 1000 / 1000 CONT .[id number] ESTHER Rx#:[id number] Maxipime Inj 1,000 MG In NS Inj 100 / 100 100 / 100 100 ML @ 200 mls/hr IV.SIG Q24H ESTHER Rx#:[id number] Flagyl 500 MG Inj 100 ML @ 100 200 / 200 200 / 200 100 / 100 mls/hr IV.SIG Q6H ESTHER Rx#: [id number] Oral 500 / 500 240 / 240 Other 100 / 100 Rbc As-3 Leukoreduced Unit 100 / 100 [id number] Intake (Blood Product) Amt 400 / 400 Rbc As-3 Leukoreduced Unit 400 / 400 [id number] Rbc As-3 Leukoreduced Unit 0 / 0 [id number] Output: Urine Amount (Catheter) 450 / 450 500 / 500 Indwelling Urethral Catheter 450 / 450 500 / 500 Other: Date of Last Bowel Movement 11/22/17 11/22/17 11/22/17 # Bowel Movements 0 <Cruz Fischer L - 11/26/17 18:39> Vital Signs 11/25/17 16:00 11/25/17 18:00 11/25/17 20:00 Temperature 100.0 F H 99.8 F H Pulse Rate 88 90 82 Respiratory Rate 17 18 Blood Pressure 170/04 H 145/65 H Pulse Oximetry 95 95 11/25/17 22:00 11/26/17 00:00 11/26/17 01:00 Temperature 99 F Pulse Rate 84 66 Respiratory Rate 10 L 14 Blood Pressure 117/54 L Pulse Oximetry 96 11/26/17 02:00 11/26/17 04:00 11/26/17 06:00 Temperature 98.3 F Pulse Rate 78 62 73 Respiratory Rate 10 L Blood Pressure 133/60 Pulse Oximetry 95 11/26/17 08:00 11/26/17 10:00 11/26/17 10:11 Temperature 98.1 F Pulse Rate 60 63 79 Respiratory Rate 18 Blood Pressure Pulse Oximetry 11/26/17 11:17 11/26/17 11:21 Temperature 98.1 F 97.8 F Pulse Rate 71 60 Respiratory Rate Blood Pressure 181/73 H Pulse Oximetry 96 Intake & Output 11/25/17 11/26/17 11/26/17 18:59 06:59 18:59 Intake Total 800 / 800 1540 / 1540 500 / 500 Output Total 450 / 450 500 / 500 Balance 350 / 350 1040 / 1040 500 / 500 Weight 57 kg Intake: IV 300 / 300 1300 / 1300 NS Inj 1,000 ML @ 84 mls/hr IV. 1000 / 1000 CONT .[id number] EST[facility] Rx#:[id number] Maxipime Inj 1,000 MG In NS Inj 100 / 100 100 / 100 100 ML @ 200 mls/hr IV.SIG Q24H ESTHER Rx#:[id number] Flagyl 500 MG Inj 100 ML @ 100 200 / 200 200 / 200 mls/hr IV.SIG Q6H ESTHER Rx#: [id number] Oral 500 / 500 240 / 240 Other 100 / 100 Rbc As-3 Leukoreduced Unit 100 / 100 [id number] Intake (Blood Product) Amt 400 / 400 Rbc As-3 Leukoreduced Unit 400 / 400 [id number] Rbc As-3 Leukoreduced Unit 0 / 0 [id number] Output: Urine Amount (Catheter) 450 / 450 500 / 500 Indwelling Urethral Catheter 450 / 450 500 / 500 Other: Date of Last Bowel Movement 11/22/17 11/22/17 11/22/17 # Bowel Movements 0 <Cheko IIINasim H - 11/26/17 14:36> Narrative: GENERAL: Elderly female, lying in bed, eyes open, answering simple questions and following simple commands. HEENT: Normocephalic. Atraumatic. Pupils equal, round, reactive but sluggish. MMM. Eyes cannot track. CARDIOVASCULAR: Regular rate & rhythm. Systolic murmur 1 out of 6 best over right-sided sternal border, stable from previous exam. ABDOMEN: Bowel sounds present. Soft, nontender, nondistended. MUSCULOSKELETAL: Dressings in place with no excess blood noted on right hip surgical area. Large hematoma about skilled nursing down the thigh and extending to the lateral thigh area. Pulses intact bilaterally. No edema. Increased ecchymosis of right dorsal aspect of hand as well as wrist. Pulses intact. NEUROLOGICAL: Spontaneous movement of upper and lower extremities. Pt can squeeze hand, wiggle fingers and toes on command. Pt answering questions. Denies pain. However, as above, no saccadic movement. <Nasim Still III - 11/26/17 14:36> - Urinary Catheter Management Indwelling Urethral Catheter Cath placed during this visit: no <Cruz Fischer - 11/26/17 18:39> yes <Nasim Still III - 11/26/17 14:36> Reason for continuing: Hourly intake/output <Nasim Still III - 11/26/17 14: 36> Insertion date: 11/22/17 <Nasim Still III - 11/26/17 14:36> Assessment and Plan - Assessment (1) Altered mental status Code(s): R41.82 - Altered mental status, unspecified Status: Acute (2) Thrombocytopenia Code(s): D69.6 - Thrombocytopenia, unspecified Status: Acute (3) WALTER (acute kidney injury) Code(s): N17.9 - Acute kidney failure, unspecified Status: Acute (4) Fracture of femur Code(s): S72.90XA - Unspecified fracture of unspecified femur, initial encounter for closed fracture Status: Acute (5) Postoperative anemia due to acute blood loss Code(s): D62 - Acute posthemorrhagic anemia Status: Acute (6) Leukocytosis Code(s): D72.829 - Elevated white blood cell count, unspecified Status: Chronic (7) Hyperglycemia Code(s): R73.9 - Hyperglycemia, unspecified Status: Acute (8) Hypothyroid Code(s): E03.9 - Hypothyroidism, unspecified Status: Acute (9) Hypertension Code(s): I10 - Essential (primary) hypertension Status: Acute (10) Humeral fracture Code(s): S42.309A - Unspecified fracture of shaft of humerus, unspecified arm, initial encounter for closed fracture Status: Chronic (11) Nutrition, metabolism, and development symptoms Code(s): R63.8 - Other symptoms and signs concerning food and fluid intake Status: Acute <Cruz Fischer - 11/26/17 18:39> (1) Altered mental status Code(s): R41.82 - Altered mental status, unspecified Status: Acute Plan: Patient mental status improving and more alert. She is able to answer simple questions and follows simple commands. Head CT 11/25 showed no acute changes. 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 EEG showed background slowing consistent with encephalopathic state Acute encephalopathy due to CVA, post-op state, metabolic -Continue to hold pain medications and anticoagulation -Patient is currently protecting airway -Critical care following -Ammonia level only slightly elevated at 36 -Patient passed swallow study with recommendations from ST for puree thick solids and honey thick liquids. Pt is taking a little PO; however, unlikely to meet current demand -Electric Organ Checker set caloric target as: 2970-8502 calories per day. Set minimum calorie count at 1380 daily, if not met, then place Dobhoff to augment PO -Patient maintaining SPO2 on room air. Nebs as needed -Palliative care consulted, after discussion with patient's son he continues to request aggressive care and patient will remain full code -Remaining decision-making family member, one daughter, to arrive today -Continue Rowley with strict I's and O's -Maintain hemoglobin greater than 7 -Neurochecks every hour (2) Thrombocytopenia Code(s): D69.6 - Thrombocytopenia, unspecified Status: Acute Plan: Platelet count 106 today; 107 on 11/25 Consideration of DIC -PT, APTT, INR, fibrinogen ordered -Hematology following patient -Patient not requiring platelet transfusion at this time, no signs of large active bleed. -Repeat CBC in a.m. (3) WALTER (acute kidney injury) Code(s): N17.9 - Acute kidney failure, unspecified Status: Acute Plan: Contributing factor of hypovolemia and n.p.o. status--resolved 11/25 -Cr at 0.48 -Status post 2 units PRBC on 11/23 and 2 u PRBCs being transfused today -Patient was given additional normal saline 1 L on admission to ICU -Normal saline at 84 mL's per hour -Continue Rowley catheter -CMP in a.m. (4) Fracture of femur Code(s): S72.90XA - Unspecified fracture of unspecified femur, initial encounter for closed fracture Status: Acute Plan: 87 YO female with comminuted spiral "butterfly" fracture of proximal femur noted on x-ray. Today pt is POD#4 following right femur reduction and intramedullary nail fixation by Dr Boogie. Patient neurovascularly intact and is recovering from surgery. -Orthopedic surgery consulted, Dr Boogie. Dressings per orthopedic recommendation -We will hold pain medications for now as patient has altered mental status. Want to eliminate contributing factor of oversedation. -Ca+Vitamin D supplementation -Withholding further evaluation of osteoporosis due to patient's acute critical illness -We will resume PT if patient's mental status improves so that she can actively participate (5) Postoperative anemia due to acute blood loss Code(s): D62 - Acute posthemorrhagic anemia Status: Acute Plan: Pt with acute blood loss anemia post-operatively. -Pt received 2 u PRBCs 11/23 -Transfusing 2u PRBCs 11/26 due to Hgb 6.8 -Lasix 20 mg between units of blood -H/H after 2nd unit (6) Leukocytosis Code(s): D72.829 - Elevated white blood cell count, unspecified Status: Chronic Plan: Urinalysis on admission was negative. T-max of 99.7 WBC 36.5 today up from admission 25.4 Peripheral smear review showed atypical lymphocytosis and mild neutrophilia suspicious for CLL. -Hematology/oncology consulted -Consideration for sepsis with contributing factor of CLL which patient was possibly diagnosed with previously. -Blood cultures taken, no growth to date 2 day -Sputum culture -C. difficile PCR ordered -Patient started on cefepime 1 g per day and vancomycin with pharmacy consult -Per critical care recommendations if cultures are negative at 48 hours and WBC downtrending can DC antibiotics (7) Hyperglycemia Code(s): R73.9 - Hyperglycemia, unspecified Status: Acute Plan: Patient has no reported history of diabetes. Likely stress reaction. -Patient is not currently eating due to her altered mental status. -Did not pass formal swallow evaluation -SSI -Continue n.p.o. status with repeat swallow evaluation if patient's mentation improves (8) Hypothyroid Code(s): E03.9 - Hypothyroidism, unspecified Status: Acute Plan: We will continue home levothyroxine once dosing is obtained (9) Hypertension Code(s): I10 - Essential (primary) hypertension Status: Acute Plan: Permissive hypertension due to patient's possible embolic strokes -Maintain systolics in the 120-180 range -Labetalol 10 mg as needed for SBP greater than 180 (10) Humeral fracture Code(s): S42.309A - Unspecified fracture of shaft of humerus, unspecified arm, initial encounter for closed fracture Status: Chronic Plan: Reported by son to be chronic. Patient had fracture 2 years prior -Orthopedic surgery consulted appreciate recommendations. -Pt right arm placed in sling post-op for immobilization (11) Nutrition, metabolism, and development symptoms Code(s): R63.8 - Other symptoms and signs concerning food and fluid intake Status: Acute Plan: Diet: PO with calorie counts. NG tube ordered but not placed; Dobhoff ordered to maintain caloric intake as specified by filler shredder helper (minimum 1380 calories/day) . Electrolytes: Replete per ICU protocol Fluids: Patient on 30mls normal saline per hour DVT prophylaxis: SCDs only. Hold pharmacological anticoagulation due to patient' s requirement of transfusion due to postoperative bleeding GI: none indicated Tylenol 650 mg PO pain 1-2/temp >100.4 PT Incentive spirometry CM consult to assist with rehab/snf placement <Nasim Still III - 11/26/17 14:05> - Attending Attestation The exam, history, and the medical decision-making described in the above note were completed with the assistance of the resident physicians and medical student. I reviewed and agree with the findings presented. I attest that I had a [id number] encounter with the patient on the same day, and personally performed and documented my assessment and findings in the medical record. This morning patient is lying in bed with her son at the bedside. She is answering our questions this morning, and verbalizing more than before. She can say short sentences and answer simple questions. She did turn to look at me when I talked to her, but is not consistently tracking objects with her eyes. She states she is not in any pain and feels comfortable. She is moving all four extremities on command. We are planning on tube feedings via Dobhoff tube today if she is not able to meet caloric needs orally. She does have a diet ordered with food consistency recommended by speech therapy. Her vital signs have been stable besides some elevated blood pressures. She continues to protect her own airway and is in no respiratory distress. We will consider moving out of the ICU today or tomorrow depending on her course. Her prognosis does remain guarded given burden of cerebrovascular pathology, age, and comorbidities. Palliative care remains on board. Plan of care remains aggressive and code status remains full. We are continuing to communicate with the son who is at the bedside and more family is coming to town soon, and we will be communicating closely with them as well. We will consider discontinuing broad spectrum antibiotics as her white count continues to trend down and she remains afebrile. <Cruz Fischer - 11/26/17 18:39> <Nasim Still III H - Last Filed: 11/26/17 14:05> (4) Fracture of femur Qualifiers: Encounter type: initial encounter Fracture type: closed Fracture morphology : spiral Laterality: right (10) Humeral fracture Qualifiers: Fracture type: closed Laterality: right <Cruz Fischer L - Last Filed: 11/26/17 18:39> (4) Fracture of femur Qualifiers: Encounter type: initial encounter Fracture type: closed Fracture morphology : spiral Laterality: right (10) Humeral fracture Qualifiers: Fracture type: closed Laterality: right <Nasim Still III H - Last Filed: 11/26/17 14:05> (4) Fracture of femur Qualifiers: Encounter type: initial encounter Fracture type: closed Fracture morphology : spiral Laterality: right (10) Humeral fracture Qualifiers: Fracture type: closed Laterality: right <Cruz Fischer L - Last Filed: 11/26/17 18:39> (4) Fracture of femur Qualifiers: Encounter type: initial encounter Fracture type: closed Fracture morphology : spiral Laterality: right (10) Humeral fracture Qualifiers: Fracture type: closed Laterality: right
[2017-11-26] MEDS: Labetalol HCl Inj 100 MG/20 ML Vial IV.PUSH PRN ×5 (19:36→23:32)
[2017-11-26] MEDS: Beneprotein Powder Packet G-TUBE SCH (20:17)
[2017-11-26] MEDS: Insulin NovoLOG Aspart Correctional Sugar Inj SQ SCH (20:21)
[2017-11-27] MEDS ORDERED: Pharmacy Ordered Lab Info OTHER ONE (01:45)
[2017-11-27] MEDS: Calcium/Vitamin D 250/125 MG Tablet PO SCH ×4 (02:05→20:52)
[2017-11-27 04:11] LABS: Hematocrit 26.3 % (35.0-46.0); Mean Corpuscular HGB Conc 34.3 % (32.0-36.0); Mean Corpuscular Hemoglobin 30.9 pg (27.0-34.0); Mean Corpuscular Volume 90.1 fL (80.0-100.0); Mean Platelet Volume 6.5 fL (7.0-11.0); Platelet Count 87 th/mm3 (150-450); Red Blood Count 2.92 mil/mm3 (4.00-5.30); Red Cell Distribution Width 15.1 % (11.6-17.2); White Blood Count 21.4 th/mm3 (4.0-11.0)
[2017-11-27 04:42] LABS: Alanine Aminotransferase 8 U/L (10-53); Albumin 2.3 g/dL (3.4-5.0); Alkaline Phosphatase 36 U/L (45-117); Anion Gap 11 meq/L (5-15); Aspartate Aminotransferase 17 U/L (15-37); Blood Urea Nitrogen 27 mg/dL (7-18); Calcium 7.3 mg/dL (8.5-10.1); Chloride 116 meq/L (98-107); Glomerular Filtration Rate Greater Than 89 mL/min (>89); Glucose,Random 138 mg/dL (74-106); Potassium 3.2 meq/L (3.5-5.1); Sodium 151 meq/L (136-145); Total Protein 4.2 g/dL (6.4-8.2)
[2017-11-27 08:18] LABS: Eosinophils 3 % (0-4); Lymphocytes 73 % (9-44); Monocytes 1 % (0-8); Platelet Morphology Normal (Normal); Smudge Cells Present
--- NOTE | 2017-11-27 12:50 | P.PNFP ---
Subjective Interval history: Ms Walker had no acute events overnight. This morning I spoke to the pt's sister, her son Kartik, and her eldest daughter Jesenia who flew in from [place], [place]. Pt continues to improve a little everyday. She is moving around more on her own. She is now picking at her lip, which family members report has occurred for years. Pt can wiggle toes and move hands, and squeeze my fingers on command. She responds appropriately most of the time, but is at times pleasantly confused. She can track my finger part of the time. There are no complaints of pain. I spoke with Dr Valle who agrees pt can be transferred to the floor and can take PO if meeting caloric intake goals. We will keep pt permissively hypertensive to 220 systolic for now. We will discontinue antibiotics. Family members are in agreement, the best plan is to move pt to the floor where she can work with PT and get moved to bedside chair to lower risk of pneumonia. Denies CP or SOB. <Nasim Still III H - 11/27/17 14:51> Results - Labs Result diagrams: 11/27/17 04:00 11/27/17 04:00 <Cruz Fischer L - 11/27/17 18:19> Abnormal lab results 11/27/17 11/27/17 Range/Units 04:00 04:00 WBC 21.4 H (4.0-11.0) th/mm3 RBC 2.92 L (4.00-5.30) mil/mm3 Hgb 9.0 L D (11.6-15.3) gm/dL Hct 26.3 L (35.0-46.0) % Plt Count 87 L (150-450) th/mm3 MPV 6.5 L (7.0-11.0) fL Lymphocytes % (Manual) 73 H (9-44) % Smudge Cells Present H (None) Platelet Estimate Low L (Normal) Sodium 151 H (136-145) meq/L Potassium 3.2 L (3.5-5.1) meq/L Chloride 116 H (98-107) meq/L BUN 27 H (7-18) mg/dL Creatinine 0.40 L (0.50-1.00) mg/dL Random Glucose 138 H (74-106) mg/dL Calcium 7.3 L* (8.5-10.1) mg/dL ALT 8 L (10-53) U/L Alkaline Phosphatase 36 L (45-117) U/L Total Protein 4.2 L (6.4-8.2) g/dL Albumin 2.3 L (3.4-5.0) g/dL Short CBC 11/27/17 Range/Units 04:00 WBC 21.4 H (4.0-11.0) th/mm3 Hgb 9.0 L D (11.6-15.3) gm/dL Hct 26.3 L (35.0-46.0) % Plt Count 87 L (150-450) th/mm3 BMP 11/27/17 04:00 Sodium 151 H Potassium 3.2 L Chloride 116 H Carbon Dioxide 24.0 BUN 27 H Creatinine 0.40 L Calcium 7.3 L* Liver Function 11/27/17 Range/Units 04:00 Total Bilirubin 1.0 (0.2-1.0) mg/dL AST 17 (15-37) U/L ALT 8 L (10-53) U/L Alkaline Phosphatase 36 L (45-117) U/L Albumin 2.3 L (3.4-5.0) g/dL <Young,Cruz L - 11/27/17 18:19> Abnormal lab results 11/26/17 11/27/17 11/27/17 Range/Units 17:16 04:00 04:00 WBC 21.4 H (4.0-11.0) th/mm3 RBC 2.92 L (4.00-5.30) mil/mm3 Hgb 9.0 L D (11.6-15.3) gm/dL Hct 26.3 L (35.0-46.0) % Plt Count 87 L (150-450) th/mm3 MPV 6.5 L (7.0-11.0) fL Lymphocytes % (Manual) 73 H (9-44) % Smudge Cells Present H (None) Platelet Estimate Low L (Normal) Sodium 151 H (136-145) meq/L Potassium 3.2 L (3.5-5.1) meq/L Chloride 116 H (98-107) meq/L BUN 27 H (7-18) mg/dL Creatinine 0.40 L (0.50-1.00) mg/dL POC Glucose 135 H (68-110) mg/dl Random Glucose 138 H (74-106) mg/dL Calcium 7.3 L* (8.5-10.1) mg/dL ALT 8 L (10-53) U/L Alkaline Phosphatase 36 L (45-117) U/L Total Protein 4.2 L (6.4-8.2) g/dL Albumin 2.3 L (3.4-5.0) g/dL Short CBC 11/27/17 Range/Units 04:00 WBC 21.4 H (4.0-11.0) th/mm3 Hgb 9.0 L D (11.6-15.3) gm/dL Hct 26.3 L (35.0-46.0) % Plt Count 87 L (150-450) th/mm3 BMP 11/27/17 04:00 Sodium 151 H Potassium 3.2 L Chloride 116 H Carbon Dioxide 24.0 BUN 27 H Creatinine 0.40 L Calcium 7.3 L* Liver Function 11/27/17 Range/Units 04:00 Total Bilirubin 1.0 (0.2-1.0) mg/dL AST 17 (15-37) U/L ALT 8 L (10-53) U/L Alkaline Phosphatase 36 L (45-117) U/L Albumin 2.3 L (3.4-5.0) g/dL <Nasim Still III - 11/27/17 12:50> - Imaging Impressions Chest X-Ray 11/26/17 13:47 CONCLUSION: Dobbhoff tube coiled within a large hiatal hernia. <Nasim Still III - 11/27/17 12:50> Physical Exam Vital signs: Vital Signs 11/26/17 20:00 11/26/17 22:00 11/27/17 00:00 Temperature 97.9 F 97.9 F Pulse Rate 76 72 72 Respiratory Rate 16 19 Blood Pressure 226/82 H 177/72 H Pulse Oximetry 96 93 L 11/27/17 02:00 11/27/17 04:00 11/27/17 06:00 Temperature 97.7 F Pulse Rate 70 68 74 Respiratory Rate 22 Blood Pressure 156/70 H Pulse Oximetry 97 11/27/17 08:00 11/27/17 10:00 11/27/17 12:00 Temperature 98 F 98.1 F Pulse Rate 77 70 80 Respiratory Rate 18 18 Blood Pressure 191/80 H 213/90 H Pulse Oximetry 96 95 11/27/17 14:00 11/27/17 16:00 Temperature 98 F Pulse Rate 72 75 Respiratory Rate 18 Blood Pressure 205/84 H Pulse Oximetry 95 Intake & Output 11/26/17 11/27/17 11/27/17 18:59 06:59 18:59 Intake Total 900 / 900 380 / 380 100 / 100 Output Total 1999 1450 / 1450 Balance -1100 / -1100 -1070 / -1070 100 / 100 Weight 57 kg Intake: IV 200 / 200 300 / 300 100 / 100 Maxipime Inj 1,000 MG In NS Inj 100 / 100 100 ML @ 200 mls/hr IV.SIG Q24H ESTHER Rx#:[id number] KCl 20 mEq Premix Inj 20 meq In 100 / 100 100 ml @ 50 mls/hr IV.SIG Q2H ESTHER Rx#:[id number] Flagyl 500 MG Inj 100 ML @ 100 200 / 200 200 / 200 mls/hr IV.SIG Q6H ESTHER Rx#: [id number] Oral 200 / 200 80 / 80 Other 100 / 100 Rbc As-3 Leukoreduced Unit 100 / 100 [id number] Intake (Blood Product) Amt 400 / 400 Rbc As-3 Leukoreduced Unit 400 / 400 [id number] Rbc As-3 Leukoreduced Unit 0 / 0 [id number] Output: Urine Amount (Catheter) 1999 1450 / 1450 Indwelling Urethral Catheter 1999 1450 / 1450 Other: Date of Last Bowel Movement 11/22/17 11/22/17 11/22/17 <Cruz Fischer - 11/27/17 18:19> Vital Signs 11/26/17 13:00 11/26/17 16:00 11/26/17 18:00 Temperature 98 F Pulse Rate 74 74 Respiratory Rate 16 Blood Pressure 181/81 H Pulse Oximetry 95 11/26/17 20:00 11/26/17 22:00 11/27/17 00:00 Temperature 97.9 F 97.9 F Pulse Rate 76 72 72 Respiratory Rate 16 19 Blood Pressure 226/82 H 177/72 H Pulse Oximetry 96 93 L 11/27/17 02:00 11/27/17 04:00 11/27/17 06:00 Temperature 97.7 F Pulse Rate 70 68 74 Respiratory Rate 22 Blood Pressure 156/70 H Pulse Oximetry 97 11/27/17 08:00 11/27/17 10:00 Temperature 98 F Pulse Rate 77 70 Respiratory Rate 18 Blood Pressure 191/80 H Pulse Oximetry 96 Intake & Output 11/26/17 11/27/17 11/27/17 18:59 06:59 18:59 Intake Total 900 / 900 380 / 380 Output Total 1999 1450 / 1450 Balance -1100 / -1100 -1070 / -1070 Weight 57 kg Intake: IV 200 / 200 300 / 300 Maxipime Inj 1,000 MG In NS Inj 100 / 100 100 ML @ 200 mls/hr IV.SIG Q24H ESTHER Rx#:[id number] Flagyl 500 MG Inj 100 ML @ 100 200 / 200 200 / 200 mls/hr IV.SIG Q6H ESTHER Rx#: [id number] Oral 200 / 200 80 / 80 Other 100 / 100 Rbc As-3 Leukoreduced Unit 100 / 100 [id number] Intake (Blood Product) Amt 400 / 400 Rbc As-3 Leukoreduced Unit 400 / 400 [id number] Rbc As-3 Leukoreduced Unit 0 / 0 [id number] Output: Urine Amount (Catheter) 1999 1450 / 1450 Indwelling Urethral Catheter 1999 1450 / 1450 Other: Date of Last Bowel Movement 11/22/17 11/22/17 11/22/17 <Cheko IIIShakiray H - 11/27/17 12:50> Narrative: GENERAL: Elderly female, lying in bed, eyes open, answering simple questions and following simple commands. Pt picking at skin on lower lip. HEENT: Normocephalic. Atraumatic. Pupils equal, round, reactive. MMM. Eyes tracking finger partially. CARDIOVASCULAR: Regular rate & rhythm. Systolic murmur 1 out of 6 best over right-sided sternal border, stable from previous exam. ABDOMEN: Bowel sounds present. Soft, nontender, nondistended. MUSCULOSKELETAL: Dressings in place with no excess blood noted on right hip surgical area. Large hematoma about fci down the thigh and extending to the lateral thigh area. Pulses intact bilaterally. No edema. Increased ecchymosis of right dorsal aspect of hand as well as wrist. Pulses intact. NEUROLOGICAL: Spontaneous movement of upper and lower extremities. Pt can squeeze hand, wiggle fingers and toes on command. Pt answering questions. Denies pain. <Nasim Still III - 11/27/17 14:51> - Urinary Catheter Management Indwelling Urethral Catheter Cath placed during this visit: no <Cruz Fischer - 11/27/17 18:19> yes <Nasim Still III 11/27/17 14:51> Reason for continuing: Hourly intake/output <Nasim Still III 11/27/17 12: 50> Insertion date: 11/22/17 <Nasim Still III 11/27/17 12:50> Assessment and Plan - Assessment (1) Altered mental status Code(s): R41.82 - Altered mental status, unspecified Status: Acute (2) Thrombocytopenia Code(s): D69.6 - Thrombocytopenia, unspecified Status: Acute (3) WALTER (acute kidney injury) Code(s): N17.9 - Acute kidney failure, unspecified Status: Acute (4) Fracture of femur Code(s): S72.90XA - Unspecified fracture of unspecified femur, initial encounter for closed fracture Status: Acute (5) Postoperative anemia due to acute blood loss Code(s): D62 - Acute posthemorrhagic anemia Status: Acute (6) Leukocytosis Code(s): D72.829 - Elevated white blood cell count, unspecified Status: Chronic (7) Hyperglycemia Code(s): R73.9 - Hyperglycemia, unspecified Status: Acute (8) Hypothyroid Code(s): E03.9 - Hypothyroidism, unspecified Status: Acute (9) Hypertension Code(s): I10 - Essential (primary) hypertension Status: Acute (10) Humeral fracture Code(s): S42.309A - Unspecified fracture of shaft of humerus, unspecified arm, initial encounter for closed fracture Status: Chronic (11) Nutrition, metabolism, and development symptoms Code(s): R63.8 - Other symptoms and signs concerning food and fluid intake Status: Acute <Cruz Fischer - 11/27/17 18:19> (1) Altered mental status Code(s): R41.82 - Altered mental status, unspecified Status: Acute Plan: Patient mental status improving and more alert by the day. She is able to answer simple questions and follows simple commands. She is taking PO offered by her son. Must be fed by someone. Head CT 11/25 showed no acute changes. 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 EEG showed background slowing consistent with encephalopathic state Acute encephalopathy due to CVA, post-op state, metabolic -Continue to hold pain medications and anticoagulation (pt last transfusion 2 units 11/26) -Patient is currently protecting airway -Critical care to sign off today -Ammonia level <10 -Patient passed swallow study with recommendations from ST for puree thick solids and honey thick liquids. Pt is taking PO -Swine [employer] Field Specialist set caloric target as: 1696-8000 calories per day. -Set minimum calorie count at 1380 daily, if not met, then renae VANEGAS for consideration of Dobhoff or PEG -Patient maintaining SPO2 on room air. Nebs as needed -Palliative care consulted, after discussion with patient's son and oldest daughter, he continues to request aggressive care and patient will remain full code for now -Continue Rowley with strict I's and O's -Maintain hemoglobin greater than 7 (Hgb 9.0 11/27) -Neurochecks q4h -Transfer to floor -PT OOB--transfer to chair (2) Thrombocytopenia Code(s): D69.6 - Thrombocytopenia, unspecified Status: Acute Plan: Platelet count 107->106-> -PT, APTT, INR, fibrinogen ordered -Hematology following patient -Patient not requiring platelet transfusion at this time, no signs of large active bleed. -Repeat CBC in a.m. -Monitor for now -If s/s of active bleeding, renae VANEGAS (3) WALTER (acute kidney injury) Code(s): N17.9 - Acute kidney failure, unspecified Status: Acute Plan: Contributing factor of hypovolemia and n.p.o. status--resolved 11/25 -Cr at 0.48 -Status post 2 units PRBC on 11/23 and 2 u PRBCs 11/26 -Patient was given additional normal saline 1 L on admission to ICU -Normal saline at 30 mls/hr due to loss of other pt IV sites -Continue Rowley catheter -CMP in a.m. (4) Fracture of femur Code(s): S72.90XA - Unspecified fracture of unspecified femur, initial encounter for closed fracture Status: Acute Plan: 87 YO female with comminuted spiral "butterfly" fracture of proximal femur noted on x-ray. Today pt is POD#5 following right femur reduction and intramedullary nail fixation by Dr Boogie. Patient neurovascularly intact and is recovering from surgery. -Orthopedic surgery consulted, Dr Boogie. Dressings per orthopedic recommendation -Pain regimen PRN; however, pt has no complaint of pain -Ca+Vitamin D supplementation -Withholding further evaluation of osteoporosis due to patient's acute critical illness -Pt for transfer to chair when pt moved to floor (5) Postoperative anemia due to acute blood loss Code(s): D62 - Acute posthemorrhagic anemia Status: Acute Plan: Pt with acute blood loss anemia post-operatively. Stable 11/27 -Pt received 2 u PRBCs 11/23 -Transfusing 2u PRBCs 11/26 due to Hgb 6.8 -Lasix 20 mg between units of blood -Hgb 9.0 on 11/27 -Monitor with daily CBC (6) Leukocytosis Code(s): D72.829 - Elevated white blood cell count, unspecified Status: Chronic Plan: Urinalysis on admission was negative. T-max of 99.7 WBC 21.4 today, first day lower than admission WBC 25.4 Peripheral smear review showed atypical lymphocytosis and mild neutrophilia suspicious for CLL. -Hematology/oncology consulted -Consideration for sepsis with contributing factor of CLL which patient was possibly diagnosed with previously. -Blood cultures taken, no growth to date 3 day -Sputum culture -C. difficile neg -Per discussion with Dr Valle, critical care, will discontinue abx today (7) Hyperglycemia Code(s): R73.9 - Hyperglycemia, unspecified Status: Acute Plan: Patient has no reported history of diabetes. Likely stress reaction. -Patient is not currently eating due to her altered mental status. -Did not pass formal swallow evaluation -SSI-- zero units given last 24 hrs (8) Hypothyroid Code(s): E03.9 - Hypothyroidism, unspecified Status: Acute Plan: We will continue home levothyroxine once dosing is obtained (9) Hypertension Code(s): I10 - Essential (primary) hypertension Status: Acute Plan: Permissive hypertension due to patient's possible embolic strokes -Maintain systolics less than 220 -Labetalol 10 mg as needed for SBP greater than 220 and/or DBP >105 (10) Humeral fracture Code(s): S42.309A - Unspecified fracture of shaft of humerus, unspecified arm, initial encounter for closed fracture Status: Chronic Plan: Reported by son to be chronic. Patient had fracture 2 years prior -Orthopedic surgery consulted appreciate recommendations. -Pt right arm placed in sling post-op for immobilization (11) Nutrition, metabolism, and development symptoms Code(s): R63.8 - Other symptoms and signs concerning food and fluid intake Status: Acute Plan: Diet: PO with calorie counts. NG tube ordered but not placed; Dobhoff ordered to maintain caloric intake as specified by vocal teacher (minimum 1380 calories/day and maximum 1656 calories/day); however, pt has large hiatal hernia that did not permit placement. Per discussion with Dr Valle 11/26, we will allow pt to take PO with caloric goal as stated above. If minimum caloric goal cannot be met , will discuss Dobhoff placement under radiologic guidance vs PEG placement. Electrolytes: monitor daily and replete as necessary Fluids: Patient on 30mls normal saline per hour DVT prophylaxis: SCDs only. Hold pharmacological anticoagulation due to patient' s requirement of transfusion due to postoperative bleeding GI: none indicated Tylenol 650 mg PO pain 1-2/temp >100.4 PT Incentive spirometry CM consult to assist with rehab/snf placement <Nasim Still III - 11/27/17 14:32> - Assessment and Plan Fluids: PO fluids Electrolytes: wnl, will monitor with BMP and replete Nutrition: regular diet following surgery GI: none indicated PPx: re-start 12 hours Lovenox post-op Tylenol 650 mg PO pain 1-2/temp >100.4 PT Incentive spirometry CM consult to assist with rehab and PT if pt goes directly home <Nasim Still III - 11/27/17 12:50> - Attending Attestation The exam, history, and the medical decision-making described in the above note were completed with the assistance of the resident physician. I reviewed and agree with the findings presented. 87 year old female presented with femur fracture and is status post ORIF. She developed altered mental status after the surgery. 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 Her vital signs remain stable and she is protecting her airway. Neurologically she is making small improvements everyday, and is now verbalizing and interacting more, and following commands. She is having difficulty with visual tracking. She reports no pain and reports she is comfortable. She will move out of the ICU today onto the medical floor. We will maintain communication with family regarding her clinical status and prognosis. Palliative care, PT and OT are on board. <Cruz Fischer - 11/27/17 18:19> <Nasim Still III - Last Filed: 11/27/17 14:32> (4) Fracture of femur Qualifiers: Encounter type: initial encounter Fracture type: closed Fracture morphology : spiral Laterality: right (10) Humeral fracture Qualifiers: Fracture type: closed Laterality: right <Cruz Fischer - Last Filed: 11/27/17 18:19> (4) Fracture of femur Qualifiers: Encounter type: initial encounter Fracture type: closed Fracture morphology : spiral Laterality: right (10) Humeral fracture Qualifiers: Fracture type: closed Laterality: right <Nasim Still III - Last Filed: 11/27/17 14:32> (4) Fracture of femur Qualifiers: Encounter type: initial encounter Fracture type: closed Fracture morphology : spiral Laterality: right (10) Humeral fracture Qualifiers: Fracture type: closed Laterality: right <Cruz Fischer - Adam Filed: 11/27/17 18:19> (4) Fracture of femur Qualifiers: Encounter type: initial encounter Fracture type: closed Fracture morphology : spiral Laterality: right (10) Humeral fracture Qualifiers: Fracture type: closed Laterality: right
[2017-11-27] MEDS ORDERED: POTASSIUM ACETATE IV.SIG ONE (14:00)
[2017-11-27] MEDS ORDERED: POTASSIUM CHLORIDE IV.SIG ONE (14:00)
[2017-11-27] MEDS ORDERED: SODIUM CHLOR 0.9% IV.SIG ONE ×2 (14:00)
[2017-11-27] MEDS: Potassium Chlor 20 mEq Premix 20 MEQ/100 ML PIGGYBACK IV.SIG SCH ×2 (14:56→16:55)
[2017-11-27] MEDS: Beneprotein Powder Packet G-TUBE SCH ×4 (15:23→20:53)
[2017-11-27] MEDS: Senna/Docusate Sodium 8.6/50 MG Tablet PO SCH ×2 (15:23→20:52)
[2017-11-27] MEDS: Insulin NovoLOG Aspart Correctional Sugar Inj SQ SCH (15:24)
--- NOTE | 2017-11-27 17:34 | P.PNCC ---
Subjective Subjective Remarks/Hospital Course: 11/23: This is an 87-year-old female who presented to the hospital with a hip fracture and underwent right operative fixation of her hip fracture. Postop day 1 she was noted to be worsening the anemic with a enlarging right hip hematoma. In addition, she was acutely obtunded this morning which was evaluated with a noncontrasted head CT which was negative for acute disease. However, she did not improve her mental status. Cande I was contacted because she was persistently altered and the primary team caring for her was concerned. 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 I evaluated the patient on arrival to the ICU. She is protecting her airway with a vigorous gag. She will respond with moans to loud voice, and to stimulation. In addition to her other acute problems, she has had a leukemoid reaction while inpatient and her white count went up to 93,000. 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 Both hematology and I agree that an acute rise of white blood cell count to this degree should warrant an infectious workup until proven otherwise. Unfortunately, no additional information is available from the patient due to her severe encephalopathy. Review systems is unobtainable. 11/24: No improvement in neurologic function this morning. Patient moans to stimulation and occasionally spontaneously. Her right hip hematoma appears to have stabilized and she is normotensive. 11/25: Appears slightly more awake but with garbled speech. Did not follow commands. Hemodynamically stable. WBC 36.5 from 51.2, Hb 7.6 11/26: Patient is ahead 5 kg and I suspect it is mostly water. Agreed there is some additional volume in the right hip region but probably not 5 Liters. Neck veins are full when patient is sitting up 45 and do not collapse on inhalation. She will need a diuretic now and after her blood transfusion. Ignore the elevated serum sodium, it does not reflect concentration. Encouragingly, her lungs remain clear and she is breathing comfortably 11/27: Protects airway, breathing comfortably. More alert. Good response to diuretics with > 2 liters out. Follow Hgb.. Objective Vital Signs / I&O: Vital Signs 11/26/17 18:00 11/26/17 20:00 11/26/17 22:00 Temperature 97.9 F Pulse Rate 74 76 72 Respiratory Rate 16 Blood Pressure 226/82 H Pulse Oximetry 96 11/27/17 00:00 11/27/17 02:00 11/27/17 04:00 Temperature 97.9 F 97.7 F Pulse Rate 72 70 68 Respiratory Rate 19 22 Blood Pressure 177/72 H 156/70 H Pulse Oximetry 93 L 97 11/27/17 06:00 11/27/17 08:00 11/27/17 10:00 Temperature 98 F Pulse Rate 74 77 70 Respiratory Rate 18 Blood Pressure 191/80 H Pulse Oximetry 96 11/27/17 12:00 Temperature 98.1 F Pulse Rate 80 Respiratory Rate 18 Blood Pressure 213/90 H Pulse Oximetry 95 Intake & Output 11/26/17 11/27/17 11/27/17 18:59 06:59 18:59 Intake Total 900 / 900 380 / 380 100 / 100 Output Total 1999 1450 / 1450 Balance -1100 / -1100 -1070 / -1070 100 / 100 Weight 57 kg Intake: IV 200 / 200 300 / 300 100 / 100 Maxipime Inj 1,000 MG In NS Inj 100 / 100 100 ML @ 200 mls/hr IV.SIG Q24H [facility] Rx#:[id number] KCl 20 mEq Premix Inj 20 meq In 100 / 100 100 ml @ 50 mls/hr IV.SIG Q2H [facility] Rx#:[id number] Flagyl 500 MG Inj 100 ML @ 100 200 / 200 200 / 200 mls/hr IV.SIG Q6H [facility] Rx#: [id number] Oral 200 / 200 80 / 80 Other 100 / 100 Rbc As-3 Leukoreduced Unit 100 / 100 [id number] Intake (Blood Product) Amt 400 / 400 Rbc As-3 Leukoreduced Unit 400 / 400 [id number] Rbc As-3 Leukoreduced Unit 0 / 0 [id number] Output: Urine Amount (Catheter) 1999 1450 / 1450 Indwelling Urethral Catheter 1999 1450 / 1450 Other: Date of Last Bowel Movement 11/22/17 11/22/17 11/22/17 Result Diagrams: 11/27/17 04:00 11/27/17 04:00 Objective Remarks: GENERAL: Frail elderly female, lying in bed, 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 HEENT: Normocephalic. Atraumatic. Pupils equal, round, reactive, conjugate. Mucous membranes are moist NECK: Trachea is midline. CHEST: Equal chest rise. Nasal cannula oxygen. CARDIOVASCULAR: Normal rate, regular rhythm. Sinus. No JVD. ABDOMEN: Soft, nontender, nondistended. No guarding. Bowel sounds active MUSCULOSKELETAL: Pulses 2+. No peripheral edema. Large right hip hematoma which extends from the greater trochanter down mcc to knee. Ecchymoses around the lateral aspect of the thigh. Right upper extremity in a sling. NEUROLOGICAL: Arouses to loud voice and stimulation. Very weakly follows commands, purposeful. Vigorous cough and gag and is protecting her airway. Her pupils are conjugate and she will track. Speech is much improved. Remains with poor hearing. Assessment and Plan - Assessment and Plan Plan: Assessment: 87-year-old female status post right hip operative fixation for fracture complicated by acute embolic CVA and acute encephalopathy. Encephalopathy is likely combination of metabolic and organic from CVA. Plan by systems: Neurologic: Acute embolic CVA Acute severe metabolic encephalopathy Frequent neurochecks Avoid long-acting sedatives Currently protecting airway MRI 11/23: Acute restriction of diffusion concerning for multiple embolic strokes EEG showing moderate encephalopathy Carotid Dopplers-negative study PT/OT/ST Telemetry Could probably start aspirin at any time. Respiratory: Postoperative atelectasis Respiratory insufficiency Wean oxygen by nasal cannula for goal SPO2 greater than 90% Aggressive pulmonary toilet Head of bed elevated Nebs prn Cardiovascular: Continue statin We will not placed on aspirin, see above discussion Continue telemetry Permissive hypertension with goal systolic blood pressure 120-180. Renal: Acute kidney injury Likely secondary to hypovolemia from postoperative bleeding Status post 2 units PRBCs Normal saline maintenance fluids Continue Rowley catheter Frequent urine output monitoring Daily creatinine and electrolytes -- Strict I/Os Will allow for mild prerenal azotemia FEN/GI: Acute intravascular hypovolemia Severe acute protein calorie malnutrition N.p.o. start tube feeds with Glucerna Normal saline at 84 mils per hour-DC after tube feeds to goal ICU electrolyte protocol Daily BMP, magnesium, phosphorus Resolved, now overloaded. Good diuresis, fluid balance appears right. Heme/ID: Leukemoid reaction Severe anemia secondary to acute blood loss requiring transfusion Trend CBCs Hematology consulted and following. flow cytometry pending at this time On vancomycin, cefepime, Flagyl empirically. Discontinue vancomycin today WBC count is 36.5 today down from 51.2 yesterday Follow blood cultures-negative to date Send C. difficile If cultures are negative at 48 hours and white blood cell count is downtrending , would recommend discontinuation of antibiotics, as this may be stress response induced from surgery vs CLL Transfuse to keep hemoglobin greater than 7 Endocrine: Hyperglycemia of critical illness -- SSI Prophylaxis: GI Prophylaxis Pepcid DVT Prophylaxis -- SCDs Subcu heparin. Will not pursue full dose anticoagulation Lines: Peripheral IVs Rowley Overall impression: Hemodynamically she has stabilized nicely. She continues to breathe comfortably. Her neurologic status has improved considerably. Transfer to floor fine. Follow Hgb closely.
[2017-11-28] MEDS: Calcium/Vitamin D 250/125 MG Tablet PO SCH ×3 (02:21→18:38)
[2017-11-28 04:42] LABS: Baso # (Auto) 0.1 th/mm3 (0.0-0.2); Baso % (Auto) 0.3 % (0.0-2.0); Eos # (Auto) 0.3 th/mm3 (0.0-0.4); Hematocrit 31.1 % (35.0-46.0); Hemoglobin 10.6 gm/dL (11.6-15.3); Lymph # (Auto) 24.4 th/mm3 (1.0-4.8); Lymph % (Auto) 73.2 % (9.0-44.0); Mean Corpuscular HGB Conc 34.1 % (32.0-36.0); Mean Corpuscular Hemoglobin 31.3 pg (27.0-34.0); Mean Corpuscular Volume 91.6 fL (80.0-100.0); Mean Platelet Volume 6.8 fL (7.0-11.0); Mono # (Auto) 1.1 th/mm3 (0.0-0.9); Mono % (Auto) 3.5 % (0.0-8.0); Neut # (Auto) 7.3 th/mm3 (1.8-7.7); Platelet Count 118 th/mm3 (150-450); Red Cell Distribution Width 15.6 % (11.6-17.2); White Blood Count 33.3 th/mm3 (4.0-11.0)
[2017-11-28 05:03] LABS: Anion Gap 8 meq/L (5-15); Blood Urea Nitrogen 24 mg/dL (7-18); Calcium 7.6 mg/dL (8.5-10.1); Carbon Dioxide 24.3 meq/L (21.0-32.0); Chloride 113 meq/L (98-107); Glomerular Filtration Rate Greater Than 89 mL/min (>89); Glucose,Random 123 mg/dL (74-106); Potassium 3.8 meq/L (3.5-5.1); Sodium 145 meq/L (136-145)
[2017-11-28 07:04] LABS: Monocytes 1 % (0-8); Myelocytes 1 % (0-0)
[2017-11-28 07:05] LABS: Lymphocytes 81 % (9-44)
[2017-11-28 07:06] LABS: Platelet Morphology Normal (Normal); Smudge Cells Present
[2017-11-28 07:07] LABS: Polychromasia 2.8 % (0.0-1.9)
[2017-11-28] MEDS: Senna/Docusate Sodium 8.6/50 MG Tablet PO SCH ×2 (09:47→20:10)
[2017-11-28] MEDS: Beneprotein Powder Packet G-TUBE SCH ×3 (09:48→17:56)
--- NOTE | 2017-11-28 09:54 | P.PNFP ---
Subjective Interval history: Ms. Walker seen on rounds this morning. She is neurologically stable from yesterday. She opens her eyes to voice and sounds. He is able to voice one- word responses to questions. She does not endorse any pain. She is unable to tell us where she is, name of her son, the year (believing it is 1955). She is able to follow simple commands. <Rae Moore E - 11/28/17 09:54> Results - Labs Result diagrams: 11/28/17 04:07 11/28/17 04:07 <Cruz Fischer L - 11/28/17 17:34> Abnormal lab results 11/28/17 11/28/17 Range/Units 04:07 04:07 WBC 33.3 H (4.0-11.0) th/mm3 RBC 3.40 L (4.00-5.30) mil/mm3 Hgb 10.6 L (11.6-15.3) gm/dL Hct 31.1 L (35.0-46.0) % Plt Count 118 L D (150-450) th/mm3 MPV 6.8 L (7.0-11.0) fL Lymph % (Auto) 73.2 H (9.0-44.0) % Lymph # (Auto) 24.4 H (1.0-4.8) th/mm3 [place] # (Auto) 1.1 H (0.0-0.9) th/mm3 Lymphocytes % (Manual) 81 H (9-44) % Myelocytes % (Man) 1 H (0-0) % Smudge Cells Present H (None) Platelet Estimate Low L (Normal) Polychromasia 2.8 H (0.0-1.9) % Chloride 113 H (98-107) meq/L BUN 24 H (7-18) mg/dL Creatinine 0.40 L (0.50-1.00) mg/dL Random Glucose 123 H (74-106) mg/dL Calcium 7.6 L (8.5-10.1) mg/dL Short CBC 11/28/17 Range/Units 04:07 WBC 33.3 H (4.0-11.0) th/mm3 Hgb 10.6 L (11.6-15.3) gm/dL Hct 31.1 L (35.0-46.0) % Plt Count 118 L D (150-450) th/mm3 [facility] 11/28/17 04:07 Sodium 145 Potassium 3.8 Chloride 113 H Carbon Dioxide 24.3 BUN 24 H Creatinine 0.40 L Calcium 7.6 L <Cruz Fischer L - 11/28/17 17:34> Abnormal lab results 11/28/17 11/28/17 Range/Units 04:07 04:07 WBC 33.3 H (4.0-11.0) th/mm3 RBC 3.40 L (4.00-5.30) mil/mm3 Hgb 10.6 L (11.6-15.3) gm/dL Hct 31.1 L (35.0-46.0) % Plt Count 118 L D (150-450) th/mm3 MPV 6.8 L (7.0-11.0) fL Lymph % (Auto) 73.2 H (9.0-44.0) % Lymph # (Auto) 24.4 H (1.0-4.8) th/mm3 [place] # (Auto) 1.1 H (0.0-0.9) th/mm3 Lymphocytes % (Manual) 81 H (9-44) % Myelocytes % (Man) 1 H (0-0) % Smudge Cells Present H (None) Platelet Estimate Low L (Normal) Polychromasia 2.8 H (0.0-1.9) % Chloride 113 H (98-107) meq/L BUN 24 H (7-18) mg/dL Creatinine 0.40 L (0.50-1.00) mg/dL Random Glucose 123 H (74-106) mg/dL Calcium 7.6 L (8.5-10.1) mg/dL Short CBC 11/28/17 Range/Units 04:07 WBC 33.3 H (4.0-11.0) th/mm3 Hgb 10.6 L (11.6-15.3) gm/dL Hct 31.1 L (35.0-46.0) % Plt Count 118 L D (150-450) th/mm3 [facility] 11/28/17 04:07 Sodium 145 Potassium 3.8 Chloride 113 H Carbon Dioxide 24.3 BUN 24 H Creatinine 0.40 L Calcium 7.6 L <Rae Moore - 11/28/17 09:54> - Imaging Impressions Chest X-Ray 11/28/17 12:31 CONCLUSION: Cardiomegaly. Severe hypoinflation without acute pulmonary disease <Cruz Fischer - 11/28/17 17:34> Physical Exam Vital signs: Vital Signs 11/27/17 18:00 11/27/17 20:00 11/27/17 22:00 Temperature 98.6 F Pulse Rate 75 78 76 Respiratory Rate 17 Blood Pressure 218/92 H Pulse Oximetry 96 11/28/17 00:00 11/28/17 02:00 11/28/17 04:00 Temperature 98.4 F 98.3 F Pulse Rate 73 71 74 Respiratory Rate 18 19 Blood Pressure 210/88 H 195/84 H Pulse Oximetry 96 96 11/28/17 06:00 11/28/17 08:00 Temperature Pulse Rate 65 72 Respiratory Rate Blood Pressure Pulse Oximetry Intake & Output 11/27/17 11/28/17 11/28/17 18:59 06:59 18:59 Intake Total 900 / 900 100 / 100 Output Total 350 / 350 375 / 375 Balance 550 / 550 -275 / -275 Weight 56 kg Intake: IV 100 / 100 100 / 100 KCl 20 mEq Premix Inj 20 meq In 100 / 100 100 / 100 100 ml @ 50 mls/hr IV.SIG Q2H [facility] Rx#:[id number] Oral 800 / 800 Output: Urine 350 / 350 Urine Amount (Catheter) 375 / 375 Indwelling Urethral Catheter 375 / 375 Other: Date of Last Bowel Movement 11/22/17 11/22/17 11/22/17 <AmadoCruz Josefina - 11/28/17 17:34> Vital Signs 11/27/17 10:00 11/27/17 12:00 11/27/17 14:00 Temperature 98.1 F Pulse Rate 70 80 72 Respiratory Rate 18 Blood Pressure 213/90 H Pulse Oximetry 95 11/27/17 16:00 11/27/17 18:00 11/27/17 20:00 Temperature 98 F 98.6 F Pulse Rate 75 75 78 Respiratory Rate 18 17 Blood Pressure 205/84 H 218/92 H Pulse Oximetry 95 96 11/27/17 22:00 11/28/17 00:00 11/28/17 02:00 Temperature 98.4 F Pulse Rate 76 73 71 Respiratory Rate 18 Blood Pressure 210/88 H Pulse Oximetry 96 11/28/17 04:00 11/28/17 06:00 Temperature 98.3 F Pulse Rate 74 65 Respiratory Rate 19 Blood Pressure 195/84 H Pulse Oximetry 96 Intake & Output 11/27/17 11/28/17 11/28/17 18:59 06:59 18:59 Intake Total 900 / 900 100 / 100 Output Total 350 / 350 375 / 375 Balance 550 / 550 -275 / -275 Weight 56 kg Intake: IV 100 / 100 100 / 100 KCl 20 mEq Premix Inj 20 meq In 100 / 100 100 / 100 100 ml @ 50 mls/hr IV.SIG Q2H [facility] Rx#:[id number] Oral 800 / 800 Output: Urine 350 / 350 Urine Amount (Catheter) 375 / 375 Indwelling Urethral Catheter 375 / 375 Other: Date of Last Bowel Movement 11/22/17 11/22/17 <Rae Moore 11/28/17 09:54> Narrative: GENERAL: Elderly female, lying in bed. Opens eyes to voice. Follows simple commands. Answers simple questions. HEENT: Pupils equal, round, reactive. MMM. Eyes tracking finger partially. CARDIOVASCULAR: Regular rate & rhythm. Systolic murmur 1 out of 6 best over right-sided sternal border, stable from previous exam. ABDOMEN: Bowel sounds present. Soft, nontender, nondistended. MUSCULOSKELETAL: Dressings in place with no excess blood noted on right hip surgical area. Large hematoma about skilled nursing down the thigh and extending to the lateral thigh area, stable from previous exam. Pulses intact bilaterally. No edema. NEUROLOGICAL: Patient squeezes hands, wiggles toes on command. Single word answers to questions. Oriented to self only. Spontaneous movement of bilateral upper and lower extremities. Patient protecting airway <Rae Moore - 11/28/17 09:54> - Urinary Catheter Management Indwelling Urethral Catheter Cath placed during this visit: no <Cruz Fischer 11/28/17 17:34> yes <Rae Moore 11/28/17 10:08> Reason for continuing: Hourly intake/output <Rae Moore 11/28/17 09:54> Insertion date: 11/22/17 <Rae Moore 11/28/17 09:54> Assessment and Plan - Assessment (1) Altered mental status Code(s): R41.82 - Altered mental status, unspecified Status: Acute (2) Thrombocytopenia Code(s): D69.6 - Thrombocytopenia, unspecified Status: Acute (3) WALTER (acute kidney injury) Code(s): N17.9 - Acute kidney failure, unspecified Status: Acute (4) Fracture of femur Code(s): S72.90XA - Unspecified fracture of unspecified femur, initial encounter for closed fracture Status: Acute (5) Postoperative anemia due to acute blood loss Code(s): D62 - Acute posthemorrhagic anemia Status: Acute (6) Leukocytosis Code(s): D72.829 - Elevated white blood cell count, unspecified Status: Chronic (7) Hypertension Code(s): I10 - Essential (primary) hypertension Status: Acute (8) Hyperglycemia Code(s): R73.9 - Hyperglycemia, unspecified Status: Acute (9) Hypothyroid Code(s): E03.9 - Hypothyroidism, unspecified Status: Acute (10) Humeral fracture Code(s): S42.309A - Unspecified fracture of shaft of humerus, unspecified arm, initial encounter for closed fracture Status: Chronic (11) Nutrition, metabolism, and development symptoms Code(s): R63.8 - Other symptoms and signs concerning food and fluid intake Status: Acute <Cruz Fischer Josefina - 11/28/17 17:34> (1) Altered mental status Code(s): R41.82 - Altered mental status, unspecified Status: Acute Plan: Patient appears to be mentally improving since surgery. -Continue to hold pain medications and anticoagulation (pt last transfusion 2 units 11/26) -Patient is currently protecting airway -Critical care signed off yesterday -Transfer to floor -Per patient's son patient is eating with assistance. Swallow study recommendations for pure thick solids and honey thick liquids -Minimum caloric intake per day 1380, will hold on placement of Dobbhoff for now if patient continues to eat PO -Patient maintaining SPO2 on room air. Nebs as needed -Palliative care consulted, after discussion with patient's son and oldest daughter, he continues to request aggressive care and patient will remain full code for now -Continue Rowley with strict I's and O's -Maintain hemoglobin greater than 7 (Hgb 9.0 11/27) -Neurochecks q4h -PT/OT to work with patient transferred care History: Head CT 11/25 showed no acute changes. 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 EEG showed background slowing consistent with encephalopathic state Acute encephalopathy due to CVA, post-op state, metabolic Ammonia level <10 (2) Thrombocytopenia Code(s): D69.6 - Thrombocytopenia, unspecified Status: Acute Plan: Platelet count trending upwards -Coagulation studies and fibrinogen within normal limits. -Hematology following patient -Patient not requiring platelet transfusion at this time, no signs of large active bleed. -Repeat CBC in a.m. -Monitor for now -If s/s of active bleeding, renae VANEGAS (3) WALTER (acute kidney injury) Code(s): N17.9 - Acute kidney failure, unspecified Status: Acute Plan: Contributing factor of hypovolemia and n.p.o. status--resolved 11/25 -Status post 2 units PRBC on 11/23 and 2 u PRBCs 11/26 -Patient was given additional normal saline 1 L on admission to ICU -Normal saline at 30 mls/hr due to loss of other pt IV sites -Continue Rowley catheter -BMP in a.m. (4) Fracture of femur Code(s): S72.90XA - Unspecified fracture of unspecified femur, initial encounter for closed fracture Status: Acute Plan: 87 YO female with comminuted spiral "butterfly" fracture of proximal femur noted on x-ray. Today pt is POD#6 following right femur reduction and intramedullary nail fixation by Dr Boogie. Patient neurovascularly intact and is recovering from surgery. -Orthopedic surgery consulted, Dr Boogie. Dressings per orthopedic recommendation -Pain occasions on hold as patient has altered mental status, patient has no complaints of pain at this time -Ca+Vitamin D supplementation -Withholding further evaluation of osteoporosis due to patient's acute critical illness -Pt for transfer to chair when pt moved to floor (5) Postoperative anemia due to acute blood loss Code(s): D62 - Acute posthemorrhagic anemia Status: Acute Plan: Pt with acute blood loss anemia post-operatively. -Hemoglobin trending upwards -Status post 2 units PRBC on 11/23 and 2 additional units on 11/26 -Monitor with daily CBC -Transfusions as needed to maintain hemoglobin greater than 7 (6) Leukocytosis Code(s): D72.829 - Elevated white blood cell count, unspecified Status: Chronic Plan: White blood cell count trending upwards again today Urinalysis on admission was negative. Patient has remained afebrile, not tachycardic Peripheral smear review showed atypical lymphocytosis and mild neutrophilia suspicious for CLL. -Chest x-ray ordered -Hematology/oncology consulted -Consideration for sepsis with contributing factor of CLL which patient was possibly diagnosed with previously. -Blood cultures taken, no growth to date -Sputum culture ordered -C. difficile neg -Antibiotics DC'd yesterday (status post 48 hours of cefepime and metronidazole) (7) Hypertension Code(s): I10 - Essential (primary) hypertension Status: Acute Plan: Outside window for permissive hypertension. Will begin attempting to control systolic blood pressures more strictly. -HCTZ 25 mg p.o. daily -Vasotec 2.5 mg IV push systolic blood pressure greater than 180 or diastolic blood pressure greater than 100 (8) Hyperglycemia Code(s): R73.9 - Hyperglycemia, unspecified Status: Acute Plan: Patient has no reported history of diabetes. Likely stress reaction. -We will continue to monitor as patient increases in p.o. intake -SSI-- zero units given last 24 hrs (9) Hypothyroid Code(s): E03.9 - Hypothyroidism, unspecified Status: Acute Plan: We will continue home levothyroxine once dosing is obtained (10) Humeral fracture Code(s): S42.309A - Unspecified fracture of shaft of humerus, unspecified arm, initial encounter for closed fracture Status: Chronic Plan: Reported by son to be chronic. Patient had fracture 2 years prior -Orthopedic surgery consulted appreciate recommendations. -Pt right arm placed in sling post-op for immobilization (11) Nutrition, metabolism, and development symptoms Code(s): R63.8 - Other symptoms and signs concerning food and fluid intake Status: Acute Plan: Diet: PO with calorie counts. NG tube ordered but not placed; Dobhoff ordered to maintain caloric intake as specified by gang mower operator (minimum 1380 calories/day and maximum 1656 calories/day); however, pt has large hiatal hernia that did not permit placement. Per discussion with Dr Valle 11/26, we will allow pt to take PO with caloric goal as stated above. If minimum caloric goal cannot be met , will discuss Dobhoff placement under radiologic guidance vs PEG placement. Electrolytes: monitor daily and replete as necessary Fluids: 30mls normal saline per hour DVT prophylaxis: SCDs only. Hold pharmacological anticoagulation due to patient' s requirement of transfusion due to postoperative bleeding GI: none indicated <Rae Moore - 11/28/17 10:08> - Assessment and Plan Discussed Condition With: Dr Fischer <Rae Moore - 11/28/17 09:54> - Attending Attestation The exam, history, and the medical decision-making described in the above note were completed with the assistance of the resident physician. I reviewed and agree with the findings presented. I attest that I had a [id number] encounter with the patient on the same day, and personally performed and documented my assessment and findings in the medical record. Patient seen and evaluated with resident physician this morning. This morning her neurological status is status quo compared to yesterday. Still responds to questions and makes simple verbalizations. Confused about the year. She is, per report, interacting more with her family, and was even sitting up later in the day. Still moving all four extremities. Plan to move out of unit today as she is hemodynamically stable. Tube feedings will be withheld for now as she is eating some food per mouth, and we will assess her caloric intake. May benefit from a title supervisor consultation to assess her nutritional status and make recommendations. <Cruz Fischer - 11/28/17 17:34> <Rae Moore E - Last Filed: 11/28/17 10:08> (4) Fracture of femur Qualifiers: Encounter type: initial encounter Fracture type: closed Fracture morphology : spiral Laterality: right (10) Humeral fracture Qualifiers: Fracture type: closed Laterality: right <Cruz Fischer - Last Filed: 11/28/17 17:34> (4) Fracture of femur Qualifiers: Encounter type: initial encounter Fracture type: closed Fracture morphology : spiral Laterality: right (10) Humeral fracture Qualifiers: Fracture type: closed Laterality: right <Rae Moore E - Last Filed: 11/28/17 10:08> (4) Fracture of femur Qualifiers: Encounter type: initial encounter Fracture type: closed Fracture morphology : spiral Laterality: right (10) Humeral fracture Qualifiers: Fracture type: closed Laterality: right <Cruz Fischer L - Last Filed: 11/28/17 17:34> (4) Fracture of femur Qualifiers: Encounter type: initial encounter Fracture type: closed Fracture morphology : spiral Laterality: right (10) Humeral fracture Qualifiers: Fracture type: closed Laterality: right
[2017-11-28] MEDS ORDERED: hydroCHLOROthiazide 25 MG Tablet PO SCH (10:00)
[2017-11-28] MEDS ORDERED: Naphazoline 0.012% Opth Drops 15 ML Bottle LEFT EYE PRN (11:56)
[2017-11-28] MEDS ORDERED: NAPHAZOLINE LEFT EYE PRN (12:17)
[2017-11-28] MEDS: ATENOLOL PO SCH (15:15)
[2017-11-28] MEDS: CHLORTHALIDONE PO SCH (15:15)
[2017-11-28] MEDS: Labetalol HCl Inj 100 MG/20 ML Vial IV.PUSH PRN ×6 (16:19→21:56)
--- NOTE | 2017-11-28 17:07 | P.PNPAL ---
Reason for Visit Reason for visit: a. To assist with evaluation and management of symptoms including:pain, lethargy b. To assist medical decision maker(s) with: better understanding of current medical conditions; weighing benefits/burdens of medical treatment options; making medical treatment decisions. Subjective Subjective/Interval History: Follow-up on pain, lethargy as well as goals of treatment with decision-makers. Patient sitting up in a chair today. She grimaces with repositioning but is able to assist with moving her body in the stretcher chair. She has received no doses of pain medication since her surgery on 11/22. This may be because she is unable to make her needs known. She is status post right femur reduction and intramedullary nail fixation. She also has a right fractured humerus which is being treated nonsurgically. She is not speaking well today but has passed her swallow evaluation for pured and honey thick liquids. Family is at bedside. She is unable to quantify or qualify discomfort but using the nonverbal pain scale, it appears that movement causes her discomfort as she grimaces. Grimace resolves once repositioning is complete. She remains lethargic, slumping over in the chair requiring pillow support, just finished lunch. Family states that she was more interactive earlier. White blood cell count continues to elevate however patient does have a history of CLL, per Dr. Frankel note, which may contribute to her symptoms. She has difficulty holding her head up or moving any of her extremities due to her lethargy and weakness. . Family/Friend Interactions: Spoke with her 2 children length regarding potential, quality of life going forward and goals of care. After thorough explanation of aggressive interventions to include intubation CPR and resuscitation, family initially felt that they did not wish to proceed down that aggressive route but wished to talk about it overnight amongst themselves and process the information prior to making a final decision. In exploring the range of options the subject of hospice arose as the family appeared to be more pursuant of comfort care. Hospice information consultation was offered and accepted. Consult placed and discussed with Judy Alejo RN who is proceeding to provide the family with information while they process to make a decision. . Objective Vital Signs: Vital Signs 11/27/17 18:00 11/27/17 20:00 11/27/17 22:00 Temperature 98.6 F Pulse Rate 75 78 76 Respiratory Rate 17 Blood Pressure 218/92 H Pulse Oximetry 96 11/28/17 00:00 11/28/17 02:00 11/28/17 04:00 Temperature 98.4 F 98.3 F Pulse Rate 73 71 74 Respiratory Rate 18 19 Blood Pressure 210/88 H 195/84 H Pulse Oximetry 96 96 11/28/17 06:00 11/28/17 08:00 Temperature Pulse Rate 65 72 Respiratory Rate Blood Pressure Pulse Oximetry Intake & Output 11/27/17 11/28/17 11/28/17 18:59 06:59 18:59 Intake Total 900 / 900 100 / 100 Output Total 350 / 350 375 / 375 Balance 550 / 550 -275 / -275 Weight 123 lb 7.342 oz Intake: IV 100 / 100 100 / 100 KCl 20 mEq Premix Inj 20 meq In 100 / 100 100 / 100 100 ml @ 50 mls/hr IV.SIG Q2H ESTHER Rx#:[id number] Oral 800 / 800 Output: Urine 350 / 350 Urine Amount (Catheter) 375 / 375 Indwelling Urethral Catheter 375 / 375 Other: Date of Last Bowel Movement 11/22/17 11/22/17 11/22/17 Physical Exam: CONSTITUTIONAL/GENERAL: This is an adequately nourished patient, in no apparent distress. TUBES/LINES/DRAINS: PIV UE SKIN: No jaundice, rashes, or lesions. Ecchymoses Rt hip/upper leg. Dressing clean/dry. Skin warm/dry EYES: Pupils equal and round and reactive. Extraocular motions intact. No scleral icterus. No injection or drainage. Fundi not examined. ENT: [place]. Nose without bleeding or purulent drainage. Throat without visible erythema, exudates, masses, or lesions. CARDIOVASCULAR: Regular rate and rhythm without murmur . No JVD. Peripheral pulses symmetric. slight edema R upper leg RESPIRATORY/CHEST: Symmetric, unlabored respirations. Occasional rhonchi, clears with cough. On room air. Breath sounds equal bilaterally. GASTROINTESTINAL: Abdomen soft, non-tender, nondistended. No hepato-splenomegaly , or palpable masses. No guarding. Bowel sounds present. GENITOURINARY: Without palpable bladder distension. MUSCULOSKELETAL: Extremities without clubbing, cyanosis, or edema. +edema Rt hip. No mottling or clubbing. NEUROLOGICAL: Lethargic, unable to determine orientation. Patient follows directions but has poor insight, Poor situational awareness. Does follow very simple commands moves upper extremities/hands very weakly, moves feet bilaterally very weakly. PSYCHIATRIC: No obvious anxiety/depression. no apparent hallucinations or other psychotic thought process. . Diagnostic Tests Laboratory: Laboratory Results - last 72 hr 11/23/17 11/24/17 11/25/17 01:28 04:52 17:59 WBC RBC Hgb Hct MCV MCH MCHC RDW Plt Count MPV Prelim Diff (Auto) Neut % (Auto) Lymph % (Auto) Baxter % (Auto) Eos % (Auto) Baso % (Auto) Neut # (Auto) Lymph # (Auto) Baxter # (Auto) Eos # (Auto) Baso # (Auto) WBC Differential Seg Neuts % (Manual) Band Neuts % (Manual) Lymphocytes % (Manual) Monocytes % (Manual) Eosinophils % (Manual) Myelocytes % (Man) Abs Neuts (Manual) Differential Comment Smudge Cells Platelet Estimate Platelet Morphology Polychromasia Sodium Potassium Chloride Carbon Dioxide Anion Gap BUN Creatinine Estimated GFR POC Glucose 125 H Random Glucose Calcium Prot Corrected Calcium Total Bilirubin AST ALT Alkaline Phosphatase Total Protein Albumin Immunophenotypic Anal Blood Type Antibody Screen MTS Gel Crossmatch See Detail 11/25/17 11/26/17 11/26/17 20:58 04:20 04:20 WBC 27.3 H RBC 2.27 L Hgb 6.8 L* Hct 22.0 L MCV 97.2 MCH 30.1 MCHC 31.0 L RDW 16.5 Plt Count 106 L MPV 6.6 L Prelim Diff (Auto) Neut % (Auto) Lymph % (Auto) Baxter % (Auto) Eos % (Auto) Baso % (Auto) Neut # (Auto) Lymph # (Auto) Baxter # (Auto) Eos # (Auto) Baso # (Auto) WBC Differential Seg Neuts % (Manual) Band Neuts % (Manual) Lymphocytes % (Manual) Monocytes % (Manual) Eosinophils % (Manual) Myelocytes % (Man) Abs Neuts (Manual) Differential Comment Smudge Cells Platelet Estimate Platelet Morphology Polychromasia Sodium 152 H Potassium 3.6 Chloride 121 H Carbon Dioxide 22.2 Anion Gap 9 BUN 34 H Creatinine 0.48 L Estimated GFR Greater than 89 POC Glucose 167 H Random Glucose 123 H Calcium 7.7 L Prot Corrected Calcium Total Bilirubin 0.7 AST 19 ALT 8 L Alkaline Phosphatase 37 L Total Protein 4.5 L Albumin 2.4 L Immunophenotypic Anal Blood Type Antibody Screen MTS Gel Crossmatch 11/26/17 11/26/17 11/26/17 05:20 11:44 17:16 WBC RBC Hgb Hct MCV MCH MCHC RDW Plt Count MPV Prelim Diff (Auto) Neut % (Auto) Lymph % (Auto) Baxter % (Auto) Eos % (Auto) Baso % (Auto) Neut # (Auto) Lymph # (Auto) Baxter # (Auto) Eos # (Auto) Baso # (Auto) WBC Differential Seg Neuts % (Manual) Band Neuts % (Manual) Lymphocytes % (Manual) Monocytes % (Manual) Eosinophils % (Manual) Myelocytes % (Man) Abs Neuts (Manual) Differential Comment Smudge Cells Platelet Estimate Platelet Morphology Polychromasia Sodium Potassium Chloride Carbon Dioxide Anion Gap BUN Creatinine Estimated GFR POC Glucose 127 H 135 H Random Glucose Calcium Prot Corrected Calcium Total Bilirubin AST ALT Alkaline Phosphatase Total Protein Albumin Immunophenotypic Anal Blood Type A Positive Antibody Screen Negative MTS Gel Crossmatch See Detail 11/27/17 11/27/17 11/28/17 04:00 04:00 04:07 WBC 21.4 H 33.3 H RBC 2.92 L 3.40 L Hgb 9.0 L D 10.6 L Hct 26.3 L 31.1 L MCV 90.1 D 91.6 MCH 30.9 31.3 MCHC 34.3 34.1 RDW 15.1 15.6 Plt Count 87 L 118 L D MPV 6.5 L 6.8 L Prelim Diff (Auto) Manual diff required Slide review pending Neut % (Auto) 22.0 Lymph % (Auto) 73.2 H Baxter % (Auto) 3.5 Eos % (Auto) 1.0 Baso % (Auto) 0.3 Neut # (Auto) 7.3 Lymph # (Auto) 24.4 H Baxter # (Auto) 1.1 H Eos # (Auto) 0.3 Baso # (Auto) 0.1 WBC Differential Manual diff final Manual diff final Seg Neuts % (Manual) 23 16 Band Neuts % (Manual) 1 Lymphocytes % (Manual) 73 H 81 H Monocytes % (Manual) 1 1 Eosinophils % (Manual) 3 Myelocytes % (Man) 1 H Abs Neuts (Manual) 4.9 6.0 Differential Comment . . Smudge Cells Present H Present H Platelet Estimate Low L Low L Platelet Morphology Normal Normal Polychromasia 2.8 H Sodium 151 H Potassium 3.2 L Chloride 116 H Carbon Dioxide 24.0 Anion Gap 11 BUN 27 H Creatinine 0.40 L Estimated GFR Greater than 89 POC Glucose Random Glucose 138 H Calcium 7.3 L* Prot Corrected Calcium 9.0 Total Bilirubin 1.0 AST 17 ALT 8 L Alkaline Phosphatase 36 L Total Protein 4.2 L Albumin 2.3 L Immunophenotypic Anal Blood Type Antibody Screen MTS Gel Crossmatch 11/28/17 04:07 WBC RBC Hgb Hct MCV MCH MCHC RDW Plt Count MPV Prelim Diff (Auto) Neut % (Auto) Lymph % (Auto) Baxter % (Auto) Eos % (Auto) Baso % (Auto) Neut # (Auto) Lymph # (Auto) Baxter # (Auto) Eos # (Auto) Baso # (Auto) WBC Differential Seg Neuts % (Manual) Band Neuts % (Manual) Lymphocytes % (Manual) Monocytes % (Manual) Eosinophils % (Manual) Myelocytes % (Man) Abs Neuts (Manual) Differential Comment Smudge Cells Platelet Estimate Platelet Morphology Polychromasia Sodium 145 Potassium 3.8 Chloride 113 H Carbon Dioxide 24.3 Anion Gap 8 BUN 24 H Creatinine 0.40 L Estimated GFR Greater than 89 POC Glucose Random Glucose 123 H Calcium 7.6 L Prot Corrected Calcium Total Bilirubin AST ALT Alkaline Phosphatase Total Protein Albumin Immunophenotypic Anal Blood Type Antibody Screen MTS Gel Crossmatch Result Diagrams: 11/28/17 04:07 11/28/17 04:07 Microbiology: Microbiology 11/24/17 01:15 Aerobic Blood Culture - Preliminary Blood - Peripheral No growth in 4 days Anaerobic Blood Culture - Preliminary No growth in 4 days 11/23/17 22:39 Aerobic Blood Culture - Final Blood - Peripheral No growth in 5 days Anaerobic Blood Culture - Final No growth in 5 days Imaging: Pelvis X-Ray 11/21/17 00:00 CONCLUSION: Negative for acute pelvic fracture. Chest X-Ray 11/21/17 08:59 CONCLUSION: 1. No evidence of acute cardiopulmonary process. 2. Cardiomegaly 3. Nondisplaced fracture proximal right femur 4. Severe bilateral shoulder arthropathy. Femur X-Ray 11/21/17 08:59 CONCLUSION: Proximal femur fracture as above. Humerus X-Ray 11/21/17 08:59 CONCLUSION: Fracture proximal humerus as above. Hip X-Ray 11/22/17 00:00 CONCLUSION: Anatomic alignment. Head CT 11/23/17 10:21 CONCLUSION: 1. Stable evaluation without evidence of acute infarct, hemorrhage, mass or edema. 2. Cerebral white matter hypodensity characteristic of chronic microvascular ischemic disease; unchanged. . Head MRI 11/23/17 21:56 CONCLUSION: 1. 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 No significant mass effect or shift. 2. Severe chronic white matter ischemic changes bilaterally. Carotid Doppler Study 11/24/17 00:00 CONCLUSION: No evidence of flow-limiting carotid stenosis. Head CT 11/25/17 05:00 CONCLUSION: 1. Stable CT examination in this patient with known multiple cerebral infarcts. No intercurrent hemorrhage. . Chest X-Ray 11/26/17 13:47 CONCLUSION: Dobbhoff tube coiled within a large hiatal hernia. Chest X-Ray 11/28/17 12:31 CONCLUSION: Cardiomegaly. Severe hypoinflation without acute pulmonary disease Assessment and Plan - Disease Oriented Problem List (1) Closed subtrochanteric fracture of right femur Comment: S/P IM nail (2) Altered mental status (3) WALTER (acute kidney injury) (4) Humeral fracture (5) Leukocytosis (6) Hyperglycemia (7) Hypothyroid (8) Hypertension Pertinent Non-Medical Issues: Psychosocial: Patient originally from [facility]. Has lived in [place] for the past 10-15 years, originally in [place] and more recently in [facility]. Was a homemaker. , about 30 years ago following a stroke which was a complication following heart transplant. Has 3 children. Remains in close communication with her son Derick, 2 daughters Jesenia, Leah she does not remain in close communication with. Also has a sister Nivia in [place] whom she remains in contact with. Spiritual: Episcopalian, would appreciate coin machine collector visits. Legal: Patient currently not able to make her own decisions secondary to CVA. Not clear if or when she will regain ability to make her own decisions. She does not have advanced directive or health care surrogate completed. Per [place] statutes legal decision making would fall to the majority of her 3 adult children. In close communication with the one son Derick whom she lives with. She is not in close communication with the other 2 children. Will need to establish if they wish to participate in decision-making going forward. Ethical issues impacting care: Important Contacts: Son Derick Walker [phone] Does wish to participate in decisions Sister Nivia Jerry [phone] / [phone] Daughter Leah [phone] DOES NOT WISH TO PARTICIPATE IN DECISIONS 11/25/17 Daughter Jesenia Calhoun [phone], DOES WISH to participate in decisions 11/25/17 Prognosis: This patient was admitted status post fall in her home setting. She had following findings of a humerus fracture as well as femur fracture requiring operative repair. 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 Appears she may have acute infectious process. She had altered mental status, MRI findings of CVA, possibly embolic. Given her advanced age, current bedbound, acutely ill state, remains high risk for ongoing complications and setbacks which could result in continued deterioration and possibly . Code Status: Full Code Plan: * Legal decision maker:Patient currently not able to make her own decisions secondary to CVA. Not clear if or when she will regain ability to make her own decisions. She does not have advanced directive or health care surrogate completed. Per [place] statutes legal decision making would fall to the majority of her 3 adult children. In close communication with the one son Derick whom she lives with. She is not in close communication with the other 2 children. Will need to establish if they wish to participate in decision- making going forward. 11/25/17 1500 call back from patient's 2 other daughters Jesenia Lynn. Leah indicates she does not wish to participate in decision-making. Jesenia does indicate she wishes to participate with son Derick in decision-making, she indicates she will be in close communication with the rest of the family; and plans to try to get down here in the next day or so. LEGAL DECISION MAKERS= 2 CHILDREN DERICK FREDERICK. * Goals: Goals right now are to continue aggressive treatments, take it a day at a time. We have explored occasions trajectory with continued aggressive course, as well as reviewed de-escalation and hospice option. Further decisions, including CODE STATUS also pending family consideration overnight. * CODE STATUS: Full code * SYMPTOMS: --Pain-status post fall in the home resulting in hip fracture. Status post surgical repair. At time of exam patient denies pain. She is also reported to have arthritis, though son indicates pain is generally well managed by aspirin p.o. She has PRN tylenol, norco, and morphine 2mg Iv available, last dose norco 11/21, no doses of Tylenol or morphine. Cautious use of opiates given concern for altered mental status and lethargy status post CVA. --Lethargy- + CVA per MRI. Numerous areas bilateral infarct. Patient lethargic today able to perform simple commands with encouragement. Family considering rehabilitation. Seen by physical therapy today but too lethargic to participate safely. * Palliative care will continue to follow during hospital course as condition evolves, to assist patient/decision-maker with understanding of medical conditions, weighing benefits/burdens of treatment options, for clarification of goals of treatment. Additionally will assist with any symptoms of palliative concern Attestation Attestation: To help prompt me to consider important information that might be impacting today's encounter and assessment, information from prior notes written by myself or my colleagues may have been "brought forward" into today's note. My signature on this note, however, is an attestation that I personally performed the exam, history, and/or decision-making noted today, and, unless otherwise indicated, the interactions with patient, family, and staff as well as the review of records all occurred today. I also attest that the listed assessment and stated plan reflect my best clinical judgment today based on the combination of historical information, prior notes, and today's exam/ interactions. When time spent is documented, it refers only to time spent today by the signer, or if indicated, combined time spent today by collaborating physician/nurse practitioner. .
[2017-11-28 21:38] LABS: Bacteria,Urine Rare /hpf; Bilirubin,Urine Negative (Negative); Clarity,Urine Cloudy (Clear); Color,Urine Yellow (Yellw/Straw); Glucose,Urine (UA) 50 mg/dL (Negative); Leukocyte Esterase,Urine Trace (Negative); Mucus,Urine Few /lpf (Occasional); Nitrite,Urine Negative (Negative); Specific Gravity,Urine 1.016 (1.002-1.035); Uric Acid Crystals,Urine Few /hpf
[2017-11-29] MEDS: Calcium/Vitamin D 250/125 MG Tablet PO SCH ×3 (03:14→18:07)
[2017-11-29 04:52] LABS: Baso % (Auto) 0.1 % (0.0-2.0); Eos # (Auto) 0.2 th/mm3 (0.0-0.4); Eos % (Auto) 0.9 % (0.0-4.0); Hematocrit 28.9 % (35.0-46.0); Hemoglobin 9.7 gm/dL (11.6-15.3); Lymph # (Auto) 18.6 th/mm3 (1.0-4.8); Lymph % (Auto) 74.5 % (9.0-44.0); Mean Corpuscular HGB Conc 33.5 % (32.0-36.0); Mean Corpuscular Hemoglobin 31.1 pg (27.0-34.0); Mean Platelet Volume 6.8 fL (7.0-11.0); Mono # (Auto) 0.9 th/mm3 (0.0-0.9); Mono % (Auto) 3.6 % (0.0-8.0); Neut # (Auto) 5.2 th/mm3 (1.8-7.7); Neut % (Auto) 20.9 % (16.0-70.0); Platelet Count 108 th/mm3 (150-450); Red Blood Count 3.11 mil/mm3 (4.00-5.30); Red Cell Distribution Width 15.1 % (11.6-17.2)
[2017-11-29 05:28] LABS: Anion Gap 9 meq/L (5-15); Blood Urea Nitrogen 22 mg/dL (7-18); Calcium 7.4 mg/dL (8.5-10.1); Carbon Dioxide 26.5 meq/L (21.0-32.0); Chloride 107 meq/L (98-107); Glomerular Filtration Rate Greater Than 89 mL/min (>89); Glucose,Random 138 mg/dL (74-106); Potassium 3.8 meq/L (3.5-5.1); Sodium 142 meq/L (136-145)
[2017-11-29 05:40] LABS: Total Protein 4.2 g/dL (6.4-8.2)
[2017-11-29 08:47] LABS: Eosinophils 2 % (0-4); Lymphocytes 74 % (9-44)
[2017-11-29 08:48] LABS: Platelet Morphology Normal (Normal); RBC Morphology Normal (Normal); Smudge Cells Present
[2017-11-29] MEDS: Beneprotein Powder Packet G-TUBE SCH ×3 (09:33→17:54)
[2017-11-29] MEDS: ATENOLOL PO SCH (09:33)
[2017-11-29] MEDS: Senna/Docusate Sodium 8.6/50 MG Tablet PO SCH ×2 (09:33→20:46)
[2017-11-29] MEDS: CHLORTHALIDONE PO SCH (09:33)
[2017-11-29] MEDS ORDERED: Acetaminophen Inj 650 MG/65 ML VIAL IV.SIG PRN (10:00)
[2017-11-29] MEDS: Labetalol HCl Inj 100 MG/20 ML Vial IV.PUSH PRN ×2 (10:06→18:06)
--- NOTE | 2017-11-29 11:09 | P.PNFP ---
Subjective Interval history: Ms Wakler had no acute events overnight. Today she answers a few questions and can follow a few simple commands, but it appears that she is usually more active in the afternoons. She work with PT this morning. Palliative care saw her this morning and the family is still considering options with regard to CODE STATUS but they did accept a hospice consult to discuss hospice options. Patient can wiggle toes and squeeze hands on command. There is no complaint of pain as per previous. <Nasim Still III H - 11/29/17 11:08> Results - Labs Result diagrams: 11/29/17 04:10 11/29/17 04:10 <AmadoCruz L - 11/29/17 22:15> Abnormal lab results 11/29/17 11/29/17 11/29/17 Range/Units 04:10 04:10 04:10 WBC 25.0 H (4.0-11.0) th/mm3 RBC 3.11 L (4.00-5.30) mil/mm3 Hgb 9.7 L (11.6-15.3) gm/dL Hct 28.9 L (35.0-46.0) % Plt Count 108 L (150-450) th/mm3 MPV 6.8 L (7.0-11.0) fL Lymph % (Auto) 74.5 H (9.0-44.0) % Lymph # (Auto) 18.6 H (1.0-4.8) th/mm3 Lymphocytes % (Manual) 74 H (9-44) % Smudge Cells Present H (None) Platelet Estimate Low L (Normal) BUN 22 H (7-18) mg/dL Creatinine 0.43 L (0.50-1.00) mg/dL Random Glucose 138 H (74-106) mg/dL Calcium 7.4 L* (8.5-10.1) mg/dL Total Protein 4.2 L (6.4-8.2) g/dL TSH 3.860 H (0.358-3.740) uIU/mL Short CBC 11/29/17 Range/Units 04:10 WBC 25.0 H (4.0-11.0) th/mm3 Hgb 9.7 L (11.6-15.3) gm/dL Hct 28.9 L (35.0-46.0) % Plt Count 108 L (150-450) th/mm3 [facility] 11/29/17 04:10 Sodium 142 Potassium 3.8 Chloride 107 Carbon Dioxide 26.5 BUN 22 H Creatinine 0.43 L Calcium 7.4 L* <Young,Cruz L - 11/29/17 22:15> Abnormal lab results 11/28/17 11/29/17 11/29/17 Range/Units 20:34 04:10 04:10 WBC 25.0 H (4.0-11.0) th/mm3 RBC 3.11 L (4.00-5.30) mil/mm3 Hgb 9.7 L (11.6-15.3) gm/dL Hct 28.9 L (35.0-46.0) % Plt Count 108 L (150-450) th/mm3 MPV 6.8 L (7.0-11.0) fL Lymph % (Auto) 74.5 H (9.0-44.0) % Lymph # (Auto) 18.6 H (1.0-4.8) th/mm3 Lymphocytes % (Manual) 74 H (9-44) % Smudge Cells Present H (None) Platelet Estimate Low L (Normal) BUN 22 H (7-18) mg/dL Creatinine 0.43 L (0.50-1.00) mg/dL Random Glucose 138 H (74-106) mg/dL Calcium 7.4 L* (8.5-10.1) mg/dL Total Protein 4.2 L (6.4-8.2) g/dL Urine Clarity Cloudy H (Clear) Urine Protein 30 H (Neg-Trace) mg/dL Urine Occult Blood Moderate H (Negative) Ur Leukocyte Esterase Trace H (Negative) Urine RBC 47 H (0-3) /hpf Uric Acid Crystals Few H (None) /hpf Urine Bacteria Rare H (None) /hpf Urine Mucus Few H (Occasional) /lpf Short CBC 11/29/17 Range/Units 04:10 WBC 25.0 H (4.0-11.0) th/mm3 Hgb 9.7 L (11.6-15.3) gm/dL Hct 28.9 L (35.0-46.0) % Plt Count 108 L (150-450) th/mm3 [facility] 11/29/17 04:10 Sodium 142 Potassium 3.8 Chloride 107 Carbon Dioxide 26.5 BUN 22 H Creatinine 0.43 L Calcium 7.4 L* Urine 11/28/17 Range/Units 20:34 Urine Color Yellow (Yellw/Straw) Urine Clarity Cloudy H (Clear) Urine pH 5.0 (5.0-8.5) Ur Specific Philip 1.016 (1.002-1.035) Urine Protein 30 H (Neg-Trace) mg/dL Urine Glucose (UA) 50 (Negative) mg/dL <Nasim Still III - 11/29/17 11:08> - Imaging Impressions Chest X-Ray 11/28/17 12:31 CONCLUSION: Cardiomegaly. Severe hypoinflation without acute pulmonary disease <Nasim Still III - 11/29/17 11:08> Physical Exam Vital signs: Vital Signs 11/29/17 00:00 11/29/17 02:00 11/29/17 04:00 Temperature 99.4 F 98.8 F Pulse Rate 69 66 60 Respiratory Rate 16 12 Blood Pressure 185/77 H 160/71 H 11/29/17 06:00 11/29/17 08:00 11/29/17 10:00 Temperature 97.9 F Pulse Rate 61 56 L 65 Respiratory Rate 15 Blood Pressure 150/65 H 11/29/17 12:00 11/29/17 14:00 11/29/17 16:00 Temperature 98.4 F 98.4 F Pulse Rate 64 64 68 Respiratory Rate 16 16 Blood Pressure 176/76 H 199/80 H 11/29/17 18:00 11/29/17 20:00 11/29/17 21:00 Temperature 98.6 F Pulse Rate 68 74 Respiratory Rate 21 Blood Pressure 195/56 H 180/79 H 11/29/17 22:00 Temperature Pulse Rate 74 Respiratory Rate Blood Pressure Intake & Output 11/29/17 11/29/17 11/30/17 06:59 18:59 06:59 Intake Total 240 / 240 Output Total 700 / 700 650 / 650 Balance -700 / -700 -410 / -410 Weight 56.1 kg Intake: Oral 240 / 240 Output: Urine 650 / 650 Urine Amount (Catheter) 700 / 700 Indwelling Urethral Catheter 700 / 700 Other: Date of Last Bowel Movement 11/22/17 11/22/17 <Cruz Fischer L - 11/29/17 22:15> Vital Signs 11/28/17 12:00 11/28/17 16:00 11/28/17 20:00 Temperature 98 F 98 F 98.8 F Pulse Rate 76 69 68 Respiratory Rate 18 18 20 Blood Pressure 209/102 H 219/92 H 199/82 H 11/28/17 22:00 11/29/17 00:00 11/29/17 02:00 Temperature 99.4 F Pulse Rate 59 L 69 66 Respiratory Rate 16 Blood Pressure 185/77 H 11/29/17 04:00 11/29/17 06:00 Temperature 98.8 F Pulse Rate 60 61 Respiratory Rate 12 Blood Pressure 160/71 H Intake & Output 11/28/17 11/29/17 11/29/17 18:59 06:59 18:59 Intake Total 660 / 660 Output Total 1250 / 1250 700 / 700 Balance -590 / -590 -700 / -700 Weight 56.1 kg Intake: Oral 660 / 660 Output: Urine Amount (Catheter) 1250 / 1250 700 / 700 Indwelling Urethral Catheter 1250 / 1250 700 / 700 Other: Date of Last Bowel Movement 11/22/17 11/22/17 <Nasim Still III - 11/29/17 11:08> Narrative: GENERAL: Elderly female, lying in bed. Opens eyes to voice. Follows simple commands. Answers simple questions. HEENT: Pupils equal, round, reactive. Some purulent left eye discharge today. MMM. Eyes tracking finger poorly today. CARDIOVASCULAR: Regular rate & rhythm. Systolic murmur 1 out of 6 best over right-sided sternal border, stable from previous exam. ABDOMEN: Bowel sounds present. Soft, nontender, nondistended. MUSCULOSKELETAL: Dressings in place with no excess blood noted on right hip surgical area. Large hematoma about longterm down the thigh and extending to the lateral thigh area, stable from previous exam. Pulses intact bilaterally. No edema. Large ecchymoses over the extensor surface of the right forearm, secured by sling. NEUROLOGICAL: Patient squeezes hands, wiggles toes on command. Single word answers to questions. Oriented to self only. Spontaneous movement of bilateral upper and lower extremities. Patient protecting airway. Pt taking PO. <Nasim Still III - 11/29/17 11:08> - Urinary Catheter Management Indwelling Urethral Catheter Cath placed during this visit: no <Cruz Fischer - 11/29/17 22:15> yes <Nasim Still III - 11/29/17 11:08> Reason for continuing: Hourly intake/output <Nasim Still III - 11/29/17 11: 08> Insertion date: 11/22/17 <Nasim Still III - 11/29/17 11:08> Assessment and Plan - Assessment (1) Altered mental status Code(s): R41.82 - Altered mental status, unspecified Status: Acute (2) Thrombocytopenia Code(s): D69.6 - Thrombocytopenia, unspecified Status: Acute (3) WALTER (acute kidney injury) Code(s): N17.9 - Acute kidney failure, unspecified Status: Acute (4) Fracture of femur Code(s): S72.90XA - Unspecified fracture of unspecified femur, initial encounter for closed fracture Status: Acute (5) Postoperative anemia due to acute blood loss Code(s): D62 - Acute posthemorrhagic anemia Status: Acute (6) Leukocytosis Code(s): D72.829 - Elevated white blood cell count, unspecified Status: Chronic (7) Hypertension Code(s): I10 - Essential (primary) hypertension Status: Acute (8) Hyperglycemia Code(s): R73.9 - Hyperglycemia, unspecified Status: Acute (9) Hypothyroid Code(s): E03.9 - Hypothyroidism, unspecified Status: Acute (10) Humeral fracture Code(s): S42.309A - Unspecified fracture of shaft of humerus, unspecified arm, initial encounter for closed fracture Status: Chronic (11) Nutrition, metabolism, and development symptoms Code(s): R63.8 - Other symptoms and signs concerning food and fluid intake Status: Acute <Cruz Fischer - 11/29/17 22:15> (1) Altered mental status Code(s): R41.82 - Altered mental status, unspecified Status: Acute Plan: Patient appears to be mentally improving since surgery. Still denies pain. -Continue to hold anticoagulation (pt last transfusion 2 units 11/26) -Ofirmev 650 mg IV q6h -Patient is currently protecting airway -Critical care signed off 11/27 -Transfer to floor -Per patient's son patient is eating with assistance. Swallow study recommendations for pure thick solids and honey thick liquids -Minimum caloric intake per day 1380, will hold on placement of Dobbhoff for now if patient continues to eat PO -Patient maintaining SPO2 on room air. Nebs as needed -Palliative care consulted, after discussion with patient's son and oldest daughter, they are considering CODE STATUS change; they have accepted the offer of Hospice consult to discuss options. -Continue Rowley with strict I's and O's -Maintain hemoglobin greater than 7 (Hgb 9.0 11/27) -Neurochecks q4h -PT/OT to work with patient History: Head CT 11/25 showed no acute changes. 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 EEG showed background slowing consistent with encephalopathic state Acute encephalopathy due to CVA, post-op state, metabolic Ammonia level <10 (2) Thrombocytopenia Code(s): D69.6 - Thrombocytopenia, unspecified Status: Acute Plan: Platelet count trending upwards -Coagulation studies and fibrinogen within normal limits. -Hematology following patient -Patient not requiring platelet transfusion at this time, no signs of large active bleed. -Repeat CBC in a.m. -Monitor for now -If s/s of active bleeding, renae VANEGAS (3) WALTER (acute kidney injury) Code(s): N17.9 - Acute kidney failure, unspecified Status: Acute Plan: Contributing factor of hypovolemia and n.p.o. status--resolved 11/25 -Status post 2 units PRBC on 11/23 and 2 u PRBCs 11/26 -Patient was given additional normal saline 1 L on admission to ICU -Normal saline at 30 mls/hr due to loss of other pt IV sites -Continue Rowley catheter -BMP in a.m. (4) Fracture of femur Code(s): S72.90XA - Unspecified fracture of unspecified femur, initial encounter for closed fracture Status: Acute Plan: 87 YO female with comminuted spiral "butterfly" fracture of proximal femur noted on x-ray. Today pt is POD#6 following right femur reduction and intramedullary nail fixation by Dr Boogie. Patient neurovascularly intact and is recovering from surgery. -Orthopedic surgery consulted, Dr Boogie. Dressings per orthopedic recommendation -Pain occasions on hold as patient has altered mental status, patient has no complaints of pain at this time -Ca+Vitamin D supplementation -Withholding further evaluation of osteoporosis due to patient's acute critical illness -Pt for transfer to chair when pt moved to floor (5) Postoperative anemia due to acute blood loss Code(s): D62 - Acute posthemorrhagic anemia Status: Acute Plan: Pt with acute blood loss anemia post-operatively. -Hemoglobin trending upwards -Status post 2 units PRBC on 11/23 and 2 additional units on 11/26 -Monitor with daily CBC -Transfusions as needed to maintain hemoglobin greater than 7 (6) Leukocytosis Code(s): D72.829 - Elevated white blood cell count, unspecified Status: Chronic Plan: White blood cell count trending upwards again today Urinalysis on admission was negative; repeat 11/28 with moderate blood, 30 protein,trace LE, neg nitrite, few uric acid crystals. Patient has remained afebrile, not tachycardic Peripheral smear review showed atypical lymphocytosis and mild neutrophilia suspicious for CLL. -CXR 11/28 - Cardiomegaly. 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 -Blood cultures NGTD x5 days -Urine cx pending -Sputum culture ordered -C. difficile neg -Antibiotics DC'd 11/27 (status post 48 hours of cefepime and metronidazole) (7) Hypertension Code(s): I10 - Essential (primary) hypertension Status: Acute Plan: Outside window for permissive hypertension. Will begin attempting to control systolic blood pressures more strictly. -Atenolol 50/Chlorthalidone 50 -Vasotec 2.5 mg IV push PRN if systolic blood pressure greater than 180 or diastolic blood pressure greater than 100 (8) Hyperglycemia Code(s): R73.9 - Hyperglycemia, unspecified Status: Acute Plan: Patient has no reported history of diabetes. Likely stress reaction. -We will continue to monitor as patient increases in p.o. intake -SSI-- zero units given last 24 hrs (9) Hypothyroid Code(s): E03.9 - Hypothyroidism, unspecified Status: Acute Plan: We will continue home levothyroxine once dosing is obtained -TSH pending (10) Humeral fracture Code(s): S42.309A - Unspecified fracture of shaft of humerus, unspecified arm, initial encounter for closed fracture Status: Chronic Plan: Reported by son to be chronic. Patient had fracture 2 years prior -Orthopedic surgery consulted appreciate recommendations. -Pt right arm placed in sling post-op for immobilization (11) Nutrition, metabolism, and development symptoms Code(s): R63.8 - Other symptoms and signs concerning food and fluid intake Status: Acute Plan: Diet: PO with calorie counts. NG tube ordered but not placed; Dobhoff ordered to maintain caloric intake as specified by blocking machine operator second (minimum 1380 calories/day and maximum 1656 calories/day); however, pt has large hiatal hernia that did not permit placement. Per discussion with Dr Valle 11/26, we will allow pt to take PO with caloric goal as stated above. If minimum caloric goal cannot be met , will discuss Dobhoff placement under radiologic guidance vs PEG placement. Electrolytes: monitor daily and replete as necessary Fluids: 30mls normal saline per hour DVT prophylaxis: SCDs only. Hold pharmacological anticoagulation due to patient' s requirement of transfusion due to postoperative bleeding GI: none indicated <Nasim Still III - 11/29/17 10:44> - Assessment and Plan Fluids: PO fluids Electrolytes: wnl, will monitor with BMP and replete Nutrition: PO intake goal 1380 cals/day--honey thick liquids and puree thick solids per dietary and ST GI: none indicated PPx: Holding Lovenox due to post-op bleeding Tylenol 650 mg as above PT Incentive spirometry CM consult to assist with rehab/SNF placement Palliative care as above - family considering Hospice vs SNF Dispo: as above; Hospice or SNF Pt SDW Pedro Luis Fischer and Teresa <Nasim Still III - 11/29/17 11:08> - Attending Attestation The exam, history, and the medical decision-making described in the above note were completed with the assistance of the resident physician. I reviewed and agree with the findings presented. I attest that I had a [id number] encounter with the patient on the same day, and personally performed and documented my assessment and findings in the medical record. Patient seen with residents and medical student this morning. She remains stable neurologically, still responds to simple questions, moves all four extremities. Not tracking much with eyes but also has visual difficulty at baseline. Palliative care continues discussion with family and they changed code status to DNR and are considering hospice care consultation. Otherwise, patient is attempting to reach caloric goals with hand feeding. She reports no pain this morning and states she is comfortable. <Cruz Fischer - 11/29/17 22:15> <Nasim Still III - Last Filed: 11/29/17 10:44> (4) Fracture of femur Qualifiers: Encounter type: initial encounter Fracture type: closed Fracture morphology : spiral Laterality: right (10) Humeral fracture Qualifiers: Fracture type: closed Laterality: right <Cruz Fischer - Last Filed: 11/29/17 22:15> (4) Fracture of femur Qualifiers: Encounter type: initial encounter Fracture type: closed Fracture morphology : spiral Laterality: right (10) Humeral fracture Qualifiers: Fracture type: closed Laterality: right <Nasim Still III - Last Filed: 11/29/17 10:44> (4) Fracture of femur Qualifiers: Encounter type: initial encounter Fracture type: closed Fracture morphology : spiral Laterality: right (10) Humeral fracture Qualifiers: Fracture type: closed Laterality: right <Cruz Fischer - Last Filed: 11/29/17 22:15> (4) Fracture of femur Qualifiers: Encounter type: initial encounter Fracture type: closed Fracture morphology : spiral Laterality: right (10) Humeral fracture Qualifiers: Fracture type: closed Laterality: right
[2017-11-29] MEDS: Chlorthalidone 50 MG Tablet PO SCH (12:54)
[2017-11-29] MEDS: Polymyxin/Trimethop Opth Drops 10 ML Bottle LEFT EYE SCH ×2 (13:58→18:07)
--- NOTE | 2017-11-29 14:31 | P.PNPAL ---
Reason for Visit Reason for visit: a. To assist with evaluation and management of symptoms including:pain, lethargy b. To assist medical decision maker(s) with: better understanding of current medical conditions; weighing benefits/burdens of medical treatment options; making medical treatment decisions. Subjective Subjective/Interval History: Follow-up on pain, lethargy, constipation as well as goals of treatment with decision-makers. Patient remains lethargic, sleepy today. She intermittently arouses but falls right back to sleep. She was evaluated by physical therapy today and found to be more lethargic than the prior day, barely waking to painful stimulus. She demonstrated worsening trunk control, significant lateral lean to the right and inability to hold head in midline she was found to be too lethargic to safely transfer out of bed. She has received no sedating medications since 11/21. TSH indicates an elevated level of 3.86. She is not currently receiving levothyroxine. Due to her lethargy, it is difficult to assess pain. Certainly she is at risk for pain from recent leg surgery, femur fracture, humeral fracture, bedbound status, invasive lines and sequelae of recent fall. She appears unable to make her needs known and is unable to quantify or qualify her pain. She winces with any movement of her left arm as well as with repositioning. Last recorded bowel movement was 11/22. She is unable to describe any symptoms of constipation secondary to her lethargy. Abdomen is soft, lax, normoactive bowel sounds, nontender to palpation. She is receiving Holli-Colace twice daily and has Senokot available as needed, however has not received any additional dosing. . Family/Friend Interactions: Spoke with family at length today, to include son Derick and sister Jesenia. Jesenia' s was also in attendance. We reviewed discharge plans, possible scenarios involving continued decline. They had multiple questions regarding discharge plans and stated they had visited and chosen [facility] on patient's discharge. This was discussed with caser in and a referral has been requested for evaluation. We also held an extensive discussion on CODE STATUS again outlining the options available and their potential sequelae. The family agreed that CPR and intubation at her stage of health was likely against her wishes and they did not wish to subject her to any further discomfort, pain and invasive procedures. They discussed the possibility of enrolling in hospice for additional medical surveillance [facility], however their initial goal is rehabilitation and I made them aware that she was not eligible for hospice until that was completed. As it is felt unlikely that she will advance with rehabilitation to any extent of being able to return home, she will likely enroll in hospice services once her rehabilitation status has been resolved. As she has a nonweightbearing fractured arm and a 50% weightbearing fractured leg, she is likely to substantially improve with rehabilitation this time. The family is aware of this and hospice is following for support. . Objective Vital Signs: Vital Signs 11/28/17 16:00 11/28/17 20:00 11/28/17 22:00 Temperature 98 F 98.8 F Pulse Rate 69 68 59 L Respiratory Rate 18 20 Blood Pressure 219/92 H 199/82 H 11/29/17 00:00 11/29/17 02:00 11/29/17 04:00 Temperature 99.4 F 98.8 F Pulse Rate 69 66 60 Respiratory Rate 16 12 Blood Pressure 185/77 H 160/71 H 11/29/17 06:00 11/29/17 08:00 11/29/17 10:00 Temperature 97.9 F Pulse Rate 61 56 L 65 Respiratory Rate 15 Blood Pressure 150/65 H 11/29/17 12:00 Temperature 98.4 F Pulse Rate 64 Respiratory Rate 16 Blood Pressure 176/76 H Intake & Output 11/28/17 11/29/17 11/29/17 18:59 06:59 18:59 Intake Total 660 / 660 Output Total 1250 / 1250 700 / 700 Balance -590 / -590 -700 / -700 Weight 123 lb 10.869 oz Intake: Oral 660 / 660 Output: Urine Amount (Catheter) 1250 / 1250 700 / 700 Indwelling Urethral Catheter 1250 / 1250 700 / 700 Other: Date of Last Bowel Movement 11/22/17 11/22/17 Physical Exam: CONSTITUTIONAL/GENERAL: This is an adequately nourished patient, in no apparent distress. TUBES/LINES/DRAINS: PIV UE SKIN: No jaundice, rashes, or lesions. Ecchymoses Rt hip/upper leg. Dressing clean/dry. Skin warm/dry EYES: Pupils equal and round and reactive. Extraocular motions intact. No scleral icterus. No injection or drainage. Fundi not examined. ENT: CHITIMACHA. Nose without bleeding or purulent drainage. Throat without visible erythema, exudates, masses, or lesions. CARDIOVASCULAR: Regular rate and rhythm without murmur . No JVD. Peripheral pulses symmetric. slight edema R upper leg RESPIRATORY/CHEST: Symmetric, unlabored respirations. Occasional rhonchi, clears with cough. On room air. Breath sounds equal bilaterally. GASTROINTESTINAL: Abdomen soft, non-tender, nondistended. No hepato-splenomegaly , or palpable masses. No guarding. Bowel sounds present. GENITOURINARY: Without palpable bladder distension. MUSCULOSKELETAL: Extremities without clubbing, cyanosis, or edema. +edema Rt hip. No mottling or clubbing. NEUROLOGICAL: Lethargic, unable to determine orientation. Patient follows directions but has poor insight, Poor situational awareness. Does follow very simple commands moves upper extremities/hands very weakly, moves feet bilaterally very weakly. PSYCHIATRIC: No obvious anxiety/depression. no apparent hallucinations or other psychotic thought process. . Diagnostic Tests Laboratory: Laboratory Results - last 72 hr 11/26/17 11/27/17 11/27/17 17:16 04:00 04:00 WBC 21.4 H RBC 2.92 L Hgb 9.0 L D Hct 26.3 L MCV 90.1 D MCH 30.9 MCHC 34.3 RDW 15.1 Plt Count 87 L MPV 6.5 L Prelim Diff (Auto) Manual diff required Neut % (Auto) Lymph % (Auto) [place] % (Auto) Eos % (Auto) Baso % (Auto) Neut # (Auto) Lymph # (Auto) [place] # (Auto) Eos # (Auto) Baso # (Auto) WBC Differential Manual diff final Seg Neuts % (Manual) 23 Band Neuts % (Manual) Lymphocytes % (Manual) 73 H Monocytes % (Manual) 1 Eosinophils % (Manual) 3 Myelocytes % (Man) Abs Neuts (Manual) 4.9 Differential Comment . Smudge Cells Present H Platelet Estimate Low L Platelet Morphology Normal RBC Morphology Polychromasia Sodium 151 H Potassium 3.2 L Chloride 116 H Carbon Dioxide 24.0 Anion Gap 11 BUN 27 H Creatinine 0.40 L Estimated GFR Greater than 89 POC Glucose 135 H Random Glucose 138 H Calcium 7.3 L* Prot Corrected Calcium 9.0 Total Bilirubin 1.0 AST 17 ALT 8 L Alkaline Phosphatase 36 L Total Protein 4.2 L Albumin 2.3 L TSH Urine Color Urine Clarity Urine pH Ur Specific [place] Urine Protein Urine Glucose (UA) Urine Ketones Urine Occult Blood Urine Nitrate Urine Bilirubin Urine Urobilinogen Ur Leukocyte Esterase Urine RBC Urine WBC Uric Acid Crystals Urine Bacteria Urine Mucus Micro UA Comment Ur Microscopic Review Urine Culture Comments 11/28/17 11/28/17 11/28/17 04:07 04:07 20:34 WBC 33.3 H RBC 3.40 L Hgb 10.6 L Hct 31.1 L MCV 91.6 MCH 31.3 MCHC 34.1 RDW 15.6 Plt Count 118 L D MPV 6.8 L Prelim Diff (Auto) Slide review pending Neut % (Auto) 22.0 Lymph % (Auto) 73.2 H [place] % (Auto) 3.5 Eos % (Auto) 1.0 Baso % (Auto) 0.3 Neut # (Auto) 7.3 Lymph # (Auto) 24.4 H [place] # (Auto) 1.1 H Eos # (Auto) 0.3 Baso # (Auto) 0.1 WBC Differential Manual diff final Seg Neuts % (Manual) 16 Band Neuts % (Manual) 1 Lymphocytes % (Manual) 81 H Monocytes % (Manual) 1 Eosinophils % (Manual) Myelocytes % (Man) 1 H Abs Neuts (Manual) 6.0 Differential Comment . Smudge Cells Present H Platelet Estimate Low L Platelet Morphology Normal RBC Morphology Polychromasia 2.8 H Sodium 145 Potassium 3.8 Chloride 113 H Carbon Dioxide 24.3 Anion Gap 8 BUN 24 H Creatinine 0.40 L Estimated GFR Greater than 89 POC Glucose Random Glucose 123 H Calcium 7.6 L Prot Corrected Calcium Total Bilirubin AST ALT Alkaline Phosphatase Total Protein Albumin TSH Urine Color Yellow Urine Clarity Cloudy H Urine pH 5.0 Ur Specific [place] 1.016 Urine Protein 30 H Urine Glucose (UA) 50 Urine Ketones Negative Urine Occult Blood Moderate H Urine Nitrate Negative Urine Bilirubin Negative Urine Urobilinogen Less than 2 Ur Leukocyte Esterase Trace H Urine RBC 47 H Urine WBC 2 Uric Acid Crystals Few H Urine Bacteria Rare H Urine Mucus Few H Micro UA Comment Cath-culture ind Ur Microscopic Review Not Reportable Urine Culture Comments Cath-cult indicated 11/29/17 11/29/17 11/29/17 04:10 04:10 04:10 WBC 25.0 H RBC 3.11 L Hgb 9.7 L Hct 28.9 L MCV 93.0 MCH 31.1 MCHC 33.5 RDW 15.1 Plt Count 108 L MPV 6.8 L Prelim Diff (Auto) Slide review pending Neut % (Auto) 20.9 Lymph % (Auto) 74.5 H [place] % (Auto) 3.6 Eos % (Auto) 0.9 Baso % (Auto) 0.1 Neut # (Auto) 5.2 Lymph # (Auto) 18.6 H [place] # (Auto) 0.9 Eos # (Auto) 0.2 Baso # (Auto) 0.0 WBC Differential Manual diff final Seg Neuts % (Manual) 23 Band Neuts % (Manual) 1 Lymphocytes % (Manual) 74 H Monocytes % (Manual) Eosinophils % (Manual) 2 Myelocytes % (Man) Abs Neuts (Manual) 6.0 Differential Comment . Smudge Cells Present H Platelet Estimate Low L Platelet Morphology Normal RBC Morphology Normal Polychromasia Sodium 142 Potassium 3.8 Chloride 107 Carbon Dioxide 26.5 Anion Gap 9 BUN 22 H Creatinine 0.43 L Estimated GFR Greater than 89 POC Glucose Random Glucose 138 H Calcium 7.4 L* Prot Corrected Calcium 9.1 Total Bilirubin AST ALT Alkaline Phosphatase Total Protein 4.2 L Albumin TSH 3.860 H Urine Color Urine Clarity Urine pH Ur Specific [place] Urine Protein Urine Glucose (UA) Urine Ketones Urine Occult Blood Urine Nitrate Urine Bilirubin Urine Urobilinogen Ur Leukocyte Esterase Urine RBC Urine WBC Uric Acid Crystals Urine Bacteria Urine Mucus Micro UA Comment Ur Microscopic Review Urine Culture Comments Result Diagrams: 11/29/17 04:10 11/29/17 04:10 Microbiology: Microbiology 11/28/17 20:34 Urine Culture - Preliminary Catheterized Urine Results Pending 11/24/17 01:15 Aerobic Blood Culture - Final Blood - Peripheral No growth in 5 days Anaerobic Blood Culture - Final No growth in 5 days 11/23/17 22:39 Aerobic Blood Culture - Final Blood - Peripheral No growth in 5 days Anaerobic Blood Culture - Final No growth in 5 days Imaging: Pelvis X-Ray 11/21/17 00:00 CONCLUSION: Negative for acute pelvic fracture. Chest X-Ray 11/21/17 08:59 CONCLUSION: 1. No evidence of acute cardiopulmonary process. 2. Cardiomegaly 3. Nondisplaced fracture proximal right femur 4. Severe bilateral shoulder arthropathy. Femur X-Ray 11/21/17 08:59 CONCLUSION: Proximal femur fracture as above. Humerus X-Ray 11/21/17 08:59 CONCLUSION: Fracture proximal humerus as above. Hip X-Ray 11/22/17 00:00 CONCLUSION: Anatomic alignment. Head CT 11/23/17 10:21 CONCLUSION: 1. Stable evaluation without evidence of acute infarct, hemorrhage, mass or edema. 2. Cerebral white matter hypodensity characteristic of chronic microvascular ischemic disease; unchanged. . Head MRI 11/23/17 21:56 CONCLUSION: 1. 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 No significant mass effect or shift. 2. Severe chronic white matter ischemic changes bilaterally. Carotid Doppler Study 11/24/17 00:00 CONCLUSION: No evidence of flow-limiting carotid stenosis. Head CT 11/25/17 05:00 CONCLUSION: 1. Stable CT examination in this patient with known multiple cerebral infarcts. No intercurrent hemorrhage. . Chest X-Ray 11/26/17 13:47 CONCLUSION: Dobbhoff tube coiled within a large hiatal hernia. Chest X-Ray 11/28/17 12:31 CONCLUSION: Cardiomegaly. Severe hypoinflation without acute pulmonary disease Assessment and Plan - Disease Oriented Problem List (1) Closed subtrochanteric fracture of right femur Comment: S/P IM nail (2) Altered mental status (3) WALTER (acute kidney injury) (4) Humeral fracture (5) Leukocytosis (6) Hyperglycemia (7) Hypothyroid (8) Hypertension Pertinent Non-Medical Issues: Psychosocial: Patient originally from [facility]. Has lived in [place] for the past 10-15 years, originally in [place] and more recently in [facility]. Was a homemaker. , about 30 years ago following a stroke which was a complication following heart transplant. Has 3 children. Remains in close communication with her son Derick, 2 daughters Jesenia, Leah she does not remain in close communication with. Also has a sister Nivia in [place] whom she remains in contact with. Spiritual: Sikhism, would appreciate physical therapist clinic director visits. Legal: Patient currently not able to make her own decisions secondary to CVA. Not clear if or when she will regain ability to make her own decisions. She does not have advanced directive or health care surrogate completed. Per [place] statutes legal decision making would fall to the majority of her 3 adult children. In close communication with the one son Derick whom she lives with. She is not in close communication with the other 2 children. Will need to establish if they wish to participate in decision-making going forward. Ethical issues impacting care: Important Contacts: Son Derick Walker [phone] Does wish to participate in decisions Sister Nivia Jerry [phone] / [phone] Daughter Leah [phone] DOES NOT WISH TO PARTICIPATE IN DECISIONS 11/25/17 Daughter Jesenia Calhoun [phone], DOES WISH to participate in decisions 11/25/17 Prognosis: This patient was admitted status post fall in her home setting. She had following findings of a humerus fracture as well as femur fracture requiring operative repair. 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 Appears she may have acute infectious process. She had altered mental status, MRI findings of CVA, possibly embolic. Given her advanced age, current bedbound, acutely ill state, remains high risk for ongoing complications and setbacks which could result in continued deterioration and possibly . Code Status: No Code DNR Plan: * Legal decision maker:Patient currently not able to make her own decisions secondary to CVA. Not clear if or when she will regain ability to make her own decisions. She does not have advanced directive or health care surrogate completed. Per [place] statutes legal decision making would fall to the majority of her 3 adult children. In close communication with the one son Derick whom she lives with. She is not in close communication with the other 2 children. Will need to establish if they wish to participate in decision- making going forward. 11/25/17 1500 call back from patient's 2 other daughters Jesenia Lynn. Leah indicates she does not wish to participate in decision-making. Jesenia does indicate she wishes to participate with son Derick in decision-making, she indicates she will be in close communication with the rest of the family; and plans to try to get down here in the next day or so. LEGAL DECISION MAKERS= 2 CHILDREN DERICK FREDERICK. * Goals: Aggressive short of no code. * CODE STATUS: DO NOT RESUSCITATE * SYMPTOMS: * Pain-status post fall in the home resulting in hip fracture. Status post surgical repair. At time of exam patient denies pain. She is also reported to have arthritis, though son indicates pain is generally well managed by aspirin p.o. She has PRN tylenol, norco, and morphine 2mg Iv available, last dose norco 11/21, no doses of Tylenol or morphine. Cautious use of opiates given concern for altered mental status and lethargy status post CVA. * Lethargy- + CVA per MRI. Numerous areas bilateral infarct. Patient lethargic today able to perform simple commands with encouragement. Family considering rehabilitation. Seen by physical therapy today but too lethargic to participate safely. * Constipation-last bowel movement on 11/22. Receiving Holli-Colace twice daily without results 7 days. No PRN meds given. Has Senokot available. Would recommend addition of Dulcolax suppository and MOM, PRN no bowel movement 3 days. * Palliative care will continue to follow during hospital course as condition evolves, to assist patient/decision-maker with understanding of medical conditions, weighing benefits/burdens of treatment options, for clarification of goals of treatment. Additionally will assist with any symptoms of palliative concern Attestation Attestation: To help prompt me to consider important information that might be impacting today's encounter and assessment, information from prior notes written by myself or my colleagues may have been "brought forward" into today's note. My signature on this note, however, is an attestation that I personally performed the exam, history, and/or decision-making noted today, and, unless otherwise indicated, the interactions with patient, family, and staff as well as the review of records all occurred today. I also attest that the listed assessment and stated plan reflect my best clinical judgment today based on the combination of historical information, prior notes, and today's exam/ interactions. When time spent is documented, it refers only to time spent today by the signer, or if indicated, combined time spent today by collaborating physician/nurse practitioner. .
[2017-11-29] MEDS ORDERED: Bisacodyl 10 MG Supp RECTAL ONE (15:15)
[2017-11-30] MEDS: Calcium/Vitamin D 250/125 MG Tablet PO SCH ×3 (02:17→18:17)
[2017-11-30 05:14] LABS: Baso # (Auto) 0.1 th/mm3 (0.0-0.2); Baso % (Auto) 0.3 % (0.0-2.0); Eos # (Auto) 0.2 th/mm3 (0.0-0.4); Eos % (Auto) 0.7 % (0.0-4.0); Hematocrit 31.6 % (35.0-46.0); Hemoglobin 10.7 gm/dL (11.6-15.3); Lymph # (Auto) 22.4 th/mm3 (1.0-4.8); Lymph % (Auto) 69.8 % (9.0-44.0); Mean Corpuscular HGB Conc 33.7 % (32.0-36.0); Mean Corpuscular Volume 92.2 fL (80.0-100.0); Mono # (Auto) 1.3 th/mm3 (0.0-0.9); Mono % (Auto) 4.2 % (0.0-8.0); Platelet Count 136 th/mm3 (150-450); Red Blood Count 3.43 mil/mm3 (4.00-5.30); Red Cell Distribution Width 15.6 % (11.6-17.2); White Blood Count 32.1 th/mm3 (4.0-11.0)
[2017-11-30 05:44] LABS: Anion Gap 9 meq/L (5-15); Blood Urea Nitrogen 21 mg/dL (7-18); Calcium 7.6 mg/dL (8.5-10.1); Carbon Dioxide 25.1 meq/L (21.0-32.0); Chloride 104 meq/L (98-107); Glomerular Filtration Rate Greater Than 89 mL/min (>89); Glucose,Random 149 mg/dL (74-106); Potassium 3.8 meq/L (3.5-5.1); Sodium 138 meq/L (136-145)
[2017-11-30] MEDS: Polymyxin/Trimethop Opth Drops 10 ML Bottle LEFT EYE SCH ×4 (07:51→18:18)
[2017-11-30] MEDS: Chlorthalidone 50 MG Tablet PO SCH (08:01)
[2017-11-30] MEDS: Beneprotein Powder Packet G-TUBE SCH ×3 (08:01→18:18)
[2017-11-30] MEDS: Senna/Docusate Sodium 8.6/50 MG Tablet PO SCH ×2 (08:03→22:13)
[2017-11-30 08:06] LABS: Lymphocytes 60 % (9-44); Monocytes 5 % (0-8)
[2017-11-30 08:07] LABS: Platelet Morphology Normal (Normal); Smudge Cells Present
[2017-11-30] MEDS ORDERED: Atenolol 50 MG Tablet PO SCH (09:00)
[2017-11-30] MEDS: Labetalol HCl Inj 100 MG/20 ML Vial IV.PUSH PRN ×4 (09:23→15:49)
[2017-11-30] MEDS ORDERED: Bisacodyl 10 MG Supp RECTAL ONE (14:48)
--- NOTE | 2017-11-30 14:58 | P.PNFP ---
Subjective Interval history: Ms Walker had no acute events overnight. Her BP still is elevated at times with SBP >200 and DBP >100 that needs to be considered. Today she is sleeping but easily rousable and answers questions with one word answers, can follow simple commands as before, can wiggle fingers and toes when asked, can track my finger with her eyes in limited fashion, but is not oriented and cannot recall her son's name. She denies pain as before. Hospice has been consulted and the family is considering that option; the family has elected to make pt DNR as of . Denies CP, SOB, N/V/D and leg pain. <Cheko JARAMILLONasim H - 11/30/17 14:58> Results - Labs Result diagrams: 11/30/17 04:37 11/30/17 04:37 <AmadoCruz L - 11/30/17 15:20> Abnormal lab results 11/30/17 11/30/17 Range/Units 04:37 04:37 WBC 32.1 H (4.0-11.0) th/mm3 RBC 3.43 L (4.00-5.30) mil/mm3 Hgb 10.7 L (11.6-15.3) gm/dL Hct 31.6 L (35.0-46.0) % Plt Count 136 L (150-450) th/mm3 Lymph % (Auto) 69.8 H (9.0-44.0) % Neut # (Auto) 8.0 H (1.8-7.7) th/mm3 Lymph # (Auto) 22.4 H (1.0-4.8) th/mm3 [place] # (Auto) 1.3 H (0.0-0.9) th/mm3 Lymphocytes % (Manual) 60 H (9-44) % Abs Neuts (Manual) 11.2 H (1.8-7.7) th/mm3 Smudge Cells Present H (None) Platelet Estimate Low L (Normal) BUN 21 H (7-18) mg/dL Creatinine 0.42 L (0.50-1.00) mg/dL Random Glucose 149 H (74-106) mg/dL Calcium 7.6 L (8.5-10.1) mg/dL Short CBC 11/30/17 Range/Units 04:37 WBC 32.1 H (4.0-11.0) th/mm3 Hgb 10.7 L (11.6-15.3) gm/dL Hct 31.6 L (35.0-46.0) % Plt Count 136 L (150-450) th/mm3 [facility] 11/30/17 04:37 Sodium 138 Potassium 3.8 Chloride 104 Carbon Dioxide 25.1 BUN 21 H Creatinine 0.42 L Calcium 7.6 L <Young,Cruz L - 11/30/17 15:20> Abnormal lab results 11/30/17 11/30/17 Range/Units 04:37 04:37 WBC 32.1 H (4.0-11.0) th/mm3 RBC 3.43 L (4.00-5.30) mil/mm3 Hgb 10.7 L (11.6-15.3) gm/dL Hct 31.6 L (35.0-46.0) % Plt Count 136 L (150-450) th/mm3 Lymph % (Auto) 69.8 H (9.0-44.0) % Neut # (Auto) 8.0 H (1.8-7.7) th/mm3 Lymph # (Auto) 22.4 H (1.0-4.8) th/mm3 [place] # (Auto) 1.3 H (0.0-0.9) th/mm3 Lymphocytes % (Manual) 60 H (9-44) % Abs Neuts (Manual) 11.2 H (1.8-7.7) th/mm3 Smudge Cells Present H (None) Platelet Estimate Low L (Normal) BUN 21 H (7-18) mg/dL Creatinine 0.42 L (0.50-1.00) mg/dL Random Glucose 149 H (74-106) mg/dL Calcium 7.6 L (8.5-10.1) mg/dL Short CBC 11/30/17 Range/Units 04:37 WBC 32.1 H (4.0-11.0) th/mm3 Hgb 10.7 L (11.6-15.3) gm/dL Hct 31.6 L (35.0-46.0) % Plt Count 136 L (150-450) th/mm3 BMP 11/30/17 04:37 Sodium 138 Potassium 3.8 Chloride 104 Carbon Dioxide 25.1 BUN 21 H Creatinine 0.42 L Calcium 7.6 L <WendyNasim stearns III H - 11/30/17 14:58> Physical Exam Vital signs: Vital Signs 11/29/17 16:00 11/29/17 18:00 11/29/17 20:00 Temperature 98.4 F 98.6 F Pulse Rate 68 68 74 Respiratory Rate 16 21 Blood Pressure 199/80 H 195/56 H Pulse Oximetry 11/29/17 21:00 11/29/17 22:00 11/30/17 00:00 Temperature 98.7 F Pulse Rate 74 71 Respiratory Rate 17 Blood Pressure 180/79 H 213/94 H Pulse Oximetry 96 11/30/17 00:15 11/30/17 02:00 11/30/17 04:00 Temperature 98.7 F Pulse Rate 71 72 Respiratory Rate 19 Blood Pressure 164/70 H 184/80 H Pulse Oximetry 96 11/30/17 06:00 11/30/17 08:00 11/30/17 10:00 Temperature 98.6 F Pulse Rate 73 62 72 Respiratory Rate 14 Blood Pressure 126/61 Pulse Oximetry 95 11/30/17 12:00 11/30/17 14:00 Temperature 98.7 F Pulse Rate 67 69 Respiratory Rate 14 Blood Pressure 150/67 H Pulse Oximetry 94 L Intake & Output 11/29/17 11/30/17 11/30/17 18:59 06:59 18:59 Intake Total 240 / 240 Output Total 650 / 650 450 / 450 Balance -410 / -410 -450 / -450 Weight 53.3 kg Intake: Oral 240 / 240 Output: Urine 650 / 650 450 / 450 Other: Date of Last Bowel Movement 11/22/17 11/30/17 # Bowel Movements 2 <Cruz Fischer L - 11/30/17 15:20> Vital Signs 11/29/17 16:00 11/29/17 18:00 11/29/17 20:00 Temperature 98.4 F 98.6 F Pulse Rate 68 68 74 Respiratory Rate 16 21 Blood Pressure 199/80 H 195/56 H Pulse Oximetry 11/29/17 21:00 11/29/17 22:00 11/30/17 00:00 Temperature 98.7 F Pulse Rate 74 71 Respiratory Rate 17 Blood Pressure 180/79 H 213/94 H Pulse Oximetry 96 11/30/17 00:15 11/30/17 02:00 11/30/17 04:00 Temperature 98.7 F Pulse Rate 71 72 Respiratory Rate 19 Blood Pressure 164/70 H 184/80 H Pulse Oximetry 96 11/30/17 06:00 11/30/17 08:00 11/30/17 10:00 Temperature 98.6 F Pulse Rate 73 62 72 Respiratory Rate 14 Blood Pressure 126/61 Pulse Oximetry 95 11/30/17 12:00 Temperature 98.7 F Pulse Rate 67 Respiratory Rate 14 Blood Pressure 150/67 H Pulse Oximetry 94 L Intake & Output 11/29/17 11/30/17 11/30/17 18:59 06:59 18:59 Intake Total 240 / 240 Output Total 650 / 650 450 / 450 Balance -410 / -410 -450 / -450 Weight 53.3 kg Intake: Oral 240 / 240 Output: Urine 650 / 650 450 / 450 Other: Date of Last Bowel Movement 11/22/17 11/30/17 # Bowel Movements 2 <Nasim Still III - 11/30/17 14:58> Narrative: GENERAL: Elderly female, lying in bed. Opens eyes to voice. Follows simple commands. Answers simple questions. HEENT: Pupils equal, round, reactive. Purulent left eye discharge is absent today. MMM. Eyes tracking finger 50-60% today. CARDIOVASCULAR: Regular rate & rhythm. Systolic murmur 1 out of 6 best over right-sided sternal border, stable from previous exam. ABDOMEN: Bowel sounds present. Soft, nontender, nondistended. MUSCULOSKELETAL: Dressings in place with no excess blood noted on right hip surgical area. Large hematoma about chcf down the thigh and extending to the lateral thigh area, stable from previous exam. Pulses intact bilaterally. No edema. Large ecchymoses over the extensor surface of the right forearm, secured by sling. NEUROLOGICAL: Patient squeezes hands, wiggles toes on command. Single word answers to questions. Oriented to self only. Spontaneous movement of bilateral upper and lower extremities. Patient protecting airway. Pt taking PO. <Nasim Still III - 11/30/17 14:58> - Urinary Catheter Management Indwelling Urethral Catheter Cath placed during this visit: no <Cruz Fischer - 11/30/17 15:20> yes <Nasim Still III - 11/30/17 14:58> Reason for continuing: Hourly intake/output <Nasim Still III - 11/30/17 14: 58> Insertion date: 11/22/17 <Nasim Still III - 11/30/17 14:58> Assessment and Plan - Assessment (1) Altered mental status Code(s): R41.82 - Altered mental status, unspecified Status: Acute (2) Thrombocytopenia Code(s): D69.6 - Thrombocytopenia, unspecified Status: Acute (3) WALTER (acute kidney injury) Code(s): N17.9 - Acute kidney failure, unspecified Status: Acute (4) Fracture of femur Code(s): S72.90XA - Unspecified fracture of unspecified femur, initial encounter for closed fracture Status: Acute (5) Postoperative anemia due to acute blood loss Code(s): D62 - Acute posthemorrhagic anemia Status: Acute (6) Leukocytosis Code(s): D72.829 - Elevated white blood cell count, unspecified Status: Chronic (7) Hypertension Code(s): I10 - Essential (primary) hypertension Status: Acute (8) Hyperglycemia Code(s): R73.9 - Hyperglycemia, unspecified Status: Acute (9) Hypothyroid Code(s): E03.9 - Hypothyroidism, unspecified Status: Acute (10) Humeral fracture Code(s): S42.309A - Unspecified fracture of shaft of humerus, unspecified arm, initial encounter for closed fracture Status: Chronic (11) Nutrition, metabolism, and development symptoms Code(s): R63.8 - Other symptoms and signs concerning food and fluid intake Status: Acute <Cruz Fischer - 11/30/17 15:20> (1) Altered mental status Code(s): R41.82 - Altered mental status, unspecified Status: Acute Plan: Patient appears to be mentally improving since surgery. Still denies pain. -Continue to hold anticoagulation (pt last transfusion 2 units 11/26) -Ofirmev 650 mg IV q6h -Patient is currently protecting airway -Critical care signed off 11/27 -Transfer to floor -Per patient's son patient is eating with assistance. Swallow study recommendations for pure thick solids and honey thick liquids -Minimum caloric intake per day 1380, will hold on placement of Dobbhoff for now if patient continues to eat PO -Patient maintaining SPO2 on room air. Nebs as needed -Palliative care consulted, after discussion with patient's son and oldest daughter, they have consented CODE STATUS change to DNR as of 11/29; they have accepted the offer of Hospice consult to discuss options. At this time family has elected to seek out care home care facilities and Palliative Care is following this action to resolution. -Continue Rowley with strict I's and O's -Maintain hemoglobin greater than 7 (Hgb 9.0 11/27) -Neurochecks q4h -PT/OT to work with patient History: Head CT 11/25 showed no acute changes. 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 EEG showed background slowing consistent with encephalopathic state Acute encephalopathy due to CVA, post-op state, metabolic Ammonia level <10 (2) Thrombocytopenia Code(s): D69.6 - Thrombocytopenia, unspecified Status: Acute Plan: Platelet count trending upwards -Coagulation studies and fibrinogen within normal limits. -Hematology following patient -Patient not requiring platelet transfusion at this time, no signs of large active bleed. -Repeat CBC in a.m. -Monitor for now -If s/s of active bleeding, renae VANEGAS (3) WALTER (acute kidney injury) Code(s): N17.9 - Acute kidney failure, unspecified Status: Acute Plan: Contributing factor of hypovolemia and n.p.o. status--resolved 11/25 -Status post 2 units PRBC on 11/23 and 2 u PRBCs 11/26 -Patient was given additional normal saline 1 L on admission to ICU -Normal saline at 30 mls/hr due to loss of other pt IV sites -Continue Rowley catheter -BMP in a.m. (4) Fracture of femur Code(s): S72.90XA - Unspecified fracture of unspecified femur, initial encounter for closed fracture Status: Acute Plan: 87 YO female with comminuted spiral "butterfly" fracture of proximal femur noted on x-ray. Today pt is POD#6 following right femur reduction and intramedullary nail fixation by Dr Boogie. Patient neurovascularly intact and is recovering from surgery. -Orthopedic surgery consulted, Dr Boogie. Dressings per orthopedic recommendation -Pain occasions on hold as patient has altered mental status, patient has no complaints of pain at this time -Ca+Vitamin D supplementation -Withholding further evaluation of osteoporosis due to patient's acute critical illness -Pt for transfer to chair when pt moved to floor (5) Postoperative anemia due to acute blood loss Code(s): D62 - Acute posthemorrhagic anemia Status: Acute Plan: Pt with acute blood loss anemia post-operatively. -Hemoglobin trending upwards -Status post 2 units PRBC on 11/23 and 2 additional units on 11/26 -Monitor with daily CBC -Transfusions as needed to maintain hemoglobin greater than 7 (6) Leukocytosis Code(s): D72.829 - Elevated white blood cell count, unspecified Status: Chronic Plan: White blood cell count trending upwards again today Urinalysis on admission was negative; repeat 11/28 with moderate blood, 30 protein,trace LE, neg nitrite, few uric acid crystals. Patient has remained afebrile, not tachycardic Peripheral smear review showed atypical lymphocytosis and mild neutrophilia suspicious for CLL. -CXR 11/28 - Cardiomegaly. 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 -Blood cultures NGTD x5 days -Urine cx NGTD x2 days -C. difficile neg -Antibiotics DC'd 11/27 (status post 48 hours of cefepime and metronidazole) (7) Hypertension Code(s): I10 - Essential (primary) hypertension Status: Acute Plan: Outside window for permissive hypertension. Will begin attempting to control systolic blood pressures more strictly with goal: SBP </= 180 and/or DBP </=95 -Discontinue Atenolol 50/Chlorthalidone 50 -Start Chlorthalidone 25 mg PO -Start Amlodipine 10 mg PO -Vasotec 2.5 mg IV push PRN if systolic blood pressure greater than 180 or diastolic blood pressure greater than 100 -Labetalol 10 mg IV push PRN if SBP >200 and/or DBP >110 -Once well controlled, will consider switching Vasotec to Lisinopril 20 mg daily (8) Hyperglycemia Code(s): R73.9 - Hyperglycemia, unspecified Status: Acute Plan: Patient has no reported history of diabetes. Likely stress reaction. -We will continue to monitor as patient increases in p.o. intake -BG 149 overnight (9) Hypothyroid Code(s): E03.9 - Hypothyroidism, unspecified Status: Acute Plan: We will continue home levothyroxine once dosing is obtained -TSH 3.86 -Monitor for now (10) Humeral fracture Code(s): S42.309A - Unspecified fracture of shaft of humerus, unspecified arm, initial encounter for closed fracture Status: Chronic Plan: Reported by son to be chronic. Patient had fracture 2 years prior -Orthopedic surgery consulted appreciate recommendations. -Pt right arm placed in sling post-op for immobilization (11) Nutrition, metabolism, and development symptoms Code(s): R63.8 - Other symptoms and signs concerning food and fluid intake Status: Acute Plan: Diet: PO with calorie counts. NG tube ordered but not placed; Dobhoff ordered to maintain caloric intake as specified by metal flooring installer (minimum 1380 calories/day and maximum 1656 calories/day); however, pt has large hiatal hernia that did not permit placement. Per discussion with Dr Valle 11/26, we will allow pt to take PO with caloric goal as stated above. If minimum caloric goal cannot be met , will discuss Dobhoff placement under radiologic guidance vs PEG placement. Electrolytes: monitor daily and replete as necessary Fluids: 30mls normal saline per hour DVT prophylaxis: SCDs only. Hold pharmacological anticoagulation due to patient' s requirement of transfusion due to postoperative bleeding GI: none indicated Tylenol 650 mg as above PT CM consult to assist with rehab/SNF placement Palliative care as above - family considering Hospice vs SNF Dispo: as above; Hospice or SNF Pt SDW Pedro Luis Fischer and Eko <Nasim Still III - 11/30/17 14:21> - Attending Attestation The exam, history, and the medical decision-making described in the above note were completed with the assistance of the resident physician. I reviewed and agree with the findings presented. I attest that I had a [id number] encounter with the patient on the same day, and personally performed and documented my assessment and findings in the medical record. Patient seen and discussed with resident/medical student team this morning. Neurological status is stable, mildly improved from yesterday in that she is tracking with her eyes more. She is able to say short 2 to 3 word phrases at times. Reports no pain, states she is comfortable. Palliative care on board. Code status changed to DNR. They are seeking out care home care facilities. They remain hopeful about rehab potential. Patient able to tolerate some oral diet, nutrition status will need to be monitored. Not requiring NG tube at this time for feedings. Would benefit from getting out of bed into chair at some point in the day as tolerated. <Cruz Fischer - 11/30/17 15:20> <Nasim Still III - Last Filed: 11/30/17 14:21> (4) Fracture of femur Qualifiers: Encounter type: initial encounter Fracture type: closed Fracture morphology : spiral Laterality: right (10) Humeral fracture Qualifiers: Fracture type: closed Laterality: right <Cruz Fischer - Last Filed: 11/30/17 15:20> (4) Fracture of femur Qualifiers: Encounter type: initial encounter Fracture type: closed Fracture morphology : spiral Laterality: right (10) Humeral fracture Qualifiers: Fracture type: closed Laterality: right <Nasim Still III [facility] Last Filed: 11/30/17 14:21> (4) Fracture of femur Qualifiers: Encounter type: initial encounter Fracture type: closed Fracture morphology : spiral Laterality: right (10) Humeral fracture Qualifiers: Fracture type: closed Laterality: right <Cruz Fischer Last Filed: 11/30/17 15:20> (4) Fracture of femur Qualifiers: Encounter type: initial encounter Fracture type: closed Fracture morphology : spiral Laterality: right (10) Humeral fracture Qualifiers: Fracture type: closed Laterality: right
--- NOTE | 2017-11-30 15:44 | P.PNPAL ---
Reason for Visit Reason for visit: a. To assist with evaluation and management of symptoms including: Confusion, lethargy b. To assist medical decision maker(s) with: better understanding of current medical conditions; weighing benefits/burdens of medical treatment options; making medical treatment decisions. Subjective Subjective/Interval History: Follow-up on confusion, lethargy, constipation as well as goals of treatment with decision-makers. Patient remains more lethargic today than at previous assessment. She is arousable to strong verbal stimuli but dozes back off easily and does not engage. She did not eat much today due to her lethargy. She appears to sleep through what ever activity is going on in the room. She is not interactive with family today. She was more confused today than at previous assessment. While she was able to follow commands, she was not oriented to place, purpose, time and could not remember her son's name, with whom she lives. The confusion has been consistent throughout today, worse from yesterday with no known exacerbating or relieving. She did receive a suppository today and had 2 subsequent bowel movements, relieving her constipation. Due to her confusion and lethargy, she is unable to elucidate her symptoms post suppository. . Family/Friend Interactions: Spoke with her son, Derick, and her daughter, Jesenia, today at bedside and reviewed [facility]'s refusal to admit patient for rehabilitation due to her poor rehab potential. She is unable to use her right arm or right leg, so would likely receive little if any benefit from rehabilitation. Family understands that she does need [facility]term [facility] placement this time however, per case management, [facility] does not accept Medicaid pending. Other local facility names and information were provided family's review to attempt placement in a retirement facility. At the suggestion of the attending, Dr. Still, hospice will be readdressed at tomorrow's meeting. Family did sign [facility] DNR certificate today which has been placed on the chart in preparation for discharge. . Objective Vital Signs: Vital Signs 11/29/17 16:00 11/29/17 18:00 11/29/17 20:00 Temperature 98.4 F 98.6 F Pulse Rate 68 68 74 Respiratory Rate 16 21 Blood Pressure 199/80 H 195/56 H Pulse Oximetry 11/29/17 21:00 11/29/17 22:00 11/30/17 00:00 Temperature 98.7 F Pulse Rate 74 71 Respiratory Rate 17 Blood Pressure 180/79 H 213/94 H Pulse Oximetry 96 11/30/17 00:15 11/30/17 02:00 11/30/17 04:00 Temperature 98.7 F Pulse Rate 71 72 Respiratory Rate 19 Blood Pressure 164/70 H 184/80 H Pulse Oximetry 96 11/30/17 06:00 11/30/17 08:00 11/30/17 10:00 Temperature 98.6 F Pulse Rate 73 62 72 Respiratory Rate 14 Blood Pressure 126/61 Pulse Oximetry 95 11/30/17 12:00 11/30/17 14:00 Temperature 98.7 F Pulse Rate 67 69 Respiratory Rate 14 Blood Pressure 150/67 H Pulse Oximetry 94 L Intake & Output 11/29/17 11/30/17 11/30/17 18:59 06:59 18:59 Intake Total 240 / 240 Output Total 650 / 650 450 / 450 Balance -410 / -410 -450 / -450 Weight 117 lb 8.102 oz Intake: Oral 240 / 240 Output: Urine 650 / 650 450 / 450 Other: Date of Last Bowel Movement 11/22/17 11/30/17 # Bowel Movements 2 Physical Exam: CONSTITUTIONAL/GENERAL: This is an adequately nourished patient, in no apparent distress. TUBES/LINES/DRAINS: PIV UE SKIN: No jaundice, rashes, or lesions. Ecchymoses Rt hip/upper leg. Dressing clean/dry. Skin warm/dry EYES: Pupils equal and round and reactive. Extraocular motions intact. No scleral icterus. No injection or drainage. Fundi not examined. ENT: TUNICA-BILOXI. CARDIOVASCULAR: Regular rate and rhythm without murmur . No JVD. Peripheral pulses symmetric. slight edema R upper leg, bilateral upper extremities. RESPIRATORY/CHEST: Symmetric, unlabored respirations. Occasional rhonchi, clears with cough. On room air. Breath sounds equal bilaterally. GASTROINTESTINAL: Abdomen soft, non-tender, nondistended. No hepato-splenomegaly , or palpable masses. No guarding. Bowel sounds present. GENITOURINARY: Without palpable bladder distension. MUSCULOSKELETAL: Extremities without clubbing, cyanosis, or edema. No mottling or clubbing. NEUROLOGICAL: Lethargic, oriented to self. Patient follows simple directions but has poor insight, Poor situational awareness. PSYCHIATRIC: Lethargic. . Diagnostic Tests Laboratory: Laboratory Results - last 72 hr 11/28/17 11/28/17 11/28/17 04:07 04:07 20:34 WBC 33.3 H RBC 3.40 L Hgb 10.6 L Hct 31.1 L MCV 91.6 MCH 31.3 MCHC 34.1 RDW 15.6 Plt Count 118 L D MPV 6.8 L Prelim Diff (Auto) Slide review pending Neut % (Auto) 22.0 Lymph % (Auto) 73.2 H [place] % (Auto) 3.5 Eos % (Auto) 1.0 Baso % (Auto) 0.3 Neut # (Auto) 7.3 Lymph # (Auto) 24.4 H [place] # (Auto) 1.1 H Eos # (Auto) 0.3 Baso # (Auto) 0.1 WBC Differential Manual diff final Seg Neuts % (Manual) 16 Band Neuts % (Manual) 1 Lymphocytes % (Manual) 81 H Monocytes % (Manual) 1 Eosinophils % (Manual) Myelocytes % (Man) 1 H Abs Neuts (Manual) 6.0 Differential Comment . Smudge Cells Present H Platelet Estimate Low L Platelet Morphology Normal RBC Morphology Polychromasia 2.8 H Sodium 145 Potassium 3.8 Chloride 113 H Carbon Dioxide 24.3 Anion Gap 8 BUN 24 H Creatinine 0.40 L Estimated GFR Greater than 89 Random Glucose 123 H Calcium 7.6 L Prot Corrected Calcium Total Protein TSH Urine Color Yellow Urine Clarity Cloudy H Urine pH 5.0 Ur Specific [place] 1.016 Urine Protein 30 H Urine Glucose (UA) 50 Urine Ketones Negative Urine Occult Blood Moderate H Urine Nitrate Negative Urine Bilirubin Negative Urine Urobilinogen Less than 2 Ur Leukocyte Esterase Trace H Urine RBC 47 H Urine WBC 2 Uric Acid Crystals Few H Urine Bacteria Rare H Urine Mucus Few H Micro UA Comment Cath-culture ind Ur Microscopic Review Not Reportable Urine Culture Comments Cath-cult indicated 11/29/17 11/29/17 11/29/17 04:10 04:10 04:10 WBC 25.0 H RBC 3.11 L Hgb 9.7 L Hct 28.9 L MCV 93.0 MCH 31.1 MCHC 33.5 RDW 15.1 Plt Count 108 L MPV 6.8 L Prelim Diff (Auto) Slide review pending Neut % (Auto) 20.9 Lymph % (Auto) 74.5 H [place] % (Auto) 3.6 Eos % (Auto) 0.9 Baso % (Auto) 0.1 Neut # (Auto) 5.2 Lymph # (Auto) 18.6 H [place] # (Auto) 0.9 Eos # (Auto) 0.2 Baso # (Auto) 0.0 WBC Differential Manual diff final Seg Neuts % (Manual) 23 Band Neuts % (Manual) 1 Lymphocytes % (Manual) 74 H Monocytes % (Manual) Eosinophils % (Manual) 2 Myelocytes % (Man) Abs Neuts (Manual) 6.0 Differential Comment . Smudge Cells Present H Platelet Estimate Low L Platelet Morphology Normal RBC Morphology Normal Polychromasia Sodium 142 Potassium 3.8 Chloride 107 Carbon Dioxide 26.5 Anion Gap 9 BUN 22 H Creatinine 0.43 L Estimated GFR Greater than 89 Random Glucose 138 H Calcium 7.4 L* Prot Corrected Calcium 9.1 Total Protein 4.2 L TSH 3.860 H Urine Color Urine Clarity Urine pH Ur Specific [place] Urine Protein Urine Glucose (UA) Urine Ketones Urine Occult Blood Urine Nitrate Urine Bilirubin Urine Urobilinogen Ur Leukocyte Esterase Urine RBC Urine WBC Uric Acid Crystals Urine Bacteria Urine Mucus Micro UA Comment Ur Microscopic Review Urine Culture Comments 11/30/17 11/30/17 04:37 04:37 WBC 32.1 H RBC 3.43 L Hgb 10.7 L Hct 31.6 L MCV 92.2 MCH 31.0 MCHC 33.7 RDW 15.6 Plt Count 136 L MPV 7.0 Prelim Diff (Auto) Slide review pending Neut % (Auto) 25.0 Lymph % (Auto) 69.8 H [place] % (Auto) 4.2 Eos % (Auto) 0.7 Baso % (Auto) 0.3 Neut # (Auto) 8.0 H Lymph # (Auto) 22.4 H [place] # (Auto) 1.3 H Eos # (Auto) 0.2 Baso # (Auto) 0.1 WBC Differential Manual diff final Seg Neuts % (Manual) 35 Band Neuts % (Manual) Lymphocytes % (Manual) 60 H Monocytes % (Manual) 5 Eosinophils % (Manual) Myelocytes % (Man) Abs Neuts (Manual) 11.2 H Differential Comment . Smudge Cells Present H Platelet Estimate Low L Platelet Morphology Normal RBC Morphology Polychromasia Sodium 138 Potassium 3.8 Chloride 104 Carbon Dioxide 25.1 Anion Gap 9 BUN 21 H Creatinine 0.42 L Estimated GFR Greater than 89 Random Glucose 149 H Calcium 7.6 L Prot Corrected Calcium Total Protein TSH Urine Color Urine Clarity Urine pH Ur Specific [place] Urine Protein Urine Glucose (UA) Urine Ketones Urine Occult Blood Urine Nitrate Urine Bilirubin Urine Urobilinogen Ur Leukocyte Esterase Urine RBC Urine WBC Uric Acid Crystals Urine Bacteria Urine Mucus Micro UA Comment Ur Microscopic Review Urine Culture Comments Result Diagrams: 11/30/17 04:37 11/30/17 04:37 Microbiology: Microbiology 11/28/17 20:34 Urine Culture - Final Catheterized Urine No growth in 48 hours 11/24/17 01:15 Aerobic Blood Culture - Final Blood - Peripheral No growth in 5 days Anaerobic Blood Culture - Final No growth in 5 days 11/23/17 22:39 Aerobic Blood Culture - Final Blood - Peripheral No growth in 5 days Anaerobic Blood Culture - Final No growth in 5 days Imaging: Pelvis X-Ray 11/21/17 00:00 CONCLUSION: Negative for acute pelvic fracture. Chest X-Ray 11/21/17 08:59 CONCLUSION: 1. No evidence of acute cardiopulmonary process. 2. Cardiomegaly 3. Nondisplaced fracture proximal right femur 4. Severe bilateral shoulder arthropathy. Femur X-Ray 11/21/17 08:59 CONCLUSION: Proximal femur fracture as above. Humerus X-Ray 11/21/17 08:59 CONCLUSION: Fracture proximal humerus as above. Hip X-Ray 11/22/17 00:00 CONCLUSION: Anatomic alignment. Head CT 11/23/17 10:21 CONCLUSION: 1. Stable evaluation without evidence of acute infarct, hemorrhage, mass or edema. 2. Cerebral white matter hypodensity characteristic of chronic microvascular ischemic disease; unchanged. . Head MRI 11/23/17 21:56 CONCLUSION: 1. 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 No significant mass effect or shift. 2. Severe chronic white matter ischemic changes bilaterally. Carotid Doppler Study 11/24/17 00:00 CONCLUSION: No evidence of flow-limiting carotid stenosis. Head CT 11/25/17 05:00 CONCLUSION: 1. Stable CT examination in this patient with known multiple cerebral infarcts. No intercurrent hemorrhage. . Chest X-Ray 11/26/17 13:47 CONCLUSION: Dobbhoff tube coiled within a large hiatal hernia. Chest X-Ray 11/28/17 12:31 CONCLUSION: Cardiomegaly. Severe hypoinflation without acute pulmonary disease Assessment and Plan - Disease Oriented Problem List (1) Closed subtrochanteric fracture of right femur Comment: S/P IM nail (2) Altered mental status (3) WALTER (acute kidney injury) (4) Humeral fracture (5) Leukocytosis (6) Hyperglycemia (7) Hypothyroid (8) Hypertension Pertinent Non-Medical Issues: Psychosocial: Patient originally from [facility]. Has lived in [place] for the past 10-15 years, originally in [place] and more recently in [facility]. Was a homemaker. , about 30 years ago following a stroke which was a complication following heart transplant. Has 3 children. Remains in close communication with her son Derick, 2 daughters Leah Ba she does not remain in close communication with. Also has a sister Nivia in [place] whom she remains in contact with. Spiritual: Episcopal, would appreciate solidworks drafter visits. Legal: Patient currently not able to make her own decisions secondary to CVA. Not clear if or when she will regain ability to make her own decisions. She does not have advanced directive or health care surrogate completed. Per [place] statutes legal decision making would fall to the majority of her 3 adult children. In close communication with the one son Derick whom she lives with. She is not in close communication with the other 2 children. Will need to establish if they wish to participate in decision-making going forward. Ethical issues impacting care: Important Contacts: Son Derick Walker [phone] Does wish to participate in decisions Sister Nivia Rosalino [phone] / [phone] Nilesh Walker [phone] DOES NOT WISH TO PARTICIPATE IN DECISIONS 11/25/17 Daughter Jesenia Calhoun [phone], DOES WISH to participate in decisions 11/25/17 Prognosis: This patient was admitted status post fall in her home setting. She had following findings of a humerus fracture as well as femur fracture requiring operative repair. 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 Appears she may have acute infectious process. She had altered mental status, MRI findings of CVA, possibly embolic. Given her advanced age, current bedbound, acutely ill state, remains high risk for ongoing complications and setbacks which could result in continued deterioration and possibly . Code Status: No Code DNR Plan: * Legal decision maker:Patient currently not able to make her own decisions secondary to CVA. Not clear if or when she will regain ability to make her own decisions. She does not have advanced directive or health care surrogate completed. Per [place] statutes legal decision making would fall to the majority of her 3 adult children. In close communication with the one son Derick whom she lives with. She is not in close communication with the other 2 children. Will need to establish if they wish to participate in decision- making going forward. 11/25/17 1500 call back from patient's 2 other daughters Leah, Jesenia. Leah indicates she does not wish to participate in decision-making. Jesenia does indicate she wishes to participate with son Derick in decision-making, she indicates she will be in close communication with the rest of the family; and plans to try to get down here in the next day or so. LEGAL DECISION MAKERS= 2 CHILDREN DERICK BA. * Goals: Aggressive short of no code. * CODE STATUS: DO NOT RESUSCITATE * SYMPTOMS: * Confusion-her confusion has worsened today and she is oriented only to self. She could not recall her son's name, whom she lives with. Urine culture drawn 11/28 is negative 2 days. WBC 32.1, chronically elevated. 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 Flow symmetry findings are most compatible with a CD5 positive B-cell non-Hodgkin's lymphoma/leukemia. Management per hematology. * Lethargy- + CVA per MRI. Numerous areas bilateral infarct. Patient lethargic today, able to perform simple commands with encouragement. Family considering rehabilitation, however patient has no ability to participate in rehab at this time due to 2 fractured limbs. Being followed by physical therapy but too lethargic to participate safely. Family now seeking long-term care placement. Pending acceptance. * Constipation-resolved after Dulcolax suppository given today with 2 subsequent bowel movements. Continue stool softeners * Palliative care will continue to follow during hospital course as condition evolves, to assist patient/decision-maker with understanding of medical conditions, weighing benefits/burdens of treatment options, for clarification of goals of treatment. Additionally will assist with any symptoms of palliative concern Attestation Attestation: To help prompt me to consider important information that might be impacting today's encounter and assessment, information from prior notes written by myself or my colleagues may have been "brought forward" into today's note. My signature on this note, however, is an attestation that I personally performed the exam, history, and/or decision-making noted today, and, unless otherwise indicated, the interactions with patient, family, and staff as well as the review of records all occurred today. I also attest that the listed assessment and stated plan reflect my best clinical judgment today based on the combination of historical information, prior notes, and today's exam/ interactions. When time spent is documented, it refers only to time spent today by the signer, or if indicated, combined time spent today by collaborating physician/nurse practitioner. .
--- NOTE | 2017-11-30 18:24 | P.PNONC ---
Subjective Interval history: Events over the weekend in the last couple of days noted. Son and daughter are by the bedside. We discussed the findings on the flow cytometric analysis. Patient is awake and alert. She is hard of hearing-saying politely "I beg your pardon" when she could not hear a question. She seems to respond best to her son's voice. Objective Vital Signs/Intake & Output: Vital Signs 11/29/17 20:00 11/29/17 21:00 11/29/17 22:00 Temperature 98.6 F Pulse Rate 74 74 Respiratory Rate 21 Blood Pressure 195/56 H 180/79 H Pulse Oximetry 11/30/17 00:00 11/30/17 00:15 11/30/17 02:00 Temperature 98.7 F Pulse Rate 71 71 Respiratory Rate 17 Blood Pressure 213/94 H 164/70 H Pulse Oximetry 96 11/30/17 04:00 11/30/17 06:00 11/30/17 08:00 Temperature 98.7 F 98.6 F Pulse Rate 72 73 62 Respiratory Rate 19 14 Blood Pressure 184/80 H 126/61 Pulse Oximetry 96 95 11/30/17 10:00 11/30/17 12:00 11/30/17 14:00 Temperature 98.7 F Pulse Rate 72 67 69 Respiratory Rate 14 Blood Pressure 150/67 H Pulse Oximetry 94 L 11/30/17 16:00 11/30/17 18:00 Temperature 98.6 F Pulse Rate 71 75 Respiratory Rate 16 Blood Pressure 196/87 H Pulse Oximetry 95 Intake & Output 11/29/17 11/30/17 11/30/17 18:59 06:59 18:59 Intake Total 240 / 240 Output Total 650 / 650 450 / 450 750 / 750 Balance -410 / -410 -450 / -450 -750 / -750 Weight 53.3 kg Intake: Oral 240 / 240 Output: Urine 650 / 650 450 / 450 Urine Amount (Catheter) 750 / 750 Indwelling Urethral Catheter 750 / 750 Other: Date of Last Bowel Movement 11/22/17 11/30/17 11/30/17 # Bowel Movements 2 2 Result Diagrams: 11/30/17 04:37 11/30/17 04:37 Laboratory Results: Laboratory Results - last 24 hr 11/30/17 11/30/17 04:37 04:37 WBC 32.1 H RBC 3.43 L Hgb 10.7 L Hct 31.6 L MCV 92.2 MCH 31.0 MCHC 33.7 RDW 15.6 Plt Count 136 L MPV 7.0 Prelim Diff (Auto) Slide review pending Neut % (Auto) 25.0 Lymph % (Auto) 69.8 H [place] % (Auto) 4.2 Eos % (Auto) 0.7 Baso % (Auto) 0.3 Neut # (Auto) 8.0 H Lymph # (Auto) 22.4 H [place] # (Auto) 1.3 H Eos # (Auto) 0.2 Baso # (Auto) 0.1 WBC Differential Manual diff final Seg Neuts % (Manual) 35 Lymphocytes % (Manual) 60 H Monocytes % (Manual) 5 Abs Neuts (Manual) 11.2 H Differential Comment . Smudge Cells Present H Platelet Estimate Low L Platelet Morphology Normal Sodium 138 Potassium 3.8 Chloride 104 Carbon Dioxide 25.1 Anion Gap 9 BUN 21 H Creatinine 0.42 L Estimated GFR Greater than 89 Random Glucose 149 H Calcium 7.6 L Culture Results: Microbiology 11/28/17 20:34 Urine Culture - Final Catheterized Urine No growth in 48 hours 11/24/17 01:15 Aerobic Blood Culture - Final Blood - Peripheral No growth in 5 days Anaerobic Blood Culture - Final No growth in 5 days 11/23/17 22:39 Aerobic Blood Culture - Final Blood - Peripheral No growth in 5 days Anaerobic Blood Culture - Final No growth in 5 days Medications: Active Medications Generic Name Dose Route Start Last Admin Trade Name Freq PRN Reason Stop Dose Admin Hydrocodone Bitart/Acetaminophen 1 tab 11/21/17 10:33 11/21/17 11:15 Center 5/325 PO 1 tab Q4H PRN Administration PAIN SCALE 3 TO 5 Atorvastatin Calcium 80 mg 11/24/17 09:00 11/30/17 08:01 Lipitor PO 80 mg DAILY ESTHER Administration Calcium/Vitamin D 1 tab 11/22/17 11:00 11/30/17 10:59 Oscal With D 250/125 Mg PO 1 tab Q8H ESTHER Administration Enalaprilat 2.5 mg 11/26/17 22:51 11/30/17 13:36 Vasotec Inj IV.PUSH 2.5 mg Q6H PRN Administration SBP> OR = 180, DBP> OR = 100 Enoxaparin Sodium 30 mg 11/22/17 21:00 11/23/17 21:32 Lovenox Inj SQ Not Given Q24H ESTHER Sodium Chloride 500 mls @ 30 mls/hr 11/22/17 04:00 11/22/17 07:25 Ns Inj IV.SIG Not Given .Q10H ESTHER Labetalol HCl 10 mg 11/29/17 21:01 11/30/17 15:49 Trandate Inj IV.PUSH 10 mg Q30M PRN Administration Sbp>200, Dbp>110 Padimate O 1 applicatio 11/23/17 17:45 11/28/17 05:56 Chapstick TOPICAL 1 applicatio UNSCH PRN Administration CHAPPED LIPS Polymyxin/Trimethoprim Sulfate 1 drop 11/29/17 13:00 11/30/17 13:36 Polytrim Opth Drops LEFT EYE 1 drop Q6H ESTHER Administration Senna/Docusate Sodium 1 tab 11/21/17 21:00 11/30/17 08:03 Holli-Colace PO Not Given BID ESTHER Sodium Chloride 2 ml 11/22/17 09:00 11/30/17 08:03 Ns Flush IV.FLUSH 2 ml BID ESTHER Administration Vitamin D 1,000 unit 11/23/17 09:00 11/30/17 08:02 Vitamin D3 PO 1,000 unit DAILY ESTHER Administration Whey 1 packet 11/25/17 13:00 11/30/17 13:36 Beneprotein Powder G-TUBE Not Given TID ESTHER Objective Remarks: GENERAL: Elderly, frail, well-developed patient. SKIN: Warm and dry. HEAD: Normocephalic. EYES: No scleral icterus. No injection or drainage. NECK: Supple, trachea midline. No JVD or lymphadenopathy. LYMPHATIC: No adenopathy. CARDIOVASCULAR: Regular rate and rhythm without murmurs. RESPIRATORY: Breath sounds equal bilaterally. No accessory muscle use. GASTROINTESTINAL: Abdomen soft, non-tender, nondistended. EXTREMITIES: Skin atrophy and senile purpura. MUSCULOSKELETAL: Adequate muscle tone. NEUROLOGICAL: Awake and alert and verbally responsive. Assessment/Plan (1) B-cell chronic lymphocytic leukemia Code(s): C91.10 - Chronic lymphocytic leukemia of B-cell type not having achieved remission Status: Chronic - Plan 87-year-old woman with history of chronic lymphocytic leukemia. She is admitted for right femur fracture after a fall on 11/22/17. She underwent surgical repair. Postoperatively she developed acute mental status change. MRI of the brain shows CVA. She is more awake and alert. Palliative care is discussing goals of care with her son and daughter. We had a lengthy discussion about the B cell non-Hodgkin' s lymphoma finding on flow cytometric analysis. We discussed that this is consistent with chronic lymphocytic leukemia. The peripheral smear is consistent with chronic lymphocytic leukemia as well as her history from being diagnosed over 10 years ago. We discussed the pathophysiology of chronic lymphocytic leukemia and its natural history. We discussed the chronic nature of the leukemia. I recommend no specific therapy given her frailty, acute medical problems and decreased performance status. The family is in agreement with this. We discussed that treatment of her leukemia with even oral chemotherapy has toxicity, furthermore that she would not be able to completely comprehend. The family is not desirous of any specific treatment for her chronic lymphocytic leukemia. On this we were in agreement. Hematology will follow peripherally. We will be available as needed. (1) B-cell chronic lymphocytic leukemia Qualifiers: Leukemia Active/Remission status: without remission Qualified Code(s): C91.10 - Chronic lymphocytic leukemia of B-cell type not having achieved remission
[2017-12-01] MEDS: Calcium/Vitamin D 250/125 MG Tablet PO SCH ×3 (03:16→18:46)
[2017-12-01] MEDS: Polymyxin/Trimethop Opth Drops 10 ML Bottle LEFT EYE SCH ×4 (03:16→21:56)
[2017-12-01 05:28] LABS: Baso # (Auto) 0.1 th/mm3 (0.0-0.2); Baso % (Auto) 0.3 % (0.0-2.0); Eos # (Auto) 0.2 th/mm3 (0.0-0.4); Eos % (Auto) 0.7 % (0.0-4.0); Hematocrit 31.3 % (35.0-46.0); Hemoglobin 10.4 gm/dL (11.6-15.3); Lymph # (Auto) 20.7 th/mm3 (1.0-4.8); Mean Corpuscular HGB Conc 33.2 % (32.0-36.0); Mean Corpuscular Hemoglobin 31.1 pg (27.0-34.0); Mean Corpuscular Volume 93.8 fL (80.0-100.0); Mean Platelet Volume 7.3 fL (7.0-11.0); Mono # (Auto) 1.2 th/mm3 (0.0-0.9); Mono % (Auto) 4.3 % (0.0-8.0); Neut # (Auto) 6.2 th/mm3 (1.8-7.7); Neut % (Auto) 21.7 % (16.0-70.0); Platelet Count 133 th/mm3 (150-450); Red Blood Count 3.34 mil/mm3 (4.00-5.30); Red Cell Distribution Width 15.8 % (11.6-17.2); White Blood Count 28.4 th/mm3 (4.0-11.0)
[2017-12-01 05:51] LABS: Albumin 2.3 g/dL (3.4-5.0); Anion Gap 9 meq/L (5-15); Aspartate Aminotransferase 16 U/L (15-37); Blood Urea Nitrogen 17 mg/dL (7-18); Calcium 7.6 mg/dL (8.5-10.1); Carbon Dioxide 25.4 meq/L (21.0-32.0); Chloride 102 meq/L (98-107); Glomerular Filtration Rate Greater Than 89 mL/min (>89); Glucose,Random 138 mg/dL (74-106); Potassium 4.3 meq/L (3.5-5.1); Sodium 136 meq/L (136-145)
[2017-12-01 05:54] LABS: Alanine Aminotransferase 9 U/L (10-53); Alkaline Phosphatase 42 U/L (45-117); Total Protein 4.3 g/dL (6.4-8.2)
[2017-12-01] MEDS: amLODIPine 10 MG Tablet PO SCH (08:00)
[2017-12-01] MEDS: Beneprotein Powder Packet G-TUBE SCH ×3 (08:01→18:45)
[2017-12-01] MEDS: Chlorthalidone 50 MG Tablet PO SCH (08:01)
[2017-12-01] MEDS: Senna/Docusate Sodium 8.6/50 MG Tablet PO SCH ×2 (08:01→21:57)
[2017-12-01 08:51] LABS: Monocytes 3 % (0-8); Myelocytes 1 % (0-0); Platelet Morphology Normal (Normal); Smudge Cells Present
[2017-12-01 08:52] LABS: Lymphocytes 77 % (9-44)
[2017-12-01 08:53] LABS: RBC Morphology Normal (Normal)
--- NOTE | 2017-12-01 15:20 | P.PNFP ---
Subjective Interval history: Ms Walker had no acute events overnight. Today she appears more alert with her family at bedside. She is moving her head and looking around and appears more clear-eyed and tracking movement with her eyes. She does not complain of pain. She is still not oriented to place or time. Her family has agreed to make her DNR; however, she makes $187 dollars per month more than is allowed to qualify for Medicaid, and the family is hiring a division merchandise manager to attempt to adjudicate that matter. As discussed with Palliative Care and family, pt is poor candidate for rehab facility, but working toward getting pt accepted to rehab or SNF. Family reports pt is eating and drinking everything being placed in front of her which is an encouraging sign. Pt denies CP, SOB, pain. <Shakira Still IIIy H - 12/01/17 15:20> Results - Labs Result diagrams: 12/01/17 04:27 12/01/17 04:27 <Cruz Fischer L - 12/01/17 15:41> Abnormal lab results 12/01/17 12/01/17 12/01/17 Range/Units 04:27 04:27 04:27 WBC 28.4 H (4.0-11.0) th/mm3 RBC 3.34 L (4.00-5.30) mil/mm3 Hgb 10.4 L (11.6-15.3) gm/dL Hct 31.3 L (35.0-46.0) % Plt Count 133 L (150-450) th/mm3 Lymph % (Auto) 73.0 H (9.0-44.0) % Lymph # (Auto) 20.7 H (1.0-4.8) th/mm3 Alexander # (Auto) 1.2 H (0.0-0.9) th/mm3 Lymphocytes % (Manual) 77 H (9-44) % Myelocytes % (Man) 1 H (0-0) % Smudge Cells Present H (None) Platelet Estimate Low L (Normal) Creatinine 0.37 L (0.50-1.00) mg/dL Random Glucose 138 H (74-106) mg/dL Calcium 7.6 L (8.5-10.1) mg/dL ALT 9 L (10-53) U/L Alkaline Phosphatase 42 L (45-117) U/L B-Natriuretic Peptide 240 H (0-100) pg/mL Total Protein 4.3 L (6.4-8.2) g/dL Albumin 2.3 L (3.4-5.0) g/dL Short CBC 12/01/17 Range/Units 04:27 WBC 28.4 H (4.0-11.0) th/mm3 Hgb 10.4 L (11.6-15.3) gm/dL Hct 31.3 L (35.0-46.0) % Plt Count 133 L (150-450) th/mm3 BMP 12/01/17 04:27 Sodium 136 Potassium 4.3 Chloride 102 Carbon Dioxide 25.4 BUN 17 Creatinine 0.37 L Calcium 7.6 L Liver Function 12/01/17 Range/Units 04:27 Total Bilirubin 1.0 (0.2-1.0) mg/dL AST 16 (15-37) U/L ALT 9 L (10-53) U/L Alkaline Phosphatase 42 L (45-117) U/L Albumin 2.3 L (3.4-5.0) g/dL <YoungCruz L - 12/01/17 15:41> Abnormal lab results 12/01/17 12/01/17 12/01/17 Range/Units 04:27 04:27 04:27 WBC 28.4 H (4.0-11.0) th/mm3 RBC 3.34 L (4.00-5.30) mil/mm3 Hgb 10.4 L (11.6-15.3) gm/dL Hct 31.3 L (35.0-46.0) % Plt Count 133 L (150-450) th/mm3 Lymph % (Auto) 73.0 H (9.0-44.0) % Lymph # (Auto) 20.7 H (1.0-4.8) th/mm3 Alexander # (Auto) 1.2 H (0.0-0.9) th/mm3 Lymphocytes % (Manual) 77 H (9-44) % Myelocytes % (Man) 1 H (0-0) % Smudge Cells Present H (None) Platelet Estimate Low L (Normal) Creatinine 0.37 L (0.50-1.00) mg/dL Random Glucose 138 H (74-106) mg/dL Calcium 7.6 L (8.5-10.1) mg/dL ALT 9 L (10-53) U/L Alkaline Phosphatase 42 L (45-117) U/L B-Natriuretic Peptide 240 H (0-100) pg/mL Total Protein 4.3 L (6.4-8.2) g/dL Albumin 2.3 L (3.4-5.0) g/dL Short CBC 12/01/17 Range/Units 04:27 WBC 28.4 H (4.0-11.0) th/mm3 Hgb 10.4 L (11.6-15.3) gm/dL Hct 31.3 L (35.0-46.0) % Plt Count 133 L (150-450) th/mm3 BMP 12/01/17 04:27 Sodium 136 Potassium 4.3 Chloride 102 Carbon Dioxide 25.4 BUN 17 Creatinine 0.37 L Calcium 7.6 L Liver Function 12/01/17 Range/Units 04:27 Total Bilirubin 1.0 (0.2-1.0) mg/dL AST 16 (15-37) U/L ALT 9 L (10-53) U/L Alkaline Phosphatase 42 L (45-117) U/L Albumin 2.3 L (3.4-5.0) g/dL <Blanke III,Nasim H - 12/01/17 15:20> Physical Exam Vital signs: Vital Signs 11/30/17 16:00 11/30/17 18:00 11/30/17 20:00 Temperature 98.6 F 98.3 F Pulse Rate 71 75 74 Respiratory Rate 16 17 Blood Pressure 196/87 H 203/77 H Pulse Oximetry 95 96 11/30/17 20:30 11/30/17 22:00 12/01/17 00:00 Temperature 98.6 F Pulse Rate 72 74 Respiratory Rate 20 Blood Pressure 182/79 H 154/72 H Pulse Oximetry 95 12/01/17 02:00 12/01/17 04:00 12/01/17 06:00 Temperature 98.8 F Pulse Rate 69 68 64 Respiratory Rate 14 Blood Pressure 179/74 H Pulse Oximetry 96 12/01/17 08:00 12/01/17 10:00 12/01/17 12:00 Temperature 98.4 F 98.4 F Pulse Rate 62 69 69 Respiratory Rate 12 18 Blood Pressure 175/95 H 157/72 H Pulse Oximetry 94 L 95 Intake & Output 11/30/17 12/01/17 12/01/17 18:59 06:59 18:59 Intake Total 360 / 360 Output Total 750 / 750 875 / 875 Balance -750 / -750 -515 / -515 Weight 57.5 kg Intake: Oral 360 / 360 Output: Urine Amount (Catheter) 750 / 750 875 / 875 Indwelling Urethral Catheter 750 / 750 875 / 875 Other: Date of Last Bowel Movement 11/30/17 12/01/17 # Bowel Movements 2 <Cruz Fischer L - 12/01/17 15:41> Vital Signs 11/30/17 16:00 11/30/17 18:00 11/30/17 20:00 Temperature 98.6 F 98.3 F Pulse Rate 71 75 74 Respiratory Rate 16 17 Blood Pressure 196/87 H 203/77 H Pulse Oximetry 95 96 11/30/17 20:30 11/30/17 22:00 12/01/17 00:00 Temperature 98.6 F Pulse Rate 72 74 Respiratory Rate 20 Blood Pressure 182/79 H 154/72 H Pulse Oximetry 95 12/01/17 02:00 12/01/17 04:00 12/01/17 06:00 Temperature 98.8 F Pulse Rate 69 68 64 Respiratory Rate 14 Blood Pressure 179/74 H Pulse Oximetry 96 12/01/17 08:00 12/01/17 10:00 12/01/17 12:00 Temperature 98.4 F 98.4 F Pulse Rate 62 69 69 Respiratory Rate 12 18 Blood Pressure 175/95 H 157/72 H Pulse Oximetry 94 L 95 Intake & Output 11/30/17 12/01/17 12/01/17 18:59 06:59 18:59 Intake Total 360 / 360 Output Total 750 / 750 875 / 875 Balance -750 / -750 -515 / -515 Weight 57.5 kg Intake: Oral 360 / 360 Output: Urine Amount (Catheter) 750 / 750 875 / 875 Indwelling Urethral Catheter 750 / 750 875 / 875 Other: Date of Last Bowel Movement 11/30/17 12/01/17 # Bowel Movements 2 <Cheko JARAMILLONasim H - 12/01/17 15:20> Narrative: GENERAL: Elderly female, lying in bed. Alert and awake today, moving head to voice, positioning herself. Follows simple commands. Answers simple questions. HEENT: Pupils equal, round, reactive. Purulent left eye discharge is absent today. MMM. Eyes tracking finger 70-80% today. Appears more clear-eyed. CARDIOVASCULAR: Regular rate & rhythm. Systolic murmur 1 out of 6 best over right-sided sternal border, stable from previous exam. ABDOMEN: Bowel sounds present. Soft, nontender, nondistended. RESPIRATORY: CTAB without wheezing, rales, rhonchi. No increased WOB on RA. MUSCULOSKELETAL: Dressings in place with no excess blood noted on right hip surgical area. Large hematoma about fci down the thigh and extending to the lateral thigh area, stable from previous exam. Pulses intact bilaterally. No edema. Large ecchymoses over the extensor surface of the right forearm, secured by sling. Right hand and forearm edematous. NEUROLOGICAL: Patient squeezes hands, moves arms and legs on command. Intact sensation in UEs and LEs. Single word answers to questions. More alert today, but oriented to self only. Spontaneous movement of bilateral upper and lower extremities. Patient protecting airway. Pt taking PO. <Cheko JARAMILLONasim Higgins - 12/01/17 15:20> - Urinary Catheter Management Indwelling Urethral Catheter Cath placed during this visit: no <Cruz Fischer - 12/01/17 15:41> yes <Cheko JARAMILLONasim Higgins - 12/01/17 15:20> Reason for continuing: Hourly intake/output <Cheko JARAMILLONasim Higgins - 12/01/17 15: 20> Insertion date: 11/22/17 <Cheko JARAMILLONasim Higgins - 12/01/17 15:20> Assessment and Plan - Assessment (1) Altered mental status Code(s): R41.82 - Altered mental status, unspecified Status: Acute (2) Thrombocytopenia Code(s): D69.6 - Thrombocytopenia, unspecified Status: Acute (3) WALTER (acute kidney injury) Code(s): N17.9 - Acute kidney failure, unspecified Status: Resolved (4) Fracture of femur Code(s): S72.90XA - Unspecified fracture of unspecified femur, initial encounter for closed fracture Status: Acute (5) Postoperative anemia due to acute blood loss Code(s): D62 - Acute posthemorrhagic anemia Status: Acute (6) Leukocytosis Code(s): D72.829 - Elevated white blood cell count, unspecified Status: Chronic (7) Hypertension Code(s): I10 - Essential (primary) hypertension Status: Acute (8) Hyperglycemia Code(s): R73.9 - Hyperglycemia, unspecified Status: Acute (9) Hypothyroid Code(s): E03.9 - Hypothyroidism, unspecified Status: Chronic (10) Humeral fracture Code(s): S42.309A - Unspecified fracture of shaft of humerus, unspecified arm, initial encounter for closed fracture Status: Chronic (11) Nutrition, metabolism, and development symptoms Code(s): R63.8 - Other symptoms and signs concerning food and fluid intake Status: Acute <Cruz Fischer - 12/01/17 15:41> (1) Altered mental status Code(s): R41.82 - Altered mental status, unspecified Status: Acute Plan: Patient appears to be mentally improving since surgery. Still denies pain. -Continue to hold anticoagulation (pt last transfusion 2 units 11/26) -Discontinue Ofirmev 650 mg IV q6h -Tylenol 650 mg PO PRN for pain/fever -Patient is currently protecting airway -Critical care signed off 11/27 -Transfer to floor -Per patient's son patient is eating with assistance. Swallow study recommendations for pure thick solids and honey thick liquids -Minimum caloric intake per day 1380; placement of Dobbhoff on hold for now -Patient maintaining SPO2 on room air. Nebs as needed -Palliative care consulted; --Patient's son and oldest daughter consented to CODE STATUS change to DNR --Family seeking fpc care (SNF or rehab) --Obtaining ortho recs on RUE rehab potential -Continue Rowley with strict I's and O's -Maintain hemoglobin greater than 7 (Hgb 9.0 11/27) -Neurochecks q4h -PT/OT to work with patient History: Head CT 11/25 showed no acute changes. 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 EEG showed background slowing consistent with encephalopathic state Acute encephalopathy due to CVA, post-op state, metabolic Ammonia level <10 (2) Thrombocytopenia Code(s): D69.6 - Thrombocytopenia, unspecified Status: Acute Plan: Platelet count trending upwards -Coagulation studies and fibrinogen within normal limits. -Hematology following patient -Patient not requiring platelet transfusion at this time, no signs of large active bleed. -Repeat CBC in a.m. -Monitor for now -If s/s of active bleeding, renae VANEGAS (3) WALTER (acute kidney injury) Code(s): N17.9 - Acute kidney failure, unspecified Status: Resolved Plan: Contributing factor of hypovolemia and n.p.o. status--resolved 11/25 and Cr stable <0.50 -Status post 2 units PRBC on 11/23 and 2 u PRBCs 11/26 -Patient was given additional normal saline 1 L on admission to ICU -Normal saline at 30 mls/hr due to loss of other pt IV sites -Continue Rowley catheter -BMP in a.m. (4) Fracture of femur Code(s): S72.90XA - Unspecified fracture of unspecified femur, initial encounter for closed fracture Status: Acute Plan: 87 YO female with comminuted spiral "butterfly" fracture of proximal femur noted on x-ray. Today pt is POD#6 following right femur reduction and intramedullary nail fixation by Dr Boogie. Patient neurovascularly intact and is recovering from surgery. -Orthopedic surgery consulted, Dr Boogie. Dressings per orthopedic recommendation -Pain occasions on hold as patient has altered mental status, patient has no complaints of pain at this time -Ca+Vitamin D supplementation -Withholding further evaluation of osteoporosis due to patient's acute critical illness -Pt for transfer to chair when pt moved to floor -PT as tolerated (5) Postoperative anemia due to acute blood loss Code(s): D62 - Acute posthemorrhagic anemia Status: Acute Plan: Pt with acute blood loss anemia post-operatively. -Hemoglobin trending upwards--stable at 10.4 this morning -Status post 2 units PRBC on 11/23 and 2 additional units on 11/26 -Monitor with daily CBC -Transfusions as needed to maintain hemoglobin greater than 7 (6) Leukocytosis Code(s): D72.829 - Elevated white blood cell count, unspecified Status: Chronic Plan: White blood cell count slightly down from 32 yesterday; non-infectious origin with CLL; pt afebrile Urinalysis on admission was negative; repeat 11/28 with moderate blood, 30 protein,trace LE, neg nitrite, few uric acid crystals. Patient has remained afebrile, not tachycardic Peripheral smear review showed atypical lymphocytosis and mild neutrophilia suspicious for CLL. -CXR 11/28 - Cardiomegaly. 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 -Blood cultures NGTD x5+ days -Urine cx NGTD -C. difficile neg -Antibiotics DC'd 11/27 (status post 48 hours of cefepime and metronidazole) (7) Hypertension Code(s): I10 - Essential (primary) hypertension Status: Acute Plan: Outside window for permissive hypertension. Will begin attempting to control systolic blood pressures more strictly with goal: SBP </= 180 and/or DBP </=95 -Discontinue Atenolol 50/Chlorthalidone 50 -Chlorthalidone 25 mg PO -Amlodipine 10 mg PO -Vasotec 2.5 mg IV push PRN if systolic blood pressure greater than 180 or diastolic blood pressure greater than 100 -Labetalol 10 mg IV push PRN if SBP >200 and/or DBP >110 -Once well controlled, will consider switching Vasotec to Lisinopril 20 mg daily (8) Hyperglycemia Code(s): R73.9 - Hyperglycemia, unspecified Status: Acute Plan: Patient has no reported history of diabetes. Likely stress reaction. -We will continue to monitor as patient increases in p.o. intake -BG 149 overnight (9) Hypothyroid Code(s): E03.9 - Hypothyroidism, unspecified Status: Chronic Plan: We will continue home levothyroxine once dosing is obtained -TSH 3.86 -Monitor for now (10) Humeral fracture Code(s): S42.309A - Unspecified fracture of shaft of humerus, unspecified arm, initial encounter for closed fracture Status: Chronic Plan: Reported by son to be chronic. Patient had fracture 2 years prior -Orthopedic surgery consulted appreciate recommendations on RUE activity -Pt right arm placed in sling post-op for immobilization (11) Nutrition, metabolism, and development symptoms Code(s): R63.8 - Other symptoms and signs concerning food and fluid intake Status: Acute Plan: Diet: PO with calorie counts. NG tube ordered but not placed; Dobhoff ordered to maintain caloric intake as specified by die fitter (minimum 1380 calories/day and maximum 1656 calories/day); however, pt with large hiatal hernia that did not permit placement. Per discussion with Dr Valle 11/26, we will allow pt to take PO with caloric goal as stated above. If minimum caloric goal cannot be met , will discuss Dobhoff placement under radiologic guidance vs PEG placement. Electrolytes: monitor daily and replete as necessary Fluids: PO fluids DVT prophylaxis: SCDs only. Hold pharmacological anticoagulation due to patient' s requirement of transfusion due to postoperative bleeding GI: none indicated Tylenol 650 mg as above PT CM consult to assist with rehab/SNF placement Palliative care as above - family considering Hospice vs SNF vs rehab Dispo: as above; Hospice, rehab or SNF Pt SDW Dr Fischer <Cheko JARAMILLONasim H - 12/01/17 14:48> - Attending Attestation The exam, history, and the medical decision-making described in the above note were completed with the assistance of the resident physician. I reviewed and agree with the findings presented. I attest that I had a [id number] encounter with the patient on the same day, and personally performed and documented my assessment and findings in the medical record. I saw and examined the patient with the resident/medical student team this morning. Patient is making small improvements neurologically. This morning she is somewhat more vocal and she is tracking more with her eyes, looking at the different faces in the room. She is moving all extremities. She verbalizes short statements and answers most simple questions appropriately. She reports no pain or discomfort this morning. We talked with family at the bedside this morning at length. Their goal includes getting her to long-term care facility for rehabilitation. We will touch base with orthopedic surgery to find out if any updates can be made to movement status of her right arm which is currently in a sling, which could help physical therapy do more things with her. Will try to transfer to medical floor today. Continue working on her hypertension, which is better controlled today. Prefer to manage her hypertension with oral rather than IV medications. Partly may be due to non-verbalized pain, for which we are treated with Tylenol. Trying to avoid opioids given her history of altered mental status during this hospital stay. <Cruz Fischer - 12/01/17 15:41> <[facility] Last Filed: 12/01/17 14:48> (4) Fracture of femur Qualifiers: Encounter type: initial encounter Fracture type: closed Fracture morphology : spiral Laterality: right (10) Humeral fracture Qualifiers: Fracture type: closed Laterality: right [facility] Filed: 12/01/17 15:41> (4) Fracture of femur Qualifiers: Encounter type: initial encounter Fracture type: closed Fracture morphology : spiral Laterality: right (10) Humeral fracture Qualifiers: Fracture type: closed Laterality: right [facility] Filed: 12/01/17 14:48> (4) Fracture of femur Qualifiers: Encounter type: initial encounter Fracture type: closed Fracture morphology : spiral Laterality: right (10) Humeral fracture Qualifiers: Fracture type: closed Laterality: right [facility] Filed: 12/01/17 15:41> (4) Fracture of femur Qualifiers: Encounter type: initial encounter Fracture type: closed Fracture morphology : spiral Laterality: right (10) Humeral fracture Qualifiers: Fracture type: closed Laterality: right
--- NOTE | 2017-12-01 15:21 | P.PNPAL ---
Reason for Visit Reason for visit: a. To assist with evaluation and management of symptoms including: Confusion, lethargy b. To assist medical decision maker(s) with: better understanding of current medical conditions; weighing benefits/burdens of medical treatment options; making medical treatment decisions. Subjective Subjective/Interval History: Follow-up on confusion, lethargy as well as goals of treatment with decision- makers. Patient is slightly more alert today, opening her eyes and tracking more frequently. She is very hard of hearing in a be less interactive due to inability to follow the conversation. Her family is in the room and she responds well to exam. She is very weak and has difficulty repositioning herself in bed due to her right arm fracture and general lethargy and weakness. When alert, she is able to feed herself, however now requires assistance due to She has some intermittent confusion but does recognize family. She does not know the date nor is she oriented to being in the hospital. She answers questions from the viewpoint of being a young girl and had previously stated that she was 11. . Family/Friend Interactions: Spoke with her family at length to include her son Derick, her daughter Jesenia, and Jesenia's . She will be a difficult placement at this time as her rehab potential is significantly impaired by her nonweightbearing status of her right arm. While she does have 50% weightbearing capability on the right leg, she is unable to use her right arm to advance the walker and so has been refused for rehabilitative services at the residential facilities. While she would benefit from long-term placement, she is unable to afford the self funded option and has not yet qualified for Medicaid. Family has contacted an elder ip technology transactions attorney to facilitate the Medicaid application and assist with prison placement. I have discussed with the managing team the need for clarification from orthopedic regarding aggressive weight restrictions and clearance to use the right arm to facilitate her placement in rehabilitation while the family seeks funding for Medicaid. Plan is for the medical team to address these issues with Dr. Boogie for discharge planning. . Objective Vital Signs: Vital Signs 11/30/17 16:00 11/30/17 18:00 11/30/17 20:00 Temperature 98.6 F 98.3 F Pulse Rate 71 75 74 Respiratory Rate 16 17 Blood Pressure 196/87 H 203/77 H Pulse Oximetry 95 96 11/30/17 20:30 11/30/17 22:00 12/01/17 00:00 Temperature 98.6 F Pulse Rate 72 74 Respiratory Rate 20 Blood Pressure 182/79 H 154/72 H Pulse Oximetry 95 12/01/17 02:00 12/01/17 04:00 12/01/17 06:00 Temperature 98.8 F Pulse Rate 69 68 64 Respiratory Rate 14 Blood Pressure 179/74 H Pulse Oximetry 96 12/01/17 08:00 12/01/17 10:00 12/01/17 12:00 Temperature 98.4 F 98.4 F Pulse Rate 62 69 69 Respiratory Rate 12 18 Blood Pressure 175/95 H 157/72 H Pulse Oximetry 94 L 95 Intake & Output 11/30/17 12/01/17 12/01/17 18:59 06:59 18:59 Intake Total 360 / 360 Output Total 750 / 750 875 / 875 Balance -750 / -750 -515 / -515 Weight 126 lb 12.253 oz Intake: Oral 360 / 360 Output: Urine Amount (Catheter) 750 / 750 875 / 875 Indwelling Urethral Catheter 750 / 750 875 / 875 Other: Date of Last Bowel Movement 11/30/17 12/01/17 # Bowel Movements 2 Physical Exam: CONSTITUTIONAL/GENERAL: This is an adequately nourished patient, in no apparent distress. TUBES/LINES/DRAINS: PIV UE SKIN: No jaundice, rashes, or lesions. Ecchymoses Rt hip/upper leg. Dressing clean/dry. Skin warm/dry EYES: Pupils equal and round and reactive. Extraocular motions intact. No scleral icterus. No injection or drainage. Fundi not examined. ENT: [facility] [facility]. CARDIOVASCULAR: Regular rate and rhythm without murmur . No JVD. Peripheral pulses symmetric. slight edema R upper leg, bilateral upper extremities. RESPIRATORY/CHEST: Symmetric, unlabored respirations. Occasional rhonchi, clears with cough. On room air. Breath sounds equal bilaterally. GASTROINTESTINAL: Abdomen soft, non-tender, nondistended. No hepato-splenomegaly , or palpable masses. No guarding. Bowel sounds present. GENITOURINARY: Without palpable bladder distension. MUSCULOSKELETAL: Extremities without clubbing, cyanosis, or edema. No mottling or clubbing. NEUROLOGICAL: Lethargic, oriented to self. Patient follows simple directions but has poor insight, Poor situational awareness. PSYCHIATRIC: Lethargic. . Diagnostic Tests Laboratory: Laboratory Results - last 72 hr 11/28/17 11/29/17 11/29/17 20:34 04:10 04:10 WBC 25.0 H RBC 3.11 L Hgb 9.7 L Hct 28.9 L MCV 93.0 MCH 31.1 MCHC 33.5 RDW 15.1 Plt Count 108 L MPV 6.8 L Prelim Diff (Auto) Slide review pending Neut % (Auto) 20.9 Lymph % (Auto) 74.5 H [place] % (Auto) 3.6 Eos % (Auto) 0.9 Baso % (Auto) 0.1 Neut # (Auto) 5.2 Lymph # (Auto) 18.6 H [place] # (Auto) 0.9 Eos # (Auto) 0.2 Baso # (Auto) 0.0 WBC Differential Manual diff final Seg Neuts % (Manual) 23 Band Neuts % (Manual) 1 Lymphocytes % (Manual) 74 H Monocytes % (Manual) Eosinophils % (Manual) 2 Myelocytes % (Man) Abs Neuts (Manual) 6.0 Differential Comment . Smudge Cells Present H Platelet Estimate Low L Platelet Morphology Normal RBC Morphology Normal Sodium 142 Potassium 3.8 Chloride 107 Carbon Dioxide 26.5 Anion Gap 9 BUN 22 H Creatinine 0.43 L Estimated GFR Greater than 89 Random Glucose 138 H Calcium 7.4 L* Prot Corrected Calcium 9.1 Total Bilirubin AST ALT Alkaline Phosphatase B-Natriuretic Peptide Total Protein 4.2 L Albumin TSH Urine Color Yellow Urine Clarity Cloudy H Urine pH 5.0 Ur Specific [place] 1.016 Urine Protein 30 H Urine Glucose (UA) 50 Urine Ketones Negative Urine Occult Blood Moderate H Urine Nitrate Negative Urine Bilirubin Negative Urine Urobilinogen Less than 2 Ur Leukocyte Esterase Trace H Urine RBC 47 H Urine WBC 2 Uric Acid Crystals Few H Urine Bacteria Rare H Urine Mucus Few H Micro UA Comment Cath-culture ind Ur Microscopic Review Not Reportable Urine Culture Comments Cath-cult indicated 11/29/17 11/30/17 11/30/17 04:10 04:37 04:37 WBC 32.1 H RBC 3.43 L Hgb 10.7 L Hct 31.6 L MCV 92.2 MCH 31.0 MCHC 33.7 RDW 15.6 Plt Count 136 L MPV 7.0 Prelim Diff (Auto) Slide review pending Neut % (Auto) 25.0 Lymph % (Auto) 69.8 H [place] % (Auto) 4.2 Eos % (Auto) 0.7 Baso % (Auto) 0.3 Neut # (Auto) 8.0 H Lymph # (Auto) 22.4 H [place] # (Auto) 1.3 H Eos # (Auto) 0.2 Baso # (Auto) 0.1 WBC Differential Manual diff final Seg Neuts % (Manual) 35 Band Neuts % (Manual) Lymphocytes % (Manual) 60 H Monocytes % (Manual) 5 Eosinophils % (Manual) Myelocytes % (Man) Abs Neuts (Manual) 11.2 H Differential Comment . Smudge Cells Present H Platelet Estimate Low L Platelet Morphology Normal RBC Morphology Sodium 138 Potassium 3.8 Chloride 104 Carbon Dioxide 25.1 Anion Gap 9 BUN 21 H Creatinine 0.42 L Estimated GFR Greater than 89 Random Glucose 149 H Calcium 7.6 L Prot Corrected Calcium Total Bilirubin AST ALT Alkaline Phosphatase B-Natriuretic Peptide Total Protein Albumin TSH 3.860 H Urine Color Urine Clarity Urine pH Ur Specific [place] Urine Protein Urine Glucose (UA) Urine Ketones Urine Occult Blood Urine Nitrate Urine Bilirubin Urine Urobilinogen Ur Leukocyte Esterase Urine RBC Urine WBC Uric Acid Crystals Urine Bacteria Urine Mucus Micro UA Comment Ur Microscopic Review Urine Culture Comments 12/01/17 12/01/17 12/01/17 04:27 04:27 04:27 WBC 28.4 H RBC 3.34 L Hgb 10.4 L Hct 31.3 L MCV 93.8 MCH 31.1 MCHC 33.2 RDW 15.8 Plt Count 133 L MPV 7.3 Prelim Diff (Auto) Slide review pending Neut % (Auto) 21.7 Lymph % (Auto) 73.0 H [place] % (Auto) 4.3 Eos % (Auto) 0.7 Baso % (Auto) 0.3 Neut # (Auto) 6.2 Lymph # (Auto) 20.7 H [place] # (Auto) 1.2 H Eos # (Auto) 0.2 Baso # (Auto) 0.1 WBC Differential Manual diff final Seg Neuts % (Manual) 19 Band Neuts % (Manual) Lymphocytes % (Manual) 77 H Monocytes % (Manual) 3 Eosinophils % (Manual) Myelocytes % (Man) 1 H Abs Neuts (Manual) 5.7 Differential Comment . Smudge Cells Present H Platelet Estimate Low L Platelet Morphology Normal RBC Morphology Normal Sodium 136 Potassium 4.3 Chloride 102 Carbon Dioxide 25.4 Anion Gap 9 BUN 17 Creatinine 0.37 L Estimated GFR Greater than 89 Random Glucose 138 H Calcium 7.6 L Prot Corrected Calcium Total Bilirubin 1.0 AST 16 ALT 9 L Alkaline Phosphatase 42 L B-Natriuretic Peptide 240 H Total Protein 4.3 L Albumin 2.3 L TSH Urine Color Urine Clarity Urine pH Ur Specific [place] Urine Protein Urine Glucose (UA) Urine Ketones Urine Occult Blood Urine Nitrate Urine Bilirubin Urine Urobilinogen Ur Leukocyte Esterase Urine RBC Urine WBC Uric Acid Crystals Urine Bacteria Urine Mucus Micro UA Comment Ur Microscopic Review Urine Culture Comments Result Diagrams: 12/01/17 04:27 12/01/17 04:27 Microbiology: Microbiology 11/28/17 20:34 Urine Culture - Final Catheterized Urine No growth in 48 hours 11/24/17 01:15 Aerobic Blood Culture - Final Blood - Peripheral No growth in 5 days Anaerobic Blood Culture - Final No growth in 5 days Imaging: Pelvis X-Ray 11/21/17 00:00 CONCLUSION: Negative for acute pelvic fracture. Chest X-Ray 11/21/17 08:59 CONCLUSION: 1. No evidence of acute cardiopulmonary process. 2. Cardiomegaly 3. Nondisplaced fracture proximal right femur 4. Severe bilateral shoulder arthropathy. Femur X-Ray 11/21/17 08:59 CONCLUSION: Proximal femur fracture as above. Humerus X-Ray 11/21/17 08:59 CONCLUSION: Fracture proximal humerus as above. Hip X-Ray 11/22/17 00:00 CONCLUSION: Anatomic alignment. Head CT 11/23/17 10:21 CONCLUSION: 1. Stable evaluation without evidence of acute infarct, hemorrhage, mass or edema. 2. Cerebral white matter hypodensity characteristic of chronic microvascular ischemic disease; unchanged. . Head MRI 11/23/17 21:56 CONCLUSION: 1. 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 No significant mass effect or shift. 2. Severe chronic white matter ischemic changes bilaterally. Carotid Doppler Study 11/24/17 00:00 CONCLUSION: No evidence of flow-limiting carotid stenosis. Head CT 11/25/17 05:00 CONCLUSION: 1. Stable CT examination in this patient with known multiple cerebral infarcts. No intercurrent hemorrhage. . Chest X-Ray 11/26/17 13:47 CONCLUSION: Dobbhoff tube coiled within a large hiatal hernia. Chest X-Ray 11/28/17 12:31 CONCLUSION: Cardiomegaly. Severe hypoinflation without acute pulmonary disease Assessment and Plan - Disease Oriented Problem List (1) Closed subtrochanteric fracture of right femur Comment: S/P IM nail (2) Altered mental status (3) WALTER (acute kidney injury) (4) Humeral fracture (5) Leukocytosis (6) Hyperglycemia (7) Hypothyroid (8) Hypertension Pertinent Non-Medical Issues: Psychosocial: Patient originally from [facility]. Has lived in [place] for the past 10-15 years, originally in [place] and more recently in [facility]. Was a homemaker. , about 30 years ago following a stroke which was a complication following heart transplant. Has 3 children. Remains in close communication with her son Dercik, 2 daughters Leah Frederick she does not remain in close communication with. Also has a sister Nivia in [place] whom she remains in contact with. Spiritual: Cong[employer], would appreciate product safety technician visits. Legal: Patient currently not able to make her own decisions secondary to CVA. Not clear if or when she will regain ability to make her own decisions. She does not have advanced directive or health care surrogate completed. Per [place] statutes legal decision making would fall to the majority of her 3 adult children. In close communication with the one son Derick whom she lives with. She is not in close communication with the other 2 children. Will need to establish if they wish to participate in decision-making going forward. Ethical issues impacting care: Important Contacts: Son Derick Walker [phone] Does wish to participate in decisions Sister Nivia Rosalino [phone] / [phone] Nilesh Walker [phone] DOES NOT WISH TO PARTICIPATE IN DECISIONS 11/25/17 Daughter Jesenia Calhoun [phone], DOES WISH to participate in decisions 11/25/17 Prognosis: This patient was admitted status post fall in her home setting. She had following findings of a humerus fracture as well as femur fracture requiring operative repair. 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 Appears she may have acute infectious process. She had altered mental status, MRI findings of CVA, possibly embolic. Given her advanced age, current bedbound, acutely ill state, remains high risk for ongoing complications and setbacks which could result in continued deterioration and possibly . Code Status: No Code DNR Plan: * Legal decision maker:Patient currently not able to make her own decisions secondary to CVA. Not clear if or when she will regain ability to make her own decisions. She does not have advanced directive or health care surrogate completed. Per [place] statutes legal decision making would fall to the majority of her 3 adult children. In close communication with the one son Derick whom she lives with. She is not in close communication with the other 2 children. Will need to establish if they wish to participate in decision- making going forward. 11/25/17 1500 call back from patient's 2 other daughters Leah, Jesenia. Leah indicates she does not wish to participate in decision-making. Jesenia does indicate she wishes to participate with son Derick in decision-making, she indicates she will be in close communication with the rest of the family; and plans to try to get down here in the next day or so. LEGAL DECISION MAKERS= 2 CHILDREN DERICK FREDERICK. * Goals: Aggressive short of no code. * CODE STATUS: DO NOT RESUSCITATE * SYMPTOMS: * Confusion-she recognizes family but is otherwise not oriented to time purpose or place. Urine culture drawn 11/28 is negative. WBC 28.4, chronically elevated. 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 Per hematology's recommendation, no treatment for this at this time, due to patient's poor performance status, weakness and lethargy. * Lethargy- + CVA per MRI. Numerous areas bilateral infarct. Patient lethargic today, able to perform simple commands with encouragement. Family considering rehabilitation, however patient has no ability to participate in rehab at this time due to 2 fractured limbs. Being followed by physical therapy but too lethargic to participate safely. Family now seeking long-term care placement, complicated by inability to enter the system via rehabilitation due to physical limitations. Family has contacted elder ip technology transactions attorney for assistance in the Medicaid application. Pending acceptance. * Palliative care will continue to follow during hospital course as condition evolves, to assist patient/decision-maker with understanding of medical conditions, weighing benefits/burdens of treatment options, for clarification of goals of treatment. Additionally will assist with any symptoms of palliative concern Attestation Attestation: To help prompt me to consider important information that might be impacting today's encounter and assessment, information from prior notes written by myself or my colleagues may have been "brought forward" into today's note. My signature on this note, however, is an attestation that I personally performed the exam, history, and/or decision-making noted today, and, unless otherwise indicated, the interactions with patient, family, and staff as well as the review of records all occurred today. I also attest that the listed assessment and stated plan reflect my best clinical judgment today based on the combination of historical information, prior notes, and today's exam/ interactions. When time spent is documented, it refers only to time spent today by the signer, or if indicated, combined time spent today by collaborating physician/nurse practitioner. .
[2017-12-02] MEDS: Polymyxin/Trimethop Opth Drops 10 ML Bottle LEFT EYE SCH ×4 (06:24→18:23)
[2017-12-02] MEDS: Calcium/Vitamin D 250/125 MG Tablet PO SCH ×3 (06:24→18:25)
[2017-12-02 06:59] LABS: Baso # (Auto) 0.1 th/mm3 (0.0-0.2); Baso % (Auto) 0.2 % (0.0-2.0); Eos # (Auto) 0.2 th/mm3 (0.0-0.4); Eos % (Auto) 0.6 % (0.0-4.0); Hematocrit 32.1 % (35.0-46.0); Hemoglobin 10.7 gm/dL (11.6-15.3); Lymph # (Auto) 26.7 th/mm3 (1.0-4.8); Lymph % (Auto) 75.4 % (9.0-44.0); Mean Corpuscular HGB Conc 33.3 % (32.0-36.0); Mean Corpuscular Hemoglobin 31.2 pg (27.0-34.0); Mean Corpuscular Volume 93.6 fL (80.0-100.0); Mean Platelet Volume 6.8 fL (7.0-11.0); Mono # (Auto) 1.4 th/mm3 (0.0-0.9); Mono % (Auto) 3.9 % (0.0-8.0); Neut # (Auto) 7.1 th/mm3 (1.8-7.7); Neut % (Auto) 19.9 % (16.0-70.0); Platelet Count 169 th/mm3 (150-450); Red Blood Count 3.43 mil/mm3 (4.00-5.30); Red Cell Distribution Width 15.5 % (11.6-17.2); White Blood Count 35.5 th/mm3 (4.0-11.0)
[2017-12-02 07:08] LABS: Anion Gap 7 meq/L (5-15); Blood Urea Nitrogen 17 mg/dL (7-18); Calcium 7.9 mg/dL (8.5-10.1); Carbon Dioxide 27.7 meq/L (21.0-32.0); Chloride 101 meq/L (98-107); Glomerular Filtration Rate Greater Than 89 mL/min (>89); Glucose,Random 139 mg/dL (74-106); Potassium 4.4 meq/L (3.5-5.1); Sodium 136 meq/L (136-145)
[2017-12-02 07:10] LABS: Total Protein 4.8 g/dL (6.4-8.2)
[2017-12-02] MEDS: Senna/Docusate Sodium 8.6/50 MG Tablet PO SCH ×2 (08:30→21:41)
[2017-12-02] MEDS: amLODIPine 10 MG Tablet PO SCH (08:30)
[2017-12-02] MEDS: Beneprotein Powder Packet G-TUBE SCH ×3 (08:30→18:22)
--- NOTE | 2017-12-02 09:05 | P.PNOP ---
Subjective Interval history: Resting comfortably in no acute distress Physical Exam Vital signs: Vital Signs 12/01/17 10:00 12/01/17 12:00 12/01/17 16:00 Temperature 98.4 F 98.3 F Pulse Rate 69 69 70 Respiratory Rate 18 17 Blood Pressure 157/72 H 140/65 Pulse Oximetry 95 96 12/01/17 19:00 12/01/17 20:00 12/01/17 22:00 Temperature 98.5 F 98.4 F Pulse Rate 67 73 Respiratory Rate 18 16 18 Blood Pressure 145/67 H 160/81 H Pulse Oximetry 94 L 95 12/02/17 00:00 12/02/17 02:00 12/02/17 06:00 Temperature 98.2 F Pulse Rate 68 Respiratory Rate 17 16 18 Blood Pressure 121/65 Pulse Oximetry 94 L 12/02/17 08:32 Temperature 98.4 F Pulse Rate 72 Respiratory Rate 14 Blood Pressure 172/91 H Pulse Oximetry 93 L Intake & Output 12/01/17 12/02/17 12/02/17 18:59 06:59 18:59 Output Total 1000 / 1000 951 / 951 Balance -1000 / -1000 -951 / -951 Weight 57.5 kg Output: Stool 1 / Urine Amount (Catheter) 1000 / 1000 950 / 950 Indwelling Urethral Catheter 1000 / 1000 950 / 950 Other: Date of Last Bowel Movement 12/01/17 12/02/17 # Bowel Movements 1 2 Narrative: RUE: +sling. notable bruising of shoulder. crepitus to palpation. NVI RLE: dressings clean and dry. intact. noted bruising of thigh. compartments soft. nvi - Urinary Catheter Management Indwelling Urethral Catheter Cath placed during this visit: yes Reason for continuing: Hourly intake/output Insertion date: 11/22/17 Results - Labs CBC & Chem 7: 12/02/17 05:43 12/02/17 05:43 Laboratory Results - last 24 hr 12/02/17 12/02/17 05:43 05:43 WBC 35.5 H RBC 3.43 L Hgb 10.7 L Hct 32.1 L MCV 93.6 MCH 31.2 MCHC 33.3 RDW 15.5 Plt Count 169 MPV 6.8 L Prelim Diff (Auto) Slide review pending Neut % (Auto) 19.9 Lymph % (Auto) 75.4 H [place] % (Auto) 3.9 Eos % (Auto) 0.6 Baso % (Auto) 0.2 Neut # (Auto) 7.1 Lymph # (Auto) 26.7 H [place] # (Auto) 1.4 H Eos # (Auto) 0.2 Baso # (Auto) 0.1 Differential Comment . Sodium 136 Potassium 4.4 Chloride 101 Carbon Dioxide 27.7 Anion Gap 7 BUN 17 Creatinine 0.41 L Estimated GFR Greater than 89 Random Glucose 139 H Calcium 7.9 L Prot Corrected Calcium 9.3 Total Protein 4.8 L Assessment and Plan - Assessment and Plan 1) Right subtrochanteric and femoral shaft fractures status post IM nail POD 10 50% weightbearing right lower extremity dressings daily Xeroform 4 x 4's ABD and paper tape until drainage is subsided. Then convert over to [place] with Xeroform. 2) Right proximal humerus fracture - nonop Nonoperative treatment. Sling and swathe with nonweightbearing. No range of motion of shoulder Case management for rehab placement Pain medication on chart and 3008 with orthopedic specifications f/u with Keagan or KEVIN in 2 weeks [employer] Prescription Drug Monitoring Database has been queried and verified prior to prescribing the controlled substance. Acute pain exception. This patient has normal, predicted, physiological, and time limited response to an adverse mechanical stimulus associated with surgery, trauma, or acute illness as described in my notes. There is a lack of alternative treatment options other than to include the prescribed narcotic treatment for this condition.
[2017-12-02 09:19] LABS: Lymphocytes 69 % (9-44); Monocytes 9 % (0-8); Platelet Estimate Normal (Normal); Platelet Morphology Normal (Normal)
[2017-12-02 09:21] LABS: Smudge Cells Present
[2017-12-02 09:22] LABS: RBC Morphology Normal (Normal)
[2017-12-02] MEDS ORDERED: Lisinopril 5 MG Tablet PO SCH (10:00)
--- NOTE | 2017-12-02 11:41 | P.PNFP ---
Addendum entered and electronically signed by Rae Moore MD, R1 12/02/17 12 :05: Physical exam addendum: Stage 1 sacral ulcer noted on exam. Q2Hr turns ordered and wound care consulted for possible pressure reducing bed. Original Note: Subjective Interval history: Ms Walker was seen on round this morning. She is more vocal today and able to better articulate answers to questions. She is not oriented to place or year and is unable to tell us her son's name. She reports minimal abdominal discomfort but no other pains. She reports that she is uncomfortable in bed but is resistant to readjustment. <Rae Moore - 12/02/17 11:41> Results - Labs Result diagrams: 12/02/17 05:43 12/02/17 05:43 <Cruz Fischer - 12/02/17 12:43> Abnormal lab results 12/02/17 12/02/17 Range/Units 05:43 05:43 WBC 35.5 H (4.0-11.0) th/mm3 RBC 3.43 L (4.00-5.30) mil/mm3 Hgb 10.7 L (11.6-15.3) gm/dL Hct 32.1 L (35.0-46.0) % MPV 6.8 L (7.0-11.0) fL Lymph % (Auto) 75.4 H (9.0-44.0) % Lymph # (Auto) 26.7 H (1.0-4.8) th/mm3 [place] # (Auto) 1.4 H (0.0-0.9) th/mm3 Lymphocytes % (Manual) 69 H (9-44) % Monocytes % (Manual) 9 H (0-8) % Abs Neuts (Manual) 7.8 H (1.8-7.7) th/mm3 Smudge Cells Present H (None) Creatinine 0.41 L (0.50-1.00) mg/dL Random Glucose 139 H (74-106) mg/dL Calcium 7.9 L (8.5-10.1) mg/dL Total Protein 4.8 L (6.4-8.2) g/dL Short CBC 12/02/17 Range/Units 05:43 WBC 35.5 H (4.0-11.0) th/mm3 Hgb 10.7 L (11.6-15.3) gm/dL Hct 32.1 L (35.0-46.0) % Plt Count 169 (150-450) th/mm3 [facility] 12/02/17 05:43 Sodium 136 Potassium 4.4 Chloride 101 Carbon Dioxide 27.7 BUN 17 Creatinine 0.41 L Calcium 7.9 L <Cruz Fischer L - 12/02/17 12:43> Abnormal lab results 12/02/17 12/02/17 Range/Units 05:43 05:43 WBC 35.5 H (4.0-11.0) th/mm3 RBC 3.43 L (4.00-5.30) mil/mm3 Hgb 10.7 L (11.6-15.3) gm/dL Hct 32.1 L (35.0-46.0) % MPV 6.8 L (7.0-11.0) fL Lymph % (Auto) 75.4 H (9.0-44.0) % Lymph # (Auto) 26.7 H (1.0-4.8) th/mm3 [place] # (Auto) 1.4 H (0.0-0.9) th/mm3 Lymphocytes % (Manual) 69 H (9-44) % Monocytes % (Manual) 9 H (0-8) % Abs Neuts (Manual) 7.8 H (1.8-7.7) th/mm3 Smudge Cells Present H (None) Creatinine 0.41 L (0.50-1.00) mg/dL Random Glucose 139 H (74-106) mg/dL Calcium 7.9 L (8.5-10.1) mg/dL Total Protein 4.8 L (6.4-8.2) g/dL Short CBC 12/02/17 Range/Units 05:43 WBC 35.5 H (4.0-11.0) th/mm3 Hgb 10.7 L (11.6-15.3) gm/dL Hct 32.1 L (35.0-46.0) % Plt Count 169 (150-450) th/mm3 BMP 12/02/17 05:43 Sodium 136 Potassium 4.4 Chloride 101 Carbon Dioxide 27.7 BUN 17 Creatinine 0.41 L Calcium 7.9 L <Rae Moore - 12/02/17 11:41> Physical Exam Vital signs: Vital Signs 12/01/17 16:00 12/01/17 19:00 12/01/17 20:00 Temperature 98.3 F 98.5 F 98.4 F Pulse Rate 70 67 73 Respiratory Rate 17 18 16 Blood Pressure 140/65 145/67 H 160/81 H Pulse Oximetry 96 94 L 95 12/01/17 22:00 12/02/17 00:00 12/02/17 02:00 Temperature 98.2 F Pulse Rate 68 Respiratory Rate 18 17 16 Blood Pressure 121/65 Pulse Oximetry 94 L 12/02/17 06:00 12/02/17 08:32 12/02/17 12:15 Temperature 98.4 F 97.4 F L Pulse Rate 72 75 Respiratory Rate 18 14 Blood Pressure 172/91 H 148/69 H Pulse Oximetry 93 L 95 Intake & Output 12/01/17 12/02/17 12/02/17 18:59 06:59 18:59 Output Total 1000 / 1000 951 / 951 Balance -1000 / -1000 -951 / -951 Weight 57.5 kg Output: Stool 1 / Urine Amount (Catheter) 1000 / 1000 950 / 950 Indwelling Urethral Catheter 1000 / 1000 950 / 950 Other: Date of Last Bowel Movement 12/01/17 12/02/17 12/02/17 # Bowel Movements 1 2 <Cruz Fischer L - 12/02/17 12:43> Vital Signs 12/01/17 12:00 12/01/17 16:00 12/01/17 19:00 Temperature 98.4 F 98.3 F 98.5 F Pulse Rate 69 70 67 Respiratory Rate 18 17 18 Blood Pressure 157/72 H 140/65 145/67 H Pulse Oximetry 95 96 94 L 12/01/17 20:00 12/01/17 22:00 12/02/17 00:00 Temperature 98.4 F 98.2 F Pulse Rate 73 68 Respiratory Rate 16 18 17 Blood Pressure 160/81 H 121/65 Pulse Oximetry 95 94 L 12/02/17 02:00 12/02/17 06:00 12/02/17 08:32 Temperature 98.4 F Pulse Rate 72 Respiratory Rate 16 18 14 Blood Pressure 172/91 H Pulse Oximetry 93 L Intake & Output 12/01/17 12/02/17 12/02/17 18:59 06:59 18:59 Output Total 1000 / 1000 951 / 951 Balance -1000 / -1000 -951 / -951 Weight 57.5 kg Output: Stool / Urine Amount (Catheter) 1000 / 1000 950 / 950 Indwelling Urethral Catheter 1000 / 1000 950 / 950 Other: Date of Last Bowel Movement 12/01/17 12/02/17 12/02/17 # Bowel Movements 1 2 <Rae Moore - 12/02/17 11:41> Narrative: GENERAL: Elderly female, lying in bed. Alert and awake. Able to hold a basic conversation and answer simple questions. HEENT: Left eye appears less swollen, erythematous than previous exams. No purulent drainage noted. CARDIOVASCULAR: Regular rate & rhythm. Systolic murmur 1 out of 6 best over right-sided sternal border, stable from previous exam. ABDOMEN: Bowel sounds present. Soft, nontender, nondistended. RESPIRATORY: CTAB without wheezing, rales, rhonchi. MUSCULOSKELETAL: Dressings in place with no excess blood noted on right hip surgical area. Large hematoma about long term down the thigh and extending to the lateral thigh area, appears to be resolving. Pulses intact bilaterally. No edema. Large ecchymoses over the extensor surface of the right forearm, secured by sling. Right hand and forearm edematous, slightly improved from previous exams. NEUROLOGICAL: Patient moves all 4 extremities spontaneously and attempts to dress herself in bed. Single word answers to questions. Not oriented to place or date. Patient protecting airway. Pt taking PO. <Rae Moore - 12/02/17 11:41> - Urinary Catheter Management Indwelling Urethral Catheter Cath placed during this visit: no <Cruz Fischer - 12/02/17 12:43> yes <Rae Moore - 12/02/17 11:41> Reason for continuing: Hourly intake/output <Rae Moore - 12/02/17 11:41> Insertion date: 11/22/17 <Rae Moore - 12/02/17 11:41> Assessment and Plan - Assessment (1) Altered mental status Code(s): R41.82 - Altered mental status, unspecified Status: Acute (2) WALTER (acute kidney injury) Code(s): N17.9 - Acute kidney failure, unspecified Status: Resolved (3) Fracture of femur Code(s): S72.90XA - Unspecified fracture of unspecified femur, initial encounter for closed fracture Status: Acute (4) Thrombocytopenia Code(s): D69.6 - Thrombocytopenia, unspecified Status: Acute (5) Postoperative anemia due to acute blood loss Code(s): D62 - Acute posthemorrhagic anemia Status: Acute (6) Leukocytosis Code(s): D72.829 - Elevated white blood cell count, unspecified Status: Chronic (7) Hypertension Code(s): I10 - Essential (primary) hypertension Status: Acute (8) Hyperglycemia Code(s): R73.9 - Hyperglycemia, unspecified Status: Acute (9) Hypothyroid Code(s): E03.9 - Hypothyroidism, unspecified Status: Chronic (10) Humeral fracture Code(s): S42.309A - Unspecified fracture of shaft of humerus, unspecified arm, initial encounter for closed fracture Status: Chronic (11) Nutrition, metabolism, and development symptoms Code(s): R63.8 - Other symptoms and signs concerning food and fluid intake Status: Acute <Cruz Fischer - 12/02/17 12:43> (1) Altered mental status Code(s): R41.82 - Altered mental status, unspecified Status: Acute Plan: Patient more communicative and interactive. Reports abdominal pain but no pain in her hip on palpation -Continue to hold anticoagulation (pt last transfusion 2 units 11/26) -Tylenol 650 mg PO PRN for pain/fever -Patient is currently protecting airway -Critical care signed off 11/27 -Per patient's son patient is eating with assistance. Swallow study recommendations for pure thick solids and honey thick liquids -Minimum caloric intake per day 1380; placement of Dobbhoff on hold for now -Patient maintaining SPO2 on room air. Nebs as needed -Palliative care consulted; --Patient's son and oldest daughter consented to CODE STATUS change to DNR --Family seeking termite treater helper care (SNF or rehab) --Call out to Dr. Goncalves for discussion of RUE range of motion and activity advancement to assist with rehab placement -DC Rowley and place [place] today -Maintain hemoglobin greater than 7 -Neurochecks q4h -PT/OT to work with patient History: Head CT 11/25 showed no acute changes. 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 EEG showed background slowing consistent with encephalopathic state Acute encephalopathy due to CVA, post-op state, metabolic Ammonia level <10 (2) WALTER (acute kidney injury) Code(s): N17.9 - Acute kidney failure, unspecified Status: Resolved Plan: Contributing factor of hypovolemia and n.p.o. status--resolved 11/25 and Cr stable <0.50 -Status post 2 units PRBC on 11/23 and 2 u PRBCs 11/26 -Patient was given additional normal saline 1 L on admission to ICU -External female catheter -BMP in a.m. (3) Fracture of femur Code(s): S72.90XA - Unspecified fracture of unspecified femur, initial encounter for closed fracture Status: Acute Plan: 87 YO female with comminuted spiral "butterfly" fracture of proximal femur noted on x-ray. Today pt is POD#10 following right femur reduction and intramedullary nail fixation by Dr Boogie. Patient neurovascularly intact and is recovering from surgery. -Orthopedic surgery consulted, Dr Boogie. Dressings per orthopedic recommendation -Is still denying hip pain, acetaminophen for pain control -Ca+Vitamin D supplementation -Withholding further evaluation of osteoporosis due to patient's acute critical illness -PT as tolerated (4) Thrombocytopenia Code(s): D69.6 - Thrombocytopenia, unspecified Status: Acute Plan: Resolved -Coagulation studies and fibrinogen within normal limits. -Hematology following patient -Patient not requiring platelet transfusion at this time, no signs of large active bleed. -Repeat CBC in a.m. -Monitor for now -If s/s of active bleeding, reane VANEGAS (5) Postoperative anemia due to acute blood loss Code(s): D62 - Acute posthemorrhagic anemia Status: Acute Plan: Pt with acute blood loss anemia post-operatively. -Hemoglobin trending upwards -Status post 2 units PRBC on 11/23 and 2 additional units on 11/26 -Monitor with daily CBC -Transfusions as needed to maintain hemoglobin greater than 7 (6) Leukocytosis Code(s): D72.829 - Elevated white blood cell count, unspecified Status: Chronic Plan: White blood cell count relatively stable; non-infectious origin with CLL; pt afebrile Urinalysis on admission was negative; repeat 11/28 culture no growth to date, CXR 11/28 negative for acute pulmonary disease Peripheral smear review showed atypical lymphocytosis and mild neutrophilia suspicious for CLL. -Continue to monitor -Hematology/oncology consulted -Consideration for sepsis with contributing factor of CLL which patient was possibly diagnosed with previously. -Blood cultures NGTD x5+ days -Urine cx NGTD -C. difficile neg -Antibiotics DC'd 11/27 (status post 48 hours of cefepime and metronidazole) (7) Hypertension Code(s): I10 - Essential (primary) hypertension Status: Acute Plan: Outside window for permissive hypertension. Will begin attempting to control systolic blood pressures more strictly with goal: SBP </= 180 and/or DBP </=95 -Chlorthalidone 25 mg PO -Amlodipine 10 mg PO -Lisinopril 5 mg daily -Vasotec 2.5 mg IV push PRN if systolic blood pressure greater than 180 or diastolic blood pressure greater than 100 (8) Hyperglycemia Code(s): R73.9 - Hyperglycemia, unspecified Status: Acute Plan: Patient has no reported history of diabetes. Likely stress reaction. -We will continue to monitor as patient increases in p.o. intake (9) Hypothyroid Code(s): E03.9 - Hypothyroidism, unspecified Status: Chronic Plan: We will continue home levothyroxine once dosing is obtained -TSH 3.86 -Monitor for now (10) Humeral fracture Code(s): S42.309A - Unspecified fracture of shaft of humerus, unspecified arm, initial encounter for closed fracture Status: Chronic Plan: Reported by son to be chronic. Patient had fracture 2 years prior -Orthopedic surgery consulted appreciate recommendations on RUE activity as this will help with rehab placement for patient -Pt right arm placed in sling post-op for immobilization (11) Nutrition, metabolism, and development symptoms Code(s): R63.8 - Other symptoms and signs concerning food and fluid intake Status: Acute Plan: Diet: PO with calorie counts. Honey thickened liquids Electrolytes: monitor daily and replete as necessary Fluids: PO fluids DVT prophylaxis: SCDs only. Hold pharmacological anticoagulation due to patient' s requirement of transfusion due to postoperative bleeding GI: none indicated Palliative care as above - family considering Hospice vs SNF vs rehab <Rae Moore - 12/02/17 11:20> - Assessment and Plan Discussed Condition With: Dr Fischer <Rae Moore E - 12/02/17 11:41> - Attending Attestation The exam, history, and the medical decision-making described in the above note were completed with the assistance of the resident physician. I reviewed and agree with the findings presented. I attest that I had a [id number] encounter with the patient on the same day, and personally performed and documented my assessment and findings in the medical record. Patient seen and examined with resident and medical student this morning. She is lying in bed, no family by bedside today. She appears uncomfortable in the bed. We attempted to make her more comfortable. She also has Rowley catheter still in place. We will exchange this for an external female catheter, being sure she is voiding on her own. We also noted a stage 1 skin breakdown on the sacrum today not seen before. We ordered frequent q2h turns in the bed, and will attempt to order her a specialty bed. Today she does say she feels some pain when her stomach is palpated, but no localization effects, no rebound tenderness, no other concerns for peritonitis. Would benefit from a good bowel regimen to address possible underlying constipation. Will continue to communicate with family. Palliative care continues to follow. Still looking for long-term placement, and continue working with physical therapy and assessing rehab potential. <Cruz Fischer L - 12/02/17 12:43> <Rae Moore E - Last Filed: 12/02/17 11:20> (3) Fracture of femur Qualifiers: Encounter type: initial encounter Fracture type: closed Fracture morphology : spiral Laterality: right (10) Humeral fracture Qualifiers: Fracture type: closed Laterality: right <Cruz Fischer - Last Filed: 12/02/17 12:43> (3) Fracture of femur Qualifiers: Encounter type: initial encounter Fracture type: closed Fracture morphology : spiral Laterality: right (10) Humeral fracture Qualifiers: Fracture type: closed Laterality: right <Rae Moore E - Last Filed: 12/02/17 11:20> (3) Fracture of femur Qualifiers: Encounter type: initial encounter Fracture type: closed Fracture morphology : spiral Laterality: right (10) Humeral fracture Qualifiers: Fracture type: closed Laterality: right <Cruz Fischer L - Last Filed: 12/02/17 12:43> (3) Fracture of femur Qualifiers: Encounter type: initial encounter Fracture type: closed Fracture morphology : spiral Laterality: right (10) Humeral fracture Qualifiers: Fracture type: closed Laterality: right
[2017-12-02] MEDS: Chlorthalidone 50 MG Tablet PO SCH (12:15)
--- NOTE | 2017-12-02 19:12 | P.PNWCN ---
Wound Care Nurse Consult Description: Consult for pressure reducing bed per Teresa. Communicated with: RN Patient family at bedside Recommendation: Continue to reposition patient and use ultrasorb disposable underpad in lieu of cotton pull pads that only hold in moisture. Patient is working with physical therapy and it was explained that a low air loss mattress is harder for patient to get in and out of to participate in P.T. if physician would like a low airloss mattress regardless of newswriter recommendations, then an airapy from environmental would suffice. Additional information: Patient seen on for a gluteal fissure of partial thickness skin loss noted measuring ~1cm x 0.2cm x <0.1cm with red non granulating tissue noted without drainage and without odor. Extensive bruising is noted to right hip with saturated dressings in place. Patient is incontinent of stool and urine. Wound/Pressure Injury - Wound Gluteal Cleft Fissure Wound Assessment: Ongoing Wound Type: Skin Tear Is This a Chronic Wound: No Wound Bed Appearance: Red Drainage Amount: None Drainage Odor: No Odor Dressing Status: Open to Air
[2017-12-02] MEDS: Acetaminophen 325 MG Tablet PO PRN (21:41)
[2017-12-03] MEDS: Polymyxin/Trimethop Opth Drops 10 ML Bottle LEFT EYE SCH ×3 (03:18→18:10)
[2017-12-03] MEDS: Calcium/Vitamin D 250/125 MG Tablet PO SCH ×3 (03:19→20:23)
[2017-12-03 05:28] LABS: Hematocrit 35.2 % (35.0-46.0); Hemoglobin 11.6 gm/dL (11.6-15.3); Mean Corpuscular HGB Conc 33.1 % (32.0-36.0); Mean Corpuscular Volume 93.7 fL (80.0-100.0); Mean Platelet Volume 6.7 fL (7.0-11.0); Platelet Count 192 th/mm3 (150-450); Red Blood Count 3.75 mil/mm3 (4.00-5.30); Red Cell Distribution Width 15.4 % (11.6-17.2); White Blood Count 37.6 th/mm3 (4.0-11.0)
[2017-12-03 05:35] LABS: Anion Gap 7 meq/L (5-15); Blood Urea Nitrogen 19 mg/dL (7-18); Calcium 7.6 mg/dL (8.5-10.1); Carbon Dioxide 29.4 meq/L (21.0-32.0); Chloride 102 meq/L (98-107); Glomerular Filtration Rate Greater Than 89 mL/min (>89); Glucose,Random 123 mg/dL (74-106); Potassium 4.4 meq/L (3.5-5.1); Sodium 138 meq/L (136-145)
--- NOTE | 2017-12-03 08:52 | P.PNFP ---
Subjective Interval history: Ms Walker had no acute events overnight. Nursing reports pt was administered Benadryl as a sleep aid as the pt was restless. This morning, pt is sleeping upon entering the room. When awoken, pt denies pain, states she has to urinate and is told she has a catheter in place. Also states she is cold and was given extra blankets. She is at her previous baseline over the past several days. Can answer in one word responses, can wiggle toes and move arms, squeeze fingers on command. She has been eating and drinking. She appears alert, but is not oriented to place or date. Pt is awaiting placement for rehab or SNF. Pt was seen yesterday by wound care and PT. We are repositioning her to avoid any further skin breakdown in the sacral area. Denies CP, SOB, N/V/D and leg pain. <Nasim Still III H - 12/03/17 08:51> Results - Labs Result diagrams: 12/03/17 04:11 12/03/17 04:11 <Cruz Fischer - 12/03/17 15:20> Abnormal lab results 12/03/17 12/03/17 Range/Units 04:11 04:11 WBC 37.6 H (4.0-11.0) th/mm3 RBC 3.75 L (4.00-5.30) mil/mm3 MPV 6.7 L (7.0-11.0) fL BUN 19 H (7-18) mg/dL Creatinine 0.42 L (0.50-1.00) mg/dL Random Glucose 123 H (74-106) mg/dL Calcium 7.6 L (8.5-10.1) mg/dL Short CBC 12/03/17 Range/Units 04:11 WBC 37.6 H (4.0-11.0) th/mm3 Hgb 11.6 (11.6-15.3) gm/dL Hct 35.2 (35.0-46.0) % Plt Count 192 (150-450) th/mm3 BMP 12/03/17 04:11 Sodium 138 Potassium 4.4 Chloride 102 Carbon Dioxide 29.4 BUN 19 H Creatinine 0.42 L Calcium 7.6 L <Cruz Fischer - 12/03/17 15:20> Abnormal lab results 0912/03/17 12/03/17 Range/Units 05:43 04:11 04:11 WBC 37.6 H (4.0-11.0) th/mm3 RBC 3.75 L (4.00-5.30) mil/mm3 MPV 6.7 L (7.0-11.0) fL Lymphocytes % (Manual) 69 H (9-44) % Monocytes % (Manual) 9 H (0-8) % Abs Neuts (Manual) 7.8 H (1.8-7.7) th/mm3 Smudge Cells Present H (None) BUN 19 H (7-18) mg/dL Creatinine 0.42 L (0.50-1.00) mg/dL Random Glucose 123 H (74-106) mg/dL Calcium 7.6 L (8.5-10.1) mg/dL Short CBC 12/03/17 Range/Units 04:11 WBC 37.6 H (4.0-11.0) th/mm3 Hgb 11.6 (11.6-15.3) gm/dL Hct 35.2 (35.0-46.0) % Plt Count 192 (150-450) th/mm3 [facility] 12/03/17 04:11 Sodium 138 Potassium 4.4 Chloride 102 Carbon Dioxide 29.4 BUN 19 H Creatinine 0.42 L Calcium 7.6 L <Nasim Still III H - 12/03/17 08:51> Physical Exam Vital signs: Vital Signs 12/02/17 20:00 12/02/17 22:00 12/03/17 00:00 Temperature 98.1 F 98.7 F Pulse Rate 84 75 Respiratory Rate 16 18 16 Blood Pressure 173/79 H 153/70 H Pulse Oximetry 94 L 94 L 12/03/17 02:00 12/03/17 04:00 12/03/17 08:00 Temperature 97.9 F 98.6 F Pulse Rate 76 80 Respiratory Rate 16 16 16 Blood Pressure 178/81 H 187/75 H Pulse Oximetry 95 97 12/03/17 12:00 Temperature 97.9 F Pulse Rate 79 Respiratory Rate 18 Blood Pressure 188/81 H Pulse Oximetry 93 L Intake & Output 12/02/17 12/03/17 12/03/17 18:59 06:59 18:59 Intake Total 780 / 780 240 / 240 Output Total 600 / 600 850 / 850 Balance 180 / 180 -610 / -610 Intake: Oral 780 / 780 240 / 240 Output: Urine 600 / 600 850 / 850 Other: # Voids 1 Date of Last Bowel Movement 12/02/17 12/03/17 12/03/17 # Bowel Movements 1 2 <Cruz Fischer L - 12/03/17 15:20> Vital Signs 12/02/17 12:15 12/02/17 20:00 12/02/17 22:00 Temperature 97.4 F L 98.1 F Pulse Rate 75 84 Respiratory Rate 16 18 Blood Pressure 148/69 H 173/79 H Pulse Oximetry 95 94 L 12/03/17 00:00 12/03/17 02:00 12/03/17 04:00 Temperature 98.7 F 97.9 F Pulse Rate 75 76 Respiratory Rate 16 16 16 Blood Pressure 153/70 H 178/81 H Pulse Oximetry 94 L 95 Intake & Output 12/02/17 12/03/17 12/03/17 18:59 06:59 18:59 Intake Total 780 / 780 240 / 240 Output Total 600 / 600 850 / 850 Balance 180 / 180 -610 / -610 Intake: Oral 780 / 780 240 / 240 Output: Urine 600 / 600 850 / 850 Other: # Voids 1 Date of Last Bowel Movement 12/02/17 12/03/17 # Bowel Movements 1 2 <Nasim Still III H - 12/03/17 08:51> Narrative: GENERAL: Elderly female, lying in bed. Alert and awake. Able to hold a basic conversation and answer simple questions. HEENT: Left eye appears less swollen, erythematous than previous exams. No purulent drainage noted. CARDIOVASCULAR: Regular rate & rhythm. Systolic murmur 1 out of 6 best over right-sided sternal border, stable from previous exam. ABDOMEN: Bowel sounds present. Soft, nontender, nondistended. RESPIRATORY: CTAB without wheezing, rales, rhonchi. MUSCULOSKELETAL: Dressings in place with no excess blood noted on right hip surgical area. Large hematoma about skilled nursing down the thigh and extending to the lateral thigh area, appears to be resolving. Pulses intact bilaterally. No edema. Large ecchymoses over the extensor surface of the right forearm, secured by sling. Right hand and forearm edematous, slightly improved from previous exams. Skin breakdown in gluteal cleft area of sacrum. NEUROLOGICAL: Patient moves all 4 extremities spontaneously and attempts to dress herself in bed. Single word answers to questions. Not oriented to place or date. Patient protecting airway. Pt taking PO. <Nasim Still III - 12/03/17 08:51> - Urinary Catheter Management Indwelling Urethral Catheter Cath placed during this visit: no <Cruz Fischer - 12/03/17 15:20> yes <Nasim Still III 12/03/17 08:51> Reason for continuing: Hourly intake/output <Nasim Still III - 12/03/17 08: 51> Insertion date: 11/22/17 <Nasim Still III 12/03/17 08:51> Assessment and Plan - Assessment (1) Altered mental status Code(s): R41.82 - Altered mental status, unspecified Status: Acute (2) WALTER (acute kidney injury) Code(s): N17.9 - Acute kidney failure, unspecified Status: Resolved (3) Fracture of femur Code(s): S72.90XA - Unspecified fracture of unspecified femur, initial encounter for closed fracture Status: Acute (4) Thrombocytopenia Code(s): D69.6 - Thrombocytopenia, unspecified Status: Acute (5) Postoperative anemia due to acute blood loss Code(s): D62 - Acute posthemorrhagic anemia Status: Acute (6) Leukocytosis Code(s): D72.829 - Elevated white blood cell count, unspecified Status: Chronic (7) Hypertension Code(s): I10 - Essential (primary) hypertension Status: Acute (8) Hyperglycemia Code(s): R73.9 - Hyperglycemia, unspecified Status: Acute (9) Hypothyroid Code(s): E03.9 - Hypothyroidism, unspecified Status: Chronic (10) Humeral fracture Code(s): S42.309A - Unspecified fracture of shaft of humerus, unspecified arm, initial encounter for closed fracture Status: Chronic (11) Nutrition, metabolism, and development symptoms Code(s): R63.8 - Other symptoms and signs concerning food and fluid intake Status: Acute <rCuz Fischer - 12/03/17 15:20> (1) Altered mental status Code(s): R41.82 - Altered mental status, unspecified Status: Acute Plan: Patient more communicative and interactive. Reports abdominal pain but no pain in her hip on palpation -Continue to hold anticoagulation (pt last transfusion 2 units 11/26) -Tylenol 650 mg PO PRN for pain/fever -Patient is currently protecting airway -Critical care signed off 11/27 -Per patient's son patient is eating with assistance. Swallow study recommendations for pure thick solids and honey thick liquids -Minimum caloric intake per day 1380; placement of Dobbhoff on hold for now -Patient maintaining SPO2 on room air. Nebs as needed -Palliative care consulted; --Patient's son and oldest daughter consented to CODE STATUS change to DNR --Family seeking [facility] intermediary care (SNF or rehab) --Dr. Goncalves has advised non wt bearing on RUE -[place] external female catheter in place draining light yellow urine -Maintain hemoglobin greater than 7 -Neurochecks q4h -PT/OT to work with patient History: Head CT 11/25 showed no acute changes. 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 EEG showed background slowing consistent with encephalopathic state Acute encephalopathy due to CVA, post-op state, metabolic Ammonia level <10 (2) WALTER (acute kidney injury) Code(s): N17.9 - Acute kidney failure, unspecified Status: Resolved Plan: Contributing factor of hypovolemia and n.p.o. status--resolved 11/25 and Cr stable <0.50 -Status post 2 units PRBC on 11/23 and 2 u PRBCs 11/26 -Patient was given additional normal saline 1 L on admission to ICU -External female catheter -BMP in a.m. (3) Fracture of femur Code(s): S72.90XA - Unspecified fracture of unspecified femur, initial encounter for closed fracture Status: Acute Plan: 87 YO female with comminuted spiral "butterfly" fracture of proximal femur noted on x-ray. Today pt is POD#10 following right femur reduction and intramedullary nail fixation by Dr Boogie. Patient neurovascularly intact and is recovering from surgery. -Orthopedic surgery consulted, Dr Boogie. Dressings per orthopedic recommendation -Is still denying hip pain, acetaminophen for pain control -Ca+Vitamin D supplementation -Withholding further evaluation of osteoporosis due to patient's acute critical illness -PT as tolerated -PT at rehab/SNF when discharged (4) Thrombocytopenia Code(s): D69.6 - Thrombocytopenia, unspecified Status: Acute Plan: Resolved -Coagulation studies and fibrinogen within normal limits. -Hematology following patient -Patient not requiring platelet transfusion at this time, no signs of large active bleed. -Repeat CBC in a.m. -Monitor for now -If s/s of active bleeding, renae VANEGAS (5) Postoperative anemia due to acute blood loss Code(s): D62 - Acute posthemorrhagic anemia Status: Acute Plan: Pt with acute blood loss anemia post-operatively. Pt stable -Hemoglobin trending upwards -Status post 2 units PRBC on 11/23 and 2 additional units on 11/26 -Monitor with daily CBC -Transfusions as needed to maintain hemoglobin greater than 7 (6) Leukocytosis Code(s): D72.829 - Elevated white blood cell count, unspecified Status: Chronic Plan: White blood cell count relatively stable; non-infectious origin with CLL; pt afebrile Urinalysis on admission was negative; repeat 11/28 culture no growth to date, CXR 11/28 negative for acute pulmonary disease Peripheral smear review showed atypical lymphocytosis and mild neutrophilia suspicious for CLL. -Continue to monitor -Hematology/oncology consulted -Consideration for sepsis with contributing factor of CLL which patient was possibly diagnosed with previously. -Blood cultures NGTD x5+ days -Urine cx NGTD -C. difficile neg -Antibiotics DC'd 11/27 (status post 48 hours of cefepime and metronidazole) (7) Hypertension Code(s): I10 - Essential (primary) hypertension Status: Acute Plan: Outside window for permissive hypertension. Will begin attempting to control systolic blood pressures more strictly with goal: SBP </= 180 and/or DBP </=95 -Chlorthalidone 25 mg PO -Amlodipine 10 mg PO -Increase Lisinopril 10 mg daily -Vasotec 2.5 mg IV push PRN if systolic blood pressure greater than 180 or diastolic blood pressure greater than 100 (8) Hyperglycemia Code(s): R73.9 - Hyperglycemia, unspecified Status: Acute Plan: Patient has no reported history of diabetes. Likely stress reaction. -We will continue to monitor as patient increases in p.o. intake (9) Hypothyroid Code(s): E03.9 - Hypothyroidism, unspecified Status: Chronic Plan: We will continue home levothyroxine once dosing is obtained -TSH 3.86 -Monitor for now (10) Humeral fracture Code(s): S42.309A - Unspecified fracture of shaft of humerus, unspecified arm, initial encounter for closed fracture Status: Chronic Plan: Reported by son to be chronic. Patient had fracture 2 years prior -Orthopedic surgery consulted appreciate recommendations on RUE activity as this will help with rehab placement for patient -Pt right arm placed in sling post-op for immobilization -Ortho indicates RUE to be non wt bearing (11) Nutrition, metabolism, and development symptoms Code(s): R63.8 - Other symptoms and signs concerning food and fluid intake Status: Acute Plan: Fluids: PO fluids Electrolytes: wnl, will monitor with BMP and replete Nutrition: PO intake goal 1380 cals/day--honey thick liquids and puree thick solids per dietary and ST GI: none indicated PPx: Holding Lovenox due to post-op bleeding Tylenol 650 mg as above PT CM consult to assist with rehab/SNF placement Palliative care as above - family considering Hospice vs SNF Dispo: as above; Hospice or SNF Pt SDW Dr Moore <Nasim Still III - 12/03/17 08:41> - Attending Attestation The exam, history, and the medical decision-making described in the above note were completed with the assistance of the resident physician. I reviewed and agree with the findings presented. I attest that I had a [id number] encounter with the patient on the same day, and personally performed and documented my assessment and findings in the medical record. I saw that patient independent of the residents this afternoon. Patient is sitting up in a chair with son at bedside. Son reports no acute changes, and states he feels she is doing well today, more alert and more interactive. Still answering simple questions, and makes one or two word statements. Still confused about year and situation, but son says she recognizes him and knows who he is. Son reports she is eating well. We were able to remove Rowley catheter and she has external catheter in place. She is still non-weight bearing on her right arm and 50% on her leg. Continuing to work with physical and occupational therapy and hopefully improve her rehabilitation potential over time. Palliative care also still following and tracking family and patient goals. <AmadoCruz Josefina - 12/03/17 15:20> <Cheko JARAMILLONasim [facility] Filed: 12/03/17 08:41> (3) Fracture of femur Qualifiers: Encounter type: initial encounter Fracture type: closed Fracture morphology : spiral Laterality: right (10) Humeral fracture Qualifiers: Fracture type: closed Laterality: right <Cruz Fischer [facility] Filed: 12/03/17 15:20> (3) Fracture of femur Qualifiers: Encounter type: initial encounter Fracture type: closed Fracture morphology : spiral Laterality: right (10) Humeral fracture Qualifiers: Fracture type: closed Laterality: right <Cheko JARAMILLONasim [facility] Last Filed: 12/03/17 08:41> (3) Fracture of femur Qualifiers: Encounter type: initial encounter Fracture type: closed Fracture morphology : spiral Laterality: right (10) Humeral fracture Qualifiers: Fracture type: closed Laterality: right <Cruz Fischer [facility] Filed: 12/03/17 15:20> (3) Fracture of femur Qualifiers: Encounter type: initial encounter Fracture type: closed Fracture morphology : spiral Laterality: right (10) Humeral fracture Qualifiers: Fracture type: closed Laterality: right
[2017-12-03] MEDS ORDERED: Lisinopril 10 MG Tablet PO SCH (09:00)
[2017-12-03] MEDS: Chlorthalidone 50 MG Tablet PO SCH (09:06)
[2017-12-03] MEDS: amLODIPine 10 MG Tablet PO SCH (09:09)
[2017-12-03] MEDS: Acetaminophen 325 MG Tablet PO PRN (09:09)
[2017-12-03] MEDS: Senna/Docusate Sodium 8.6/50 MG Tablet PO SCH ×2 (11:12→20:23)
[2017-12-03] MEDS: Beneprotein Powder Packet G-TUBE SCH ×2 (18:10→18:11)
[2017-12-04] MEDS: Acetaminophen 325 MG Tablet PO PRN (00:15)
[2017-12-04] MEDS: Polymyxin/Trimethop Opth Drops 10 ML Bottle LEFT EYE SCH ×5 (00:16→18:14)
[2017-12-04] MEDS: Calcium/Vitamin D 250/125 MG Tablet PO SCH ×3 (02:24→18:14)
[2017-12-04] MEDS: amLODIPine 10 MG Tablet PO SCH (10:14)
[2017-12-04] MEDS: Senna/Docusate Sodium 8.6/50 MG Tablet PO SCH ×2 (10:15→20:50)
[2017-12-04] MEDS: Chlorthalidone 50 MG Tablet PO SCH (10:15)
[2017-12-04] MEDS: Lisinopril 20 MG Tablet PO SCH (10:16)
[2017-12-04] MEDS: Beneprotein Powder Packet G-TUBE SCH ×3 (10:18→17:49)
[2017-12-04 10:52] LABS: Hemoglobin 11.9 gm/dL (11.6-15.3)
[2017-12-04 11:11] LABS: Anion Gap 9 meq/L (5-15); Blood Urea Nitrogen 20 mg/dL (7-18); Calcium 7.5 mg/dL (8.5-10.1); Chloride 99 meq/L (98-107); Glomerular Filtration Rate Greater Than 89 mL/min (>89); Glucose,Random 162 mg/dL (74-106); Sodium 137 meq/L (136-145)
--- NOTE | 2017-12-04 11:52 | P.PNFP ---
Subjective Interval history: Ms Walker's status remains the same as the previous day. She answers some questions with one-word responses and responds to commands like wiggle toes and squeeze fingers. She responds that she is not in pain but cries out when her right hip and right lower abdomen are palpated. Denies chest pain or shortness of breath. <Darlin Garcia U - 12/04/17 12:07> Results - Labs Result diagrams: 12/04/17 10:23 12/04/17 10:23 <Cruz Fischer L - 12/04/17 15:22> Abnormal lab results 12/04/17 Range/Units 10:23 BUN 20 H (7-18) mg/dL Random Glucose 162 H (74-106) mg/dL Calcium 7.5 L (8.5-10.1) mg/dL Short CBC 12/04/17 Range/Units 10:23 Hgb 11.9 (11.6-15.3) gm/dL Hct 35.0 (35.0-46.0) % [facility] 12/04/17 10:23 Sodium 137 Potassium 4.0 Chloride 99 Carbon Dioxide 29.0 BUN 20 H Creatinine 0.50 Calcium 7.5 L <Cruz Fischer L - 12/04/17 15:22> Abnormal lab results 12/04/17 Range/Units 10:23 BUN 20 H (7-18) mg/dL Random Glucose 162 H (74-106) mg/dL Calcium 7.5 L (8.5-10.1) mg/dL Short CBC 12/04/17 Range/Units 10:23 Hgb 11.9 (11.6-15.3) gm/dL Hct 35.0 (35.0-46.0) % [facility] 12/04/17 10:23 Sodium 137 Potassium 4.0 Chloride 99 Carbon Dioxide 29.0 BUN 20 H Creatinine 0.50 Calcium 7.5 L <Darlin Garcia U - 12/04/17 11:52> Physical Exam Vital signs: Vital Signs 12/03/17 16:00 12/03/17 20:00 12/04/17 00:00 Temperature 97.6 F 98.6 F 98.8 F Pulse Rate 81 88 89 Respiratory Rate 18 19 18 Blood Pressure 176/75 H 171/70 H 181/79 H Pulse Oximetry 94 L 93 L 93 L 12/04/17 04:00 12/04/17 08:00 12/04/17 12:00 Temperature 97.9 F 97.3 F L 98.1 F Pulse Rate 85 89 76 Respiratory Rate 18 18 18 Blood Pressure 170/75 H 173/77 H 159/75 H Pulse Oximetry 93 L 96 94 L Intake & Output 12/03/17 12/04/17 12/04/17 18:59 06:59 18:59 Output Total 350 / 350 Balance -350 / -350 Weight 57.6 kg Output: Urine 350 / 350 Other: # Incontinent Voids 2 3 Date of Last Bowel Movement 12/03/17 12/03/17 12/03/17 # Incontinent Bowel Movements 1 2 <Cruz Fischer L - 12/04/17 15:22> Vital Signs 12/03/17 12:00 12/03/17 16:00 12/03/17 20:00 Temperature 97.9 F 97.6 F 98.6 F Pulse Rate 79 81 88 Respiratory Rate 18 18 19 Blood Pressure 188/81 H 176/75 H 171/70 H Pulse Oximetry 93 L 94 L 93 L 12/04/17 00:00 12/04/17 04:00 12/04/17 08:00 Temperature 98.8 F 97.9 F 97.3 F L Pulse Rate 89 85 89 Respiratory Rate 18 18 18 Blood Pressure 181/79 H 170/75 H 173/77 H Pulse Oximetry 93 L 93 L 96 Intake & Output 12/03/17 12/04/17 12/04/17 18:59 06:59 18:59 Output Total 350 / 350 Balance -350 / -350 Weight 57.6 kg Output: Urine 350 / 350 Other: # Incontinent Voids 2 3 Date of Last Bowel Movement 12/03/17 12/03/17 12/03/17 # Incontinent Bowel Movements 1 2 <EkoSarahiDarlin U - 12/04/17 11:52> Narrative: GENERAL: Elderly female, lying in bed. Alert and awake. Able to hold a very basic conversation and answer simple questions. HEENT: NCAT, no purulence noted from the left eye CARDIOVASCULAR: Regular rate & rhythm. Systolic murmur 1 out of 6 best over right-sided sternal border, stable from previous exam. ABDOMEN: Bowel sounds present. Soft, nontender, nondistended. RESPIRATORY: CTAB without wheezing, rales, rhonchi. MUSCULOSKELETAL: Dressings in place with no excess blood noted on right hip surgical area. Large hematoma about senior care down the thigh and extending to the lateral thigh area, over the groin and lower right abdomen. Pulses intact bilaterally. No edema. Large ecchymoses over the extensor surface of the right forearm, secured by sling. Right hand and forearm edematous, slightly improved from previous exams. Skin breakdown in gluteal cleft area of sacrum without drainage or odor. NEUROLOGICAL: Patient moves all 4 extremities spontaneously. Single word answers to questions. Not oriented to place or date. Patient protecting airway. <Dariln Garcia U - 12/04/17 12:07> - Urinary Catheter Management Indwelling Urethral Catheter Cath placed during this visit: no <AmadoCruz Rocha - 12/04/17 15:22> yes <Darlin Garcia U - 12/04/17 12:20> Reason for continuing: Hourly intake/output <Darlin Garcia U - 12/04/17 11:52> Insertion date: 11/22/17 <Darlin Garcia U - 12/04/17 11:52> Assessment and Plan - Assessment (1) Altered mental status Code(s): R41.82 - Altered mental status, unspecified Status: Acute (2) Fracture of femur Code(s): S72.90XA - Unspecified fracture of unspecified femur, initial encounter for closed fracture Status: Acute (3) Leukocytosis Code(s): D72.829 - Elevated white blood cell count, unspecified Status: Chronic (4) Hypertension Code(s): I10 - Essential (primary) hypertension Status: Acute (5) Hyperglycemia Code(s): R73.9 - Hyperglycemia, unspecified Status: Acute (6) Hypothyroid Code(s): E03.9 - Hypothyroidism, unspecified Status: Chronic (7) Humeral fracture Code(s): S42.309A - Unspecified fracture of shaft of humerus, unspecified arm, initial encounter for closed fracture Status: Chronic (8) Nutrition, metabolism, and development symptoms Code(s): R63.8 - Other symptoms and signs concerning food and fluid intake Status: Acute <AmadoCruz Josefina - 12/04/17 15:22> (1) Altered mental status Code(s): R41.82 - Altered mental status, unspecified Status: Acute Plan: Patient interactive with examiner. Responds to palpation of her right hip and right lower abdomen. She is protecting her airway and maintaining good oxygen saturation on room air. -Tylenol 650 mg PO PRN for pain/fever -Continue pure thick solids and honey thick liquids per speech therapy -Minimum caloric intake per day 1380 -Palliative care on board --Patient's son and oldest daughter consented to CODE STATUS change to DNR --Family seeking central supply assistant care (SNF or rehab) --Rehab recommended by PT but pt is not yet ready for rehab at this time --Dr. Goncalves has advised non wt bearing on RUE -Purewick external female catheter in place -Continue PT/OT -Maintain hemoglobin greater than 7 -Neurochecks q4h -Nebs as needed -Continue to hold anticoagulation (pt last transfusion 2 units 11/26) History: Head CT 11/25 showed no acute changes. 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 EEG showed background slowing consistent with encephalopathic state Acute encephalopathy due to CVA, post-op state, metabolic Ammonia level <10 -Critical care signed off 11/27 (2) Fracture of femur Code(s): S72.90XA - Unspecified fracture of unspecified femur, initial encounter for closed fracture Status: Acute Plan: 87 YO female with comminuted spiral "butterfly" fracture of proximal femur noted on x-ray. Today pt is POD#11 following right femur reduction and intramedullary nail fixation by Dr Boogie. Patient neurovascularly intact and is recovering from surgery. -Orthopedic surgery on board. Dressings per orthopedic recommendation -Acetaminophen for pain control -Ca+Vitamin D supplementation -Withholding further evaluation of osteoporosis due to patient's acute critical illness -PT as tolerated -PT at rehab/SNF when discharged (3) Leukocytosis Code(s): D72.829 - Elevated white blood cell count, unspecified Status: Chronic Plan: White blood cell count relatively stable; non-infectious origin with CLL; pt afebrile Urinalysis on admission was negative; repeat 11/28 culture no growth to date, CXR 11/28 negative for acute pulmonary disease Peripheral smear review showed atypical lymphocytosis and mild neutrophilia suspicious for CLL. -Continue to monitor -Hematology/oncology available if needed -Blood cultures NGTD x5+ days -Urine cx NGTD -C. difficile neg -Antibiotics DC'd 11/27 (status post 48 hours of cefepime and metronidazole) (4) Hypertension Code(s): I10 - Essential (primary) hypertension Status: Acute Plan: -Chlorthalidone 25 mg PO -Amlodipine 10 mg PO -Increase Lisinopril 20 mg daily -Vasotec 2.5 mg IV push PRN if systolic blood pressure greater than 180 or diastolic blood pressure greater than 100 (5) Hyperglycemia Code(s): R73.9 - Hyperglycemia, unspecified Status: Acute Plan: Elevated fasting blood glucose. Patient has no reported history of diabetes. Likely stress reaction. -We will continue to monitor as patient increases in p.o. intake (6) Hypothyroid Code(s): E03.9 - Hypothyroidism, unspecified Status: Chronic Plan: -TSH 3.86 -Monitor for now - we will continue home levothyroxine once dosing is obtained (7) Humeral fracture Code(s): S42.309A - Unspecified fracture of shaft of humerus, unspecified arm, initial encounter for closed fracture Status: Chronic Plan: Reported by son to be chronic. Patient had fracture 2 years prior -Pt right arm placed in sling post-op for immobilization -Ortho indicates RUE to be non wt bearing (8) Nutrition, metabolism, and development symptoms Code(s): R63.8 - Other symptoms and signs concerning food and fluid intake Status: Acute Plan: Fluids: PO fluids Electrolytes: wnl, will monitor and replete as needed Nutrition: PO intake goal 1380 cals/day--honey thick liquids and puree thick solids per dietary and ST GI: none indicated PPx: Holding Lovenox due to post-op bleeding Tylenol 650 mg as above PT/OT CM consult to assist with rehab/SNF placement Palliative care as above - family considering Hospice vs SNF Dispo: as above; Hospice or SNF Pt SDW Drs. Fischer and Teresa <Darlin Garcia U - 12/04/17 12:20> - Assessment and Plan Fluids: PO fluids Electrolytes: wnl, will monitor with BMP and replete Nutrition: PO intake goal 1380 cals/day--honey thick liquids and puree thick solids per dietary and ST GI: none indicated PPx: Holding Lovenox due to post-op bleeding Tylenol 650 mg as above PT CM consult to assist with rehab/SNF placement Palliative care as above - family considering Hospice vs SNF Dispo: as above; Hospice or SNF Pt SDW Pedro Luis Fischer and Jose <Darlin Garcia U - 12/04/17 11:52> - Attending Attestation The exam, history, and the medical decision-making described in the above note were completed with the assistance of the resident physician. I reviewed and agree with the findings presented. I attest that I had a [id number] encounter with the patient on the same day, and personally performed and documented my assessment and findings in the medical record. Patient seen and examined on rounds this morning. No status changes from prior exams. Still moving all extremities. Still answers simple questions, and gives one to two word responses. Reports no pain, but does say "ouch" when RLQ is palpated. No guarding or rebound tenderness. Has positive bowel sounds in all quadrants. Area may be affected by hematoma extending from right hip fracture. Continue work with physical therapy, and continue to look into long-term rehab options. Rehab potential currently is low, but may improve as humeral fracture heals and she can bear weight on it. <Cruz Fischer L - 12/04/17 15:22> <Darlin Garcia U - Last Filed: 12/04/17 12:20> (2) Fracture of femur Qualifiers: Encounter type: initial encounter Fracture type: closed Fracture morphology : spiral Laterality: right (7) Humeral fracture Qualifiers: Fracture type: closed Laterality: right <Cruz Fischer L - Last Filed: 12/04/17 15:22> (2) Fracture of femur Qualifiers: Encounter type: initial encounter Fracture type: closed Fracture morphology : spiral Laterality: right (7) Humeral fracture Qualifiers: Fracture type: closed Laterality: right <Darlin Garcia U - Last Filed: 12/04/17 12:20> (2) Fracture of femur Qualifiers: Encounter type: initial encounter Fracture type: closed Fracture morphology : spiral Laterality: right (7) Humeral fracture Qualifiers: Fracture type: closed Laterality: right <Cruz Fischer L - Last Filed: 12/04/17 15:22> (2) Fracture of femur Qualifiers: Encounter type: initial encounter Fracture type: closed Fracture morphology : spiral Laterality: right (7) Humeral fracture Qualifiers: Fracture type: closed Laterality: right
--- NOTE | 2017-12-04 12:31 | P.PNADD ---
Addendum to Inpatient Note Additional information: Ms. Walker was admitted on 11/21 for right femoral fracture. She was also noted to have a right humeral fracture though this was reported to be chronic. It was determined that the humeral fracture was nonoperative. 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 She was taken to the OR on 11/22 for right femur reduction and intramedullary nail fixation by Dr. Boogie. 11/23- patient required 2 units PRBC. She appeared to be altered and was less communicative than on admission. CT of head at the time was negative. Pain medications were held. During the day the patient was noted to have increasing unresponsiveness and the decision was made to transfer to ICU for higher acuity care. 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 Palliative care was consulted at this time to discuss goals of care. The patient remained in ICU with gradual improvement in mentation. She did not require intubation during her time in the ICU. She required 2 further units of PRBC on 11/26. 11/27- critical care signed off on patient and she was transferred to the floor. She remained oriented only to self though after discussion with daughter she reports that this is a chronic issue. 12/02-patient remained stable, goals of care still being discussed with family, placement pending as patient is not a good rehab candidate due to her right upper extremity injury and recommendation for nonweightbearing on that extremity. 12/04- still awaiting placement Procedures: 11/22 R femur reduction and intramedullary nail fixation 11/23 and 11/26-PRBC transfusion x2U
[2017-12-05] MEDS: Polymyxin/Trimethop Opth Drops 10 ML Bottle LEFT EYE SCH ×2 (02:36→11:51)
[2017-12-05] MEDS: Calcium/Vitamin D 250/125 MG Tablet PO SCH ×2 (02:37→11:29)
[2017-12-05] MEDS: Chlorthalidone 50 MG Tablet PO SCH (11:27)
[2017-12-05] MEDS: amLODIPine 10 MG Tablet PO SCH (11:28)
[2017-12-05] MEDS: Senna/Docusate Sodium 8.6/50 MG Tablet PO SCH (11:28)
[2017-12-05] MEDS: Lisinopril 20 MG Tablet PO SCH (11:29)
[2017-12-05] MEDS: Beneprotein Powder Packet G-TUBE SCH (12:06)
[2017-12-05] MEDS ORDERED: Acetaminophen 325 MG Tablet PO SCH (12:30)
--- NOTE | 2017-12-05 13:36 | P.DIET ---
Nutritional Evaluation Type of nutrition evaluation: initial Nutrition consult regarding: Tube Feeding Objective - Diagnosis Fall: R hip Fx - Objective % IBW: 106 (IBW = 115#) Body Weight Used for Calculations: Actual (55.2 kg) Energy Needs - Lower Range (kCal/kg): 25 Energy Needs - Upper Range (kCal/kg): 30 Lower Limit kCal/kg (kCals): 1,380 Upper Limit kCal/kg (kCals): 1,656 Lower Limit Protein Factor (Grams per Kg): 1.0 Upper Limit Protein Factor (Grams per Kg): 1.5 Lower Protein Needs (Protein): 55 Upper Protein Needs (Protein): 83 Dietitian Reviewed in Medical Record: Curent medications, Intake & Output, Labs , Medical history, Tube feeding Objective Comments: HgA1c 5.8 Assessment Assessment: Pts. wt. stable the last three days, +UOP and +BMs. Per MD noted, pt. with minimum caloric intake per day. Continue current order for Glucerna 1.5 @ 40 mls /hr goal. Beneprotein 1 pack tid is also ordered. Continue to monitor PO/TFIng tolerance, labs and wt. Recommendations: Glucerna 1.5 @ 40 mls/hr goal Beneprotein as ordered Dietitian to Monitor: Lab values, Intake & Output, Tube feeding tolerance, Weight change, Diet advancement, Swallow recommendations, Medical course
--- NOTE | 2017-12-05 15:53 | P.PNFP ---
Subjective Interval history: Pt seen and examined this morning. PT was in the room during rounds stating her progress had declined since Tuesday. Pt's family decided they would like to try rehabilitation. Discussed with CM who told us pt has been accepted to a facility and would be able to go today. Pt is unable to communicate today other than saying " I don't feel good" but cannot state what is wrong. She was asked several times if she was in pain and did not answer. While during her physical exam, pt's facial expressions were suggestive of pain. She mentioned she needed to use the bathroom and was told several times she could go, she had a pad. Pt unable to answer ROS questions. Family not present during rounds. <Rubi Brice V - 12/05/17 15:53> Results - Labs Result diagrams: 12/04/17 10:23 12/04/17 10:23 <Cruz Fischer - 12/05/17 18:29> Physical Exam Vital signs: Vital Signs 12/04/17 19:22 12/04/17 23:06 12/05/17 08:00 Temperature 98.9 F 98.3 F 98 F Pulse Rate 86 78 80 Respiratory Rate 17 18 18 Blood Pressure 147/67 H 115/58 L 168/67 H Pulse Oximetry 92 L 92 L 18 L 12/05/17 12:00 Temperature 97.3 F L Pulse Rate 82 Respiratory Rate 18 Blood Pressure 126/65 Pulse Oximetry 95 Intake & Output 12/04/17 12/05/17 12/05/17 18:59 06:59 18:59 Intake Total 480 / 480 480 / 480 Output Total 300 / 300 Balance 480 / 480 180 / 180 Weight 57.6 kg Intake: Oral 480 / 480 480 / 480 Output: Urine 300 / 300 Other: # Voids 2 # Incontinent Voids 2 Date of Last Bowel Movement 12/03/17 12/03/17 12/05/17 # Bowel Movements 3 # Incontinent Bowel Movements 1 <Cruz Fischer - 12/05/17 18:29> Vital Signs 12/04/17 16:00 12/04/17 19:22 12/04/17 23:06 Temperature 98.1 F 98.9 F 98.3 F Pulse Rate 91 H 86 78 Respiratory Rate 16 17 18 Blood Pressure 147/80 H 147/67 H 115/58 L Pulse Oximetry 92 L 92 L 92 L 09/24/18 08:00 12/05/17 12:00 Temperature 98 F 97.3 F L Pulse Rate 80 82 Respiratory Rate 18 18 Blood Pressure 168/67 H 126/65 Pulse Oximetry 18 L 95 Intake & Output 12/04/17 12/05/17 12/05/17 18:59 06:59 18:59 Intake Total 480 / 480 480 / 480 Output Total 300 / 300 Balance 480 / 480 180 / 180 Weight 57.6 kg Intake: Oral 480 / 480 480 / 480 Output: Urine 300 / 300 Other: # Voids 2 # Incontinent Voids 2 Date of Last Bowel Movement 12/03/17 12/03/17 12/05/17 # Bowel Movements 3 # Incontinent Bowel Movements 1 <Rubi Brice V 12/05/17 15:53> Narrative: GENERAL: Elderly female, lying in bed. Unable to answer questions. In NAD, but in apparent pain during physical exam. CARDIOVASCULAR: Regular rate & rhythm. Systolic murmur 1 out of 6 best over right-sided sternal border. ABDOMEN: Bowel sounds present. Soft, minimally tender to palpation and some distention noted, however this patient is new to me and I do not have a baseline , pt unable to answer questions. RESPIRATORY: CTAB without wheezing, rales, rhonchi. MUSCULOSKELETAL: Dressings in place with no excess blood noted on right hip surgical area. Large hematoma about prison down the thigh and extending to the lateral thigh area, over the groin and lower right abdomen. Pulses intact bilaterally. No edema. Large ecchymoses over the extensor surface of the right forearm, secured by sling. NEUROLOGICAL: Patient is not moving all 4 extremities spontaneously. Not oriented to place or date, will not answer questions. <Rubi Brice V 12/05/17 15:53> - Urinary Catheter Management Indwelling Urethral Catheter Cath placed during this visit: no <Cruz Fischer - 12/05/17 18:29> yes <Rubi Brice V 12/05/17 15:53> Reason for continuing: Hourly intake/output <Rubi Brice V 12/05/17 15:53> Insertion date: 11/22/17 <Rubi Brice 12/05/17 15:53> Assessment and Plan - Assessment (1) Altered mental status Code(s): R41.82 - Altered mental status, unspecified Status: Acute (2) Fracture of femur Code(s): S72.90XA - Unspecified fracture of unspecified femur, initial encounter for closed fracture Status: Acute (3) Leukocytosis Code(s): D72.829 - Elevated white blood cell count, unspecified Status: Chronic (4) Hypertension Code(s): I10 - Essential (primary) hypertension Status: Acute (5) Hyperglycemia Code(s): R73.9 - Hyperglycemia, unspecified Status: Acute (6) Hypothyroid Code(s): E03.9 - Hypothyroidism, unspecified Status: Chronic (7) Humeral fracture Code(s): S42.309A - Unspecified fracture of shaft of humerus, unspecified arm, initial encounter for closed fracture Status: Chronic (8) Nutrition, metabolism, and development symptoms Code(s): R63.8 - Other symptoms and signs concerning food and fluid intake Status: Acute <AmadoCruz Josefina - 12/05/17 18:29> (1) Altered mental status Code(s): R41.82 - Altered mental status, unspecified Status: Acute Plan: Patient not answering questions today, and no participating in PT, or with physical exam. -Tylenol 650 mg PO PRN for pain/fever -Continue pure thick solids and honey thick liquids per speech therapy -Minimum caloric intake per day 1380 -Palliative care on board --Patient's son and oldest daughter consented to CODE STATUS change to DNR --Patient accepted to rehab facility this morning --50% weight bearing on RLE, no weight bearing on RUE Pt will be discharged today to [facility] rehab facility to continue working with PT/OT. (2) Fracture of femur Code(s): S72.90XA - Unspecified fracture of unspecified femur, initial encounter for closed fracture Status: Acute Plan: 87 YO female with comminuted spiral "butterfly" fracture of proximal femur noted on x-ray. Today pt is POD#12 following right femur reduction and intramedullary nail fixation by Dr Boogie. Patient neurovascularly intact and is recovering from surgery. -Orthopedic surgery on board. Dressings per orthopedic recommendation -Acetaminophen for pain control -Ca+Vitamin D supplementation -Withholding further evaluation of osteoporosis due to patient's acute critical illness -PT at rehab/SNF when discharged (3) Leukocytosis Code(s): D72.829 - Elevated white blood cell count, unspecified Status: Chronic Plan: White blood cell count relatively stable; non-infectious origin with CLL; pt afebrile Urinalysis on admission was negative; repeat 11/28 culture no growth to date, CXR 11/28 negative for acute pulmonary disease Peripheral smear review showed atypical lymphocytosis and mild neutrophilia suspicious for CLL. -Continue to monitor -Hematology/oncology available if needed -Blood cultures NGTD x5+ days -Urine cx NGTD -C. difficile neg -Antibiotics DC'd 11/27 (status post 48 hours of cefepime and metronidazole) (4) Hypertension Code(s): I10 - Essential (primary) hypertension Status: Acute Plan: -Chlorthalidone 25 mg PO -Amlodipine 10 mg PO -Lisinopril 20 mg daily -Vasotec 2.5 mg IV push PRN if systolic blood pressure greater than 180 or diastolic blood pressure greater than 100 BP today: 168/67, 126/65 (5) Hyperglycemia Code(s): R73.9 - Hyperglycemia, unspecified Status: Acute Plan: Elevated fasting blood glucose. Patient has no reported history of diabetes. Likely stress reaction. -We will continue to monitor as patient increases in p.o. intake (6) Hypothyroid Code(s): E03.9 - Hypothyroidism, unspecified Status: Chronic Plan: -TSH 3.86 -Asked rehab facility to obtain information from PCP and restart home Levothyroxine. (7) Humeral fracture Code(s): S42.309A - Unspecified fracture of shaft of humerus, unspecified arm, initial encounter for closed fracture Status: Chronic Plan: Reported by son to be chronic. Patient had fracture 2 years prior -Pt right arm placed in sling post-op for immobilization -Ortho indicates RUE to be non wt bearing (8) Nutrition, metabolism, and development symptoms Code(s): R63.8 - Other symptoms and signs concerning food and fluid intake Status: Acute Plan: Fluids: PO fluids Electrolytes: wnl, will monitor and replete as needed Nutrition: PO intake goal 1380 cals/day--honey thick liquids and puree thick solids per dietary and ST GI: none indicated PPx: Holding Lovenox due to post-op bleeding Tylenol 650 mg as above PT/OT CM consulted and approved for rehab at [facility] Dispo: will be discharged to [facility] today <Rubi Brice V - 12/05/17 15:32> - Attending Attestation The exam, history, and the medical decision-making described in the above note were completed with the assistance of the resident physician. I reviewed and agree with the findings presented. I attest that I had a [id number] encounter with the patient on the same day, and personally performed and documented my assessment and findings in the medical record. I evaluated patient in the afternoon independent of residents. Patient is lying in bed with son by bedside. Patient is at her baseline since the stroke. She is answering simple questions with one or two word answers. Is able to tell me she' s in the hospital. Thinks year is 1966, doesn't know her age, but does know her birthday. Reports no pain right now. Son reports she was complaining of dysuria earlier, no fevers. She has been accepted at [facility]. Discharge planning discussed in detail with son. <Cruz Fischer Josefina - 12/05/17 18:29> <Fredy CortesMylene - Last Filed: 12/05/17 15:32> (2) Fracture of femur Qualifiers: Encounter type: initial encounter Fracture type: closed Fracture morphology : spiral Laterality: right (7) Humeral fracture Qualifiers: Fracture type: closed Laterality: right <Cruz Fischer Josefina - Last Filed: 12/05/17 18:29> (2) Fracture of femur Qualifiers: Encounter type: initial encounter Fracture type: closed Fracture morphology : spiral Laterality: right (7) Humeral fracture Qualifiers: Fracture type: closed Laterality: right <Rubi Brice V - Last Filed: 12/05/17 15:32> (2) Fracture of femur Qualifiers: Encounter type: initial encounter Fracture type: closed Fracture morphology : spiral Laterality: right (7) Humeral fracture Qualifiers: Fracture type: closed Laterality: right <Cruz Fischer - Last Filed: 12/05/17 18:29> (2) Fracture of femur Qualifiers: Encounter type: initial encounter Fracture type: closed Fracture morphology : spiral Laterality: right (7) Humeral fracture Qualifiers: Fracture type: closed Laterality: right
--- NOTE | 2017-12-23 11:55 | P.DS ---
Date of admission: 11/21/17 10:28 Primary care physician: UNKNOWN Brief History from admission: Ms Walker is an 87yof with past medical history of osteoporosis here for evaluation after a fall this am. Most of history is given by son as patient is very hard of hearing and gets frustrated upon repeated questioning. Patient got up at about 7 AM the bathroom and slid on the tile floor. She reports that she did not hit her head and just slid directly on her buttocks. The son found her immediately. He reports that her right leg was twisted outward there was bruising noted on the right outer hip. She has not ambulated since the fall. There was no incontinence of bowel or bladder or tongue biting. She did not lose consciousness. She reports that she uses a walker at all times at home she has had 2 falls in the last year. She fractured her right arm 2 years ago. PMH R humerus fracture, 2016 Osteoporosis Hypertension Hypothyroid Meds Levothyroxine Lisinopril Sx Back surgery 25 years ago x3 Social Tobacco never smoker No EtOH Cannabis about twice a day, small amounts DS: Diagnosis - Discharge Diagnosis (1) Altered mental status Status: Acute (2) Fracture of femur Status: Chronic (3) Leukocytosis Status: Chronic (4) Hypertension Status: Chronic (5) Hyperglycemia Status: Resolved (6) Hypothyroid Status: Chronic (7) Humeral fracture Status: Chronic (8) Nutrition, metabolism, and development symptoms Status: Acute DS: Medications - Discharge Medications Prescriptions: lisinopril 20 mg PO DAILY 30 Days #30 tab DS: Summary Hospital Course: 87 YO female with hypothyroidism, dementia, CLL, and HTN admitted for comminuted spiral "butterfly" fracture of proximal femur noted on x-ray. Pt underwent right femur reduction and intramedullary nail fixation by Dr Boogie, status as 50% weight bearing on RLE. She also had a chronic humeral fracture of over 2 years. She developed leukocytosis and sepsis was ruled out multiple times , hematology/oncology were on board and attributed it to her chronic CLL. Her other chronic conditions were managed appropriately with home regimens. Despite poor rehab prognosis, pt's family wanted aggressive care and pt was approved for rehab at [place]. - Time Spent with Patient Total time spent providing and/or coordinating discharge services: Less than 30 minutes - Quality: VTE Deep Vein Thrombosis/Pulmonary Embolism Present on Admission: No Results Procedures completed during hospitalization: R hip fracture surgery - Impressions ITS Impressions Pelvis X-Ray 11/21/17 00:00 CONCLUSION: Negative for acute pelvic fracture. Femur X-Ray 11/21/17 08:59 CONCLUSION: Proximal femur fracture as above. Humerus X-Ray 11/21/17 08:59 CONCLUSION: Fracture proximal humerus as above. Hip X-Ray 11/22/17 00:00 CONCLUSION: Anatomic alignment. Head MRI 11/23/17 21:56 CONCLUSION: 1. 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 No significant mass effect or shift. 2. Severe chronic white matter ischemic changes bilaterally. Carotid Doppler Study 11/24/17 00:00 CONCLUSION: No evidence of flow-limiting carotid stenosis. Head CT 11/25/17 05:00 CONCLUSION: 1. Stable CT examination in this patient with known multiple cerebral infarcts. No intercurrent hemorrhage. . Chest X-Ray 11/28/17 12:31 CONCLUSION: Cardiomegaly. Severe hypoinflation without acute pulmonary disease Discharge Plan - Discharge Disposition Patient Disposition: 03 Discharge to SNF - Discharge Condition Condition: Stable - Discharge Order Discharge Orders: Discharge Order (Routine); Ordered 12/05/17 Ordered By: Madyson Hunter [facility] Clear for Discharge (Routine); Ordered 11/26/17 Ordered By: Mino Wyatt - Discharge Details Anticipated Discharge Date: 12/05/17 - Physicians Team Primary Care Provider: UNKNOWN, Attending Provider: Cruz Fischer Other Providers: Dar Boogie MD ; Diane Frankel MD ; [facility] ; Fermin Walsh MD ; Rich Butler MD ; [facility], [place]
== END 2017-12-05 16:45 ==
LOC: NEPC 08:20 → NEDA 10:28 → N06 17:39 → N03 11-23 23:33 → N06 12-01 17:43
PROVIDERS: ADMIT Family Medicine; ATTEND Family Medicine
PROC: ORIFFEM (2017-11-22 07:49)

== ENCOUNTER 2017-12-19 11:57 | Inpatient (IN) ==
--- NOTE | 2017-12-19 12:53 | XR ---
EXAM DATE: 12/19/2017 12:04 PM EDT AGE/SEX: 87 years / Female INDICATIONS: Shortness of breath. CLINICAL DATA: This is the patient's initial encounter. Patient reports that signs and symptoms have been present for 1 day and indicates a pain score of 0/10. MEDICAL/SURGICAL HISTORY: None. None. COMPARISON: Chest x-ray 11/28/2017. FINDINGS: A single AP view of the chest demonstrates bilateral pulmonary infiltrates most pronounced within the left base. Suspected posterior layering bilateral pleural effusions. Heart is mildly enlarged. Pulmo nary vasculature is engorged. Advanced degenerative changes involving the shoulders and spine. CONCLUSION: Cardiomegaly with intra-alveolar pulmonary edema and small effusions. Electronically signed by: Waylon Coe MD 12/19/2017 12:51 PM EDT
[2017-12-19 12:55] LABS: Bacteria,Urine Moderate /hpf; Bilirubin,Urine Negative (Negative); Clarity,Urine Hazy (Clear); Color,Urine Amber (Yellw/Straw); Glucose,Urine (UA) Negative (Negative); Leukocyte Esterase,Urine Small (Negative); Nitrite,Urine Positive (Negative); Specific Gravity,Urine 1.013 (1.002-1.035); Squamous Epithelial Cell,Urine <1 /hpf (0-5)
[2017-12-19 12:57] LABS: Baso % (Auto) 0.2 % (0.0-2.0); Eos % (Auto) 0.6 % (0.0-4.0); Hematocrit 30.8 % (35.0-46.0); Hemoglobin 10.3 gm/dL (11.6-15.3); Lymph # (Auto) 6.2 th/mm3 (1.0-4.8); Lymph % (Auto) 82.8 % (9.0-44.0); Mean Corpuscular HGB Conc 33.5 % (32.0-36.0); Mean Corpuscular Hemoglobin 31.1 pg (27.0-34.0); Mean Corpuscular Volume 92.9 fL (80.0-100.0); Mean Platelet Volume 6.9 fL (7.0-11.0); Mono # (Auto) 0.8 th/mm3 (0.0-0.9); Mono % (Auto) 11.1 % (0.0-8.0); Neut # (Auto) 0.4 th/mm3 (1.8-7.7); Neut % (Auto) 5.3 % (16.0-70.0); Platelet Count 163 th/mm3 (150-450); Red Blood Count 3.32 mil/mm3 (4.00-5.30); Red Cell Distribution Width 16.9 % (11.6-17.2); White Blood Count 7.5 th/mm3 (4.0-11.0)
[2017-12-19 13:14] LABS: Alanine Aminotransferase 16 U/L (10-53); Albumin 2.7 g/dL (3.4-5.0); Alkaline Phosphatase 124 U/L (45-117); Anion Gap 8 meq/L (5-15); Blood Urea Nitrogen 26 mg/dL (7-18); Calcium 7.7 mg/dL (8.5-10.1); Carbon Dioxide 23.7 meq/L (21.0-32.0); Chloride 103 meq/L (98-107); Glomerular Filtration Rate 75 mL/min (>89); Glucose,Random 116 mg/dL (74-106); Sodium 135 meq/L (136-145); Total Protein 5.8 g/dL (6.4-8.2)
[2017-12-19 13:15] LABS: Aspartate Aminotransferase 39 U/L (15-37); Creatine Kinase 122 U/L (26-192); Potassium 4.9 meq/L (3.5-5.1)
[2017-12-19 13:27] LABS: Creatine Kinase MB 1.1 ng/mL (0.5-3.6)
[2017-12-19] MEDS ORDERED: Ciprofloxacin 400 MG/200 ML 400 MG/200 ML PIGGYBACK IV.SIG ONE (13:40)
[2017-12-19 13:59] LABS: Activated Partial Thrombo Time 27.2 sec (24.3-30.1); INR 1.1 Ratio; Prothrombin Time 11.6 sec (9.8-11.6)
[2017-12-19 14:22] LABS: Eosinophils 1 % (0-4); Lymphocytes 89 % (9-44); Monocytes 4 % (0-8); Platelet Estimate Normal (Normal); Platelet Morphology Normal (Normal)
--- NOTE | 2017-12-19 14:48 | ED ---
HPI General Chief Complaint: Shortness of Breath/Dyspnea Stated Complaint: Possible SOB Time Seen by Provider: 12/19/17 12:03 Source: patient, family and EMS Mode of arrival: EMS Limitations: no limitations History of Present Illness 87-year-old female that presents to the ED for evaluation of shortness of breath. Patient comes from home by [facility] for evaluation of this. Patient has a history of femur fracture that required surgery. Patient apparently was sent to a rehab facility but the family took her out of the rehab facility as patient per family was not getting enough care. She is been doing well outpatient and she is been having home health except that home health yet started today. Home health evaluate her today and she was descending in the 80s. She was brought here for evaluation of this. Patient apparently also has a history of TIA and has been treated for antibiotics with this. Unclear as to what antibiotic she is taking. She is not take any blood thinners. She denies any trauma or injury since the initial injury when she had a femur fracture. No chest pain. She has not seen anybody for this. She was put on oxygen and her oxygenation went back to 100. History is a little bit limited because the patient herself is hard of hearing when she is not well versed on her medical history. 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) HTN (hypertension) (Acute) Hypothyroidism (Acute) Surgical History Surgical History History of repair of hip fracture (Acute) History of back surgery (Acute) Family History Family History Father Myocardial infarction Social History Social History Substance History: No History of Abuse Second Hand Smoke Exposure: No Smoking Status: Unknown if ever smoked How Often Do You Have a Drink Containing Alcohol: Unable to Obtain Hx Recent Travel: No Recent Travel in [place] within the Last 8 Weeks: No Recent Out of Country Travel within the Last 8 Weeks: No Immunization History Tetanus Immunization: Unsure Exam Narrative Exam Narrative: GENERAL: Well appearing SKIN: Focused skin assessment warm/dry. HEAD: Atraumatic. Normocephalic. EYES: Pupils equal and round. No scleral icterus. No injection or drainage. ENT: No nasal bleeding or discharge. Mucous membranes pink and moist. Tongue is midline. No uvula deviation. NECK: Trachea midline. No JVD. CARDIOVASCULAR: Regular rate and rhythm. No murmur appreciated. RESPIRATORY: No accessory muscle use. Clear to auscultation. Breath sounds equal bilaterally. GASTROINTESTINAL: Abdomen soft, non-tender, nondistended. Hepatic and splenic margins not palpable. MUSCULOSKELETAL: No obvious deformities. No clubbing. No cyanosis. No edema. Full range of motion of the upper and lower extremities bilaterally. 2+ pulses bilaterally. NEUROLOGICAL: Awake and alert. No obvious cranial nerve deficits. Motor grossly within normal limits. Normal speech. PSYCHIATRIC: Appropriate mood and affect; insight and judgment normal. Course Initial Documented Vital Signs Temperature 99.3 F 12/19/17 12:12 Pulse Rate 97 H 12/19/17 12:12 Respiratory Rate 22 12/19/17 12:12 Blood Pressure 178/85 H 12/19/17 12:12 Pulse Oximetry 98 12/19/17 12:12 Last Documented Vital Signs Temperature 98.7 F 12/21/17 20:00 Pulse Rate 86 12/21/17 20:00 Respiratory Rate 20 12/21/17 20:00 Blood Pressure 115/77 12/21/17 20:00 Pulse Oximetry 93 L 12/21/17 20:[address] [facility] Narrative Medical decision making narrative: 87-year-old female that presents to the ED for evaluation of shortness of breath. Patient was properly examined and was found to have signs and symptoms consistent with shortness of breath. Unclear etiology at this time. Labs and imaging ordered. Labs and imaging were essentially unremarkable other than what appears to be UTI, neutropenia as well as what appears to be fluid on the lungs as well as CHF exacerbation. No sign of PE. Patient still somewhat hypoxic without oxygen. I think at this time is reasonable for the patient to be admitted for further evaluation and treatment. She is also neutropenic and she has a urinary tract infection that would require likely IV antibiotics as she continues to have symptoms. Case was discussed with my attending Dr. Zheng who agrees the patient should be admitted. Case discussed with residents agreed to admission to their service. Medical Screen Exam Complete: Yes Emergency Medical Condition: Yes Differential Diagnosis Differential Diagnosis: PE versus shortness of breath versus heart failure versus fluid overload versus pneumonia versus respiratory failure Medical Records Medical records reviewed: Yes I reviewed the patient's medical records. Lab Data Lab results reviewed: Yes I reviewed the patient's lab results. Lab results narrative: Troponin and CK-MB within normal limits. Result diagrams: 12/21/17 05:37 12/20/17 06:34 Lab Results 12/19/17 12/19/17 12/19/17 Range/Units 12:28 12:28 12:28 WBC 7.5 (4.0-11.0) th/mm3 RBC 3.32 L (4.00-5.30) mil/mm3 Hgb 10.3 L (11.6-15.3) gm/dL Hct 30.8 L (35.0-46.0) % MCV 92.9 (80.0-100.0) fL MCH 31.1 (27.0-34.0) pg MCHC 33.5 (32.0-36.0) % RDW 16.9 (11.6-17.2) % Plt Count 163 (150-450) th/mm3 MPV 6.9 L (7.0-11.0) fL Prelim Diff (Auto) Slide review pending Neut % (Auto) 5.3 L (16.0-70.0) % Lymph % (Auto) 82.8 H (9.0-44.0) % [place] % (Auto) 11.1 H (0.0-8.0) % Eos % (Auto) 0.6 (0.0-4.0) % Baso % (Auto) 0.2 (0.0-2.0) % Neut # (Auto) 0.4 L* (1.8-7.7) th/mm3 Lymph # (Auto) 6.2 H (1.0-4.8) th/mm3 [place] # (Auto) 0.8 (0.0-0.9) th/mm3 Eos # (Auto) 0.0 (0.0-0.4) th/mm3 Baso # (Auto) 0.0 (0.0-0.2) th/mm3 WBC Differential Manual diff final Seg Neuts % (Manual) 5 L (16-70) % Band Neuts % (Manual) 1 (0-6) % Lymphocytes % (Manual) 89 H (9-44) % Monocytes % (Manual) 4 (0-8) % Eosinophils % (Manual) 1 (0-4) % Abs Neuts (Manual) 0.5 L* (1.8-7.7) th/mm3 Differential Comment . Platelet Estimate Normal (Normal) Platelet Morphology Normal (Normal) [place] Cells (None) Acanthocytes (Spur) (None) PT 11.6 (9.8-11.6) sec INR 1.1 Ratio APTT 27.2 (24.3-30.1) sec Sodium 135 L (136-145) meq/L Potassium 4.9 (3.5-5.1) meq/L Chloride 103 (98-107) meq/L Carbon Dioxide 23.7 (21.0-32.0) meq/L Anion Gap 8 (5-15) meq/L BUN 26 H (7-18) mg/dL Creatinine 0.73 (0.50-1.00) mg/dL Estimated GFR 75 L (>89) mL/min Random Glucose 116 H (74-106) mg/dL Calcium 7.7 L (8.5-10.1) mg/dL Total Bilirubin 1.4 H (0.2-1.0) mg/dL AST 39 H (15-37) U/L ALT 16 (10-53) U/L Alkaline Phosphatase 124 H (45-117) U/L Total Creatine Kinase 122 (26-192) U/L CK-MB (CK-2) 1.1 (0.5-3.6) ng/mL Troponin I Less than 0.02 L (0.02-0.05) ng/mL B-Natriuretic Peptide (0-100) pg/mL Total Protein 5.8 L (6.4-8.2) g/dL Albumin 2.7 L (3.4-5.0) g/dL Urine Color (Yellw/Straw) Urine Clarity (Clear) Urine pH (5.0-8.5) Ur Specific [place] (1.002-1.035) Urine Protein (Neg-Trace) mg/dL Urine Glucose (UA) (Negative) mg/dL Urine Ketones (Negative) mg/dL Urine Occult Blood (Negative) Urine Nitrate (Negative) Urine Bilirubin (Negative) Urine Urobilinogen (Less than 2) mg/dL Ur Leukocyte Esterase (Negative) Urine RBC (0-3) /hpf Urine WBC (0-5) /hpf Ur Squamous Epith Cells (0-5) /hpf Urine Bacteria (None) /hpf Micro UA Comment Ur Microscopic Review Urine Culture Comments 12/19/17 12/19/17 12/19/17 Range/Units 12:28 12:28 19:40 WBC (4.0-11.0) th/mm3 RBC (4.00-5.30) mil/mm3 Hgb (11.6-15.3) gm/dL Hct (35.0-46.0) % MCV (80.0-100.0) fL MCH (27.0-34.0) pg MCHC (32.0-36.0) % RDW (11.6-17.2) % Plt Count (150-450) th/mm3 MPV (7.0-11.0) fL Prelim Diff (Auto) Neut % (Auto) (16.0-70.0) % Lymph % (Auto) (9.0-44.0) % [place] % (Auto) (0.0-8.0) % Eos % (Auto) (0.0-4.0) % Baso % (Auto) (0.0-2.0) % Neut # (Auto) (1.8-7.7) th/mm3 Lymph # (Auto) (1.0-4.8) th/mm3 [place] # (Auto) (0.0-0.9) th/mm3 Eos # (Auto) (0.0-0.4) th/mm3 Baso # (Auto) (0.0-0.2) th/mm3 WBC Differential Seg Neuts % (Manual) (16-70) % Band Neuts % (Manual) (0-6) % Lymphocytes % (Manual) (9-44) % Monocytes % (Manual) (0-8) % Eosinophils % (Manual) (0-4) % Abs Neuts (Manual) (1.8-7.7) th/mm3 Differential Comment Platelet Estimate (Normal) Platelet Morphology (Normal) [place] Cells (None) Acanthocytes (Spur) (None) PT (9.8-11.6) sec INR Ratio APTT (24.3-30.1) sec Sodium (136-145) meq/L Potassium (3.5-5.1) meq/L Chloride (98-107) meq/L Carbon Dioxide (21.0-32.0) meq/L Anion Gap (5-15) meq/L BUN (7-18) mg/dL Creatinine (0.50-1.00) mg/dL Estimated GFR (>89) mL/min Random Glucose (74-106) mg/dL Calcium (8.5-10.1) mg/dL Total Bilirubin (0.2-1.0) mg/dL AST (15-37) U/L ALT (10-53) U/L Alkaline Phosphatase (45-117) U/L Total Creatine Kinase (26-192) U/L CK-MB (CK-2) (0.5-3.6) ng/mL Troponin I Less than 0.02 L (0.02-0.05) ng/mL B-Natriuretic Peptide 363 H (0-100) pg/mL Total Protein (6.4-8.2) g/dL Albumin (3.4-5.0) g/dL Urine Color [place] (Yellw/Straw) Urine Clarity Hazy H (Clear) Urine pH 5.0 (5.0-8.5) Ur Specific [place] 1.013 (1.002-1.035) Urine Protein Negative (Neg-Trace) mg/dL Urine Glucose (UA) Negative (Negative) mg/dL Urine Ketones Negative (Negative) mg/dL Urine Occult Blood Negative (Negative) Urine Nitrate Positive H (Negative) Urine Bilirubin Negative (Negative) Urine Urobilinogen Less than 2 (Less than 2) mg/dL Ur Leukocyte Esterase Small H (Negative) Urine RBC 1 (0-3) /hpf Urine WBC 24 H (0-5) /hpf Ur Squamous Epith Cells <1 (0-5) /hpf Urine Bacteria Moderate H (None) /hpf Micro UA Comment Cath-culture ind Ur Microscopic Review Not Reportable Urine Culture Comments Cath-cult indicated 12/20/17 12/20/17 12/21/17 Range/Units 06:34 06:34 05:37 WBC 5.4 6.5 (4.0-11.0) th/mm3 RBC 2.90 L 2.54 L (4.00-5.30) mil/mm3 Hgb 9.0 L 7.9 L (11.6-15.3) gm/dL Hct 26.7 L 23.0 L (35.0-46.0) % MCV 92.0 90.6 (80.0-100.0) fL MCH 31.2 31.3 (27.0-34.0) pg MCHC 33.9 34.5 (32.0-36.0) % RDW 16.4 16.5 (11.6-17.2) % Plt Count 125 L 114 L (150-450) th/mm3 MPV 6.7 L 6.5 L (7.0-11.0) fL Prelim Diff (Auto) Slide review pending Neut % (Auto) 7.1 L (16.0-70.0) % Lymph % (Auto) 81.2 H (9.0-44.0) % [place] % (Auto) 10.5 H (0.0-8.0) % Eos % (Auto) 1.0 (0.0-4.0) % Baso % (Auto) 0.2 (0.0-2.0) % Neut # (Auto) 0.4 L* (1.8-7.7) th/mm3 Lymph # (Auto) 4.4 (1.0-4.8) th/mm3 [place] # (Auto) 0.6 (0.0-0.9) th/mm3 Eos # (Auto) 0.1 (0.0-0.4) th/mm3 Baso # (Auto) 0.0 (0.0-0.2) th/mm3 WBC Differential Manual diff final Seg Neuts % (Manual) 4 L (16-70) % Band Neuts % (Manual) (0-6) % Lymphocytes % (Manual) 84 H (9-44) % Monocytes % (Manual) 11 H (0-8) % Eosinophils % (Manual) 1 (0-4) % Abs Neuts (Manual) 0.2 L* (1.8-7.7) th/mm3 Differential Comment . Platelet Estimate Low L (Normal) Platelet Morphology Normal (Normal) [place] Cells 1+ H (None) Acanthocytes (Spur) Occ H (None) PT (9.8-11.6) sec INR Ratio APTT (24.3-30.1) sec Sodium 139 (136-145) meq/L Potassium 3.6 D (3.5-5.1) meq/L Chloride 99 (98-107) meq/L Carbon Dioxide 26.2 (21.0-32.0) meq/L Anion Gap 14 (5-15) meq/L BUN 24 H (7-18) mg/dL Creatinine 0.62 (0.50-1.00) mg/dL Estimated GFR Greater than 89 (>89) mL/min Random Glucose 112 H (74-106) mg/dL Calcium 7.6 L (8.5-10.1) mg/dL Total Bilirubin 1.1 H (0.2-1.0) mg/dL AST 20 (15-37) U/L ALT 12 (10-53) U/L Alkaline Phosphatase 110 (45-117) U/L Total Creatine Kinase (26-192) U/L CK-MB (CK-2) (0.5-3.6) ng/mL Troponin I Less than 0.02 L (0.02-0.05) ng/mL B-Natriuretic Peptide (0-100) pg/mL Total Protein 5.3 L (6.4-8.2) g/dL Albumin 2.6 L (3.4-5.0) g/dL Urine Color (Yellw/Straw) Urine Clarity (Clear) Urine pH (5.0-8.5) Ur Specific [place] (1.002-1.035) Urine Protein (Neg-Trace) mg/dL Urine Glucose (UA) (Negative) mg/dL Urine Ketones (Negative) mg/dL Urine Occult Blood (Negative) Urine Nitrate (Negative) Urine Bilirubin (Negative) Urine Urobilinogen (Less than 2) mg/dL Ur Leukocyte Esterase (Negative) Urine RBC (0-3) /hpf Urine WBC (0-5) /hpf Ur Squamous Epith Cells (0-5) /hpf Urine Bacteria (None) /hpf Micro UA Comment Ur Microscopic Review Urine Culture Comments Imaging Data Attestation: I personally reviewed and interpreted this imaging study as follows : Radiologist's impression: Chest X-Ray 12/19/17 12:04 CONCLUSION: Cardiomegaly with intra-alveolar pulmonary edema and small effusions. Chest CTA 12/19/17 12:05 CONCLUSION: 1. Moderate to large bilateral pleural effusions. 2. No evidence for pulmonary embolism. 3. Bibasilar consolidation likely atelectasis. 4. Splenomegaly. Abdomen Ultrasound 12/20/17 00:00 CONCLUSION: 1. Moderate splenomegaly with no focal mass. 2. Small amount of ascitic fluid. 3. The kidneys are small and atrophic in appearance with increased echogenicity characteristic of medical renal disease. There is a small simple appearing cyst in the right kidney. Femur X-Ray 12/20/17 00:00 CONCLUSION: Good position and alignment on this postoperative study. Venous Doppler Study 12/20/17 00:00 CONCLUSION: 1. Limited examination due to patient's inability to cooperate with examination. 2. Otherwise, no sonographic evidence for right lower extremity DVT. ECG Data Attestation: I personally reviewed and interpreted this ECG as follows: Interpretation: EKG shows sinus rhythm with no sign of acute ischemia or arrhythmia. Ventricular rate of 95 bpm, OR interval of 106 ms. Discharge Plan Discharge Disposition Patient Disposition: 30 Still Patient Discharge Details Diagnosis: Acute exacerbation of CHF (congestive heart failure), Acute UTI, Neutropenia Physicians Team ED Provider: Lizeth Zheng ED Midlevel Provider: Mark Fong Primary Care Provider: UNKNOWN, Attending Provider: Gila Lovell Other Providers: Rich Butler ; Vinita Iglesias ; Dar Blevins Status ED Status: Left Department Discharge Information Discharge Date/Time: 12/19/17 17:39
--- NOTE | 2017-12-19 15:24 | CT ---
EXAM DATE: 12/19/2017 2:08 PM EDT AGE/SEX: 87 years / Female INDICATIONS: Short of breath. CLINICAL DATA: This is the patient's initial encounter. Patient reports that signs and symptoms have been present for 1 day and indicates a pain score of 2/10. MEDICAL/SURGICAL HISTORY: Hypertension. Hypothyroidism. None. RADIATION DOSE: 14.27 CTDI (mGy) COMPARISON: No prior exams available for comparison. TECHNIQUE: Volumetric scanning was performed using a multi-row detector CT scanner during bolus infu alberto of 50 ml Omnipaque 350 (iohexol) nonionic water-soluble contrast as a single exam dose. The loy a was post processed with a variety of visualization algorithms including full volume maximum intensi ty projection and sliding thin slab reformation. Using automated exposure control and adjustment of t he mA and/or kV according to patient size, radiation dose was kept as low as reasonably achievable to obtain optimal diagnostic quality images. DICOM format image data is available electronically for r eview and comparison. FINDINGS: Pulmonary Arteries: No filling defects are seen in the pulmonary arteries out to the subsegmental ve ssels. The left and right pulmonary arteries are normal in diameter. Lung: Bibasilar consolidation. Effusion: Moderate to large bilateral pleural effusions. Mediastinum: No evidence of mediastinal or hilar adenopathy. Coronary artery calcifications and card iomegaly. Other: The axilla is unremarkable. Spleen is mildly enlarged. CONCLUSION: 1. Moderate to large bilateral pleural effusions. 2. No evidence for pulmonary embolism. 3. Bibasilar consolidation likely atelectasis. 4. Splenomegaly. Electronically signed by: Imer Yanez MD 12/19/2017 3:23 PM EDT
--- NOTE | 2017-12-19 17:25 | P.HPFP ---
History of Present Illness Primary Care Physician: UNKNOWN <Gila Lovell R - 12/20/17 10:59> UNKNOWN <Rubi Brice V - 12/19/17 17:24> Chief Complaint: shortness of breath <Rubi Brice V - 12/20/17 00:50> History of Present Illness: 87 yr old female recently discharged from our service 2 weeks ago, presenting to ED with shortness of breath and low oxygen saturation at home. Pt had a R femur fracture last month and underwent femur reduction and intramedullary nail fixation by Dr. Boogie, subsequently went to rehab from where she was taken out due to not receiving appropriate care per her son. Pt was a poor candidate for rehab per PT notes, but son insisted on rehabilitation at that time. Pt was then receiving Home health, today during her PT evaluation, she was noted to have O2 saturation in the 80's. On her way to the hospital she was in saturations around 70's. Pt rapidly corrects to 98- 100 on 2L of oxygen. She is not short of breath currently. Pt is very difficult to communicate with, she has underline dementia and is hard of hearing, most of the history is provided by her son. According to son, he could tell her mom had "fluid in her lungs" by hearing her breath, she also was having foul smelling urine this past weekend and was put on antibiotics by her PCP, son does not remember what kind. She was having some lose stools as well, and son states her sacral ulcer wound has been worsening at the rehab facility. <Rubi Brice V - 12/20/17 00:50> - Diagnosis (1) Shortness of breath (2) Acute UTI (3) Neutropenia (4) Dementia (5) Sacral decubitus ulcer (6) Fracture of femur (7) Hypothyroid (8) Pain (9) Nutrition, metabolism, and development symptoms (10) DVT prophylaxis <Gila Lovell - 12/20/17 10:59> (1) Shortness of breath (2) Acute UTI (3) Neutropenia (4) Dementia (5) Sacral decubitus ulcer (6) Fracture of femur (7) Hypothyroid (8) Pain (9) Nutrition, metabolism, and development symptoms (10) DVT prophylaxis <Fredy Cortes,Mylene - 12/20/17 00:55> Inpatient Certification: I certify that the inpatient services were ordered in accordance with Medicare regulations governing the order. This includes certification that hospital inpatient services are reasonable and necessary and in the case of services not specified as inpatient-only under 42 CFR 419.22(n), that they are appropriately provided as inpatient services in accordance to with the 2-midnight benchmark under 43 CFR 412.3(e) <Gila Lovell 12/20/17 10:59> I certify that the inpatient services were ordered in accordance with Medicare regulations governing the order. This includes certification that hospital inpatient services are reasonable and necessary and in the case of services not specified as inpatient-only under 42 CFR 419.22(n), that they are appropriately provided as inpatient services in accordance to with the 2-midnight benchmark under 43 CFR 412.3(e) <Rubi Brice V 12/19/17 17:24> Estimated Total Length of Stay (Days): 2 <Rubi Brice V 12/19/17 17: 24> Plans for Post Hospital Care: Not yet determined <Rubi Brice V 10/29 17:24> Review of Systems unobtainable due to mental condition, unobtainable due to mental status < Rubi Brice V 12/20/17 00:50> PMFSH - History History Provided By: Family Member, Vba Developer / EMT <Rubi Brice V 12/19/17 17:24> - Medical History Medical History: Medical History (Last Updated 12/20/17 @ 00:39 by Rubi Cortes MD, R1) Hx of fracture of femur HTN (hypertension) Hypothyroidism <Gila Lovell - 12/20/17 10:59> Medical History (Last Updated 12/20/17 @ 00:39 by Rubi Cortes MD, R1) Hx of fracture of femur HTN (hypertension) Hypothyroidism <Rubi Brice V 12/20/17 00:50> - Surgical History Surgical History: Surgical History (Last Reviewed 12/20/17 @ 00:37 by Rubi Cortes MD, R1) History of back surgery <Gila Lovell - 12/20/17 10:59> Surgical History (Last Reviewed 12/20/17 @ 00:37 by Rubi Cortes MD, R1) History of back surgery <Rubi Brice V 12/20/17 00:50> - Family History Family History: Family History (Last Reviewed 12/20/17 @ 00:37 by Rubi Cortes MD, R1 ) Father Myocardial infarction Other No pertinent family history <Gila Lovell - 12/20/17 10:59> Family History (Last Reviewed 12/20/17 @ 00:37 by Rubi Cortes MD, R1 ) Father Myocardial infarction Other No pertinent family history <Rubi Brice V 12/20/17 00:50> - Social History I have reviewed the patient's Social History: Yes <Rubi Brice V 11/29 00:50> - Tobacco History Second Hand Smoke Exposure: No <Rubi Brice V 12/19/17 17:24> Smoking Status: Unknown if ever smoked <Rubi Brice V 12/19/17 17:24 > - Alcohol History How Often Do You Have a Drink Containing Alcohol: Unable to Obtain <Rubi Brice V 12/19/17 17:24> - Substance Use History Substance History: No History of Abuse <Rubi Brice V 12/19/17 17:24 > - Immunization History Tetanus Immunization: Unsure <Rubi Brice V 12/19/17 17:24> Medications and Allergies Allergies Allergy/AdvReac Type Severity Reaction Status Date / Time penicillin G Allergy Unknown PT DOES Verified 11/21/17 13:23 NOT REMEMBER REACTION <Gila Lovell 12/20/17 10:59> Home Medications Medication Instructions Recorded Confirmed Type levothyroxine 88 mcg PO DAILY 12/19/17 12/19/17 History <Gila Lovell 12/20/17 10:59> Active Medications: Active Medications Hydrocodone Bitart/Acetaminophen ([place] 5/325) 1 tab PO Q6H PRN PRN Reason: Acute Pain 1-10 Last Admin: 12/19/17 20:57 Dose: 1 tab Furosemide (Lasix) 40 mg PO DAILY ESTHER Last Admin: 12/20/17 10:14 Dose: Not Given Heparin Sodium (Porcine) (Heparin Inj) 5,000 units SQ Q12H [facility] Last Admin: 12/20/17 06:11 Dose: 5,000 units Ciprofloxacin/Dextrose (Cipro 400 Mg/200 Ml Inj) 400 mg in 200 mls @ 200 mls/ hr IV.SIG Q12H ESTHER Last Infusion: 12/20/17 04:16 Dose: Infused Levothyroxine Sodium (Synthroid) 88 mcg PO DAILY@0600 ESTHER Last Admin: 12/20/17 06:11 Dose: 88 mcg Lisinopril (Prinivil) 20 mg PO DAILY [facility] Last Admin: 12/20/17 10:14 Dose: Not Given Potassium Chloride (K-Dur) 20 meq PO BID [facility] <Gila Lovell R - 12/20/17 10:59> Active Medications Heparin Sodium (Porcine) (Heparin Inj) 5,000 units SQ Q12H [facility] <Rubi Brice V - 12/19/17 17:24> Exam Vital signs: Vital Signs 12/19/17 12:12 12/19/17 12:15 12/19/17 14:16 Temperature 99.3 F Pulse Rate 97 H 92 H 84 Respiratory Rate 22 22 Blood Pressure 178/85 H 137/65 Pulse Oximetry 98 98 97 12/19/17 15:59 12/19/17 20:00 12/19/17 20:22 Temperature 98.6 F Pulse Rate 88 89 89 Respiratory Rate 24 16 Blood Pressure 137/65 105/57 L Pulse Oximetry 93 L 92 L 12/19/17 21:27 12/20/17 00:00 12/20/17 04:00 Temperature 98.4 F 97.5 F L Pulse Rate 83 85 Respiratory Rate 18 16 16 Blood Pressure 143/60 H 134/56 L Pulse Oximetry 91 L 92 L 12/20/17 04:03 Temperature Pulse Rate 78 Respiratory Rate Blood Pressure Pulse Oximetry Intake & Output 12/19/17 12/20/17 12/20/17 18:59 06:59 18:59 Intake Total 200 / 200 200 / 200 Balance 200 / 200 200 / 200 Weight 50.802 kg Intake: IV 200 / 200 200 / 200 Cipro 400 MG/200 ML Inj 400 mg 200 / 200 200 / 200 In 200 ml @ 200 mls/hr IV.SIG Q12H [facility] Rx#:[id number] Other: # Incontinent Voids 2 Date of Last Bowel Movement 12/20/17 # Bowel Movements 1 Weight On Admission 50.802 kg <Gila Lovell R - 12/20/17 10:59> Vital Signs 12/19/17 12:12 12/19/17 12:15 12/19/17 14:16 Temperature 99.3 F Pulse Rate 97 H 92 H 84 Respiratory Rate 22 22 Blood Pressure 178/85 H 137/65 Pulse Oximetry 98 98 97 12/19/17 15:59 Temperature Pulse Rate 88 Respiratory Rate 24 Blood Pressure 137/65 Pulse Oximetry 93 L Intake & Output 12/18/17 12/19/17 12/19/17 18:59 06:59 18:59 Intake Total 200 / 200 Balance 200 / 200 Weight 49.895 kg Intake: IV 200 / 200 Cipro 400 MG/200 ML Inj 400 mg 200 / 200 In 200 ml @ 200 mls/hr IV.SIG ONCE ONE Rx#:[id number] <Rubi Brice V - 12/19/17 17:24> Narrative: GENERAL: confused elderly woman, staring at ceiling most of exam, with occasional conversation. SKIN: extended ecchymosis at different stages of healing noted on R hip extending to R leg, nathalia in place. Mild jaundice noted in abdomen. HEAD: Normocephalic and atraumatic. EYES: No scleral icterus. No injection or drainage. ENT: No nasal drainage noted. Mucous membranes pink. Airway patent. NECK: Supple, trachea midline. No JVD. CARDIOVASCULAR: Regular rate and rhythm without murmurs, gallops, or rubs. RESPIRATORY: Hard to asses. Pt in pain when sitting up and holding her breath. Anterior chest auscultation w/ apparent clear lungs. ABDOMEN/GI: Abdomen distended, tympanic to percussion, mildly jaundiced. Non- tender, bowel sounds present, no rebound, no guarding. Splenomegaly noted. EXTREMITIES: No cyanosis or edema.see Skin exam above. BACK: Nontender without obvious deformity. No CVA tenderness. Open sacral ulcer present approx 3 inch by 1 inch. Difficult to establish stage due to patient not tolerating being on her side. Appears to have exposed muscle. Likely stage 3 NEUROLOGICAL: Awake. Unable to lift either leg to perform motor exam. <Rubi Brice V - 12/20/17 00:50> Results - Labs Result diagrams: 12/20/17 06:34 12/20/17 06:34 <Gila Lovell R - 12/20/17 10:59> Abnormal lab results 12/19/17 12/19/17 12/19/17 Range/Units 12:28 12:28 12:28 RBC 3.32 L (4.00-5.30) mil/mm3 Hgb 10.3 L (11.6-15.3) gm/dL Hct 30.8 L (35.0-46.0) % Plt Count (150-450) th/mm3 MPV 6.9 L (7.0-11.0) fL Neut % (Auto) 5.3 L (16.0-70.0) % Lymph % (Auto) 82.8 H (9.0-44.0) % [place] % (Auto) 11.1 H (0.0-8.0) % Neut # (Auto) 0.4 L* (1.8-7.7) th/mm3 Lymph # (Auto) 6.2 H (1.0-4.8) th/mm3 Seg Neuts % (Manual) 5 L (16-70) % Lymphocytes % (Manual) 89 H (9-44) % Monocytes % (Manual) (0-8) % Abs Neuts (Manual) 0.5 L* (1.8-7.7) th/mm3 Platelet Estimate (Normal) [place] Cells (None) Acanthocytes (Spur) (None) Sodium 135 L (136-145) meq/L BUN 26 H (7-18) mg/dL Estimated GFR 75 L (>89) mL/min Random Glucose 116 H (74-106) mg/dL Calcium 7.7 L (8.5-10.1) mg/dL Total Bilirubin 1.4 H (0.2-1.0) mg/dL AST 39 H (15-37) U/L Alkaline Phosphatase 124 H (45-117) U/L Troponin I Less than 0.02 L (0.02-0.05) ng/mL B-Natriuretic Peptide 363 H (0-100) pg/mL Total Protein 5.8 L (6.4-8.2) g/dL Albumin 2.7 L (3.4-5.0) g/dL Urine Clarity (Clear) Urine Nitrate (Negative) Ur Leukocyte Esterase (Negative) Urine WBC (0-5) /hpf Urine Bacteria (None) /hpf 12/19/17 12/19/17 12/20/17 Range/Units 12:28 19:40 06:34 RBC 2.90 L (4.00-5.30) mil/mm3 Hgb 9.0 L (11.6-15.3) gm/dL Hct 26.7 L (35.0-46.0) % Plt Count 125 L (150-450) th/mm3 MPV 6.7 L (7.0-11.0) fL Neut % (Auto) 7.1 L (16.0-70.0) % Lymph % (Auto) 81.2 H (9.0-44.0) % [place] % (Auto) 10.5 H (0.0-8.0) % Neut # (Auto) 0.4 L* (1.8-7.7) th/mm3 Lymph # (Auto) (1.0-4.8) th/mm3 Seg Neuts % (Manual) 4 L (16-70) % Lymphocytes % (Manual) 84 H (9-44) % Monocytes % (Manual) 11 H (0-8) % Abs Neuts (Manual) 0.2 L* (1.8-7.7) th/mm3 Platelet Estimate Low L (Normal) [place] Cells 1+ H (None) Acanthocytes (Spur) Occ H (None) Sodium (136-145) meq/L BUN (7-18) mg/dL Estimated GFR (>89) mL/min Random Glucose (74-106) mg/dL Calcium (8.5-10.1) mg/dL Total Bilirubin (0.2-1.0) mg/dL AST (15-37) U/L Alkaline Phosphatase (45-117) U/L Troponin I Less than 0.02 L (0.02-0.05) ng/mL B-Natriuretic Peptide (0-100) pg/mL Total Protein (6.4-8.2) g/dL Albumin (3.4-5.0) g/dL Urine Clarity Hazy H (Clear) Urine Nitrate Positive H (Negative) Ur Leukocyte Esterase Small H (Negative) Urine WBC 24 H (0-5) /hpf Urine Bacteria Moderate H (None) /hpf 12/20/17 Range/Units 06:34 RBC (4.00-5.30) mil/mm3 Hgb (11.6-15.3) gm/dL Hct (35.0-46.0) % Plt Count (150-450) th/mm3 MPV (7.0-11.0) fL Neut % (Auto) (16.0-70.0) % Lymph % (Auto) (9.0-44.0) % [place] % (Auto) (0.0-8.0) % Neut # (Auto) (1.8-7.7) th/mm3 Lymph # (Auto) (1.0-4.8) th/mm3 Seg Neuts % (Manual) (16-70) % Lymphocytes % (Manual) (9-44) % Monocytes % (Manual) (0-8) % Abs Neuts (Manual) (1.8-7.7) th/mm3 Platelet Estimate (Normal) [place] Cells (None) Acanthocytes (Spur) (None) Sodium (136-145) meq/L BUN 24 H (7-18) mg/dL Estimated GFR (>89) mL/min Random Glucose 112 H (74-106) mg/dL Calcium 7.6 L (8.5-10.1) mg/dL Total Bilirubin 1.1 H (0.2-1.0) mg/dL AST (15-37) U/L Alkaline Phosphatase (45-117) U/L Troponin I Less than 0.02 L (0.02-0.05) ng/mL B-Natriuretic Peptide (0-100) pg/mL Total Protein 5.3 L (6.4-8.2) g/dL Albumin 2.6 L (3.4-5.0) g/dL Urine Clarity (Clear) Urine Nitrate (Negative) Ur Leukocyte Esterase (Negative) Urine WBC (0-5) /hpf Urine Bacteria (None) /hpf Short CBC 12/19/17 12/20/17 Range/Units 12:28 06:34 WBC 7.5 5.4 (4.0-11.0) th/mm3 Hgb 10.3 L 9.0 L (11.6-15.3) gm/dL Hct 30.8 L 26.7 L (35.0-46.0) % Plt Count 163 125 L (150-450) th/mm3 BMP 12/19/17 12/20/17 12:28 06:34 Sodium 135 L 139 Potassium 4.9 3.6 D Chloride 103 99 Carbon Dioxide 23.7 26.2 BUN 26 H 24 H Creatinine 0.73 0.62 Calcium 7.7 L 7.6 L Cardiac Enzymes 12/19/17 12/19/17 12/20/17 Range/Units 12:28 19:40 06:34 Total Creatine Kinase 122 (26-192) U/L CK-MB (CK-2) 1.1 (0.5-3.6) ng/mL Troponin I Less than 0.02 L Less than 0.02 L Less than 0.02 L (0.02-0.05) ng/mL Liver Function 12/19/17 12/20/17 Range/Units 12:28 06:34 Total Bilirubin 1.4 H 1.1 H (0.2-1.0) mg/dL AST 39 H 20 (15-37) U/L ALT 16 12 (10-53) U/L Alkaline Phosphatase 124 H 110 (45-117) U/L Albumin 2.7 L 2.6 L (3.4-5.0) g/dL Urine 12/19/17 Range/Units 12:28 Urine Color Lara (Yellw/Straw) Urine Clarity Hazy H (Clear) Urine pH 5.0 (5.0-8.5) Ur Specific [place] 1.013 (1.002-1.035) Urine Protein Negative (Neg-Trace) mg/dL Urine Glucose (UA) Negative (Negative) mg/dL <Gila Lovell R - 12/20/17 10:59> Abnormal lab results 12/19/17 12/19/17 12/19/17 Range/Units 12:28 12:28 12:28 RBC 3.32 L (4.00-5.30) mil/mm3 Hgb 10.3 L (11.6-15.3) gm/dL Hct 30.8 L (35.0-46.0) % MPV 6.9 L (7.0-11.0) fL Neut % (Auto) 5.3 L (16.0-70.0) % Lymph % (Auto) 82.8 H (9.0-44.0) % [place] % (Auto) 11.1 H (0.0-8.0) % Neut # (Auto) 0.4 L* (1.8-7.7) th/mm3 Lymph # (Auto) 6.2 H (1.0-4.8) th/mm3 Seg Neuts % (Manual) 5 L (16-70) % Lymphocytes % (Manual) 89 H (9-44) % Abs Neuts (Manual) 0.5 L* (1.8-7.7) th/mm3 Sodium 135 L (136-145) meq/L BUN 26 H (7-18) mg/dL Estimated GFR 75 L (>89) mL/min Random Glucose 116 H (74-106) mg/dL Calcium 7.7 L (8.5-10.1) mg/dL Total Bilirubin 1.4 H (0.2-1.0) mg/dL AST 39 H (15-37) U/L Alkaline Phosphatase 124 H (45-117) U/L Troponin I Less than 0.02 L (0.02-0.05) ng/mL B-Natriuretic Peptide 363 H (0-100) pg/mL Total Protein 5.8 L (6.4-8.2) g/dL Albumin 2.7 L (3.4-5.0) g/dL Urine Clarity (Clear) Urine Nitrate (Negative) Ur Leukocyte Esterase (Negative) Urine WBC (0-5) /hpf Urine Bacteria (None) /hpf 12/19/17 Range/Units 12:28 RBC (4.00-5.30) mil/mm3 Hgb (11.6-15.3) gm/dL Hct (35.0-46.0) % MPV (7.0-11.0) fL Neut % (Auto) (16.0-70.0) % Lymph % (Auto) (9.0-44.0) % [place] % (Auto) (0.0-8.0) % Neut # (Auto) (1.8-7.7) th/mm3 Lymph # (Auto) (1.0-4.8) th/mm3 Seg Neuts % (Manual) (16-70) % Lymphocytes % (Manual) (9-44) % Abs Neuts (Manual) (1.8-7.7) th/mm3 Sodium (136-145) meq/L BUN (7-18) mg/dL Estimated GFR (>89) mL/min Random Glucose (74-106) mg/dL Calcium (8.5-10.1) mg/dL Total Bilirubin (0.2-1.0) mg/dL AST (15-37) U/L Alkaline Phosphatase (45-117) U/L Troponin I (0.02-0.05) ng/mL B-Natriuretic Peptide (0-100) pg/mL Total Protein (6.4-8.2) g/dL Albumin (3.4-5.0) g/dL Urine Clarity Hazy H (Clear) Urine Nitrate Positive H (Negative) Ur Leukocyte Esterase Small H (Negative) Urine WBC 24 H (0-5) /hpf Urine Bacteria Moderate H (None) /hpf Short CBC 12/19/17 Range/Units 12:28 WBC 7.5 (4.0-11.0) th/mm3 Hgb 10.3 L (11.6-15.3) gm/dL Hct 30.8 L (35.0-46.0) % Plt Count 163 (150-450) th/mm3 BMP 12/19/17 12:28 Sodium 135 L Potassium 4.9 Chloride 103 Carbon Dioxide 23.7 BUN 26 H Creatinine 0.73 Calcium 7.7 L Cardiac Enzymes 12/19/17 Range/Units 12:28 Total Creatine Kinase 122 (26-192) U/L CK-MB (CK-2) 1.1 (0.5-3.6) ng/mL Troponin I Less than 0.02 L (0.02-0.05) ng/mL Liver Function 12/19/17 Range/Units 12:28 Total Bilirubin 1.4 H (0.2-1.0) mg/dL AST 39 H (15-37) U/L ALT 16 (10-53) U/L Alkaline Phosphatase 124 H (45-117) U/L Albumin 2.7 L (3.4-5.0) g/dL Urine 12/19/17 Range/Units 12:28 Urine Color Lara (Yellw/Straw) Urine Clarity Hazy H (Clear) Urine pH 5.0 (5.0-8.5) Ur Specific [place] 1.013 (1.002-1.035) Urine Protein Negative (Neg-Trace) mg/dL Urine Glucose (UA) Negative (Negative) mg/dL <Rubi Brice V - 12/19/17 17:24> - Imaging Impressions Chest X-Ray 12/19/17 12:04 CONCLUSION: Cardiomegaly with intra-alveolar pulmonary edema and small effusions. Chest CTA 12/19/17 12:05 CONCLUSION: 1. Moderate to large bilateral pleural effusions. 2. No evidence for pulmonary embolism. 3. Bibasilar consolidation likely atelectasis. 4. Splenomegaly. Abdomen Ultrasound 12/20/17 00:00 CONCLUSION: 1. Moderate splenomegaly with no focal mass. 2. Small amount of ascitic fluid. 3. The kidneys are small and atrophic in appearance with increased echogenicity characteristic of medical renal disease. There is a small simple appearing cyst in the right kidney. Venous Doppler Study 12/20/17 00:00 CONCLUSION: 1. Limited examination due to patient's inability to cooperate with examination. 2. Otherwise, no sonographic evidence for right lower extremity DVT. <Gila Lovell R - 12/20/17 10:59> Impressions Chest X-Ray 12/19/17 12:04 CONCLUSION: Cardiomegaly with intra-alveolar pulmonary edema and small effusions. Chest CTA 12/19/17 12:05 CONCLUSION: 1. Moderate to large bilateral pleural effusions. 2. No evidence for pulmonary embolism. 3. Bibasilar consolidation likely atelectasis. 4. Splenomegaly. <Rubi Brice V - 12/19/17 17:24> Caprini VTE Risk Assessment Caprini VTE Risk Assessment: Moderate/High Risk (score >= 2) <Rubi Brice V - 12/20/17 00:50> Caprini Risk Assessment Model: Point Value = 1 Point Value = 2 Point Value = 3 Point Value = 5 Age 41-60 Minor surgery BMI > 25 kg/m2 Swollen legs Varicose veins or History of unexplained or recurrent spontaneous Oral contraceptives or hormone replacement Sepsis (< 1 month) Serious lung disease, including pneumonia (< 1 month) Abnormal pulmonary function Acute myocardial infarction Congestive heart failure (< 1 month) History of inflammatory bowel disease Medical patient at bed rest Age 61-74 Arthroscopic surgery Major open surgery (> 45 min) Laparoscopic surgery (> 45 min) Malignancy Confined to bed (> 72 hours) Immobilizing plaster cast Central venous access Age >= 75 History of VTE Family history of VTE Factor V Leiden Prothrombin [id number] Lupus anticoagulant Anticardiolipin antibodies Elevated serum homocysteine Heparin-induced thrombocytopenia Other congenital or acquired thrombophilia Stroke (< 1 month) Elective arthroplasty Hip, pelvis, or leg fracture Acute spinal cord injury (< 1 month) <Gila Lovell R - 12/20/17 10:59> Point Value = 1 Point Value = 2 Point Value = 3 Point Value = 5 Age 41-60 Minor surgery BMI > 25 kg/m2 Swollen legs Varicose veins or History of unexplained or recurrent spontaneous Oral contraceptives or hormone replacement Sepsis (< 1 month) Serious lung disease, including pneumonia (< 1 month) Abnormal pulmonary function Acute myocardial infarction Congestive heart failure (< 1 month) History of inflammatory bowel disease Medical patient at bed rest Age 61-74 Arthroscopic surgery Major open surgery (> 45 min) Laparoscopic surgery (> 45 min) Malignancy Confined to bed (> 72 hours) Immobilizing plaster cast Central venous access Age >= 75 History of VTE Family history of VTE Factor V Leiden Prothrombin [id number] Lupus anticoagulant Anticardiolipin antibodies Elevated serum homocysteine Heparin-induced thrombocytopenia Other congenital or acquired thrombophilia Stroke (< 1 month) Elective arthroplasty Hip, pelvis, or leg fracture Acute spinal cord injury (< 1 month) <Rubi Brice V - 12/19/17 17:24> Prophylaxis Regimen: Total Risk Factor Score Risk Level Prophylaxis Regimen 0-1 Low Early ambulation 2 Moderate Order ONE of the following: *Sequential Compression Device (SCD) *Heparin 5000 units SQ BID 3-4 Higher Order ONE of the following medications: *Heparin 5000 units SQ TID *Enoxaparin/Lovenox 40 mg SQ daily (WT < 150 kg, CrCl > 30 mL/min) *Enoxaparin/Lovenox 30 mg SQ daily (WT < 150 kg, CrCl > 10-29 mL/min) *Enoxaparin/Lovenox 30 mg SQ BID (WT < 150 kg, CrCl > 30 mL/min) AND/OR *Sequential Compression Device (SCD) 5 or more Highest Order ONE of the following medications: *Heparin 5000 units SQ TID (Preferred with Epidurals) *Enoxaparin/Lovenox 40 mg SQ daily (WT < 150 kg, CrCl > 30 mL/min) *Enoxaparin/Lovenox 30 mg SQ daily (WT < 150 kg, CrCl > 10-29 mL/min) *Enoxaparin/Lovenox 30 mg SQ BID (WT < 150 kg, CrCl > 30 mL/min) AND *Sequential Compression Device (SCD) <Gila Lovell R - 12/20/17 10:59> Total Risk Factor Score Risk Level Prophylaxis Regimen 0-1 Low Early ambulation 2 Moderate Order ONE of the following: *Sequential Compression Device (SCD) *Heparin 5000 units SQ BID 3-4 Higher Order ONE of the following medications: *Heparin 5000 units SQ TID *Enoxaparin/Lovenox 40 mg SQ daily (WT < 150 kg, CrCl > 30 mL/min) *Enoxaparin/Lovenox 30 mg SQ daily (WT < 150 kg, CrCl > 10-29 mL/min) *Enoxaparin/Lovenox 30 mg SQ BID (WT < 150 kg, CrCl > 30 mL/min) AND/OR *Sequential Compression Device (SCD) 5 or more Highest Order ONE of the following medications: *Heparin 5000 units SQ TID (Preferred with Epidurals) *Enoxaparin/Lovenox 40 mg SQ daily (WT < 150 kg, CrCl > 30 mL/min) *Enoxaparin/Lovenox 30 mg SQ daily (WT < 150 kg, CrCl > 10-29 mL/min) *Enoxaparin/Lovenox 30 mg SQ BID (WT < 150 kg, CrCl > 30 mL/min) AND *Sequential Compression Device (SCD) <Rubi Brice V - 12/19/17 17:24> Assessment and Plan - Assessment (1) Shortness of breath Code(s): R06.02 - Shortness of breath Status: Acute (2) Acute UTI Code(s): N39.0 - Urinary tract infection, site not specified Status: Acute (3) Neutropenia Code(s): D70.9 - Neutropenia, unspecified Status: Acute (4) Dementia Code(s): F03.90 - Unspecified dementia without behavioral disturbance Status: Chronic (5) Sacral decubitus ulcer Code(s): L89.159 - Pressure ulcer of sacral region, unspecified stage Status: Acute (6) Fracture of femur Code(s): S72.90XA - Unspecified fracture of unspecified femur, initial encounter for closed fracture Status: Chronic (7) Hypothyroid Code(s): E03.9 - Hypothyroidism, unspecified Status: Chronic (8) Pain Code(s): R52 - Pain, unspecified Status: Chronic (9) Nutrition, metabolism, and development symptoms Code(s): R63.8 - Other symptoms and signs concerning food and fluid intake Status: Acute (10) DVT prophylaxis Status: Acute <NasGila R - 12/20/17 10:59> (1) Shortness of breath Code(s): R06.02 - Shortness of breath Status: Acute (2) Acute UTI Code(s): N39.0 - Urinary tract infection, site not specified Status: Acute (3) Neutropenia Code(s): D70.9 - Neutropenia, unspecified Status: Acute (4) Dementia Code(s): F03.90 - Unspecified dementia without behavioral disturbance Status: Chronic (5) Sacral decubitus ulcer Code(s): L89.159 - Pressure ulcer of sacral region, unspecified stage Status: Acute (6) Fracture of femur Code(s): S72.90XA - Unspecified fracture of unspecified femur, initial encounter for closed fracture Status: Chronic (7) Hypothyroid Code(s): E03.9 - Hypothyroidism, unspecified Status: Chronic (8) Pain Code(s): R52 - Pain, unspecified Status: Chronic (9) Nutrition, metabolism, and development symptoms Code(s): R63.8 - Other symptoms and signs concerning food and fluid intake Status: Acute (10) DVT prophylaxis Status: Acute <Rubi Brice V - 12/20/17 00:55> - Assessment and Plan 87 yr old female with PMH of hypothyroidism, HTN and a recently fixed R femur fracture, admitted for shortness of breath and oxygen desaturations into the 80' s. Pt brought in by EMS which documented O2 sat in the 70's. Pt clinically stable and in NAD. Shortness of breath, pleural effusions, and neutropenia of unknown etiology at this time. Shortness of breath Unclear etiology at this time, Pulmonary Embolism was ruled out in ED by CTA, which demonstrated bilateral pleural effusions. By looking at patient's past Echo during her last hospitalization, the effusion were already reported. Pt also with abdominal distention and jaundice on exam. BNP elevated, no prior diagnosis of CHF * PE ruled out, no evidence of pneumonia * Troponin negative x2- will trend one more troponin & EKG * Elevated BNP at 363 and no prior diagnosis of CHF * Abdominal US ordered, possible paracentesis if ascites present * Currently on Oxygen therapy. Maintain O2 Saturation at or above 92 % * Received one dose of IV Lasix in ED, will start 40mg furosemide po daily. * Repeat Echocardiogram tomorrow to confirm/ rule out CHF * Repeat morning labs UTI * UA and cultures ordered * Received one dose of Ciprofloxacin 400mg IV in ED, continue with antibiotic therapy q12hr. * Follow up culture and sensitivities Neutropenia Unknown etiology at this time. Pt with Hx of CLL and last neutrophil count of 7.1 on last admission * Neutrophil count 0.4 today * Repeat Lab in AM * Will consider re-consulting Hem/Onc Hx of femur fracture and associated pain * PT to evaluate and treat * [place] 5/325mg q6 PRN Sacral ulcer * Present on admission, either stage 2-3 * Wound care consulted to assist with care * Pt incontinent of urine at this time. * Rowley catheter placed to prevent excessive moisture, specially in the setting of immobility and after receiving Lasix. Hypothyroidism * Continue home levothyroxine of 88mcg daily Hypertension * Continue home lisinopril 20mg daily FEN/ DVT prophylaxis * Mechanical soft diet * PO fluid intake * SCD bilateral and Heparin 5000 q12h Social/ disposition Pt's son with unrealistic expectations of mother's recovery after last hospitalization, and overall health condition. At this moment patient is Full Code per son's request. Pt unable to make her own decisions due to her decline in mental status. Palliative care involved last admissions. Hospice and code status discussed in past. Giving pt's clinical picture, it will be helpful to reinitiate those conversations. Pt unable to perform any ADL. * Palliative care re-consulted to continue conversation regarding goals of care <Rubi Brice V - 12/20/17 01:23> - Attending Attestation Patient dw resident team -- agree with admission and assessment and plan as above <Gila Lovell R - 12/20/17 10:59> <Rubi Brice V - Last Filed: 12/20/17 00:55> (3) Neutropenia Qualifiers: Neutropenia type: unspecified Qualified Code(s): D70.9 - Neutropenia, unspecified (6) Fracture of femur Qualifiers: Encounter type: initial encounter Fracture type: closed Fracture morphology : spiral Laterality: right <Gila Lovell - Last Filed: 12/20/17 10:59> (3) Neutropenia Qualifiers: Qualified Code(s): D70.9 - Neutropenia, unspecified <Rubi Brice V - Last Filed: 12/20/17 00:55> (3) Neutropenia Qualifiers: Neutropenia type: unspecified Qualified Code(s): D70.9 - Neutropenia, unspecified (6) Fracture of femur Qualifiers: Encounter type: initial encounter Fracture type: closed Fracture morphology : spiral Laterality: right <Gila Lovell - Last Filed: 12/20/17 10:59> (3) Neutropenia Qualifiers: Qualified Code(s): D70.9 - Neutropenia, unspecified
[2017-12-19] MEDS: Heparin - SQ 10,000 UNITS/ML Vial SQ SCH (20:58)
[2017-12-20] MEDS: Ciprofloxacin 400 MG/200 ML 400 MG/200 ML PIGGYBACK IV.SIG SCH ×2 (03:16→16:29)
[2017-12-20] MEDS: Heparin - SQ 10,000 UNITS/ML Vial SQ SCH ×2 (06:11→17:35)
[2017-12-20] MEDS: Levothyroxine 88 MCG Tablet PO SCH (06:11)
--- NOTE | 2017-12-20 06:33 | P.PNOP ---
Subjective Interval history: s/p IMN right femur and hip by Dr Blevins on 11/22/17 confused. states no pain in hip Physical Exam Vital signs: Vital Signs 12/19/17 12:12 12/19/17 12:15 12/19/17 14:16 Temperature 99.3 F Pulse Rate 97 H 92 H 84 Respiratory Rate 22 22 Blood Pressure 178/85 H 137/65 Pulse Oximetry 98 98 97 12/19/17 15:59 12/19/17 20:00 12/19/17 20:22 Temperature 98.6 F Pulse Rate 88 89 89 Respiratory Rate 24 16 Blood Pressure 137/65 105/57 L Pulse Oximetry 93 L 92 L 12/19/17 21:27 12/20/17 00:00 12/20/17 04:00 Temperature 98.4 F 97.5 F L Pulse Rate 83 85 Respiratory Rate 18 16 16 Blood Pressure 143/60 H 134/56 L Pulse Oximetry 91 L 92 L 12/20/17 04:03 Temperature Pulse Rate 78 Respiratory Rate Blood Pressure Pulse Oximetry Intake & Output 12/19/17 12/19/17 12/20/17 06:59 18:59 06:59 Intake Total 200 / 200 200 / 200 Balance 200 / 200 200 / 200 Weight 50.802 kg Intake: IV 200 / 200 200 / 200 Cipro 400 MG/200 ML Inj 400 mg 200 / 200 200 / 200 In 200 ml @ 200 mls/hr IV.SIG Q12H [facility] Rx#:[id number] Other: # Incontinent Voids 2 # Bowel Movements 1 Weight On Admission 50.802 kg Narrative: RLE: Incisions are clean and dry. Intact and healed well. She has good passive motion of the hip with minimal discomfort. She moves her toes freely. She has significant swelling and bruising of the right thigh. - Urinary Catheter Management Indwelling Urethral Catheter Cath placed during this visit: yes Reason for continuing: Severe pressure ulcer/wound Insertion date: 12/20/17 Insertion time: 04:56 Results - Labs CBC & Chem 7: 12/19/17 12:28 12/19/17 12:28 Laboratory Results - last 24 hr 12/19/17 12/19/17 12/19/17 12:28 12:28 12:28 WBC 7.5 RBC 3.32 L Hgb 10.3 L Hct 30.8 L MCV 92.9 MCH 31.1 MCHC 33.5 RDW 16.9 Plt Count 163 MPV 6.9 L Prelim Diff (Auto) Slide review pending Neut % (Auto) 5.3 L Lymph % (Auto) 82.8 H Pierce % (Auto) 11.1 H Eos % (Auto) 0.6 Baso % (Auto) 0.2 Neut # (Auto) 0.4 L* Lymph # (Auto) 6.2 H Pierce # (Auto) 0.8 Eos # (Auto) 0.0 Baso # (Auto) 0.0 WBC Differential Manual diff final Seg Neuts % (Manual) 5 L Band Neuts % (Manual) 1 Lymphocytes % (Manual) 89 H Monocytes % (Manual) 4 Eosinophils % (Manual) 1 Abs Neuts (Manual) 0.5 L* Differential Comment . Platelet Estimate Normal Platelet Morphology Normal PT 11.6 INR 1.1 APTT 27.2 Sodium 135 L Potassium 4.9 Chloride 103 Carbon Dioxide 23.7 Anion Gap 8 BUN 26 H Creatinine 0.73 Estimated GFR 75 L Random Glucose 116 H Calcium 7.7 L Total Bilirubin 1.4 H AST 39 H ALT 16 Alkaline Phosphatase 124 H Total Creatine Kinase 122 CK-MB (CK-2) 1.1 Troponin I Less than 0.02 L B-Natriuretic Peptide Total Protein 5.8 L Albumin 2.7 L Urine Color Urine Clarity Urine pH Ur Specific Nesmith Urine Protein Urine Glucose (UA) Urine Ketones Urine Occult Blood Urine Nitrate Urine Bilirubin Urine Urobilinogen Ur Leukocyte Esterase Urine RBC Urine WBC Ur Squamous Epith Cells Urine Bacteria Micro UA Comment Ur Microscopic Review Urine Culture Comments 12/19/17 12/19/17 12/19/17 12:28 12:28 19:40 WBC RBC Hgb Hct MCV MCH MCHC RDW Plt Count MPV Prelim Diff (Auto) Neut % (Auto) Lymph % (Auto) Pierce % (Auto) Eos % (Auto) Baso % (Auto) Neut # (Auto) Lymph # (Auto) Pierce # (Auto) Eos # (Auto) Baso # (Auto) WBC Differential Seg Neuts % (Manual) Band Neuts % (Manual) Lymphocytes % (Manual) Monocytes % (Manual) Eosinophils % (Manual) Abs Neuts (Manual) Differential Comment Platelet Estimate Platelet Morphology PT INR APTT Sodium Potassium Chloride Carbon Dioxide Anion Gap BUN Creatinine Estimated GFR Random Glucose Calcium Total Bilirubin AST ALT Alkaline Phosphatase Total Creatine Kinase CK-MB (CK-2) Troponin I Less than 0.02 L B-Natriuretic Peptide 363 H Total Protein Albumin Urine Color Lara Urine Clarity Hazy H Urine pH 5.0 Ur Specific Nesmith 1.013 Urine Protein Negative Urine Glucose (UA) Negative Urine Ketones Negative Urine Occult Blood Negative Urine Nitrate Positive H Urine Bilirubin Negative Urine Urobilinogen Less than 2 Ur Leukocyte Esterase Small H Urine RBC 1 Urine WBC 24 H Ur Squamous Epith Cells <1 Urine Bacteria Moderate H Micro UA Comment Cath-culture ind Ur Microscopic Review Not Reportable Urine Culture Comments Cath-cult indicated - Imaging Impressions Chest X-Ray 12/19/17 12:04 CONCLUSION: Cardiomegaly with intra-alveolar pulmonary edema and small effusions. Chest CTA 12/19/17 12:05 CONCLUSION: 1. Moderate to large bilateral pleural effusions. 2. No evidence for pulmonary embolism. 3. Bibasilar consolidation likely atelectasis. 4. Splenomegaly. Assessment and Plan - Assessment and Plan 1) Right Subtrochanteric Femur Fx s/p IMN on 11/22/[address] Blevins -TTWB -JEN sloan today -will order doplar US to eval for possible DVT -will order XR today to eval femur fx -medical care
[2017-12-20 07:08] LABS: Baso % (Auto) 0.2 % (0.0-2.0); Eos # (Auto) 0.1 th/mm3 (0.0-0.4); Hematocrit 26.7 % (35.0-46.0); Lymph # (Auto) 4.4 th/mm3 (1.0-4.8); Lymph % (Auto) 81.2 % (9.0-44.0); Mean Corpuscular HGB Conc 33.9 % (32.0-36.0); Mean Corpuscular Hemoglobin 31.2 pg (27.0-34.0); Mean Platelet Volume 6.7 fL (7.0-11.0); Mono # (Auto) 0.6 th/mm3 (0.0-0.9); Mono % (Auto) 10.5 % (0.0-8.0); Neut # (Auto) 0.4 th/mm3 (1.8-7.7); Neut % (Auto) 7.1 % (16.0-70.0); Platelet Count 125 th/mm3 (150-450); Red Cell Distribution Width 16.4 % (11.6-17.2); White Blood Count 5.4 th/mm3 (4.0-11.0)
[2017-12-20 07:24] LABS: Alanine Aminotransferase 12 U/L (10-53); Albumin 2.6 g/dL (3.4-5.0); Anion Gap 14 meq/L (5-15); Aspartate Aminotransferase 20 U/L (15-37); Blood Urea Nitrogen 24 mg/dL (7-18); Calcium 7.6 mg/dL (8.5-10.1); Carbon Dioxide 26.2 meq/L (21.0-32.0); Chloride 99 meq/L (98-107); Glomerular Filtration Rate Greater Than 89 mL/min (>89); Glucose,Random 112 mg/dL (74-106); Potassium 3.6 meq/L (3.5-5.1); Sodium 139 meq/L (136-145)
[2017-12-20 07:29] LABS: Alkaline Phosphatase 110 U/L (45-117); Total Protein 5.3 g/dL (6.4-8.2)
[2017-12-20 07:58] LABS: Eosinophils 1 % (0-4); Lymphocytes 84 % (9-44); Monocytes 11 % (0-8)
[2017-12-20 08:14] LABS: Platelet Morphology Normal (Normal)
[2017-12-20 08:15] LABS: Acanthocytes Occ; Burr Cells 1+
--- NOTE | 2017-12-20 08:34 | US ---
EXAM DATE: 12/20/2017 12:00 AM EDT AGE/SEX: 87 years / Female INDICATIONS: Right leg swelling. CLINICAL DATA: This is the patient's initial encounter. Patient reports that signs and symptoms have been present for 1 day and indicates a pain score of 10/10. MEDICAL/SURGICAL HISTORY: Hypertension. Hypothyroidism. Femur fracture. . Back surgery. COMPARISON: No prior exams available for comparison. TECHNIQUE: Venous ultrasound of both lower extremities was performed from the inguinal ligament to t he proximal calf. Real-time, color Doppler and spectral tracing, compression and augmentation techni ques were used. FINDINGS: Normal compression of the deep venous system from the inguinal region to the proximal calf . No echogenic clot is seen. Normal response of the venous system to augmentation and respiration. CONCLUSION: 1. Limited examination due to patient's inability to cooperate with examination. 2. Otherwise, no sonographic evidence for right lower extremity DVT. Electronically signed by: Mikael Polk MD 12/20/2017 8:32 AM EDT
--- NOTE | 2017-12-20 08:56 | US ---
EXAM DATE: 12/20/2017 12:00 AM EDT AGE/SEX: 87 years / Female INDICATIONS: Abdominal distention. CLINICAL DATA: This is the patient's initial encounter. Patient reports that signs and symptoms have been present for 2 days and indicates a pain score of 0/10. MEDICAL/SURGICAL HISTORY: Hypertension. Hypothyroidism. . Back surgery. COMPARISON: No prior exams available for comparison. MEASUREMENTS: Liver:__ 16.6 cm. Common Bile Duct:___ 3mm. Right Kidney:___8.8 x 3.8 x 4.0 cm. Left Kidney:___9.9 x 3.9 x 3.9 cm. Spleen:___21.0 cm. FINDINGS: Suboptimal visualization secondary to overlying bowel gas obscuring portions of the midline structures. Liver: Increased echotexture without focal lesion or ductal dilation. There is a small amount of tala e fluid adjacent to the liver margin. Portal Vein: Hepatopedal flow seen in portal vein. Common Duct: No intraluminal mass or stone visualized. Gallbladder: Demonstrates no wall thickening or pericholecystic fluid. No stones visualized. Pancreas: The visualized portions are within normal limits Right Kidney: The kidney is small in size with cortical atrophy. There is no solid mass or hydroneph rosis. There are no renal calculi. There is a small 1 cm cystic structure. Left Kidney: Increased echotexture. No mass or hydronephrosis. Ascites: Small amount of ascitic fluid present. Pleural Effusion: Left Spleen: The spleen is enlarged measuring up to 21 cm with no focal mass. Is adjacent free fluid. Aorta: Not well visualized or evaluated. IVC: Within normal limits Other: None. CONCLUSION: 1. Moderate splenomegaly with no focal mass. 2. Small amount of ascitic fluid. 3. The kidneys are small and atrophic in appearance with increased echogenicity characteristic of me dical renal disease. There is a small simple appearing cyst in the right kidney. Electronically signed by: Cruz Dubon MD 12/20/2017 8:55 AM EDT
--- NOTE | 2017-12-20 09:30 | P.PNWCN ---
Wound Care Nurse Consult Description: wound consult ordered by for wound management. Communicated with: Noemi CARDONA, Recommendation: 1. Manually reposition patient every 2 hours for comfort and offloading. 2. Cleanse sacral/coccyx region with normal saline only.( wound cleanser deactivates Santyl by 81%) 3. Apply Cavilon skin prep to periwound, Calazime cream to periwound/wound edges. 4. Apply Santyl 2mm thick to wound base/slough cover with saline moistened gauze secure with boarder gauze. 5. Sign and date all dressings, change dressing daily or as needed for dislodgment/ incontinence. 6. Please use UltraSorb moisture wicking under pads on specialty surface ( no cotton under pads). 7. Follow up with out patient wound center/Home health agency. Additional information: Patient was seen today by clinical writer and Noemi CARDONA [address] [place] [address] for wound management.Patient alert and pleasantly confused resting in bed in no acute distress. Various stages of healing bruises noted to right thigh/hip.16 intact nathalia removed from lateral thigh.Patient tolerated staple removal well.Cotton underpad removed from under patient for moisture control.Patient repositioned to right side with 2 Person assistance.Patient incontinent of bowels care provided.Foam dressing removed from sacral region.wound cleansed with normals mauricio pat dry.Patient noted to have a unstageable pressure injury ton sacral region measuring 5.0cm x 3.5cm x slough. wound edges are well defined mild epibole noted from 8-12 O'clock with a DTI noted form 4-6 O'clock. Wound base is 50% moist yellow slough, 25% white/yellow fascia, 25% moist pink tissue.Patient cachetic and bone palpable.Calazime applied to periwound with saline moistened gauze covered with gentle border foam dressing. Dressing signed and dated.K-4 specialty surface and frame ordered.Patient repositioned to right side. Wound/Pressure Injury - Wound Sacrum Wound Staging: Unstageable Wound Assessment: Admission Wound Type: Pressure Injury Is This a Chronic Wound: Yes Requested from Provider a Wound Care Consult: No (Gudelia CARDONA,[facility] seen 12/20) Length (cm): 5.0 Width (cm): 3.6 Wound Bed Appearance: Necrotic, Tillson, Yellow Wound Bed Appearance: 50% yellow slough, 25% fascia, 25% moist pink tissue. Surrounding Tissue Appearance: Dark Red Surrounding Tissue Temperature: Warm Drainage Description: Serosanguinous Drainage Amount: Scant Drainage Odor: No Odor Dressing Status: Changed Cleansing Solution: Saline Topical: Enzymatic Debridement Ointment Wound Packing Type: Gauze Pads Primary Dressing: Adhesive Dressing Wound Dressing Change Date: 12/20/17
[2017-12-20] MEDS: Lisinopril 20 MG Tablet PO SCH (10:14)
[2017-12-20] MEDS: Furosemide 40 MG Tablet PO SCH (10:14)
--- NOTE | 2017-12-20 10:45 | MB ---
cc: Varinder Devine MD DATE: 12/20/2017 CARDIOLOGY CONSULTATION HISTORY OF PRESENT ILLNESS: Cathryn Walker is an 87-year-old woman with history of chronic lymphocytic leukemia, dementia, who was admitted now with CHF and has radiographic evidence for pleural effusions. The patient has a history of dementia and really cannot provide much history. She was recently hospitalized for right femur fracture and underwent surgery by Dr. Boogie. She was sent to rehabilitation, but was taken out of rehabilitation and taken home by her son. She was noted to have low oxygen saturations during home health visit and was brought in and had a CT scan showing bilateral pleural effusions. The patient has no definite prior cardiac history. She is sedentary. She has a sacral ulcer. She is neutropenic now. She saw Dr. Frankel the last time she was admitted. The patient really cannot provide any meaningful history. PAST MEDICAL HISTORY: Includes dementia, sacral decubitus ulcer, right femur fracture, hypothyroidism, pain. PAST SURGICAL HISTORY: Back surgery, as well as a surgery now on her femur. FAMILY HISTORY: Positive for myocardial infarction in the father. I obtained this history from the chart, not from the patient. SOCIAL HISTORY: Never smoked, never drank according to the son. PHYSICAL EXAMINATION: GENERAL: Reveals a confused, somewhat cachectic, elderly white female. She is lying in bed on her side and moans at any attempt to move her from that position. VITAL SIGNS: Her vitals are charted. HEENT: Exam is unremarkable. NECK: Shows absence of JVD. CARDIAC: S1, S2, regular rate and rhythm. Cannot appreciate gallops. CHEST: Exam was difficult to assess; the patient would not sit up easily and would not take deep breaths. ABDOMEN: Soft. EXTREMITIES: Reveal no peripheral edema. She does have a sacral ulcer. LABORATORY DATA: The labs are abnormal. Total white count is normal, but her neutrophil count is extremely low. BUN is elevated with a normal creatinine. She was mildly anemic. RADIOGRAPHIC STUDIES: Are noted. IMPRESSION: Suspect acute diastolic congestive heart failure with bilateral pleural effusions. She is frail. She has neutropenia. She has a sacral ulcer. Overall prognosis appears very poor. RECOMMENDATIONS: Has been put on Lasix once a day. I think this is satisfactory for now since the BUN is elevated. I will order an echo to check her LV function. I explained to the patient neutropenia and at this age is extremely poor prognosis. I will be available to followup as needed. If there is depressed ejection fraction, she will need to be considered for the addition of a beta danielle. MD MEET Dailey/babs , 10:28 AM , 10:37 AM
--- NOTE | 2017-12-20 11:02 | P.PNADD ---
Addendum to Inpatient Note Reason for Addendum: Additional Documentation Additional information: Please see resident H&P for complete details regarding her history and admission information. Patients son is at the bedside but left to make some calls during our exam. The patient is alert and able to speak and responds appropriately to pleasantries. However she is not oriented, cannot provide any history and cannot provide any symptoms. No overnight events were noted by nursing -- she kept taking her NC off all night so doubtful that she is oxygen requiring? Vital Signs Temp Pulse Resp BP Pulse Ox 12/20/17 04:03 78 12/20/17 04:00 97.5 F L 85 16 134/56 L 92 L 12/20/17 00:00 98.4 F 83 16 143/60 H 91 L 12/19/17 21:27 18 12/19/17 20:22 89 12/19/17 20:00 98.6 F 89 16 105/57 L 92 L 12/19/17 15:59 88 24 137/65 93 L 12/19/17 14:16 84 22 137/65 97 12/19/17 12:15 92 H 98 12/19/17 12:12 99.3 F 97 H 22 178/85 H 98 Intake and Output 12/19/17 12/20/17 12/20/17 22:59 06:59 14:59 Intake Total 200 / 200 200 / 200 Balance 200 / 200 200 / 200 Intake: IV 200 / 200 200 / 200 Cipro 400 MG/200 ML Inj 400 mg 200 / 200 200 / 200 In 200 ml @ 200 mls/hr IV.SIG Q12H [facility] Rx#:[id number] Other: # Incontinent Voids 2 Date of Last Bowel Movement 12/20/17 # Bowel Movements 1 Weight 50.802 kg Weight On Admission 50.802 kg Abnormal Labs 12/19/17 12/19/17 12/19/17 12:28 12:28 12:28 RBC 3.32 L Hgb 10.3 L Hct 30.8 L Plt Count MPV 6.9 L Neut % (Auto) 5.3 L Lymph % (Auto) 82.8 H Irwin % (Auto) 11.1 H Neut # (Auto) 0.4 L* Lymph # (Auto) 6.2 H Seg Neuts % (Manual) 5 L Lymphocytes % (Manual) 89 H Monocytes % (Manual) Abs Neuts (Manual) 0.5 L* Platelet Estimate Euclid Cells Acanthocytes (Spur) Sodium 135 L BUN 26 H Estimated GFR 75 L Random Glucose 116 H Calcium 7.7 L Total Bilirubin 1.4 H AST 39 H Alkaline Phosphatase 124 H Troponin I Less than 0.02 L B-Natriuretic Peptide 363 H Total Protein 5.8 L Albumin 2.7 L Urine Clarity Urine Nitrate Ur Leukocyte Esterase Urine WBC Urine Bacteria 12/19/17 12/19/17 12/20/17 12:28 19:40 06:34 RBC 2.90 L Hgb 9.0 L Hct 26.7 L Plt Count 125 L MPV 6.7 L Neut % (Auto) 7.1 L Lymph % (Auto) 81.2 H Irwin % (Auto) 10.5 H Neut # (Auto) 0.4 L* Lymph # (Auto) Seg Neuts % (Manual) 4 L Lymphocytes % (Manual) 84 H Monocytes % (Manual) 11 H Abs Neuts (Manual) 0.2 L* Platelet Estimate Low L Bairon Cells 1+ H Acanthocytes (Spur) Occ H Sodium BUN Estimated GFR Random Glucose Calcium Total Bilirubin AST Alkaline Phosphatase Troponin I Less than 0.02 L B-Natriuretic Peptide Total Protein Albumin Urine Clarity Hazy H Urine Nitrate Positive H Ur Leukocyte Esterase Small H Urine WBC 24 H Urine Bacteria Moderate H 12/20/17 06:34 RBC Hgb Hct Plt Count MPV Neut % (Auto) Lymph % (Auto) Irwin % (Auto) Neut # (Auto) Lymph # (Auto) Seg Neuts % (Manual) Lymphocytes % (Manual) Monocytes % (Manual) Abs Neuts (Manual) Platelet Estimate Euclid Cells Acanthocytes (Spur) Sodium BUN 24 H Estimated GFR Random Glucose 112 H Calcium 7.6 L Total Bilirubin 1.1 H AST Alkaline Phosphatase Troponin I Less than 0.02 L B-Natriuretic Peptide Total Protein 5.3 L Albumin 2.6 L Urine Clarity Urine Nitrate Ur Leukocyte Esterase Urine WBC Urine Bacteria GENERAL: confused elderly woman, staring at ceiling most of exam, with occasional conversation. SKIN: extended ecchymosis at different stages of healing noted on R hip extending to R leg, nathalia in place. Mild jaundice noted in abdomen. HEAD: Normocephalic and atraumatic. EYES: No scleral icterus. No injection or drainage. ENT: No nasal drainage noted. Mucous membranes pink. Airway patent. NECK: Supple, trachea midline. No JVD. CARDIOVASCULAR: Regular rate and rhythm without murmurs, gallops, or rubs. RESPIRATORY: Anterior chest auscultation w/ apparent clear lungs. Patient unable to sit up or roll over ABDOMEN/GI: Abdomen distended. Non-tender, bowel sounds present, no rebound, no guarding. Splenomegaly noted. EXTREMITIES: No cyanosis or edema.see Skin exam above. BACK: Nontender without obvious deformity. No CVA tenderness. Open sacral ulcer present approx 3 inch by 1 inch dressed per wound care NEUROLOGICAL: Awake. Unable to lift either leg to perform motor exam. AP: 87 year old woman with multiple medical issues, advanced dementia that is bed bound and now with neutropenia. Admitted due to low oxygen level. Might be related to the underlying bilateral pleural effusions vs decrease respiratory drive with advancing dementia. Patients family -- her son desires patient to be full code with aggressive management and care at this time. 1. SOB subjective with decrease oxygen sat - CTA Negative - patient without NC oxygen in the room and doing well. Will attempt to wean the oxygen. Possible due to pleural effusions. PO lasix started, cardiology, Dr Devine is evaluating the patient as well with an echo. 2. UTI -- started on Cipro in the ED - will continue this for now and follow the cultures. 87 yr old female with PMH of hypothyroidism, HTN and a recently fixed R femur fracture, admitted for shortness of breath and oxygen desaturations into the 80' s. Pt brought in by EMS which documented O2 sat in the 70's. Pt clinically stable and in NAD. Shortness of breath, pleural effusions, and neutropenia of unknown etiology at this time. 3. Neutropenia -- Pt with Hx of CLL. Last admission heme/onc was not considering any treatment at this time. Will monitor for now. Patient on neutropenic precautions. This is a very poor prognosis for patients especially at 87 years old. Will re-address goals of care with the son. If the son desires to continue with aggressive care we will consult heme/onc again. If son decides goals of care should be more palliative and comfort measures I do not see a reason to involve heme/onc again. 4. Hx femur fracture with repair - Ortho is evaluating the patient and the leg. Doppler neg for DVT 5. Stage 3 sacral ulcer -- present on admission -- wound care consulted. Her other medical issues appear to be stable. Will discuss further with the son regarding the goals of care for the patient and the patients wishes. Palliative service was involved with this patient on her previous visit and we will consult them again as I believe it is going to take some time for the patients son to fully understand the prognosis and the expected quality of life for this patient. I believe that the patient would likely benefit from Hospice care should the son agree to this. Patient seen and dw the resident team -- Dr. Daniel, Dr. Burrows, Dr. Kwan
--- NOTE | 2017-12-20 11:28 | P.CONPAL ---
Consult Service: Palliative Care Requesting Physician: Rubi Cortes Reason for Consult: a. To assist with evaluation and management of symptoms including:dyspnea, pain , debility b. To assist medical decision maker(s) with: better understanding of current medical conditions; weighing benefits/burdens of medical treatment options; making medical treatment decisions. Primary Care Provider: UNKNOWN History of Present Illness History of Present Illness: Mrs. 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 She was [facility] for a fall that resulted in a right hip and humerus fracture. She had a somewhat prolonged recovery, and was sent to rehab approximately 2 weeks ago. The patient's son, who is her primary caregiver, removed her from rehab stating she was being treated poorly. She was to receive home health care and upon their evaluation today the patient was noted to be desaturating into the 80s. She was brought via EVAC to the emergency room with a pulse ox in the mid 70s. She was placed on 2 L nasal cannula and quickly recuperated to pulse ox of 98%. She was admitted for further evaluation and treatment. Initial emergency room evaluation revealed: * Temp 99.3, pulse 97, respiratory rate 22, BP 178/85, pulse oximetry 98% on 2 L nasal cannula * WBC 7.5, Hgb 10.3, HCT 30.8, platelets 163, absolute neutrophils 0.4, lymphocytes 6.2 * Na 135, K+ 4.9, Cl 103, BUN 26, creatinine 0.73, estimated GFR 75, glucose 116 * Ca 7.7, total bili 1.4, AST 39, ALT 16, alkaline phosphatase 124, troponin less than 0.02 * BNP 363 total protein 5.8, albumin 2.7 * UA with positive nitrates and leukocyte esterase * CXR cardiomegaly with intra-alveolar pulmonary edema and small effusions * Chest CTA negative for PE, moderate to large bilateral pleural effusions, splenomegaly Family medicine-unclear etiology for the patient shortness of breath. BNP was elevated with no prior diagnosis of CHF. Abdominal ultrasound was ordered as the patient was mildly jaundiced with noted abdominal distention. Abdominal ultrasound on 12/20/17 showed moderate splenomegaly, small ascitic fluid, and atrophic kidneys consistent with medical renal disease. Repeat labs are ordered for the morning patient is currently on oxygen therapy and receiving oral diuretics. She was started on antibiotics for her urinary tract infection. The patient was placed on neutropenic precautions with a possible consult to heme/Oncology. She was also noted that the patient was admitted with a sacral wound. Wound care was consulted to assist with ongoing care. They noted that the wound was unstageable measuring approximately 5.0 cm x 3.5 cm. They note that they were able to palpate bone. Dr. Devine (cardiology) was consulted for suspected diastolic heart failure. Echo is pending. He does note the patient's poor prognosis and this is documented this conversation with her son. Orthopedics was consulted for continued care of right hip fracture as he is known to the patient. It was felt that her right leg was swollen and venous Doppler was ordered. The exam was somewhat limited due to the patient's inability to cooperate but was otherwise negative for right lower DVT. Palliative care was consulted to assist the family with goals of medical treatment. This patient is known to palliative care as we were consulted on her last admission. At that point it was decided per [place] statutes that the patient's decision maker would be the majority of her adult children with her son Kartik and daughter Jesenia serving as her healthcare proxy's. She was made a DNR at that time and the family signed a community DNR which is currently on file in the EMR. The patient is currently a full code at her sons, Kartik's request. Upon examination the patient is pleasantly confused, she knows she is in the hospital she knows herself and is able to identify her son Kartik at bedside, she believes the year is 1962. She appears frail and cachectic but in no acute distress. She is on nasal cannula and denies any pain at this time. Further discussion regarding goals of care, prognosis, etc. to follow. Function/Cognitive Trajectory: Prior to her November admission the patient was living at home and ambulating well. She had a history of 2 falls previous year. At that time she required min to minimal assist with ADLs as showering and dressing. She was independent of eating and had some short-term memory loss. Since the time of her discharge , the patient has not been able to walk and is essentially bedbound. She is dependent of all ADL's at this time. Review of Systems unobtainable due to mental status PMFSH - History History Provided By: Family Member, Medical Record, Assembler Camper / EMT - Medical History Medical History: Medical History (Last Updated 12/20/17 @ 13:36 by CHARLES Bellamy) HTN (hypertension) Hx of fracture of femur Hypothyroidism Leukemia in remission - Surgical History Surgical History: Surgical History (Last Updated 12/20/17 @ 11:12 by CHARLES Bellamy) History of back surgery History of repair of hip fracture - Family History Family History: Family History (Last Updated 12/20/17 @ 11:13 by CHARLES Bellamy) Father Myocardial infarction - Tobacco History Second Hand Smoke Exposure: No Smoking Status: Unknown if ever smoked - Alcohol History How Often Do You Have a Drink Containing Alcohol: Unable to Obtain - Substance Use History Substance History: No History of Abuse - Travel History History of Recent Travel: No Recent Travel in the [facility] Within the Last 8 Weeks: No Recent Travel Out of the Country Within the Last 8 Weeks: No - Immunization History Tetanus Immunization: Unsure Hx Influenza Vaccine This Season: No Medications and Allergies Allergies Allergy/AdvReac Type Severity Reaction Status Date / Time penicillin G Allergy Unknown PT DOES Verified 11/21/17 13:23 NOT REMEMBER REACTION Home Medications Medication Instructions Recorded Confirmed Type levothyroxine 88 mcg PO DAILY 12/19/17 12/19/17 History Active Medications: Active Medications Hydrocodone Bitart/Acetaminophen (Hyden 5/325) 1 tab PO Q6H PRN PRN Reason: Acute Pain 1-10 Last Admin: 12/19/17 20:57 Dose: 1 tab Furosemide (Lasix) 40 mg PO DAILY [facility] Last Admin: 12/20/17 10:14 Dose: Not Given Heparin Sodium (Porcine) (Heparin Inj) 5,000 units SQ Q12H [facility] Last Admin: 12/20/17 06:11 Dose: 5,000 units Ciprofloxacin/Dextrose (Cipro 400 Mg/200 Ml Inj) 400 mg in 200 mls @ 200 mls/ hr IV.SIG Q12H [facility] Last Infusion: 12/20/17 04:16 Dose: Infused Levothyroxine Sodium (Synthroid) 88 mcg PO DAILY@0600 [facility] Last Admin: 12/20/17 06:11 Dose: 88 mcg Lisinopril (Prinivil) 20 mg PO DAILY [facility] Last Admin: 12/20/17 10:14 Dose: Not Given Potassium Chloride (K-Dur) 20 meq PO BID ESTHER Advance Directives Living Will: No Healthcare Surrogate: No Power of Repair Welder: No Documented care wishes: Patient does not have a current documented living will or advanced directive. On her previous admission her son Kartik and daughter Jesenia agreed on a community DNR status. A copy of this is located in the EMR. Today's verbally stated goals: The patient is currently unable to participate in her own medical care. She does not appear to have the capacity to make informed decisions. Family/friends goals: Discussed with patient's son, Kartik at length at bedside. He states that he wishes only for his mother's comfort. He would like to ultimately bring her home with him where he could take care of her full-time until "her time comes". He originally verbalized possible home health, but with further discussion his goals are comfort oriented. Did discuss the differences between home health and hospice. At this time the patient would be hospice appropriate. Ethical and Legal Issues: In lieu of any written advanced directive, per [place] statutes, decision making falls to the majority of Mrs. Walker's adult children. On previous admission her daughter Leah declined to have any say in medical decision making. Her son Kartik, and daughter Jesenia were in agreement to work together as healthcare proxy. They were in agreement with DNR status. There is a signed community DNR which is available in the electronic medical record. Physical Exam Vital Signs: Vital Signs - 24 hr 12/19/17 12:12 12/19/17 12:15 12/19/17 14:16 Temperature 99.3 F Pulse Rate 97 H 92 H 84 Respiratory Rate 22 22 Blood Pressure 178/85 H 137/65 Pulse Oximetry 98 98 97 12/19/17 15:59 12/19/17 20:00 12/19/17 20:22 Temperature 98.6 F Pulse Rate 88 89 89 Respiratory Rate 24 16 Blood Pressure 137/65 105/57 L Pulse Oximetry 93 L 92 L 12/19/17 21:27 12/20/17 00:00 12/20/17 04:00 Temperature 98.4 F 97.5 F L Pulse Rate 83 85 Respiratory Rate 18 16 16 Blood Pressure 143/60 H 134/56 L Pulse Oximetry 91 L 92 L 12/20/17 04:03 Temperature Pulse Rate 78 Respiratory Rate Blood Pressure Pulse Oximetry I&O: Intake & Output 12/18/17 12/19/17 12/20/17 12/21/17 06:59 06:59 06:59 06:59 Intake Total 400 / 400 Balance 400 / 400 Weight 50.802 kg Physical Exam: CONSTITUTIONAL/GENERAL: Frail, in no apparent distress. TUBES/LINES/DRAINS:PIV SKIN: Ecchymoses on upper extremities. Skin temperature appropriate. Not diaphoretic. HEAD: Atraumatic. Normocephalic. EYES: Pupils equal and round and reactive. No scleral icterus. No injection or drainage. Fundi not examined. ENT: Hard of hearing. Nose without bleeding or purulent drainage. Throat without visible erythema, exudates, masses, or lesions. Oral mucosa dry NECK: Trachea midline. Supple, nontender. No palpable thyroid enlargement or nodularity. CARDIOVASCULAR: Regular rate and rhythm without murmurs, gallops, or rubs. No JVD. Peripheral pulses symmetric. RESPIRATORY/CHEST: Symmetric, unlabored respirations. Clear to auscultation. Breath sounds equal bilaterally. No wheezes, rales, or rhonchi. GASTROINTESTINAL: Abdomen slightly distended and tympanic. Firmness noted to LUQ. No guarding. Bowel sounds present. GENITOURINARY: Without palpable bladder distension. Rowley catheter in place. MUSCULOSKELETAL: Extremities without clubbing, cyanosis, or edema. No joint tenderness or effusion noted. No calf tenderness. No mottling or clubbing. NEUROLOGICAL: Awake and alert. Motor and sensory grossly intact. Follows commands. Forgetful but pleasant. Moves all extremities. PSYCHIATRIC: No obvious anxiety/depression. no apparent hallucinations or other psychotic thought process. Diagnostic Tests Laboratory: Laboratory Results - last 72 hr 12/19/17 12/19/17 12/19/17 12:28 12:28 12:28 WBC 7.5 RBC 3.32 L Hgb 10.3 L Hct 30.8 L MCV 92.9 MCH 31.1 MCHC 33.5 RDW 16.9 Plt Count 163 MPV 6.9 L Prelim Diff (Auto) Slide review pending Neut % (Auto) 5.3 L Lymph % (Auto) 82.8 H [place] % (Auto) 11.1 H Eos % (Auto) 0.6 Baso % (Auto) 0.2 Neut # (Auto) 0.4 L* Lymph # (Auto) 6.2 H [place] # (Auto) 0.8 Eos # (Auto) 0.0 Baso # (Auto) 0.0 WBC Differential Manual diff final Seg Neuts % (Manual) 5 L Band Neuts % (Manual) 1 Lymphocytes % (Manual) 89 H Monocytes % (Manual) 4 Eosinophils % (Manual) 1 Abs Neuts (Manual) 0.5 L* Differential Comment . Platelet Estimate Normal Platelet Morphology Normal [place] Cells Acanthocytes (Spur) PT 11.6 INR 1.1 APTT 27.2 Sodium 135 L Potassium 4.9 Chloride 103 Carbon Dioxide 23.7 Anion Gap 8 BUN 26 H Creatinine 0.73 Estimated GFR 75 L Random Glucose 116 H Calcium 7.7 L Total Bilirubin 1.4 H AST 39 H ALT 16 Alkaline Phosphatase 124 H Total Creatine Kinase 122 CK-MB (CK-2) 1.1 Troponin I Less than 0.02 L B-Natriuretic Peptide Total Protein 5.8 L Albumin 2.7 L Urine Color Urine Clarity Urine pH Ur Specific [place] Urine Protein Urine Glucose (UA) Urine Ketones Urine Occult Blood Urine Nitrate Urine Bilirubin Urine Urobilinogen Ur Leukocyte Esterase Urine RBC Urine WBC Ur Squamous Epith Cells Urine Bacteria Micro UA Comment Ur Microscopic Review Urine Culture Comments 12/19/17 12/19/17 12/19/17 12:28 12:28 19:40 WBC RBC Hgb Hct MCV MCH MCHC RDW Plt Count MPV Prelim Diff (Auto) Neut % (Auto) Lymph % (Auto) [place] % (Auto) Eos % (Auto) Baso % (Auto) Neut # (Auto) Lymph # (Auto) [place] # (Auto) Eos # (Auto) Baso # (Auto) WBC Differential Seg Neuts % (Manual) Band Neuts % (Manual) Lymphocytes % (Manual) Monocytes % (Manual) Eosinophils % (Manual) Abs Neuts (Manual) Differential Comment Platelet Estimate Platelet Morphology [place] Cells Acanthocytes (Spur) PT INR APTT Sodium Potassium Chloride Carbon Dioxide Anion Gap BUN Creatinine Estimated GFR Random Glucose Calcium Total Bilirubin AST ALT Alkaline Phosphatase Total Creatine Kinase CK-MB (CK-2) Troponin I Less than 0.02 L B-Natriuretic Peptide 363 H Total Protein Albumin Urine Color Lara Urine Clarity Hazy H Urine pH 5.0 Ur Specific [place] 1.013 Urine Protein Negative Urine Glucose (UA) Negative Urine Ketones Negative Urine Occult Blood Negative Urine Nitrate Positive H Urine Bilirubin Negative Urine Urobilinogen Less than 2 Ur Leukocyte Esterase Small H Urine RBC 1 Urine WBC 24 H Ur Squamous Epith Cells <1 Urine Bacteria Moderate H Micro UA Comment Cath-culture ind Ur Microscopic Review Not Reportable Urine Culture Comments Cath-cult indicated 12/20/17 12/20/17 06:34 06:34 WBC 5.4 RBC 2.90 L Hgb 9.0 L Hct 26.7 L MCV 92.0 MCH 31.2 MCHC 33.9 RDW 16.4 Plt Count 125 L MPV 6.7 L Prelim Diff (Auto) Slide review pending Neut % (Auto) 7.1 L Lymph % (Auto) 81.2 H [place] % (Auto) 10.5 H Eos % (Auto) 1.0 Baso % (Auto) 0.2 Neut # (Auto) 0.4 L* Lymph # (Auto) 4.4 [place] # (Auto) 0.6 Eos # (Auto) 0.1 Baso # (Auto) 0.0 WBC Differential Manual diff final Seg Neuts % (Manual) 4 L Band Neuts % (Manual) Lymphocytes % (Manual) 84 H Monocytes % (Manual) 11 H Eosinophils % (Manual) 1 Abs Neuts (Manual) 0.2 L* Differential Comment . Platelet Estimate Low L Platelet Morphology Normal [place] Cells 1+ H Acanthocytes (Spur) Occ H PT INR APTT Sodium 139 Potassium 3.6 D Chloride 99 Carbon Dioxide 26.2 Anion Gap 14 BUN 24 H Creatinine 0.62 Estimated GFR Greater than 89 Random Glucose 112 H Calcium 7.6 L Total Bilirubin 1.1 H AST 20 ALT 12 Alkaline Phosphatase 110 Total Creatine Kinase CK-MB (CK-2) Troponin I Less than 0.02 L B-Natriuretic Peptide Total Protein 5.3 L Albumin 2.6 L Urine Color Urine Clarity Urine pH Ur Specific [place] Urine Protein Urine Glucose (UA) Urine Ketones Urine Occult Blood Urine Nitrate Urine Bilirubin Urine Urobilinogen Ur Leukocyte Esterase Urine RBC Urine WBC Ur Squamous Epith Cells Urine Bacteria Micro UA Comment Ur Microscopic Review Urine Culture Comments Result Diagrams: 12/22/17 04:36 12/20/17 06:34 Imaging: Impressions Chest X-Ray 12/19/17 12:04 CONCLUSION: Cardiomegaly with intra-alveolar pulmonary edema and small effusions. Chest CTA 12/19/17 12:05 CONCLUSION: 1. Moderate to large bilateral pleural effusions. 2. No evidence for pulmonary embolism. 3. Bibasilar consolidation likely atelectasis. 4. Splenomegaly. Abdomen Ultrasound 12/20/17 00:00 CONCLUSION: 1. Moderate splenomegaly with no focal mass. 2. Small amount of ascitic fluid. 3. The kidneys are small and atrophic in appearance with increased echogenicity characteristic of medical renal disease. There is a small simple appearing cyst in the right kidney. Venous Doppler Study 12/20/17 00:00 CONCLUSION: 1. Limited examination due to patient's inability to cooperate with examination. 2. Otherwise, no sonographic evidence for right lower extremity DVT. Patient/Family Conference Present at Family Conference: Kartik, son/HCP Layla Blair APRN Family Conference Location: Bedside Issues Discussed: * Palliative care role, purpose, approach * Additional medical, psychosocial, and spiritual history * Patients general health, functional status, and cognitive changes in the months leading up to the current hospitalization; reiterated patient's current downward trajectory * Patient/family understanding of the current medical problems * Patient/family understanding of prognosis * Patients goals of care as best understood from conversations and/or values * Current medical treatment options and benefits/burdens of those options; discussed the home health v. hospice * Questions answered to the best of my ability * Palliative care contact information provided In summary, Mrs. Walker is not able to participate in her own healthcare decisions. Previously her son and daughter were able to agree on decisions for her. her son, Kartik states that ultimately he would like to have his mom at home where she can be comfortable in her own surroundings. He would like to be able to care for her with the aid of Hospice at home and just keep her comfortable. Assessment and Plan - Symptom Scale (1) Pain 0-10 Scale: 0 Comment: currently denies pain (2) Dyspnea 0-10 Scale: Unable to quantify Comment: denies SOB, currently on room air (3) Debility 0-10 Scale: Unable to quantify Comment: Can no longer ambulate since 11/21/17 Pertinent Non-Medical Issues: Psychosocial: Patient is originally from [place]. She has lived in [place] for the past 10-15 years, first in [place] and more recently in the [facility]. 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 Her from a stroke which was a complication following heart transplant. She has 3 children, she remains in close communication with her son Kartik. Her two daughters Jesenia and Leah she does not remain in close contact with. She also has a sister in [place] in [place] with whom she remains in close contact. Spiritual: Bahai Legal: The patient is currently not able to participate in her own medical decisions. Does not appear that she will regain this ability. He does not have an advanced directive for healthcare surrogate completed. Per [place] statutes legal decision making falls majority of her 3 adult children. In close communication with her son Kartik which whom she lives with. Previous admissions her son daughter Jesenia indicated she would like to participate in healthcare decision making. Her daughter Leah declined to participate. Phone call was placed and message left for Jesenia to call regarding if she would like to participate in making decisions for her mother during this admission. Ethical issues impacting care: No known ethical issues impacting care at this time Important Contacts: Kartik Walker, son/HCP [phone] Jesenia Calhoun, daughter/HCP [phone] or [phone] Prognosis: Given her advanced age, prolonged bedbound status, acutely ill state and downward trajectory, the patient remains at high risk for ongoing complications and setbacks which would ultimately result in continued deterioration and Code Status: No Code DNR Plan: * LEGAL DECISION MAKER -in the absence of a written advanced directive, per [place] statutes healthcare decision making falls to the majority of her adult children. Remains in close contact with her son Kartik which home she lives with. Left message with her daughter Jesenia to see if she wishes to participate in her mother's care. On her previous admission Jesenia expressed wanting to be involved in healthcare decision making. Her other daughter Leah declined to participate. * GOALS - Previously her son and daughter were able to agree on decisions for her. Son, Kartik states that ultimately he would like to have his mom at home where she can be comfortable in her own surroundings. He would like to be able to care for her with the aid of Hospice at home and just keep her comfortable. He has agreed to hospice, though this needs to be clarified with her other daughter, Jesenia. * CODE STATUS -DNR CODE STATUS was changed per conversation with son Kartik at bedside. On previous admission community DNR was signed by both Kartik and Jesenia. Copy is available in electronic medical record. * SYMPTOMS - Debility -patient continues to decline from her admission on . She previously was walking with a rolling walker at home. Since discharge approximately 2 weeks ago she has received limited physical therapy and has not been ambulatory. She now has large unstageable sacral wound with bone palpable. She also appears to be protein malnourished which does not aid in wound healing. As goals are not comfort oriented. Would suggest letting patient go home with hospice. Pain -the patient does not to be in any acute pain at this time. When asked if she is in pain she denies. PRN Hyden's for any residual hip pain. Suspect that as her sacral wound increases her pain may continue to worsen. For now current opioid appears adequate. Dyspnea -patient not currently exhibiting signs of distress. Remains on 2 L nasal cannula. Echo pending. Continue with diuretic therapy as needed. * Palliative care will continue to follow during hospital course as condition evolves, to assist patient/decision maker with understanding of medical conditions, weighing benefits/burdens of treatment options, for clarification of goals of treatment. Additionally will assist with any symptoms of palliative concern. Appreciation Thank you for the opportunity to participate in the care of Cahtryn Walker. Attestation Collaborating Comments: Dual visit Paz Montoya BOBBIN WINDER TENDER. Concur with above documentation. Goals have been expressed as comfort oriented. Son would like to take her home under his care with hospice support. Given that dtr Jesenia previously did express desire to participate we have attempted to reach out to her multiple times to determine if she still wishes to participate. Kartik indicates she has not remain involved since pt has been back home. We have left several messages for her to return our call to determine if she wishes to participate. Attestation: To help prompt me to consider important information that might be impacting today's encounter and assessment, information from prior notes written by myself or my colleagues may have been "brought forward" into today's note. My signature on this note, however, is an attestation that I personally performed the exam, history, and/or decision-making noted today, and, unless otherwise indicated, the interactions with patient, family, and staff as well as the review of records all occurred today. I also attest that the listed assessment and stated plan reflect my best clinical judgment today based on the combination of historical information, prior notes, and today's exam/ interactions. When time spent is documented, it refers only to time spent today by the signer, or if indicated, combined time spent today by collaborating physician/nurse practitioner.
[2017-12-20] MEDS ORDERED: Acetaminophen Inj 650 MG/65 ML VIAL IV.SIG PRN (11:53)
--- NOTE | 2017-12-20 14:24 | XR ---
EXAM DATE: 12/20/2017 12:00 AM EDT AGE/SEX: 87 years / Female INDICATIONS: Evaluate fracture. CLINICAL DATA: This is the patient's initial encounter. Patient reports that signs and symptoms have been present for 1 day and indicates a pain score of Nonresponsive. MEDICAL/SURGICAL HISTORY: . Hypertension. Hypothyroidism. . Femur fracture. . [place] [facility] [place]. . FINDINGS: Status post placement of an intramedullary eris and sliding nail in the femur. There is improved align ment of the fracture fragments involving the proximal shaft of the femur. There is good alignment at the hip joint. The hardware is grossly intact. There is good alignment of the hardware. CONCLUSION: Good position and alignment on this postoperative study. Electronically signed by: Angelo Brian MD 12/20/2017 2:22 PM EDT
--- NOTE | 2017-12-20 15:18 | ECG ---
Date Performed: 12/19/2017 Time Performed: 12:45:49 PTAGE: 87 years EKG: Sinus rhythm WITH FREQUENT SUPRAVENTRICULAR PREMATURE COMPLEXES ABNORMAL RHYTHM ECG PREVIOUS TRACING 11/22/2017 @ 08.44 Since the previous tracing, no significant change noted DOCTOR: Davis Miranda Interpretating Date/Time 12/20/2017 15:17:01
--- NOTE | 2017-12-20 15:18 | ECG ---
Date Performed: 12/19/2017 Time Performed: 19:02:44 PTAGE: 87 years EKG: Sinus rhythm WITH FREQUENT SUPRAVENTRICULAR PREMATURE COMPLEXES LEFT ANTERIOR FASCICULAR BLOCK ABNORMAL ECG PREVIOUS TRACING : 11/22/2017 07.08 Since the previous tracing, no significant change noted DOCTOR: Davis Miranda Interpretating Date/Time 12/20/2017 15:17:16
--- NOTE | 2017-12-20 16:55 | P.DIET ---
Nutritional Evaluation Type of nutrition evaluation: initial Nutrition screening: [facility] [place] (w[place] and poor po intake) Subjective Subjective Comments: Pt ate 25% of her lunch today. Objective - Diagnosis Neutropenia, UTI, CHF Exacerbation w/ effusions - Objective Body Mass Index: 21.9 % IBW: 112 (IBW = 100#) Body Weight Used for Calculations: Actual (50.8 kg) Energy Needs - Lower Range (kCal/kg): 30 Energy Needs - Upper Range (kCal/kg): 35 Lower Limit kCal/kg (kCals): 1,524 Upper Limit kCal/kg (kCals): 1,778 Lower Limit Protein Factor (Grams per Kg): 1.2 Upper Limit Protein Factor (Grams per Kg): 1.5 Lower Protein Needs (Protein): 61 Upper Protein Needs (Protein): 76 Dietitian Reviewed in Medical Record: Current diet, Curent medications, Intake & Output, Labs, Medical history, Wound/DTI Diet Order: Mechanical Soft Oral Diet Intake Amount: Poor <50% Wound Care Note: see WOCN dated 12/20: unstageable sacrum pressure injury identified Objective Comments: Meds include lasix, synthroid Assessment Assessment: Pt is at high nutrition risk 2' to the presence of a pressure injury and poor po intake. She has recently been bedbound and needs assistance for all ADLs. Will send Ensure Enlive bid and monitor acceptance. Each 8 oz serving provides 350 kcals and 20 gms protein. Pt may also benefit from the addition of a daily MVI/min to aid in healing. Hospice Consult noted. Recommendations: 1. Continue current diet 2. Ensure Enlive bid 3. Please order a MVI with minerals q day Dietitian to Monitor: Lab values, Supplement acceptance, Intake & Output, Diet tolerance, Weight change, PO Intake, Wound/skin status, Medical course
[2017-12-21] MEDS: Ciprofloxacin 400 MG/200 ML 400 MG/200 ML PIGGYBACK IV.SIG SCH ×2 (01:14→14:05)
[2017-12-21] MEDS: Heparin - SQ 10,000 UNITS/ML Vial SQ SCH ×2 (06:38→18:14)
[2017-12-21] MEDS: Levothyroxine 88 MCG Tablet PO SCH (06:40)
[2017-12-21 06:56] LABS: Hemoglobin 7.9 gm/dL (11.6-15.3); Mean Corpuscular HGB Conc 34.5 % (32.0-36.0); Mean Corpuscular Hemoglobin 31.3 pg (27.0-34.0); Mean Corpuscular Volume 90.6 fL (80.0-100.0); Mean Platelet Volume 6.5 fL (7.0-11.0); Platelet Count 114 th/mm3 (150-450); Red Blood Count 2.54 mil/mm3 (4.00-5.30); Red Cell Distribution Width 16.5 % (11.6-17.2); White Blood Count 6.5 th/mm3 (4.0-11.0)
[2017-12-21] MEDS: Lisinopril 20 MG Tablet PO SCH (09:00)
[2017-12-21] MEDS: Furosemide 40 MG Tablet PO SCH (09:00)
--- NOTE | 2017-12-21 12:18 | P.PNFP ---
Subjective Interval history: Pt seen and examined this morning. She expressed to be in no pain. She still confused, her oxygen NC was off. Puls Ox noted to be in 87. Discussed with nurse the fact that she needs a oxygen mask instead of NC. <Fredy CortesMylene - 12/21/17 12:18> Results - Labs Result diagrams: 12/22/17 04:36 12/20/17 06:34 <Gila Lovell R - 12/22/17 15:16> Abnormal lab results 12/22/17 Range/Units 04:36 RBC 2.54 L (4.00-5.30) mil/mm3 Hgb 8.0 L (11.6-15.3) gm/dL Hct 23.0 L (35.0-46.0) % Plt Count 117 L (150-450) th/mm3 MPV 6.8 L (7.0-11.0) fL Lymphocytes % (Manual) 69 H (9-44) % Smudge Cells Present H (None) Platelet Estimate Low L (Normal) Tear Drop Cells 1+ H (None) Short CBC 12/22/17 Range/Units 04:36 WBC 6.4 (4.0-11.0) th/mm3 Hgb 8.0 L (11.6-15.3) gm/dL Hct 23.0 L (35.0-46.0) % Plt Count 117 L (150-450) th/mm3 <Gila Lovell R - 12/22/17 15:16> Abnormal lab results 12/19/17 12/21/17 Range/Units 12:28 05:37 RBC 2.54 L (4.00-5.30) mil/mm3 Hgb 7.9 L (11.6-15.3) gm/dL Hct 23.0 L (35.0-46.0) % Plt Count 114 L (150-450) th/mm3 MPV 6.5 L (7.0-11.0) fL Urine Clarity Hazy H (Clear) Urine Nitrate Positive H (Negative) Ur Leukocyte Esterase Small H (Negative) Urine WBC 24 H (0-5) /hpf Urine Bacteria Moderate H (None) /hpf Short CBC 12/21/17 Range/Units 05:37 WBC 6.5 (4.0-11.0) th/mm3 Hgb 7.9 L (11.6-15.3) gm/dL Hct 23.0 L (35.0-46.0) % Plt Count 114 L (150-450) th/mm3 Urine 12/19/17 Range/Units 12:28 Urine Color Lara (Yellw/Straw) Urine Clarity Hazy H (Clear) Urine pH 5.0 (5.0-8.5) Ur Specific [place] 1.013 (1.002-1.035) Urine Protein Negative (Neg-Trace) mg/dL Urine Glucose (UA) Negative (Negative) mg/dL <Rubi Brice V - 12/21/17 12:18> - Imaging Impressions Femur X-Ray 12/20/17 00:00 CONCLUSION: Good position and alignment on this postoperative study. <Rubi Brice V - 12/21/17 12:18> Physical Exam Vital signs: Vital Signs 12/21/17 16:00 12/21/17 20:00 12/22/17 00:00 Temperature 98.2 F 98.7 F 97.1 F L Pulse Rate 83 79 80 Respiratory Rate 16 20 20 Blood Pressure 142/62 H 115/77 140/59 L Pulse Oximetry 94 L 93 L 94 L 12/22/17 04:00 12/22/17 04:10 12/22/17 07:51 Temperature 97.7 F 98.9 F Pulse Rate 78 69 83 Respiratory Rate 19 19 Blood Pressure 160/77 H 143/63 H Pulse Oximetry 96 96 12/22/17 08:00 12/22/17 12:00 Temperature 99.0 F Pulse Rate 87 Respiratory Rate 16 Blood Pressure 149/60 H Pulse Oximetry 96 92 L Intake & Output 12/21/17 12/22/17 12/22/17 18:59 06:59 18:59 Intake Total 1151 / 1151 560 / 560 Output Total 350 / 350 475 / 475 Balance 801 / 801 85 / 85 Intake: IV 200 / 200 Cipro 400 MG/200 ML Inj 400 mg 200 / 200 In 200 ml @ 200 mls/hr IV.SIG Q12H ESTHER Rx#:[id number] Oral 240 / 240 360 / 360 Oral Supplement 711 / 711 200 / 200 Output: Urine 250 / 250 Urine Amount (Catheter) 350 / 350 225 / 225 Indwelling Urethral Catheter 350 / 350 225 / 225 Other: # Incontinent Voids 2 Date of Last Bowel Movement 12/20/17 12/22/17 12/22/17 # Bowel Movements 0 # Incontinent Bowel Movements 1 <Gila Lovell R - 12/22/17 15:16> Vital Signs 12/20/17 16:00 12/20/17 19:40 12/20/17 20:00 Temperature 98.6 F Pulse Rate 89 85 78 Respiratory Rate 16 18 Blood Pressure 108/54 L 151/65 H Pulse Oximetry 95 92 L 92 L 12/20/17 23:50 12/21/17 00:10 12/21/17 04:00 Temperature 98.2 F Pulse Rate 79 77 85 Respiratory Rate 18 Blood Pressure 135/61 Pulse Oximetry 97 12/21/17 04:05 12/21/17 05:13 12/21/17 08:00 Temperature 98.9 F 98.4 F Pulse Rate 82 76 Respiratory Rate 17 16 16 Blood Pressure 126/60 122/88 Pulse Oximetry 92 L 95 97 Intake & Output 12/20/17 12/21/17 12/21/17 18:59 06:59 18:59 Intake Total 385 / 385 440 / 440 Output Total 850 / 850 600 / 600 Balance -465 / -465 -160 / -160 Weight 50.8 kg Intake: IV 265 / 265 200 / 200 Ofirmev Inj 650 mg In 65 ml @ 65 / 65 400 mls/hr IV.SIG Q6H PRN Rx#: [id number] Cipro 400 MG/200 ML Inj 400 mg 200 / 200 200 / 200 In 200 ml @ 200 mls/hr IV.SIG Q12H ESTHER Rx#:[id number] Oral 120 / 120 240 / 240 Output: Urine Amount (Catheter) 850 / 850 600 / 600 Indwelling Urethral Catheter 850 / 850 600 / 600 Other: Date of Last Bowel Movement 12/20/17 12/20/17 # Bowel Movements 0 <Rubi Brice V - 12/21/17 12:18> Narrative: GENERAL: sleeping, in NAD. easy arousable SKIN: extended ecchymosis at different stages of healing noted on R hip extending to R leg. HEAD: Normocephalic and atraumatic. EYES: No scleral icterus. No injection or drainage. ENT: No nasal drainage noted. Mucous membranes pink. Airway patent. NECK: Supple, trachea midline. No JVD. CARDIOVASCULAR: Regular rate and rhythm without murmurs, gallops, or rubs. RESPIRATORY: Anterior chest auscultation w/ clear lungs. <Rubi Brice V 12/21/17 12:18> - Urinary Catheter Management Indwelling Urethral Catheter Cath placed during this visit: no <Gila Lovell 12/22/17 15:16> yes <Rubi Brice V 12/21/17 18:15> Reason for continuing: Severe pressure ulcer/wound <Rubi Brice V 12:18> Insertion date: 12/20/17 <Rubi Brice V 12/21/17 12:18> Insertion time: 04:56 <Rubi Brice V 12/21/17 12:18> Assessment and Plan - Assessment (1) Shortness of breath Code(s): R06.02 - Shortness of breath Status: Acute (2) Acute UTI Code(s): N39.0 - Urinary tract infection, site not specified Status: Acute (3) Neutropenia Code(s): D70.9 - Neutropenia, unspecified Status: Acute (4) Dementia Code(s): F03.90 - Unspecified dementia without behavioral disturbance Status: Chronic (5) Sacral decubitus ulcer Code(s): L89.159 - Pressure ulcer of sacral region, unspecified stage Status: Acute (6) Fracture of femur Code(s): S72.90XA - Unspecified fracture of unspecified femur, initial encounter for closed fracture Status: Chronic (7) Hypothyroid Code(s): E03.9 - Hypothyroidism, unspecified Status: Chronic (8) Pain Code(s): R52 - Pain, unspecified Status: Chronic (9) Nutrition, metabolism, and development symptoms Code(s): R63.8 - Other symptoms and signs concerning food and fluid intake Status: Acute (10) DVT prophylaxis Status: Acute <Gila Lovell 12/22/17 15:16> (1) Shortness of breath Code(s): R06.02 - Shortness of breath Status: Acute (2) Acute UTI Code(s): N39.0 - Urinary tract infection, site not specified Status: Acute (3) Neutropenia Code(s): D70.9 - Neutropenia, unspecified Status: Acute (4) Dementia Code(s): F03.90 - Unspecified dementia without behavioral disturbance Status: Chronic (5) Sacral decubitus ulcer Code(s): L89.159 - Pressure ulcer of sacral region, unspecified stage Status: Acute (6) Fracture of femur Code(s): S72.90XA - Unspecified fracture of unspecified femur, initial encounter for closed fracture Status: Chronic (7) Hypothyroid Code(s): E03.9 - Hypothyroidism, unspecified Status: Chronic (8) Pain Code(s): R52 - Pain, unspecified Status: Chronic (9) Nutrition, metabolism, and development symptoms Code(s): R63.8 - Other symptoms and signs concerning food and fluid intake Status: Acute (10) DVT prophylaxis Status: Acute <Rubi Brice V - 12/21/17 18:08> - Assessment and Plan 87 yr old female with PMH of hypothyroidism, HTN and a recently fixed R femur fracture, admitted for shortness of breath and oxygen desaturations into the 80' s. Pt brought in by EMS which documented O2 sat in the 70's. Pt clinically stable and in NAD. Palliative care involved as well as hospice. Pt will likely be discharged at home with hospice. Shortness of breath * Pt comfortably today with no oxygen on. * Will attempt to put pt on a mask instead of NC, but will likely dc oxygen if pt does not keep it on. UTI * Cultures growing Citrobacter freuindii, sensitive to Cipro * Received three days Ciprofloxacin 400mg IV q12hr. * Will discontinue Cipro today. Neutropenia Unknown etiology at this time. 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 Hx of femur fracture and associated pain * PT following * [place] 5/325mg q6 PRN Sacral ulcer * Present on admission, either stage 2-3 * Wound care assisting with care Hypothyroidism * Continue home levothyroxine of 88mcg daily Hypertension * Continue home lisinopril 20mg daily FEN/ DVT prophylaxis * Mechanical soft diet * PO fluid intake * SCD bilateral and Heparin 5000 q12h Social/ disposition * Palliative care re-consulted to continue conversation regarding goals of care * Pt code status changed to DNR * Hospice involved, pt likely to go to hospice tomorrow <Rubi Brice V - 12/21/17 18:15> - Attending Attestation The exam, history, and the medical decision-making described in the above note were completed with the assistance of the resident physician. I reviewed and agree with the findings presented. I attest that I had a [id number] encounter with the patient on the same day, and personally performed and documented my assessment and findings in the medical record. Patient is more alert today as her son is in the room and talking with her and feeding her. His sister has reached out to case management and all have agreed to move forward with Hospice at home. Will need to get equipment to the house and dc home with Hospice. Patient is medically cleared for discharge. <NasGila R - 12/22/17 15:16> <Rubi Brice V - Last Filed: 12/21/17 18:08> (3) Neutropenia Qualifiers: Neutropenia type: unspecified Qualified Code(s): D70.9 - Neutropenia, unspecified (6) Fracture of femur Qualifiers: Encounter type: initial encounter Fracture type: closed Fracture morphology : spiral Laterality: right <Gila Lovell R - Last Filed: 12/22/17 15:16> (3) Neutropenia Qualifiers: Neutropenia type: unspecified Qualified Code(s): D70.9 - Neutropenia, unspecified (6) Fracture of femur Qualifiers: Encounter type: initial encounter Fracture type: closed Fracture morphology : spiral Laterality: right <Rubi Brice V - Last Filed: 12/21/17 18:08> (3) Neutropenia Qualifiers: Neutropenia type: unspecified Qualified Code(s): D70.9 - Neutropenia, unspecified (6) Fracture of femur Qualifiers: Encounter type: initial encounter Fracture type: closed Fracture morphology : spiral Laterality: right <Gila Lovell R - Last Filed: 12/22/17 15:16> (3) Neutropenia Qualifiers: Neutropenia type: unspecified Qualified Code(s): D70.9 - Neutropenia, unspecified (6) Fracture of femur Qualifiers: Encounter type: initial encounter Fracture type: closed Fracture morphology : spiral Laterality: right
[2017-12-22] MEDS: Heparin - SQ 10,000 UNITS/ML Vial SQ SCH ×2 (05:51→18:53)
[2017-12-22] MEDS: Levothyroxine 88 MCG Tablet PO SCH (05:51)
[2017-12-22 07:05] LABS: Mean Corpuscular HGB Conc 34.6 % (32.0-36.0); Mean Corpuscular Hemoglobin 31.5 pg (27.0-34.0); Mean Corpuscular Volume 90.8 fL (80.0-100.0); Mean Platelet Volume 6.8 fL (7.0-11.0); Platelet Count 117 th/mm3 (150-450); Red Blood Count 2.54 mil/mm3 (4.00-5.30); Red Cell Distribution Width 16.5 % (11.6-17.2); White Blood Count 6.4 th/mm3 (4.0-11.0)
[2017-12-22 09:11] LABS: Monocytes 1 % (0-8)
[2017-12-22 09:13] LABS: Lymphocytes 69 % (9-44); Platelet Morphology Normal (Normal); Smudge Cells Present
[2017-12-22 09:14] LABS: Tear Drop Cells 1+
--- NOTE | 2017-12-22 09:44 | P.PNFP ---
Subjective Interval history: Patient denies pain or any other concerns. We spoke with case management about hospice holdup due to difficulty with consents. <Cecelia Felton - 12/22/17 09:44> Results - Labs Result diagrams: 12/22/17 04:36 12/20/17 06:34 <Gila Lovell Cindy - 12/22/17 15:31> Abnormal lab results 12/22/17 Range/Units 04:36 RBC 2.54 L (4.00-5.30) mil/mm3 Hgb 8.0 L (11.6-15.3) gm/dL Hct 23.0 L (35.0-46.0) % Plt Count 117 L (150-450) th/mm3 MPV 6.8 L (7.0-11.0) fL Lymphocytes % (Manual) 69 H (9-44) % Smudge Cells Present H (None) Platelet Estimate Low L (Normal) Tear Drop Cells 1+ H (None) Short CBC 12/22/17 Range/Units 04:36 WBC 6.4 (4.0-11.0) th/mm3 Hgb 8.0 L (11.6-15.3) gm/dL Hct 23.0 L (35.0-46.0) % Plt Count 117 L (150-450) th/mm3 <Toni Lovellie R - 12/22/17 15:31> Abnormal lab results 12/22/17 Range/Units 04:36 RBC 2.54 L (4.00-5.30) mil/mm3 Hgb 8.0 L (11.6-15.3) gm/dL Hct 23.0 L (35.0-46.0) % Plt Count 117 L (150-450) th/mm3 MPV 6.8 L (7.0-11.0) fL Lymphocytes % (Manual) 69 H (9-44) % Smudge Cells Present H (None) Platelet Estimate Low L (Normal) Tear Drop Cells 1+ H (None) Short CBC 12/22/17 Range/Units 04:36 WBC 6.4 (4.0-11.0) th/mm3 Hgb 8.0 L (11.6-15.3) gm/dL Hct 23.0 L (35.0-46.0) % Plt Count 117 L (150-450) th/mm3 <Cecelia Felton - 12/22/17 09:44> Physical Exam Vital signs: Vital Signs 12/21/17 16:00 12/21/17 20:00 12/22/17 00:00 Temperature 98.2 F 98.7 F 97.1 F L Pulse Rate 83 79 80 Respiratory Rate 16 20 20 Blood Pressure 142/62 H 115/77 140/59 L Pulse Oximetry 94 L 93 L 94 L 12/22/17 04:00 12/22/17 04:10 12/22/17 07:51 Temperature 97.7 F 98.9 F Pulse Rate 78 69 83 Respiratory Rate 19 19 Blood Pressure 160/77 H 143/63 H Pulse Oximetry 96 96 12/22/17 08:00 12/22/17 12:00 Temperature 99.0 F Pulse Rate 87 Respiratory Rate 16 Blood Pressure 149/60 H Pulse Oximetry 96 92 L Intake & Output 12/21/17 12/22/17 12/22/17 18:59 06:59 18:59 Intake Total 1151 / 1151 560 / 560 Output Total 350 / 350 475 / 475 Balance 801 / 801 85 / 85 Intake: IV 200 / 200 Cipro 400 MG/200 ML Inj 400 mg 200 / 200 In 200 ml @ 200 mls/hr IV.SIG Q12H ESTHER Rx#:[id number] Oral 240 / 240 360 / 360 Oral Supplement 711 / 711 200 / 200 Output: Urine 250 / 250 Urine Amount (Catheter) 350 / 350 225 / 225 Indwelling Urethral Catheter 350 / 350 225 / 225 Other: # Incontinent Voids 2 Date of Last Bowel Movement 12/20/17 12/22/17 12/22/17 # Bowel Movements 0 # Incontinent Bowel Movements 1 <Gila Lovell R - 12/22/17 15:31> Vital Signs 12/21/17 12:00 12/21/17 16:00 12/21/17 20:00 Temperature 98.1 F 98.2 F 98.7 F Pulse Rate 80 83 79 Respiratory Rate 16 16 20 Blood Pressure 140/64 142/62 H 115/77 Pulse Oximetry 93 L 94 L 93 L 12/22/17 00:00 12/22/17 04:00 12/22/17 04:10 Temperature 97.1 F L 97.7 F Pulse Rate 80 78 69 Respiratory Rate 20 19 Blood Pressure 140/59 L 160/77 H Pulse Oximetry 94 L 96 12/22/17 07:51 Temperature 98.9 F Pulse Rate 83 Respiratory Rate 19 Blood Pressure 143/63 H Pulse Oximetry 96 Intake & Output 12/21/17 12/22/17 12/22/17 18:59 06:59 18:59 Intake Total 1151 / 1151 560 / 560 Output Total 350 / 350 475 / 475 Balance 801 / 801 85 / 85 Intake: IV 200 / 200 Cipro 400 MG/200 ML Inj 400 mg 200 / 200 In 200 ml @ 200 mls/hr IV.SIG Q12H ESTHER Rx#:[id number] Oral 240 / 240 360 / 360 Oral Supplement 711 / 711 200 / 200 Output: Urine 250 / 250 Urine Amount (Catheter) 350 / 350 225 / 225 Indwelling Urethral Catheter 350 / 350 225 / 225 Other: # Incontinent Voids 2 Date of Last Bowel Movement 12/20/17 12/22/17 # Bowel Movements 0 # Incontinent Bowel Movements 1 <Cecelia Felton 12/22/17 09:44> Narrative: GENERAL: sleeping, in NAD. easy arousable SKIN: extended ecchymosis at different stages of healing noted on R hip extending to R leg. HEAD: Normocephalic and atraumatic. EYES: No scleral icterus. No injection or drainage. ENT: No nasal drainage noted. Mucous membranes pink. Airway patent. NECK: Supple, trachea midline. No JVD. CARDIOVASCULAR: Regular rate and rhythm without murmurs, gallops, or rubs. RESPIRATORY: Anterior chest auscultation w/ clear lungs. <Cecelia Felton 12/22/17 09:44> - Urinary Catheter Management Indwelling Urethral Catheter Cath placed during this visit: no <Gila Lovell - 12/22/17 15:31> yes <Cecelia Felton 12/22/17 09:44> Reason for continuing: Severe pressure ulcer/wound <Cecelia Felton 12/22/17 09 :44> Insertion date: 12/20/17 <Cecelia Felton 12/22/17 09:44> Insertion time: 04:56 <Cecelia Felton 12/22/17 09:44> Assessment and Plan - Assessment (1) Shortness of breath Code(s): R06.02 - Shortness of breath Status: Acute (2) Acute UTI Code(s): N39.0 - Urinary tract infection, site not specified Status: Acute (3) Neutropenia Code(s): D70.9 - Neutropenia, unspecified Status: Acute (4) Dementia Code(s): F03.90 - Unspecified dementia without behavioral disturbance Status: Chronic (5) Sacral decubitus ulcer Code(s): L89.159 - Pressure ulcer of sacral region, unspecified stage Status: Acute (6) Fracture of femur Code(s): S72.90XA - Unspecified fracture of unspecified femur, initial encounter for closed fracture Status: Chronic (7) Hypothyroid Code(s): E03.9 - Hypothyroidism, unspecified Status: Chronic (8) Pain Code(s): R52 - Pain, unspecified Status: Chronic (9) Nutrition, metabolism, and development symptoms Code(s): R63.8 - Other symptoms and signs concerning food and fluid intake Status: Acute (10) DVT prophylaxis Status: Acute <Gila Lovell R - 12/22/17 15:31> - Assessment and Plan 87 yr old female with PMH of hypothyroidism, HTN and a recently fixed R femur fracture, admitted for shortness of breath and oxygen desaturations into the 80' s. Pt brought in by EMS which documented O2 sat in the 70's. Pt clinically stable and in NAD. Palliative care involved as well as hospice. Pt will likely be discharged at home with hospice. Case management in communication with hospice and patients son on difficulty obtaining appropriate paperwork in order for him to authorize her to be admitted to hospice. Will followup with them and plan for discharge as soon as hospice is set up. Shortness of breath * Pt comfortably today with no oxygen on. * mask around patients chin. She is essentially without supplemental oxygen at this time due to compliance. UTI * Cultures growing Citrobacter freuindii, sensitive to Cipro * Received three days Ciprofloxacin 400mg IV q12hr. 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 Hx of femur fracture and associated pain * PT following * [place] 5/325mg q6 PRN Sacral ulcer * Present on admission, either stage 2-3 * Wound care assisting with care Hypothyroidism * Continue home levothyroxine of 88mcg daily Hypertension * Continue home lisinopril 20mg daily FEN/ DVT prophylaxis * Mechanical soft diet, with nurse note placed for assistance with eating * PO fluid intake * SCD bilateral and Heparin 5000 q12h Social/ disposition * Palliative care re-consulted to continue conversation regarding goals of care * Pt code status changed to DNR * Hospice involved, pt likely to go to hospice tomorrow Patient seen and discussed with Dr. Daniel and Dr. Radha Felton MS4 <Cecelia Felton - 12/22/17 09:44> - Attending Attestation The exam, history, and the medical decision-making described in the above note were completed with the assistance of the resident physician. I reviewed and agree with the findings presented. I attest that I had a [id number] encounter with the patient on the same day, and personally performed and documented my assessment and findings in the medical record. <Gila Lovell - 12/22/17 15:31> <Gila Lovell R - Last Filed: 12/22/17 15:31> (3) Neutropenia Qualifiers: Neutropenia type: unspecified Qualified Code(s): D70.9 - Neutropenia, unspecified (6) Fracture of femur Qualifiers: Encounter type: initial encounter Fracture type: closed Fracture morphology : spiral Laterality: right <Gila Lovell R - Last Filed: 12/22/17 15:31> (3) Neutropenia Qualifiers: Neutropenia type: unspecified Qualified Code(s): D70.9 - Neutropenia, unspecified (6) Fracture of femur Qualifiers: Encounter type: initial encounter Fracture type: closed Fracture morphology : spiral Laterality: right
[2017-12-22] MEDS: Furosemide 40 MG Tablet PO SCH (11:16)
[2017-12-22] MEDS: Lisinopril 20 MG Tablet PO SCH (11:16)
--- NOTE | 2017-12-22 12:36 | P.PNPAL ---
Reason for Visit Reason for visit: a. To assist with evaluation and management of symptoms including:dyspnea, pain , debility b. To assist medical decision maker(s) with: better understanding of current medical conditions; weighing benefits/burdens of medical treatment options; making medical treatment decisions. Subjective Subjective/Interval History: Mrs. 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 She was previously admitted to [facility] on 11/21 for a fall that resulted in a right hip and humerus fracture. She had a somewhat prolonged recovery, and was sent to rehab approximately 2 weeks ago. The patient's son, who is her primary caregiver, removed her from rehab stating she was being treated poorly. She was to receive home health care and upon their evaluation today the patient was noted to be desaturating into the 80s. She was brought via [facility] to the emergency room with a pulse ox in the mid 70s. She was placed on 2 L nasal cannula and quickly recuperated to pulse ox of 98%. She was admitted for further evaluation and treatment. 12/22/17 Patient seen today in follow-up of symptom management and continue to assist patient/decision maker with goals. Patient's son Kartik at bedside. Goals remain clear son Kartik would like to concentrate on comfort measures. Would like to continue with original plan of sending his mother home with hospice with himself as the primary director of patient care. Today patient is alert though still pleasantly confused. She is amenable to exam and again denies any pain or discomfort. Currently on room air. No overt changes in laboratory findings or clinical status. Family/Friend Interactions: Hospice was able to communicate with daughter, Jesenia. She is in agreement's with her brother, Kartik in making goals comfort oriented. She is amenable to hospice and [facility] will have a meeting at bedside later today. Advance Directives Advance Directives Date on File: 12/07/17 (Community DNR) Documented care wishes:: Patient does not have a current documented living will or advanced directive. On her previous admission her son Kartik and daughter Jesenia agreed on a community DNR status. A copy of this is located in the EMR. Significant change in goals:: Goals remain comfort oriented Objective Vital Signs: Vital Signs 12/21/17 16:00 12/21/17 20:00 12/22/17 00:00 Temperature 98.2 F 98.7 F 97.1 F L Pulse Rate 83 79 80 Respiratory Rate 16 20 20 Blood Pressure 142/62 H 115/77 140/59 L Pulse Oximetry 94 L 93 L 94 L 12/22/17 04:00 12/22/17 04:10 12/22/17 07:51 Temperature 97.7 F 98.9 F Pulse Rate 78 69 83 Respiratory Rate 19 19 Blood Pressure 160/77 H 143/63 H Pulse Oximetry 96 96 12/22/17 08:00 12/22/17 12:00 Temperature 99.0 F Pulse Rate 87 Respiratory Rate 16 Blood Pressure 149/60 H Pulse Oximetry 96 92 L Intake & Output 12/21/17 12/22/17 12/22/17 18:59 06:59 18:59 Intake Total 1151 / 1151 560 / 560 Output Total 350 / 350 475 / 475 Balance 801 / 801 85 / 85 Intake: IV 200 / 200 Cipro 400 MG/200 ML Inj 400 mg 200 / 200 In 200 ml @ 200 mls/hr IV.SIG Q12H ESTHER Rx#:[id number] Oral 240 / 240 360 / 360 Oral Supplement 711 / 711 200 / 200 Output: Urine 250 / 250 Urine Amount (Catheter) 350 / 350 225 / 225 Indwelling Urethral Catheter 350 / 350 225 / 225 Other: # Incontinent Voids 2 Date of Last Bowel Movement 12/20/17 12/22/17 12/22/17 # Bowel Movements 0 # Incontinent Bowel Movements 1 Physical Exam: CONSTITUTIONAL/GENERAL: Frail, in no apparent distress. ENT: Hard of hearing. Nose without bleeding or purulent drainage. Throat without visible erythema, exudates, masses, or lesions. Oral mucosa dry CARDIOVASCULAR: Regular rate and rhythm without murmurs, gallops, or rubs. No JVD. Peripheral pulses symmetric. RESPIRATORY/CHEST: Symmetric, unlabored respirations. Clear to auscultation. Breath sounds equal bilaterally. No wheezes, rales, or rhonchi. GASTROINTESTINAL: Abdomen soft and non-distended Bowel sounds present. GENITOURINARY: Without palpable bladder distension. Rowley catheter in place. MUSCULOSKELETAL: Extremities without clubbing, cyanosis, or edema. No joint tenderness or effusion noted. No calf tenderness. No mottling or clubbing. NEUROLOGICAL: Awake and alert. Motor and sensory grossly intact. Follows commands. Forgetful but pleasant. Moves all extremities. PSYCHIATRIC: No obvious anxiety/depression. no apparent hallucinations or other psychotic thought process. Diagnostic Tests Laboratory: Laboratory Results - last 72 hr 12/19/17 12/19/17 12/19/17 12:28 12:28 12:28 WBC 7.5 RBC 3.32 L Hgb 10.3 L Hct 30.8 L MCV 92.9 MCH 31.1 MCHC 33.5 RDW 16.9 Plt Count 163 MPV 6.9 L Prelim Diff (Auto) Slide review pending Neut % (Auto) 5.3 L Lymph % (Auto) 82.8 H Runnels % (Auto) 11.1 H Eos % (Auto) 0.6 Baso % (Auto) 0.2 Neut # (Auto) 0.4 L* Lymph # (Auto) 6.2 H Runnels # (Auto) 0.8 Eos # (Auto) 0.0 Baso # (Auto) 0.0 WBC Differential Manual diff final Seg Neuts % (Manual) 5 L Band Neuts % (Manual) 1 Lymphocytes % (Manual) 89 H Monocytes % (Manual) 4 Eosinophils % (Manual) 1 Basophils % (Manual) Abs Neuts (Manual) 0.5 L* Differential Comment . Smudge Cells Platelet Estimate Normal Platelet Morphology Normal Tear Drop Cells [place] Cells Acanthocytes (Spur) PT 11.6 INR 1.1 APTT 27.2 Sodium 135 L Potassium 4.9 Chloride 103 Carbon Dioxide 23.7 Anion Gap 8 BUN 26 H Creatinine 0.73 Estimated GFR 75 L Random Glucose 116 H Calcium 7.7 L Total Bilirubin 1.4 H AST 39 H ALT 16 Alkaline Phosphatase 124 H Total Creatine Kinase 122 CK-MB (CK-2) 1.1 Troponin I Less than 0.02 L B-Natriuretic Peptide Total Protein 5.8 L Albumin 2.7 L Urine Color Urine Clarity Urine pH Ur Specific [place] Urine Protein Urine Glucose (UA) Urine Ketones Urine Occult Blood Urine Nitrate Urine Bilirubin Urine Urobilinogen Ur Leukocyte Esterase Urine RBC Urine WBC Ur Squamous Epith Cells Urine Bacteria Micro UA Comment Ur Microscopic Review Urine Culture Comments 12/19/17 12/19/17 12/19/17 12:28 12:28 19:40 WBC RBC Hgb Hct MCV MCH MCHC RDW Plt Count MPV Prelim Diff (Auto) Neut % (Auto) Lymph % (Auto) Runnels % (Auto) Eos % (Auto) Baso % (Auto) Neut # (Auto) Lymph # (Auto) Runnels # (Auto) Eos # (Auto) Baso # (Auto) WBC Differential Seg Neuts % (Manual) Band Neuts % (Manual) Lymphocytes % (Manual) Monocytes % (Manual) Eosinophils % (Manual) Basophils % (Manual) Abs Neuts (Manual) Differential Comment Smudge Cells Platelet Estimate Platelet Morphology Tear Drop Cells [place] Cells Acanthocytes (Spur) PT INR APTT Sodium Potassium Chloride Carbon Dioxide Anion Gap BUN Creatinine Estimated GFR Random Glucose Calcium Total Bilirubin AST ALT Alkaline Phosphatase Total Creatine Kinase CK-MB (CK-2) Troponin I Less than 0.02 L B-Natriuretic Peptide 363 H Total Protein Albumin Urine Color Lara Urine Clarity Hazy H Urine pH 5.0 Ur Specific [place] 1.013 Urine Protein Negative Urine Glucose (UA) Negative Urine Ketones Negative Urine Occult Blood Negative Urine Nitrate Positive H Urine Bilirubin Negative Urine Urobilinogen Less than 2 Ur Leukocyte Esterase Small H Urine RBC 1 Urine WBC 24 H Ur Squamous Epith Cells <1 Urine Bacteria Moderate H Micro UA Comment Cath-culture ind Ur Microscopic Review Not Reportable Urine Culture Comments Cath-cult indicated 12/20/17 12/20/17 12/21/17 06:34 06:34 05:37 WBC 5.4 6.5 RBC 2.90 L 2.54 L Hgb 9.0 L 7.9 L Hct 26.7 L 23.0 L MCV 92.0 90.6 MCH 31.2 31.3 MCHC 33.9 34.5 RDW 16.4 16.5 Plt Count 125 L 114 L MPV 6.7 L 6.5 L Prelim Diff (Auto) Slide review pending Neut % (Auto) 7.1 L Lymph % (Auto) 81.2 H Runnels % (Auto) 10.5 H Eos % (Auto) 1.0 Baso % (Auto) 0.2 Neut # (Auto) 0.4 L* Lymph # (Auto) 4.4 Runnels # (Auto) 0.6 Eos # (Auto) 0.1 Baso # (Auto) 0.0 WBC Differential Manual diff final Seg Neuts % (Manual) 4 L Band Neuts % (Manual) Lymphocytes % (Manual) 84 H Monocytes % (Manual) 11 H Eosinophils % (Manual) 1 Basophils % (Manual) Abs Neuts (Manual) 0.2 L* Differential Comment . Smudge Cells Platelet Estimate Low L Platelet Morphology Normal Tear Drop Cells [place] Cells 1+ H Acanthocytes (Spur) Occ H PT INR APTT Sodium 139 Potassium 3.6 D Chloride 99 Carbon Dioxide 26.2 Anion Gap 14 BUN 24 H Creatinine 0.62 Estimated GFR Greater than 89 Random Glucose 112 H Calcium 7.6 L Total Bilirubin 1.1 H AST 20 ALT 12 Alkaline Phosphatase 110 Total Creatine Kinase CK-MB (CK-2) Troponin I Less than 0.02 L B-Natriuretic Peptide Total Protein 5.3 L Albumin 2.6 L Urine Color Urine Clarity Urine pH Ur Specific [place] Urine Protein Urine Glucose (UA) Urine Ketones Urine Occult Blood Urine Nitrate Urine Bilirubin Urine Urobilinogen Ur Leukocyte Esterase Urine RBC Urine WBC Ur Squamous Epith Cells Urine Bacteria Micro UA Comment Ur Microscopic Review Urine Culture Comments 12/22/17 04:36 WBC 6.4 RBC 2.54 L Hgb 8.0 L Hct 23.0 L MCV 90.8 MCH 31.5 MCHC 34.6 RDW 16.5 Plt Count 117 L MPV 6.8 L Prelim Diff (Auto) Manual diff required Neut % (Auto) Lymph % (Auto) Runnels % (Auto) Eos % (Auto) Baso % (Auto) Neut # (Auto) Lymph # (Auto) Runnels # (Auto) Eos # (Auto) Baso # (Auto) WBC Differential Manual diff final Seg Neuts % (Manual) 27 Band Neuts % (Manual) 2 Lymphocytes % (Manual) 69 H Monocytes % (Manual) 1 Eosinophils % (Manual) Basophils % (Manual) 1 Abs Neuts (Manual) 1.9 Differential Comment . Smudge Cells Present H Platelet Estimate Low L Platelet Morphology Normal Tear Drop Cells 1+ H [place] Cells Acanthocytes (Spur) PT INR APTT Sodium Potassium Chloride Carbon Dioxide Anion Gap BUN Creatinine Estimated GFR Random Glucose Calcium Total Bilirubin AST ALT Alkaline Phosphatase Total Creatine Kinase CK-MB (CK-2) Troponin I B-Natriuretic Peptide Total Protein Albumin Urine Color Urine Clarity Urine pH Ur Specific [place] Urine Protein Urine Glucose (UA) Urine Ketones Urine Occult Blood Urine Nitrate Urine Bilirubin Urine Urobilinogen Ur Leukocyte Esterase Urine RBC Urine WBC Ur Squamous Epith Cells Urine Bacteria Micro UA Comment Ur Microscopic Review Urine Culture Comments Result Diagrams: 12/22/17 04:36 12/20/17 06:34 Microbiology: Microbiology 10/08/18 12:28 Urine Culture - Final Catheterized Urine Citrobacter freundii Imaging: Impressions Femur X-Ray 12/20/17 00:00 CONCLUSION: Good position and alignment on this postoperative study. Assessment and Plan - Symptom Scale (1) Pain 0-10 Scale: 0 Comment: currently denies pain (2) Dyspnea 0-10 Scale: Unable to quantify Comment: denies SOB, currently on room air (3) Debility 0-10 Scale: Unable to quantify Comment: Can no longer ambulate since 11/21/17 Pertinent Non-Medical Issues: Psychosocial: Patient is originally from [place]. She has lived in [place] for the past 10-15 years, first in [place] and more recently in the [facility] ER. 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 Her from a stroke which was a complication following heart transplant. She has 3 children, she remains in close communication with her son Kartik. Her two daughters Jesenia and Leah she does not remain in close contact with. She also has a sister in [place] in [place] with whom she remains in close contact. Spiritual: Orthodox Legal: The patient is currently not able to participate in her own medical decisions. Does not appear that she will regain this ability. He does not have an advanced directive for healthcare surrogate completed. Per [place] statutes legal decision making falls majority of her 3 adult children. In close communication with her son Kartik which whom she lives with. Previous admissions her son daughter Jesenia indicated she would like to participate in healthcare decision making. Her daughter Leah declined to participate. Phone call was placed and message left for Jesenia to call regarding if she would like to participate in making decisions for her mother during this admission. Hospice was able to speak with Jesenia, she is agreeable to comfort measures only Ethical issues impacting care: No known ethical issues impacting care at this time Important Contacts: Kartik Walker, son/HCP [phone] Jesenia Calhoun, daughter/HCP [phone] or [phone] Prognosis: Given her advanced age, prolonged bedbound status, acutely ill state and downward trajectory, the patient remains at high risk for ongoing complications and setbacks which would ultimately result in continued deterioration and Code Status: No Code DNR Plan: * LEGAL DECISION MAKER -in the absence of a written advanced directive, per [place] statutes healthcare decision making falls to the majority of her adult children. Remains in close contact with her son Kartik which home she lives with. Left message with her daughter Jesenia to see if she wishes to participate in her mother's care. On her previous admission Jesenia expressed wanting to be involved in healthcare decision making. Her other daughter Leah declined to participate. * GOALS - Previously her son and daughter were able to agree on decisions for her. Son, Kartik states that ultimately he would like to have his mom at home where she can be comfortable in her own surroundings. He would like to be able to care for her with the aid of Hospice at home and just keep her comfortable. He has agreed to hospice, as well as his sister Jesenia * CODE STATUS -DNR CODE STATUS was changed per conversation with son Kartik at bedside. On previous admission community DNR was signed by both Kartik and Jesenia. Copy is available in electronic medical record. * SYMPTOMS - Debility -patient continues to decline from her admission on . She previously was walking with a rolling walker at home. Since discharge approximately 2 weeks ago she has received limited physical therapy and has not been ambulatory. She now has large unstageable sacral wound with bone palpable. She also appears to be protein malnourished which does not aid in wound healing. As goals are not comfort oriented. Would suggest letting patient go home with hospice. Pain -the patient does not to be in any acute pain at this time. When asked if she is in pain she denies. PRN [facility] for any residual hip pain. Suspect that as her sacral wound increases her pain may continue to worsen. For now current opioid appears adequate. Dyspnea -patient not currently exhibiting signs of distress. Remains on 2 L nasal cannula. Echo pending. Continue with diuretic therapy as needed. * Palliative care will continue to follow during hospital course as condition evolves, to assist patient/decision maker with understanding of medical conditions, weighing benefits/burdens of treatment options, for clarification of goals of treatment. Additionally will assist with any symptoms of palliative concern. Attestation Collaborating MD Comments: dual visit wing Montoya APRN. Concur w above documentation Attestation: To help prompt me to consider important information that might be impacting today's encounter and assessment, information from prior notes written by myself or my colleagues may have been "brought forward" into today's note. My signature on this note, however, is an attestation that I personally performed the exam, history, and/or decision-making noted today, and, unless otherwise indicated, the interactions with patient, family, and staff as well as the review of records all occurred today. I also attest that the listed assessment and stated plan reflect my best clinical judgment today based on the combination of historical information, prior notes, and today's exam/ interactions. When time spent is documented, it refers only to time spent today by the signer, or if indicated, combined time spent today by collaborating physician/nurse practitioner.
[2017-12-23] MEDS: Heparin - SQ 10,000 UNITS/ML Vial SQ SCH (05:57)
[2017-12-23] MEDS: Levothyroxine 88 MCG Tablet PO SCH (05:57)
[2017-12-23 10:20] VITALS: BP 128/59; PULSE 73; RESP 16; TEMP 97.7
--- NOTE | 2017-12-23 10:26 | P.PNFP ---
Subjective Interval history: Patient examined independently from resident physicians and medical student. She is lying in bed comfortably in no obvious distress. She is sleeping. She does open her eyes when asked, but did not answer questions this morning. <Angelo Villanueva - 12/23/17 11:15> Patient comfortably resting while being examined. No concerns. <Cecelia Felton - 12/23/17 10:36> Results - Labs Result diagrams: 12/22/17 04:36 12/20/17 06:34 <Angelo Villanueva - 12/23/17 11:15> Physical Exam Vital signs: Vital Signs 12/22/17 12:00 12/22/17 17:11 12/22/17 17:18 Temperature 99.0 F 99.4 F Pulse Rate 87 90 Respiratory Rate 16 20 Blood Pressure 149/60 H 135/61 Pulse Oximetry 92 L 93 L 12/22/17 19:57 12/22/17 20:00 12/22/17 23:59 Temperature 97.3 F L Pulse Rate 82 79 74 Respiratory Rate 19 Blood Pressure 146/69 H Pulse Oximetry 93 L 12/23/17 00:00 12/23/17 04:00 12/23/17 08:00 Temperature 97.7 F 98.0 F 97.7 F Pulse Rate 74 71 73 Respiratory Rate 18 18 16 Blood Pressure 126/60 148/65 H 128/59 L Pulse Oximetry 92 L 93 L 91 L Intake & Output 12/22/17 12/23/17 12/23/17 18:59 06:59 18:59 Intake Total 480 / 480 Output Total 450 / 450 650 / 650 Balance 30 / 30 -650 / -650 Weight 49.6 kg Intake: Oral 480 / 480 Output: Urine 450 / 450 325 / 325 Urine Amount (Catheter) 325 / 325 Indwelling Urethral Catheter 325 / 325 Other: Date of Last Bowel Movement 12/22/17 12/22/17 12/23/17 # Bowel Movements 2 # Incontinent Bowel Movements 1 <Angelo Villanueva - 12/23/17 11:15> Vital Signs 12/22/17 12:00 12/22/17 17:11 12/22/17 17:18 Temperature 99.0 F 99.4 F Pulse Rate 87 90 Respiratory Rate 16 20 Blood Pressure 149/60 H 135/61 Pulse Oximetry 92 L 93 L 12/22/17 19:57 12/22/17 20:00 12/22/17 23:59 Temperature 97.3 F L Pulse Rate 82 79 74 Respiratory Rate 19 Blood Pressure 146/69 H Pulse Oximetry 93 L 12/23/17 00:00 12/23/17 04:00 12/23/17 08:00 Temperature 97.7 F 98.0 F 97.7 F Pulse Rate 74 71 73 Respiratory Rate 18 18 16 Blood Pressure 126/60 148/65 H 128/59 L Pulse Oximetry 92 L 93 L 96 Intake & Output 12/22/17 12/23/17 12/23/17 18:59 06:59 18:59 Intake Total 480 / 480 Output Total 450 / 450 650 / 650 Balance 30 / 30 -650 / -650 Weight 49.6 kg Intake: Oral 480 / 480 Output: Urine 450 / 450 325 / 325 Urine Amount (Catheter) 325 / 325 Indwelling Urethral Catheter 325 / 325 Other: Date of Last Bowel Movement 12/22/17 12/22/17 # Bowel Movements 2 # Incontinent Bowel Movements 1 <Cecelia Felton - 12/23/17 10:26> Narrative: General: Lying in bed, sleeping comfortably Skin: Scattered areas of ecchymosis with no acute lesions or breakdown CV: Regular rate and rhythm without murmur Pulmonary: Clear to auscultation anteriorly without distress. <Angelo Villanueva - 12/23/17 11:15> GENERAL: sleeping, in NAD SKIN: extended ecchymosis at different stages of healing noted on R hip extending to R leg. HEAD: Normocephalic and atraumatic. NECK: No JVD. CARDIOVASCULAR: Regular rate and rhythm without murmurs, gallops, or rubs. RESPIRATORY: Anterior chest auscultation w/ clear lungs. No signs of respiratory distress. <Cecelia Felton - 12/23/17 10:36> - Urinary Catheter Management Indwelling Urethral Catheter Cath placed during this visit: no <Angelo Villanueva 12/23/17 11:15> yes <Cecelia Felton 12/23/17 10:36> Reason for continuing: Severe pressure ulcer/wound <Cecelia Felton 12/23/17 10 :26> Insertion date: 12/20/17 <Cecelia Felton 12/23/17 10:26> Insertion time: 04:56 <Cecelia Felton - 12/23/17 10:26> Assessment and Plan - Assessment (1) Shortness of breath Code(s): R06.02 - Shortness of breath Status: Acute (2) Acute UTI Code(s): N39.0 - Urinary tract infection, site not specified Status: Resolved (3) Neutropenia Code(s): D70.9 - Neutropenia, unspecified Status: Resolved (4) Dementia Code(s): F03.90 - Unspecified dementia without behavioral disturbance Status: Chronic (5) Sacral decubitus ulcer Code(s): L89.159 - Pressure ulcer of sacral region, unspecified stage Status: Chronic (6) Fracture of femur Code(s): S72.90XA - Unspecified fracture of unspecified femur, initial encounter for closed fracture Status: Chronic (7) Hypothyroid Code(s): E03.9 - Hypothyroidism, unspecified Status: Chronic (8) Pain Code(s): R52 - Pain, unspecified Status: Chronic (9) Nutrition, metabolism, and development symptoms Code(s): R63.8 - Other symptoms and signs concerning food and fluid intake Status: Acute (10) DVT prophylaxis Status: Acute <Angelo Villanueva - 12/23/17 11:15> - Assessment and Plan Plan: patient to be discharged to home with hospice. Patient seen and discussed with Dr. Daniel, Dr. Burrows, Dr Kay Felton MS4 <Cecelia Felton - 12/23/17 10:36> - Attending Attestation Patient examined independently from resident physicians and medical student I have read the above documentation and agree with the assessment/plan as discussed with me I was involved in all medical decision making for this patient Case was discussed with case management who states that hospice has delivered a medical bed to the home and plans to transport patient later this morning to home under the management of hospice care. Angelo Villanueva MD <Angelo Villanueva - 12/23/17 11:15> <Angelo Villanueva - Last Filed: 12/23/17 11:15> (3) Neutropenia Qualifiers: Neutropenia type: unspecified Qualified Code(s): D70.9 - Neutropenia, unspecified (6) Fracture of femur Qualifiers: Encounter type: initial encounter Fracture type: closed Fracture morphology : spiral Laterality: right <KayAngelo - Last Filed: 12/23/17 11:15> (3) Neutropenia Qualifiers: Neutropenia type: unspecified Qualified Code(s): D70.9 - Neutropenia, unspecified (6) Fracture of femur Qualifiers: Encounter type: initial encounter Fracture type: closed Fracture morphology : spiral Laterality: right
[2017-12-23 10:47] VITALS: O2SAT 91
[2017-12-23] MEDS: Furosemide 40 MG Tablet PO SCH (10:58)
--- NOTE | 2017-12-23 10:58 | P.DS ---
Date of admission: 12/19/17 16:14 Primary care physician: UNKNOWN Brief History from admission: 87 yr old female recently discharged from our service 2 weeks ago, presenting to ED with shortness of breath and low oxygen saturation at home. Pt had a R femur fracture last month and underwent femur reduction and intramedullary nail fixation by Dr. Boogie, subsequently went to rehab from where she was taken out due to not receiving appropriate care per her son. Pt was a poor candidate for rehab per PT notes, but son insisted on rehabilitation at that time. Pt was then receiving Home health, today during her PT evaluation, she was noted to have O2 saturation in the 80's. On her way to the hospital she was in saturations around 70's. Pt rapidly corrects to 98-100 on 2L of oxygen. She is not short of breath currently. Pt is very difficult to communicate with, she has underline dementia and is hard of hearing, most of the history is provided by her son. According to son, he could tell her mom had "fluid in her lungs" by hearing her breath, she also was having foul smelling urine this past weekend and was put on antibiotics by her PCP, son does not remember what kind. She was having some lose stools as well, and son states her sacral ulcer wound has been worsening at the rehab facility. DS: Diagnosis - Discharge Diagnosis (1) Shortness of breath Status: Acute (2) Acute UTI Status: Resolved (3) Neutropenia Status: Resolved (4) Dementia Status: Chronic (5) Sacral decubitus ulcer Status: Chronic (6) Fracture of femur Status: Chronic (7) Hypothyroid Status: Chronic (8) Pain Status: Chronic (9) Nutrition, metabolism, and development symptoms Status: Acute (10) DVT prophylaxis Status: Acute DS: Summary Hospital Course: 87 yr old female w/ dementia, hypothyroidism, and CLL not on treatment, previously discharged from our service 2 weeks prior after a hip fracture and TIA/CVA, admitted with SOB and desaturations into the 70's, presenting with neutropenia and a UTI. Pt also has a large sacral ulcer. Pt found to have large bilateral pleural effusions treated with lasix, which seem to improve her shortness of breath. Pt received IV ciprofloxacin for her UTI, neutropenia resolved on its own. During this hospitalization, pt's mental status declined and Palliative care was involved to help decide further course of action. Pt was change to DNR and transitioned to hospice. - Time Spent with Patient Total time spent providing and/or coordinating discharge services: Less than 30 minutes - Quality: VTE Deep Vein Thrombosis/Pulmonary Embolism Present on Admission: No Exam Vital signs: Vital Signs 12/22/17 12:00 12/22/17 17:11 12/22/17 17:18 Temperature 99.0 F 99.4 F Pulse Rate 87 90 Respiratory Rate 16 20 Blood Pressure 149/60 H 135/61 Pulse Oximetry 92 L 93 L 12/22/17 19:57 12/22/17 20:00 12/22/17 23:59 Temperature 97.3 F L Pulse Rate 82 79 74 Respiratory Rate 19 Blood Pressure 146/69 H Pulse Oximetry 93 L 12/23/17 00:00 12/23/17 04:00 12/23/17 08:00 Temperature 97.7 F 98.0 F 97.7 F Pulse Rate 74 71 73 Respiratory Rate 18 18 16 Blood Pressure 126/60 148/65 H 128/59 L Pulse Oximetry 92 L 93 L 91 L Intake & Output 12/22/17 12/23/17 12/23/17 18:59 06:59 18:59 Intake Total 480 / 480 Output Total 450 / 450 650 / 650 Balance 30 / 30 -650 / -650 Weight 49.6 kg Intake: Oral 480 / 480 Output: Urine 450 / 450 325 / 325 Urine Amount (Catheter) 325 / 325 Indwelling Urethral Catheter 325 / 325 Other: Date of Last Bowel Movement 12/22/17 12/22/17 # Bowel Movements 2 # Incontinent Bowel Movements 1 Narrative: GENERAL: sleeping, in NAD. CARDIOVASCULAR: Regular rate and rhythm without murmurs, gallops, or rubs. RESPIRATORY: Anterior chest auscultation w/ clear lungs. EXTREMITIES: No cyanosis or edema. Results Procedures completed during hospitalization: None - Impressions ITS Impressions Chest X-Ray 12/19/17 12:04 CONCLUSION: Cardiomegaly with intra-alveolar pulmonary edema and small effusions. Chest CTA 12/19/17 12:05 CONCLUSION: 1. Moderate to large bilateral pleural effusions. 2. No evidence for pulmonary embolism. 3. Bibasilar consolidation likely atelectasis. 4. Splenomegaly. Abdomen Ultrasound 12/20/17 00:00 CONCLUSION: 1. Moderate splenomegaly with no focal mass. 2. Small amount of ascitic fluid. 3. The kidneys are small and atrophic in appearance with increased echogenicity characteristic of medical renal disease. There is a small simple appearing cyst in the right kidney. Femur X-Ray 12/20/17 00:00 CONCLUSION: Good position and alignment on this postoperative study. Venous Doppler Study 12/20/17 00:00 CONCLUSION: 1. Limited examination due to patient's inability to cooperate with examination. 2. Otherwise, no sonographic evidence for right lower extremity DVT. Discharge Plan - Discharge Disposition Patient Disposition: 50 Hospice/Home - Discharge Condition Condition: Good - Discharge Order Discharge Orders: Discharge Order (Routine); Ordered 12/23/17 Ordered By: Rubi Cortes - Physicians Team Primary Care Provider: UNKNOWN, Attending Provider: Gila Lovell Other Providers: Rich Butler MD ; Vinita Iglesias MD ; Dar Boogie MD
[2017-12-23] MEDS: Lisinopril 20 MG Tablet PO SCH (10:59)
== END 2017-12-23 13:24 | disposition hospice, home (50) ==
LOC: NEPE 11:57 → NEDA 16:14 → N06 17:42
PROVIDERS: ADMIT Family Medicine; ATTEND Family Medicine